=== PATIENT | male | born 1975 | race American Indian/Alaskan Native ===

== ENCOUNTER 2018-04-26 11:23 | Inpatient (IN) | payer SELFPAY ==
--- NOTE | 2018-04-26 11:53 | C.PDOC ---
History Of Present Illness Patient BIBA from home for evaluation of elevated blood sugar at home, states glucometer has been reading "high" for the last 3 days. Patient has PMhx of recent CVA 3 [place] [facility] [place] residual right sided weakness (R leg) and dysarthria. He was [place] [facility] [place], and discharged approx 1 week ago. He has also not been dialyzed for 2 weeks, has right chest dialysis port inserted. Patient is c/o right sided worsened weakness right leg, right sided pain, and right sided shaking/tremors since yest. Time Seen by Provider: 04/26/18 11:26 Chief Complaint (Nursing): High Blood Sugar Past Medical History Vital Signs: Last Vital Signs Temp 97.8 F 04/28/18 08:00 Pulse 108 H 04/28/18 10:30 Resp 0 L 04/28/18 10:30 BP 167/112 H 04/28/18 11:00 Pulse Ox 100 04/29/18 18:30 - Medical History PMH: Diabetes, HTN, End Stage Renal Disease Family History: States: Unknown Family Hx - Social History Hx Tobacco Use: No Hx Alcohol Use: Yes Hx Substance Use: No - Immunization History Hx Tetanus Toxoid Vaccination: Yes Hx Influenza Vaccination: No Hx Pneumococcal Vaccination: No Physical Exam - Physical Exam Appears: Non-toxic, Other (in mild discomfort) Skin: Normal Color, Warm, Dry Head: Atraumatic, Normacephalic Eye(s): right: PERRL, EOMI, left: Other (abnormal cornea/pupil (chronic)) Oral Mucosa: Moist Chest: Other (right upper chest Shiley catheter) Cardiovascular: Rhythm Regular Respiratory: Normal Breath Sounds, No Rales, No Rhonchi, No Wheezing Extremity: Bilateral: Atraumatic, Normal Color And Temperature, Normal ROM Neurological/Psych: Oriented x3, No Normal Speech (dysarthria (chronic)), Normal Cognition, No Normal Cranial Nerves (right tongue deviation), No Normal Motor (4/5 motor strength RLE), Normal Sensation, No Expressive Aphasia, No Receptive Aphasia, Dysarthria, No Romberg ED Course And Treatment - Laboratory Results Result Diagrams: 04/28/18 06:24 04/28/18 06:24 ECG: Interpreted By Me, Viewed By Me (NSR 99bpm, left axis deviation, T wave inversions V2, V6, peaked T waves, no acute ST changes ) ECG Interpretation: Abnormal O2 Sat by Pulse Oximetry: 100 (RA) Pulse Ox Interpretation: Normal - Radiology CXR: Interpreted by Me, Viewed By Me (B/L infiltrates vs pulm edema) Progress Note: Blood work, CT/CTA head, EKG, CXR, VBG ordered and reviewed. Patient given IV NS bolus, IV insulin, IV calcium gluconate, IV sodium bicarb. On return from CT scan, patient witnessed by nurses to have right sided tremors/ shaking, ? partial seizures - IV ativan and IV dilatin given. CXR shows B/L infiltrates vs pulm edema - broad spectrum antibiotics given. Hgb 6.5 with (+) guaiac stool. 1 Unit PRBCs ordered and IV protonix given. Discussed patient with Dr. Jones, recommends insulin drip (for possible DKA) + IV fluids. Pending call back from Dr. Carlisle/Corky for emergent hemodialysis. - Physician Consult Information Physician Contacted: Wendy Munoz Outcome Of Conversation: Discussed patient with hospitalist, agrees with admission to her service. Critical Care Time - Critical Care Note Total Time (in mins): 50 Documented critical care: time excludes all time spent performing seperately billable procedures. NIHSS Stroke Scale - Date/Time Evaluation Performed Date Performed: 04/26/18 Time Performed: 11:45 - How Severe is the Stoke Level of Consciousness: 0=Alert LOC to Questions: 1=One correct LOC to commands: 0=Obeys both correctly Best Gaze: 0=Normal Visual: 0=No visual loss Facial: 1=Minor asymmetry Motor Arm - Left: 0=No drift Motor Arm - Right: 0=No drift Motor Leg - Left: 0=No drift Motor Leg - Right: 2=Falls before 5 sec Limb Ataxia: 0=Absent Sensory: 0=Normal Best Language: 0=No aphasia Dysarthia: 1=Mild to moderate slurring Extinction & Inattention (Neglect): 0=Normal, no object Score: 5 Severity Of Stroke: 5-15= Moderate Stroke rTPA Inclusion/Exclusion - Refusal of Treatment Patient Refused Treatment: No - Inclusion Criteria for Altepase Patient is 18 years or Older: Yes The Clinical Diagnosis of Ischemic Stroke That is Causing a Potentially Disabling Neurological Deficit: No Time of Onset is Well Established to be Less Than 270 Minute Before Treatment Would Begin: No Risk/Benefit Discussed With Patient/Family Member Present: No - Exclusion Criteria for Altepase Uncontrolled Hypertension at Time of Treatment (Systolic BP above 185 or Diastolic BP above 110 mmHg): Yes - Warning to TPA With Conditions Condition: Glucose Above 400 mg/dl, Seizure at Onset of Stroke Disposition - Disposition Disposition: HOSPITALIZED Disposition Time: 13:04 Condition: SERIOUS - Clinical Impression Clinical Impression: Focal seizures, DKA (diabetic ketoacidoses), Hyperglycemia, Hyperkalemia, Severe anemia, Guaiac + stool, Dehydration, Acute on chronic renal failure, CVA (cerebral vascular accident) Decision To Admit - Pt Status Changed To: Hospital Disposition Of: Inpatient - Admit Certification Admit to Inpatient:: After my assessment, the patient will require hospitalization for at least two midnights. This is because of the severity of symptoms shown, intensity of services needed, and/or the medical risk in this patient being treated as an outpatient. - InPatient: Physician Admission Certification: I certify that this patient requires 2 or more midnights of care for the following reason:: see notes - . Bed Request Type: ICU Admitting Physician: Wendy Munoz Patient Diagnosis: Focal seizures, DKA (diabetic ketoacidoses), Hyperglycemia, Hyperkalemia, Severe anemia, Guaiac + stool, Dehydration, Acute on chronic renal failure, CVA (cerebral vascular accident)
[2018-04-26 11:55] LABS: BASO # 0.1 K/uL (0.0-0.2); BASO % 1.2 % (0.0-2.0); EOS # 0.1 K/uL (0.0-0.7); EOS % 1.8 % (0.0-4.0); LYMPH # 1.2 K/uL (1.0-4.3); LYMPH % 15.4 % (20.0-40.0); MEAN CORPUSCULAR HEMOGLOBIN 24.9 pg (27.0-31.0); MEAN CORPUSCULAR HGB CONC 32.1 g/dL (33.0-37.0); MEAN PLATELET VOLUME 8.6 fL (7.2-11.7); MONO # 0.4 K/uL (0.0-0.8); MONO % 5.6 % (0.0-10.0); NEUT # 5.8 K/uL (1.8-7.0); RBC 2.61 Mil/uL (4.40-5.90); RED CELL DISTRIBUTION WIDTH 17.5 % (11.5-14.5); WHITE BLOOD COUNT 7.6 K/uL (4.8-10.8)
[2018-04-26] MEDS ORDERED: Iodixanol 320 MG/ML 100 ML BOTTLE IV ONE (11:56)
[2018-04-26 12:04] LABS: HEMOGLOBIN 6.5 g/dL (12.0-18.0); MEAN CELL VOLUME 77.5 fL (80.0-94.0)
[2018-04-26 12:05] LABS: INR 1.1; PROTHROMBIN TIME 11.7 SECONDS (9.7-12.2)
[2018-04-26 12:06] LABS: VENOUS BLOOD GAS PCO2 32 mmHg (40-60); VENOUS BLOOD GAS PO2 28 mm/Hg (30-55); VENOUS BLOOD PH 7.25 (7.32-7.43)
--- NOTE | 2018-04-26 12:14 | CT ---
Date of service: 04/26/2018 PROCEDURE: CT HEAD WITHOUT CONTRAST. HISTORY: Code Stroke COMPARISON: None available. TECHNIQUE: Axial computed tomography images were obtained through the head/brain without intravenous contrast. Radiation dose: Total exam DLP = 1556.64 mGy-cm. This CT exam was performed using one or more of the following dose reduction techniques: Automated exposure control, adjustment of the mA and/or kV according to patient size, and/or use of iterative reconstruction technique. FINDINGS: HEMORRHAGE: No intracranial hemorrhage. BRAIN: No mass effect or edema. No atrophy or chronic microvascular ischemic changes. VENTRICLES: There is dilatation of 3rd and lateral ventricles. The 4th ventricle is normal in diameter. The findings are suggestive of a noncommunicating hydrocephalus. There is no periventricular edema to suggest acute obstruction, however. The findings may indicate chronic hydrocephalus but there is no prior examination available to corroborate this. CALVARIUM: Unremarkable. PARANASAL SINUSES: Unremarkable as visualized. No significant inflammatory changes. MASTOID AIR CELLS: Unremarkable as visualized. No inflammatory changes. OTHER FINDINGS: None. IMPRESSION: Dilatation of the 3rd and lateral ventricles without no dilatation of the 4th ventricle. The findings likely indicate a noncommunicating hydrocephalus although communicating hydrocephalus must also be considered. Patient's were reported by telephone to nurse practitioner Tara at 12:07 p.m. on 04/26/2018.
[2018-04-26] MEDS ORDERED: Sodium Chloride 0.9% 1,000 ML IV ONE ×2 (12:15→13:15)
[2018-04-26 12:18] LABS: ALBUMIN 3.9 g/dL (3.5-5.0); CALCIUM 8.4 mg/dl (8.6-10.4)
[2018-04-26] MEDS ORDERED: Calcium Gluconate 4.65 MEQ in Dextrose 5% In Water 100 ML IV STA (12:20)
[2018-04-26 12:22] LABS: CK-MB 3.89 ng/mL (0.0-3.38); TROPONIN I 0.05 ng/mL (0.00-0.120)
[2018-04-26] MEDS ORDERED: Sodium Bicarbonate (8.4%) 50 Meq Syringe IVP STA (12:22)
[2018-04-26] MEDS ORDERED: (Novolin R) Insulin Human Regular 100 units/ml vial IV STA (12:22)
[2018-04-26] MEDS ORDERED: Calcium Gluconate 4.65 mEq/10 ml Inj ONE (12:30)
[2018-04-26] MEDS ORDERED: (Novolin R) Insulin Human Regular 100 units/ml vial ONE (12:30)
[2018-04-26] MEDS ORDERED: Sodium Bicarbonate (8.4%) 50 Meq Syringe ONE (12:30)
[2018-04-26] MEDS ORDERED: Sodium Chloride 0.9% 500 ML IV ONE ×2 (12:31→12:45)
--- NOTE | 2018-04-26 12:34 | CT ---
PROCEDURE: CTA HEAD AND NECK WITH CONTRAST HISTORY: code stroke COMPARISON: None available. TECHNIQUE: Initial noncontrast head CT was performed. Subsequently, CT angiogram of the head and neck were performed after the intravenous administration of 80 mL of Omnipaque 350. Contiguous 1.5mm thick images were obtained in the axial plane of the neck. 2-D coronal and sagittal MPR images were obtained. Imaging postprocessing was performed with 3-D images also obtained. A delayed contrast head CT was also obtained. This CT exam was performed using one or more of the following dose reduction techniques: Automated exposure control, adjustment of the mA and/or kV according to patient size, and/or use of iterative reconstruction technique. Contrast dose: 100 mL Visipaque 320 Radiation dose: Total exam DLP = 547.95 mGy-cm. FINDINGS: HEAD: Right: The intracranial internal carotid artery, and anterior and middle cerebral arteries are widely patent. Left: The intracranial internal carotid artery, and anterior and middle cerebral arteries are widely patent. Posterior circulation: The visualized intracranial vertebral arteries, basilar artery and posterior cerebral arteries are widely patent. There is no endoluminal filling defect to suggest thrombus. There is no intracranial saccular aneurysm. There is no abnormal enhancement on the postcontrast CT. NECK: There is a 4 vessel aortic arch with the left vertebral artery origin 18 from the aortic arch between the left common carotid and left subclavian arteries. There is no stenosis at the origins of the great vessels at the level of the aortic arch. Right Carotid: On the right, the common carotid, internal carotid and external carotid arteries are widely patent. There is no hemodynamically significant stenosis in the internal carotid artery by NASCET criteria. Left Carotid: On the left, the common carotid, internal carotid and external carotid arteries are widely patent.There is no hemodynamically significant stenosis in the internal carotid arteries. There is no hemodynamically significant stenosis in the internal carotid artery by NASCET criteria. The vertebral arteries are widely patent. The left vertebral artery is hypoplastic, an anatomic variant. The visualized soft tissues of the neck are normal. There is confluent airspace disease in both upper lobes. IMPRESSION: 1. No evidence of endoluminal thrombus,occlusion or definite significant stenosis in the intracranial arteries. 2. No evidence of hemodynamically significant stenosis in the internal carotid arteries. 3. Patent bilateral vertebral arteries. The left vertebral artery is hypoplastic, an anatomic variant. 4. Confluent airspace disease in the visualized upper lobes of the lungs concerning for multifocal pneumonia. Please correlate with chest radiograph.
--- NOTE | 2018-04-26 13:07 | CP.PCM.CON ---
History of Present Illness - History of Present Illness History of Present Illness: Neurology Consult Note for Dr. Manzano. CC: My throat felt like it was going to close up. This patient is a 43 year old male with a past medical history of HTN, Uncontrolled Diabetes, ESRD (on Dialysis 3x per week), and recent CVA w/ Right sided residual weakness (3 weeks ago) who presents due feeling like his throat was closing up and elevated blood sugars. ROS limited due to dysarthia altered and mental status. Code Stroke called at 11:43 for this patient. Per ER staff , patient had one seizure episode after getting a Head CT. Patient does admit to right sided upper and lower ext. weakness, trouble speaking, difficulty swallowing, abdominal pain, nausea, headache, vision changes and sensory loss. Patient states he has not had dialysis in 2 weeks. PMHx: HTN, Uncontrolled Diabetes, ESRD (on Dialysis 3x per week), recent CVA w/ Right sided residual weakness (3 weeks ago) PSHx: Left Eye Surgery (2017) Allergies: NKDA SocialHx: Denies tobacco, EtoH, and illicit drug use [place] [facility] [place] FamHx: Unknown Meds: per NOV. Review of Systems - Review of Systems All systems: reviewed and no additional remarkable complaints except (As per HPI ) Review of Systems: As per HPI Past Patient History - Past Social History Smoking Status: Never Smoked - CARDIAC Hx Hypertension: Yes - NEUROLOGICAL HX Cerebrovascular Accident: Yes (2 weeks ago) - HEENT Hx Blind: Yes (l eye) - RENAL Hx Dialysis: Yes Type of Dialysis Access: (R) chest port - PSYCHIATRIC Hx Substance Use: No Meds Allergies/Adverse Reactions: Allergies Allergy/AdvReac Type Severity Reaction Status Date / Time No Known Allergies Allergy Unverified 03/22/13 11:31 - Medications Medications: Current Medications Calcium Gluconate 4.65 meq/ (Dextrose) 110 mls @ 1 mls/min IV ONCE STA Stop: 04/26/18 14:09 Last Admin: 04/26/18 12:43 Dose: 1 mls/min Sodium Chloride (Sodium Chloride 0.9%) 500 mls @ 1,000 mls/hr IV .Q30M ONE Stop: 04/26/18 13:14 Last Admin: 04/26/18 12:47 Dose: 1,000 mls/hr Pantoprazole Sodium (Protonix Inj) 40 mg IVP STAT STA Stop: 04/26/18 13:07 Physical Exam - Constitutional Appears: Toxic, In Acute Distress, Older Than Stated Age, Chronically Ill - Head Exam Head Exam: ATRAUMATIC, NORMAL INSPECTION, NORMOCEPHALIC - Eye Exam Eye Exam: absent: Conjunctival injection, Normal appearance Pupil Exam: PERRL (Right Side) Additional comments: Left Sided Pupil/Iris Abnormality (Complication from lazer surgery per patient) - ENT Exam ENT Exam: Mucous Membranes Moist - Respiratory Exam Respiratory Exam: absent: Accessory Muscle Use - Cardiovascular Exam Cardiovascular Exam: JVD, RRR, +S1, +S2 - GI/Abdominal Exam GI & Abdominal Exam: Normal Bowel Sounds, Soft, Tenderness (Epigastric/RUQ) - Extremities Exam Extremities exam: Positive for: normal inspection - Neurological Exam Neurological exam: Altered - Expanded Neurological Exam Expanded Neurological exam: Ataxia, Tremor Patient oriented to: person, place, time Speech: Garbled Speech Cranial nerves: EOM's Intact: Normal, Facial Palsey w/Forehead Movement: Normal , Facial Palsey w/o Forehead Movement: Normal, Facial Sensation: Abnormal Right Ataxia: Yes Cerebellar Function: Finger to Nose: Abnormal Left, Abnormal Right Sensory exam: Lower Extremity Light Touch: Normal, Upper Extremity Light Touch: Normal Neuro motor strength exam: Left Upper Extremity: 5, Right Upper Extremity: 4, Left Lower Extremity: 5, Right Lower Extremity: 4 DTR: Patellar Left: 2+, Patellar Right: 2+, Tricep Left: 2+, Tricep Right: 2+ Coma Scale Eye Opening: SPONTANEOUS Coma Scale Motor Response: OBEYS COMMANDS Results - Vital Signs Recent Vital Signs: Last Vital Signs Temp Pulse 102 H 04/26/18 12:17 Resp 20 04/26/18 12:17 BP 184/108 H 04/26/18 12:17 Pulse Ox 100 04/26/18 12:17 - Labs Result Diagrams: 04/26/18 11:50 04/26/18 11:50 Labs: Laboratory Results - last 24 hr 04/26/18 04/26/18 04/26/18 11:50 11:50 11:50 WBC 7.6 RBC 2.61 L Hgb 6.5 L* D Hct 20.2 L MCV 77.5 L D MCH 24.9 L MCHC 32.1 L RDW 17.5 H Plt Count 263 MPV 8.6 Neut % (Auto) 76.0 H Lymph % (Auto) 15.4 L Thomas % (Auto) 5.6 Eos % (Auto) 1.8 Baso % (Auto) 1.2 Neut # (Auto) 5.8 Lymph # (Auto) 1.2 Thomas # (Auto) 0.4 Eos # (Auto) 0.1 Baso # (Auto) 0.1 PT 11.7 INR 1.1 APTT 47 H pO2 VBG pH VBG pCO2 VBG HCO3 VBG Total CO2 VBG O2 Sat (Calc) VBG Base Excess VBG Potassium Glucose Lactate Crit Value Called To Crit Value Called By Crit Value Read Back Blood Gas Notified Time Sodium 130 L Potassium 5.9 H Chloride 97 L Carbon Dioxide 13 L Anion Gap 26 H BUN 90 H Creatinine 8.7 H* Est GFR ( Amer) 8 Est GFR (Non-Af Amer) 7 Random Glucose 806 H* D Hemoglobin A1c Serum Osmolality Calcium 8.4 L Total Bilirubin 0.5 AST 18 ALT 17 L D Alkaline Phosphatase 106 Total Creatine Kinase 559 H CK-MB (Mass) 3.89 H Troponin I 0.0500 Total Protein 7.7 Albumin 3.9 Globulin 3.7 Albumin/Globulin Ratio 1.0 Triglycerides 185 H D Cholesterol 245 H LDL Cholesterol Direct 148 H HDL Cholesterol 28 L Venous Blood Potassium Stool Occult Blood B-Hydroxybutyrate 1.93 H Blood Type Antibody Screen 04/26/18 04/26/18 04/26/18 11:50 11:50 12:01 WBC RBC Hgb Hct MCV MCH MCHC RDW Plt Count MPV Neut % (Auto) Lymph % (Auto) Thomas % (Auto) Eos % (Auto) Baso % (Auto) Neut # (Auto) Lymph # (Auto) Thomas # (Auto) Eos # (Auto) Baso # (Auto) PT INR APTT pO2 28 L VBG pH 7.25 L VBG pCO2 32 L VBG HCO3 14.0 VBG Total CO2 15.0 L VBG O2 Sat (Calc) 63.2 VBG Base Excess -12.0 L VBG Potassium 5.7 H Glucose 613 H* Lactate 1.2 Crit Value Called To Dr mell navarro Crit Value Called By Marta castro product development director Crit Value Read Back Y Blood Gas Notified Time 1210 Sodium 130.0 L Potassium Chloride 99.0 Carbon Dioxide Anion Gap BUN Creatinine Est GFR ( Amer) Est GFR (Non-Af Amer) Random Glucose Hemoglobin A1c 11.2 H D Serum Osmolality Calcium Total Bilirubin AST ALT Alkaline Phosphatase Total Creatine Kinase CK-MB (Mass) Troponin I Total Protein Albumin Globulin Albumin/Globulin Ratio Triglycerides Cholesterol LDL Cholesterol Direct HDL Cholesterol Venous Blood Potassium 5.7 H Stool Occult Blood B-Hydroxybutyrate Blood Type O POSITIVE Antibody Screen Negative 04/26/18 04/26/18 12:35 12:36 WBC RBC Hgb Hct MCV MCH MCHC RDW Plt Count MPV Neut % (Auto) Lymph % (Auto) Thomas % (Auto) Eos % (Auto) Baso % (Auto) Neut # (Auto) Lymph # (Auto) Thomas # (Auto) Eos # (Auto) Baso # (Auto) PT INR APTT pO2 VBG pH VBG pCO2 VBG HCO3 VBG Total CO2 VBG O2 Sat (Calc) VBG Base Excess VBG Potassium Glucose Lactate Crit Value Called To Crit Value Called By Crit Value Read Back Blood Gas Notified Time Sodium Potassium Chloride Carbon Dioxide Anion Gap BUN Creatinine Est GFR ( Amer) Est GFR (Non-Af Amer) Random Glucose Hemoglobin A1c Serum Osmolality 360 H Calcium Total Bilirubin AST ALT Alkaline Phosphatase Total Creatine Kinase CK-MB (Mass) Troponin I Total Protein Albumin Globulin Albumin/Globulin Ratio Triglycerides Cholesterol LDL Cholesterol Direct HDL Cholesterol Venous Blood Potassium Stool Occult Blood Positive H B-Hydroxybutyrate Blood Type Antibody Screen Assessment & Plan - Assessment and Plan (Free Text) Assessment: 43 year old male with a past medical history of HTN, Uncontrolled Diabetes, ESRD (on Dialysis 3x per week), and recent CVA w/ Right sided residual weakness (3 weeks ago) who presents due feeling like his throat was closing up and elevated blood sugars. Neurology consulted due to code stroke. Patient had witnessed seizure post head CT. Plan: 1. Code Stroke Ddx: Likely toxic metabolic encephalitis vs exacerbation of prior CVA symptoms due to hyperglyemia, acute stroke, seizure, noncommunicating hydrocephalus Head CT (Admission): Dilatation of the 3rd and lateral ventricles without no dilatation of the 4th ventricle. The findings likely indicate a noncommunicating hydrocephalus although communicating hydrocephalus must also be considered. Head/Neck CTA (Admission): 1. No evidence of endoluminal thrombus,occlusion or definite significant stenosis in the intracranial arteries. 2. No evidence of hemodynamically significant stenosis in the internal carotid arteries. 3. Patent bilateral vertebral arteries. The left vertebral artery is hypoplastic , an anatomic variant. 4. Confluent airspace disease in the visualized upper lobes of the lungs concerning for multifocal pneumonia. Please correlate with chest radiograph. -EEG -MRA of Head/Neck w/o contrast -MRI of Brain w/o contrast. -lacosamide 75 BID (Renally dosed). and 50mg 4hours post dialysis sessions. -HOB to 40 deg -Seizure precautions 2. Noncommunicating hydrocephalus -Neurosurgery Consult. All management per Dr. Natacha Simmons, PGY-2 NIHSS Stroke Scale - Date/Time Evaluation Performed Date Performed: 04/26/18 Time Performed: 11:45 - How Severe is the Stoke Level of Consciousness: 0=Alert LOC to Questions: 1=One correct LOC to commands: 0=Obeys both correctly Best Gaze: 0=Normal Visual: 0=No visual loss Facial: 1=Minor asymmetry Motor Arm - Left: 0=No drift Motor Arm - Right: 0=No drift Motor Leg - Left: 0=No drift Motor Leg - Right: 0=No drift Limb Ataxia: 1=Present Upper or Lower Sensory: 1=Mild to moderate loss Best Language: 0=No aphasia Dysarthia: 1=Mild to moderate slurring Extinction & Inattention (Neglect): 0=Normal, no object Score: 5 Severity Of Stroke: 5-15= Moderate Stroke
[2018-04-26] MEDS ORDERED: Insulin Human Regular 100 UNIT in Sodium Chloride 0.9% 99 ML IV STA ×2 (13:14→14:25)
[2018-04-26] MEDS ORDERED: Vancomycin 1 GM 1 GM/250 ML BAG IV STA (13:20)
[2018-04-26] MEDS ORDERED: Piperacill/Tazo 3.375gm in Dex 3.375 GM/50 ML BAG IVPB STA (13:21)
[2018-04-26] MEDS ORDERED: Sodium Chloride 0.9% 1,000 ML ONE (13:23)
[2018-04-26 13:30] LABS: IRON 42 ug/dL (49-181)
[2018-04-26] MEDS ORDERED: Piperacillin/Tazobact 3.375 gm 100 ML IVPB ONE (13:32)
[2018-04-26 13:39] LABS: % IRON SATURATION 15 (20-55); TOTAL IRON BINDING CAPACITY 287 ug/dL (250-450)
--- NOTE | 2018-04-26 14:11 | RAD ---
Date of service: 04/26/2018 PROCEDURE: CHEST RADIOGRAPH, 1 VIEW HISTORY: CODE STROKE COMPARISON: None available FINDINGS: LUNGS: Extensive right perihilar and right basilar opacity. Patchy opacity left upper lobe. Possible pneumonia. Rule out aspiration. PLEURA: No pneumothorax or pleural fluid seen. CARDIOVASCULAR: Normal heart size. Right tunneled central venous dialysis catheter. OSSEOUS STRUCTURES: No significant abnormalities. VISUALIZED UPPER ABDOMEN: Normal. OTHER FINDINGS: None. IMPRESSION: Bilateral opacities, right greater than left. Possible pneumonia or aspiration.
--- NOTE | 2018-04-26 14:14 | CP.PCM.CON ---
History of Present Illness - History of Present Illness History of Present Illness: This patient is a 43 year old male with a past medical history of HTN, Uncontrolled Diabetes, ESRD (on Dialysis 3x per week), and recent CVA w/ Right sided residual weakness (3 weeks ago) who presents due feeling like his throat was closing up and elevated blood sugars. ROS limited due to dysarthia altered and mental status. Code Stroke called at 11:43 for this patient. Per ER staff , patient had one seizure episode after getting a Head CT. Patient does admit to right sided upper and lower ext. weakness, trouble speaking, difficulty swallowing, abdominal pain, nausea, headache, vision changes and sensory loss. Patient states he has not had dialysis in 2 weeks. Cannot obtain further info on patient post code stroke. PMHx: HTN, Uncontrolled Diabetes, ESRD (on Dialysis 3x per week), recent CVA w/ Right sided residual weakness (3 weeks ago) PSHx: Left Eye Surgery (2017) Allergies: NKDA SocialHx: Denies tobacco, EtoH, and illicit drug use [place] [facility] [place] for [place]A FamHx: Unknown Meds: per MAR. Review of Systems - Review of Systems Systems not reviewed;Unavailable: Altered Mental Status Past Patient History - Past Medical History & Family History Past Medical History?: Yes - Past Social History Smoking Status: Never Smoked Chewing Tobacco Use: No Cigar Use: No Drugs: Denies - CARDIAC Hx Hypertension: Yes - NEUROLOGICAL HX Cerebrovascular Accident: Yes (2 weeks ago) - HEENT Hx Blind: Yes (l eye) - RENAL Hx Dialysis: Yes Type of Dialysis Access: (R) chest port - PSYCHIATRIC Hx Substance Use: No Meds Allergies/Adverse Reactions: Allergies Allergy/AdvReac Type Severity Reaction Status Date / Time No Known Allergies Allergy Unverified 03/22/13 11:31 - Medications Medications: Current Medications Insulin Human Regular 100 unit (/ Sodium Chloride) 100 mls @ 2 mls/hr IV .Q24H STA Stop: 04/27/18 13:13 Sodium Chloride (Sodium Chloride 0.9%) 1,000 mls @ 1,000 mls/hr IV .Q1H ONE Stop: 04/26/18 14:14 Last Admin: 04/26/18 13:28 Dose: 1,000 mls/hr Vancomycin HCl (Vancomycin 1gm In Normal Saline Addvantage) 1 gm in 250 mls @ 166.667 mls/hr IV STAT STA PRN Reason: Protocol Stop: 04/26/18 14:49 Lacosamide (Vimpat 200mg/20ml) 100 mg IVPB BID JOSE Pantoprazole Sodium (Protonix Inj) 40 mg IVP DAILY JOSE Physical Exam - Constitutional Appears: In Acute Distress, Confused - Neck Exam Neck exam: Positive for: Normal Inspection. Negative for: Tenderness - Respiratory Exam Respiratory Exam: Rhonchi, Respiratory Distress - Cardiovascular Exam Cardiovascular Exam: REGULAR RHYTHM, +S1 - GI/Abdominal Exam GI & Abdominal Exam: Soft. absent: Tenderness - Extremities Exam Extremities exam: Positive for: normal inspection. Negative for: tenderness - Neurological Exam Neurological exam: Altered - Skin Skin Exam: Dry, Warm Results - Vital Signs Recent Vital Signs: Last Vital Signs Temp Pulse 100 H 04/26/18 13:35 Resp 15 04/26/18 13:35 BP 184/100 H 04/26/18 13:35 Pulse Ox 100 04/26/18 13:54 - Labs Result Diagrams: 04/26/18 11:50 04/26/18 11:50 Labs: Laboratory Results - last 24 hr 04/26/18 04/26/18 04/26/18 11:26 11:50 11:50 WBC 7.6 RBC 2.61 L Hgb 6.5 L* D Hct 20.2 L MCV 77.5 L D MCH 24.9 L MCHC 32.1 L RDW 17.5 H Plt Count 263 MPV 8.6 Neut % (Auto) 76.0 H Lymph % (Auto) 15.4 L Falls % (Auto) 5.6 Eos % (Auto) 1.8 Baso % (Auto) 1.2 Neut # (Auto) 5.8 Lymph # (Auto) 1.2 Falls # (Auto) 0.4 Eos # (Auto) 0.1 Baso # (Auto) 0.1 Retic Count 1.5 PT 11.7 INR 1.1 APTT 47 H pO2 VBG pH VBG pCO2 VBG HCO3 VBG Total CO2 VBG O2 Sat (Calc) VBG Base Excess VBG Potassium Glucose Lactate Crit Value Called To Crit Value Called By Crit Value Read Back Blood Gas Notified Time Sodium Potassium Chloride Carbon Dioxide Anion Gap BUN Creatinine Est GFR ( Amer) Est GFR (Non-Af Amer) POC Glucose (mg/dL) > 500 H* Random Glucose Hemoglobin A1c Serum Osmolality Calcium Iron TIBC % Saturation Total Bilirubin AST ALT Alkaline Phosphatase Total Creatine Kinase CK-MB (Mass) Troponin I Total Protein Albumin Globulin Albumin/Globulin Ratio Triglycerides Cholesterol LDL Cholesterol Direct HDL Cholesterol Venous Blood Potassium Stool Occult Blood B-Hydroxybutyrate Blood Type Antibody Screen 04/26/18 04/26/18 04/26/18 11:50 11:50 11:50 WBC RBC Hgb Hct MCV MCH MCHC RDW Plt Count MPV Neut % (Auto) Lymph % (Auto) Falls % (Auto) Eos % (Auto) Baso % (Auto) Neut # (Auto) Lymph # (Auto) Falls # (Auto) Eos # (Auto) Baso # (Auto) Retic Count PT INR APTT pO2 VBG pH VBG pCO2 VBG HCO3 VBG Total CO2 VBG O2 Sat (Calc) VBG Base Excess VBG Potassium Glucose Lactate Crit Value Called To Crit Value Called By Crit Value Read Back Blood Gas Notified Time Sodium 130 L Potassium 5.9 H Chloride 97 L Carbon Dioxide 13 L Anion Gap 26 H BUN 90 H Creatinine 8.7 H* Est GFR ( Amer) 8 Est GFR (Non-Af Amer) 7 POC Glucose (mg/dL) Random Glucose 806 H* D Hemoglobin A1c 11.2 H D Serum Osmolality Calcium 8.4 L Iron TIBC % Saturation Total Bilirubin 0.5 AST 18 ALT 17 L D Alkaline Phosphatase 106 Total Creatine Kinase 559 H CK-MB (Mass) 3.89 H Troponin I 0.0500 Total Protein 7.7 Albumin 3.9 Globulin 3.7 Albumin/Globulin Ratio 1.0 Triglycerides 185 H D Cholesterol 245 H LDL Cholesterol Direct 148 H HDL Cholesterol 28 L Venous Blood Potassium Stool Occult Blood B-Hydroxybutyrate 1.93 H Blood Type O POSITIVE Antibody Screen Negative 04/26/18 04/26/18 04/26/18 12:01 12:35 12:36 WBC RBC Hgb Hct MCV MCH MCHC RDW Plt Count MPV Neut % (Auto) Lymph % (Auto) Falls % (Auto) Eos % (Auto) Baso % (Auto) Neut # (Auto) Lymph # (Auto) Falls # (Auto) Eos # (Auto) Baso # (Auto) Retic Count PT INR APTT pO2 28 L VBG pH 7.25 L VBG pCO2 32 L VBG HCO3 14.0 VBG Total CO2 15.0 L VBG O2 Sat (Calc) 63.2 VBG Base Excess -12.0 L VBG Potassium 5.7 H Glucose 613 H* Lactate 1.2 Crit Value Called To Dr mell navarro Crit Value Called By Marta castro emissions testing and repair technician Crit Value Read Back Y Blood Gas Notified Time 1210 Sodium 130.0 L Potassium Chloride 99.0 Carbon Dioxide Anion Gap BUN Creatinine Est GFR ( Amer) Est GFR (Non-Af Amer) POC Glucose (mg/dL) Random Glucose Hemoglobin A1c Serum Osmolality 360 H Calcium Iron TIBC % Saturation Total Bilirubin AST ALT Alkaline Phosphatase Total Creatine Kinase CK-MB (Mass) Troponin I Total Protein Albumin Globulin Albumin/Globulin Ratio Triglycerides Cholesterol LDL Cholesterol Direct HDL Cholesterol Venous Blood Potassium 5.7 H Stool Occult Blood Positive H B-Hydroxybutyrate Blood Type Antibody Screen 04/26/18 13:14 WBC RBC Hgb Hct MCV MCH MCHC RDW Plt Count MPV Neut % (Auto) Lymph % (Auto) [place] % (Auto) Eos % (Auto) Baso % (Auto) Neut # (Auto) Lymph # (Auto) [place] # (Auto) Eos # (Auto) Baso # (Auto) Retic Count PT INR APTT pO2 VBG pH VBG pCO2 VBG HCO3 VBG Total CO2 VBG O2 Sat (Calc) VBG Base Excess VBG Potassium Glucose Lactate Crit Value Called To Crit Value Called By Crit Value Read Back Blood Gas Notified Time Sodium Potassium Chloride Carbon Dioxide Anion Gap BUN Creatinine Est GFR ( Amer) Est GFR (Non-Af Amer) POC Glucose (mg/dL) Random Glucose Hemoglobin A1c Serum Osmolality Calcium Iron 42 L TIBC 287 % Saturation 15 L Total Bilirubin AST ALT Alkaline Phosphatase Total Creatine Kinase CK-MB (Mass) Troponin I Total Protein Albumin Globulin Albumin/Globulin Ratio Triglycerides Cholesterol LDL Cholesterol Direct HDL Cholesterol Venous Blood Potassium Stool Occult Blood B-Hydroxybutyrate Blood Type Antibody Screen Assessment & Plan (1) Type 2 diabetes mellitus with diabetic nephropathy Status: Acute (2) Seizure Status: Acute (3) Non-compliance with renal dialysis Status: Acute (4) Uncontrolled diabetes mellitus Status: Acute - Assessment and Plan (Free Text) Plan: dialysis NEHEMIAS control DM blood transfusion with HD neuro eval
[2018-04-26 14:40] LABS: FOLATE 12.4 ng/mL
--- NOTE | 2018-04-26 15:42 | CP.PCM.PN ---
Subjective - Date & Time of Evaluation Date of Evaluation: 04/26/18 Time of Evaluation: 15:40 - Subjective Subjective: Discussed with Dr. Fried, two physician consent obtained for dialysis. patient notes he was seeing Dr. Latif at [facility] [place] in recent hospitalization. I spoke with Dr. Larson, confirmed Dr. Latif's group did see him at [facility], wheren patient had eloped with permcath. We will need to obtain hospital records from [facility] of recent hospitalization to review prior workup. I have informed Dr. Fried confirming supervisor computer operations. Dr Latif's group will assume nephrology consult during hospitalization. Objective - Vital Signs/Intake and Output Vital Signs (last 24 hours): Temp Pulse Resp BP Pulse Ox 97.9 F 99 H 16 161/90 H 99 04/26/18 14:00 04/26/18 15:00 04/26/18 15:00 04/26/18 14:57 04/26/18 15:00 Intake and Output: 04/26/18 04/26/18 06:59 18:59 Intake Total 4 Output Total 0 Balance 4 - Medications Medications: Current Medications Insulin Human Regular 100 unit (/ Sodium Chloride) 100 mls @ 2 mls/hr IV .Q24H STA PRN Reason: Protocol Stop: 04/27/18 13:13 Last Admin: 04/26/18 14:30 Dose: 8 ml/hr, 8 mls/hr Lacosamide (Vimpat 200mg/20ml) 100 mg IVPB BID JOSE Pantoprazole Sodium (Protonix Inj) 40 mg IVP DAILY JOSE - Labs Labs: 04/26/18 11:50 04/26/18 11:50 PT 11.7 SECONDS (9.7-12.2) 04/26/18 11:50 INR 1.1 04/26/18 11:50 APTT 47 SECONDS (21-34) H 04/26/18 11:50
--- NOTE | 2018-04-26 16:03 | CP.PCM.CON ---
History of Present Illness - History of Present Illness History of Present Illness: PGY-1 Critical Care Consult note. Patient is a 43 year old male with PMHx of HTN, Uncontrolled Diabetes, ESRD ( first HD 3weeks ago), and recent CVA w/ Right sided residual weakness (3 weeks ago) who presents to ED c/o "not being able to move and feeling like I'm having a stroke." Critical care was consulted for management of encephalopathy, acute on chronic renal failure, DKA, anemia, possible GI bleed, and new focal seizures. History was obtained partially from patient and from previous medical records as patient not able to provide full history due to severity of clinical status. Patient reports that he was treated at [facility] [place] approximately 3 weeks ago for CVA. During that stay he was started on hemodialysis and had 3 sessions, however patient eloped and missed the past 2 weeks of dialysis. He also states that he ran out of insulin 2 days ago. Pt complains of headache, nausea, vomiting, double vision, and increased R sided weakness. Denies chest pain, shortness of breath, diarrhea, abdominal pain, melena, and hematuria. During present admission, a code Stroke called in the ED at 11:43 for this patient. Per ER staff, patient had one seizure episode after getting a Head CT. Unable to obtain further history due to severity of clinical condition. PMD: unable to obtain due to clinical status. PMHx: HTN, Uncontrolled Diabetes, ESRD (first HD 3weeks ago), and recent CVA w/ Right sided residual weakness (3 weeks ago) PSHx: L eye surgery Allergies: NKDA Meds: Levemir 10units HS, Novolog 6 units TID, patient unable to confirm his remaining medications due to his clinical status, will confirm with his pharmacy. Family Hx: Unable to obtain due to clinical status. Social: denies tobacco and alcohol use. Review of Systems - Review of Systems Systems not reviewed;Unavailable: Acuity of Condition Past Patient History - Past Medical History & Family History Past Medical History?: Yes - Past Social History Smoking Status: Never Smoked - CARDIAC Hx Hypertension: Yes - NEUROLOGICAL HX Cerebrovascular Accident: Yes (2 weeks ago) - HEENT Hx Blind: Yes (l eye) - RENAL Hx Dialysis: Yes Type of Dialysis Access: (R) chest port - ENDOCRINE/METABOLIC Hx Diabetes Mellitus Type 2: Yes - PSYCHIATRIC Hx Substance Use: No - ANESTHESIA Hx Anesthesia: Yes Hx Anesthesia Reactions: No Meds Allergies/Adverse Reactions: Allergies Allergy/AdvReac Type Severity Reaction Status Date / Time No Known Allergies Allergy Unverified 04/26/18 18:55 - Medications Medications: Current Medications Insulin Human Regular 100 unit (/ Sodium Chloride) 100 mls @ 2 mls/hr IV .Q24H STA PRN Reason: Protocol Stop: 04/27/18 13:13 Last Admin: 04/26/18 14:30 Dose: 8 ml/hr, 8 mls/hr Lacosamide 100 mg/ Sodium (Chloride) 110 mls @ 220 mls/hr IV Q12H JOSE Pantoprazole Sodium (Protonix Inj) 40 mg IVP DAILY JOSE Physical Exam - Constitutional Additional comments: Unable to perform complete exam due to acuity of patient condition. - Additional Findings Additional findings: Unable to complete full exam secondary to patient's clinical status. - Head Exam Head Exam: ATRAUMATIC, NORMOCEPHALIC - Eye Exam Eye Exam: EOMI (R eye ). absent: Normal appearance (L eye with corneal opacity) , PERRL (R pupil 5mm and sluggish to light. L pupil non reactive to light) - ENT Exam ENT Exam: Mucous Membranes Moist - Neck Exam Neck exam: Positive for: Full Rom, Normal Inspection - Respiratory Exam Respiratory Exam: Decreased Breath Sounds, Clear to Auscultation Bilateral. absent: Rales, Rhonchi, Wheezes - Cardiovascular Exam Cardiovascular Exam: Tachycardia, +S1, +S2 - GI/Abdominal Exam GI & Abdominal Exam: Normal Bowel Sounds, Soft. absent: Distended, Firm, Guarding, Tenderness - Extremities Exam Extremities exam: Negative for: joint swelling, pedal edema, tenderness - Neurological Exam Neurological exam: Altered Additional comments: Patient with dysarthria. Muscle strength 5/5 on L, 4/5 on R. CN 3-11 grossly intact. - Skin Skin Exam: Dry, Normal Color, Warm Results - Vital Signs Recent Vital Signs: Last Vital Signs Temp 97.2 F L 04/26/18 15:25 Pulse 100 H 04/26/18 15:25 Resp 13 04/26/18 15:25 BP 185/108 H 04/26/18 15:50 Pulse Ox 100 04/26/18 15:25 - Labs Result Diagrams: 04/26/18 20:46 04/26/18 20:46 Labs: Laboratory Results - last 24 hr 04/26/18 04/26/18 04/26/18 11:26 11:50 11:50 WBC 7.6 RBC 2.61 L Hgb 6.5 L* D Hct 20.2 L MCV 77.5 L D MCH 24.9 L MCHC 32.1 L RDW 17.5 H Plt Count 263 MPV 8.6 Neut % (Auto) 76.0 H Lymph % (Auto) 15.4 L [place] % (Auto) 5.6 Eos % (Auto) 1.8 Baso % (Auto) 1.2 Neut # (Auto) 5.8 Lymph # (Auto) 1.2 [place] # (Auto) 0.4 Eos # (Auto) 0.1 Baso # (Auto) 0.1 Retic Count 1.5 PT 11.7 INR 1.1 APTT 47 H pO2 VBG pH VBG pCO2 VBG HCO3 VBG Total CO2 VBG O2 Sat (Calc) VBG Base Excess VBG Potassium Glucose Lactate Crit Value Called To Crit Value Called By Crit Value Read Back Blood Gas Notified Time Sodium Potassium Chloride Carbon Dioxide Anion Gap BUN Creatinine Est GFR ( Amer) Est GFR (Non-Af Amer) POC Glucose (mg/dL) > 500 H* Random Glucose Hemoglobin A1c Serum Osmolality Calcium Iron TIBC % Saturation Ferritin Total Bilirubin AST ALT Alkaline Phosphatase Total Creatine Kinase CK-MB (Mass) Troponin I Total Protein Albumin Globulin Albumin/Globulin Ratio Triglycerides Cholesterol LDL Cholesterol Direct HDL Cholesterol Vitamin B12 Folate Venous Blood Potassium Stool Occult Blood B-Hydroxybutyrate Blood Type Antibody Screen 04/26/18 04/26/18 04/26/18 11:50 11:50 11:50 WBC RBC Hgb Hct MCV MCH MCHC RDW Plt Count MPV Neut % (Auto) Lymph % (Auto) [place] % (Auto) Eos % (Auto) Baso % (Auto) Neut # (Auto) Lymph # (Auto) [place] # (Auto) Eos # (Auto) Baso # (Auto) Retic Count PT INR APTT pO2 VBG pH VBG pCO2 VBG HCO3 VBG Total CO2 VBG O2 Sat (Calc) VBG Base Excess VBG Potassium Glucose Lactate Crit Value Called To Crit Value Called By Crit Value Read Back Blood Gas Notified Time Sodium 130 L Potassium 5.9 H Chloride 97 L Carbon Dioxide 13 L Anion Gap 26 H BUN 90 H Creatinine 8.7 H* Est GFR ( Amer) 8 Est GFR (Non-Af Amer) 7 POC Glucose (mg/dL) Random Glucose 806 H* D Hemoglobin A1c 11.2 H D Serum Osmolality Calcium 8.4 L Iron TIBC % Saturation Ferritin 189.0 Total Bilirubin 0.5 AST 18 ALT 17 L D Alkaline Phosphatase 106 Total Creatine Kinase 559 H CK-MB (Mass) 3.89 H Troponin I 0.0500 Total Protein 7.7 Albumin 3.9 Globulin 3.7 Albumin/Globulin Ratio 1.0 Triglycerides 185 H D Cholesterol 245 H LDL Cholesterol Direct 148 H HDL Cholesterol 28 L Vitamin B12 823 Folate 12.4 Venous Blood Potassium Stool Occult Blood B-Hydroxybutyrate 1.93 H Blood Type O POSITIVE Antibody Screen Negative 04/26/18 04/26/18 04/26/18 12:01 12:35 12:36 WBC RBC Hgb Hct MCV MCH MCHC RDW Plt Count MPV Neut % (Auto) Lymph % (Auto) [place] % (Auto) Eos % (Auto) Baso % (Auto) Neut # (Auto) Lymph # (Auto) [place] # (Auto) Eos # (Auto) Baso # (Auto) Retic Count PT INR APTT pO2 28 L VBG pH 7.25 L VBG pCO2 32 L VBG HCO3 14.0 VBG Total CO2 15.0 L VBG O2 Sat (Calc) 63.2 VBG Base Excess -12.0 L VBG Potassium 5.7 H Glucose 613 H* Lactate 1.2 Crit Value Called To Dr mell navarro Crit Value Called By Marta castro industrial court magistrate Crit Value Read Back Y Blood Gas Notified Time 1210 Sodium 130.0 L Potassium Chloride 99.0 Carbon Dioxide Anion Gap BUN Creatinine Est GFR ( Amer) Est GFR (Non-Af Amer) POC Glucose (mg/dL) Random Glucose Hemoglobin A1c Serum Osmolality 360 H Calcium Iron TIBC % Saturation Ferritin Total Bilirubin AST ALT Alkaline Phosphatase Total Creatine Kinase CK-MB (Mass) Troponin I Total Protein Albumin Globulin Albumin/Globulin Ratio Triglycerides Cholesterol LDL Cholesterol Direct HDL Cholesterol Vitamin B12 Folate Venous Blood Potassium 5.7 H Stool Occult Blood Positive H B-Hydroxybutyrate Blood Type Antibody Screen 04/26/18 04/26/18 04/26/18 13:14 14:20 15:05 WBC RBC Hgb Hct MCV MCH MCHC RDW Plt Count MPV Neut % (Auto) Lymph % (Auto) [place] % (Auto) Eos % (Auto) Baso % (Auto) Neut # (Auto) Lymph # (Auto) [place] # (Auto) Eos # (Auto) Baso # (Auto) Retic Count PT INR APTT pO2 VBG pH VBG pCO2 VBG HCO3 VBG Total CO2 VBG O2 Sat (Calc) VBG Base Excess VBG Potassium Glucose Lactate Crit Value Called To Crit Value Called By Crit Value Read Back Blood Gas Notified Time Sodium Potassium Chloride Carbon Dioxide Anion Gap BUN Creatinine Est GFR ( Amer) Est GFR (Non-Af Amer) POC Glucose (mg/dL) > 500 H* > 500 H* Random Glucose Hemoglobin A1c Serum Osmolality Calcium Iron 42 L TIBC 287 % Saturation 15 L Ferritin Total Bilirubin AST ALT Alkaline Phosphatase Total Creatine Kinase CK-MB (Mass) Troponin I Total Protein Albumin Globulin Albumin/Globulin Ratio Triglycerides Cholesterol LDL Cholesterol Direct HDL Cholesterol Vitamin B12 Folate Venous Blood Potassium Stool Occult Blood B-Hydroxybutyrate Blood Type Antibody Screen Assessment & Plan - Assessment and Plan (Free Text) Plan: 43 year old male with PMHx of HTN, Uncontrolled Diabetes, ESRD (first HD 3weeks ago), and recent CVA w/ Right sided residual weakness (3 weeks ago) who presents admitted to ICU for encephalopathy, acute on chronic renal failure, DKA , anemia, possible GI bleed, and new focal seizures. Neuro: History of CVA, new focal seizures, hydrocephalus Neurochecks Q2H CT Head: dilatation of the 3rd and lateral ventricles without no dilatation of the 4th ventricle. Likely indicate a noncommunicating hydrocephalus although communicating hydrocephalus must also be considered. (See full report.) CTA head/neck: no evidence of endoluminal thrombus, occlusion or definite significant stenosis in the intrcranial arteries. No evidence of hemodynamically significant stenosis in the ICAs. Patent bilateral vertebral arteries. The left vertebral artery is hypoplastic, an anatomic variant. Confluent airspace disease in the visualized upper lobes of the lungs concerning for multifocal pneumonia. (See full report.) Brain MRI f/u Head MRA f/u EEG f/u Neurology, Dr. Manzano, consulted. Help appreciated. Neurosurgery, Dr. Menard consulted. Help appreciated. Lancosamide 75mg Q12H Lancosamide 50mg IVP on dialysis days (4 hours after dialysis) In ED, given Ativan 2mg x1, Phenytoin 1000mg for R upper focal seizure which resolved Cardio: Maintain SBP<180, DBP<110 EKG: NSR at 99bpm, left axis deviation, T wave inversions V2, V6, peaked T waves , no acute calcium gluconate 1g IVP for cardiac membrane stablization Hydralazine 10 IV Q6H Pulm: Maintain SpO2 >95 CXR:bilateral opacities, right greater than left. Possible pnuemonia or aspiration. GI: FOBT+ GI, Dr. Serrano consulted. Help appreciated Protonix IVP daily, transfuse as needed, no plans for endoscopy at this time Renal: BUN/Cr on admission: 90/8.7 K+ 8.9 In ED, pt given Insulin IV, Sodiu bicarb IV, calcium gluconate IV BMP Q4H Nephrology, Dr. Larson consulted. Help appreciated. Emergent Dialysis Endo: Blood glucose elevated A1c: 11.2 Accuchecks Q1H Insulin drip Heme: H/H on admission: 6.5/20.2 Pt transfused 1 unit RBC with dialysis folate: 11.2 B12 852 Ferritin 167 Iron 42, low TIBC: 287 %iron saturation: 15, low reticulocyte 1.5, reticulocyte index 0.36 ->hypoproliferation obtain [facility] [place] records FOBT + GI, Dr. Serrano consulted. Help appreciated Protonix IVP daily, transfuse as needed, no plans for endoscopy at this time ID: [id number] normal procalcitonin WNL CXR:bilateral opacities, right greater than left. Possible pnuemonia or aspiration. repeat CXR Pt on Zosyn, Recieved vanco in ED PPX: SCDs. contraindication for chemical VTE. Dispo: Continue ICU management Case was reviewed and discussed with attending physician, Dr. Jones.
[2018-04-26] MEDS ORDERED: Lacosamide 200mg/20ml Inj IVP PRN (17:30)
[2018-04-26 17:34] LABS: HEPATITIS B SURFACE AG Negative (NEGATIVE)
[2018-04-26 17:51] LABS: HEPATITIS C ANTIBODY NEGATIVE (NEGATIVE)
[2018-04-26] MEDS ORDERED: Lacosamide 200mg/20ml Inj IVPB SCH (18:00)
[2018-04-26 18:05] LABS: ALB/GLOB RATIO 1.1 (1.0-2.1); ALBUMIN 3.9 g/dL (3.5-5.0); CALCIUM 8.8 mg/dl (8.6-10.4)
[2018-04-26 18:09] LABS: FOLATE 11.2 ng/mL
[2018-04-26] MEDS ORDERED: Vancomycin 1 gm/NS 200 ml 1 GM/200 ML BAG IVPB ONE (20:00)
[2018-04-26 20:52] LABS: HEMOGLOBIN 7.4 g/dL (12.0-18.0); MEAN CELL VOLUME 72.6 fL (80.0-94.0); MEAN CORPUSCULAR HEMOGLOBIN 24.4 pg (27.0-31.0); MEAN CORPUSCULAR HGB CONC 33.6 g/dL (33.0-37.0); MEAN PLATELET VOLUME 7.6 fL (7.2-11.7); PLATELET COUNT 270 K/uL (130-400); RBC 3.03 Mil/uL (4.40-5.90); RED CELL DISTRIBUTION WIDTH 17.4 % (11.5-14.5)
--- NOTE | 2018-04-26 21:15 | CP.PCM.HP ---
<Vilma Doyle P - Last Filed: 04/26/18 23:12> History of Present Illness - History of Present Illness History of Present Illness: H&P for Hospitalist service. HPI: Patient is a 43 year old male with PMHx of HTN, Uncontrolled Diabetes, ESRD (first HD 3weeks ago), and recent CVA w/ Right sided residual weakness (3 weeks ago) who presents to ED c/o "not being able to move and feeling like I'm having a stroke." Critical care was consulted for management of encephalopathy, acute on chronic renal failure, DKA, anemia, possible GI bleed, and new focal seizures. History was obtained partially from patient and from previous medical records as patient not able to provide full history due to severity of clinical status. Patient reports that he was treated at [facility] approximately 3 weeks ago for CVA. During that stay he was started on hemodialysis and had 3 sessions, however patient eloped and missed the past 2 weeks of dialysis. He also states that he ran out of insulin 2 days ago. Pt complains of headache, nausea, vomiting, double vision, and increased R sided weakness. Denies chest pain, shortness of breath, diarrhea, abdominal pain, melena, and hematuria. During present admission, a code Stroke called in the ED at 11:43 for this patient. Per ER staff, patient had one seizure episode after getting a Head CT. Unable to obtain further history due to severity of clinical condition. PMD: unable to obtain due to clinical status. PMHx: HTN, Uncontrolled Diabetes, ESRD (first HD 3weeks ago), and recent CVA w/ Right sided residual weakness (3 weeks ago) PSHx: L eye surgery Allergies: NKDA Meds: Levemir 10units HS, Novolog 6 units TID, patient unable to confirm his remaining medications due to his clinical status, will confirm with his pharmacy. Family Hx: Unable to obtain due to clinical status. Social: denies tobacco and alcohol use. Present on Admission - Present on Admission Any Indicators Present on Admission: Yes History of Uncontrolled Diabetes: Yes Review of Systems - Review of Systems Systems not reviewed;Unavailable: Acuity of Condition Past Patient History - Past Medical History & Family History Past Medical History?: Yes - Past Social History Smoking Status: Never Smoked - CARDIAC Hx Hypertension: Yes - NEUROLOGICAL HX Cerebrovascular Accident: Yes (2 weeks ago) - HEENT Hx Blind: Yes (l eye) - RENAL Hx Dialysis: Yes Type of Dialysis Access: (R) chest port - ENDOCRINE/METABOLIC Hx Diabetes Mellitus Type 2: Yes - MUSCULOSKELETAL/RHEUMATOLOGICAL Hx Falls: No - PSYCHIATRIC Hx Substance Use: No - ANESTHESIA Hx Anesthesia: Yes Hx Anesthesia Reactions: No Meds Allergies/Adverse Reactions: Allergies Allergy/AdvReac Type Severity Reaction Status Date / Time No Known Allergies Allergy Unverified 04/26/18 18:55 Physical Exam - Head Exam Head Exam: ATRAUMATIC, NORMOCEPHALIC - Eye Exam Eye Exam: EOMI (R eye ). absent: Normal appearance (L eye with corneal opacity) , PERRL (R pupil 5mm and sluggish to light. L pupil non reactive to light) - ENT Exam ENT Exam: Mucous Membranes Moist - Neck Exam Neck exam: Positive for: Full Rom, Normal Inspection - Respiratory Exam Respiratory Exam: Decreased Breath Sounds, Clear to Auscultation Bilateral. absent: Rales, Rhonchi, Wheezes - Cardiovascular Exam Cardiovascular Exam: Tachycardia, +S1, +S2 - GI/Abdominal Exam GI & Abdominal Exam: Normal Bowel Sounds, Soft. absent: Distended, Firm, Guarding, Tenderness - Extremities Exam Extremities exam: Negative for: joint swelling, pedal edema, tenderness - Neurological Exam Neurological exam: Altered Additional comments: Patient with dysarthria. Muscle strength 5/5 on L, 4/5 on R. CN 3-11 grossly intact. - Skin Skin Exam: Dry, Normal Color, Warm - Additional Findings Additional findings: Unable to complete full exam secondary to patient's clinical status. Results - Vital Signs Recent Vital Signs: Last Vital Signs Temp 98.1 F 04/26/18 17:41 Pulse 100 H 04/26/18 20:04 Resp 11 L 04/26/18 20:04 BP 165/100 H 04/26/18 20:04 Pulse Ox 96 04/26/18 20:04 - Labs Result Diagrams: 04/26/18 20:46 04/26/18 20:46 Labs: Laboratory Results - last 24 hr 04/26/18 04/26/18 04/26/18 11:26 11:50 11:50 WBC 7.6 RBC 2.61 L Hgb 6.5 L* D Hct 20.2 L MCV 77.5 L D MCH 24.9 L MCHC 32.1 L RDW 17.5 H Plt Count 263 MPV 8.6 Neut % (Auto) 76.0 H Lymph % (Auto) 15.4 L [place] % (Auto) 5.6 Eos % (Auto) 1.8 Baso % (Auto) 1.2 Neut # (Auto) 5.8 Lymph # (Auto) 1.2 [place] # (Auto) 0.4 Eos # (Auto) 0.1 Baso # (Auto) 0.1 Retic Count 1.5 PT 11.7 INR 1.1 APTT 47 H pO2 VBG pH VBG pCO2 VBG HCO3 VBG Total CO2 VBG O2 Sat (Calc) VBG Base Excess VBG Potassium Glucose Lactate Crit Value Called To Crit Value Called By Crit Value Read Back Blood Gas Notified Time Sodium Potassium Chloride Carbon Dioxide Anion Gap BUN Creatinine Est GFR ( Amer) Est GFR (Non-Af Amer) POC Glucose (mg/dL) > 500 H* Random Glucose Hemoglobin A1c Serum Osmolality Calcium Iron TIBC % Saturation Ferritin Total Bilirubin AST ALT Alkaline Phosphatase Total Creatine Kinase CK-MB (Mass) Troponin I Total Protein Albumin Globulin Albumin/Globulin Ratio Triglycerides Cholesterol LDL Cholesterol Direct HDL Cholesterol Vitamin B12 Folate Procalcitonin Venous Blood Potassium Stool Occult Blood B-Hydroxybutyrate Hep Bs Antigen Hep Bs Antibody Hepatitis C Antibody Blood Type Antibody Screen 04/26/18 04/26/18 04/26/18 11:50 11:50 11:50 WBC RBC Hgb Hct MCV MCH MCHC RDW Plt Count MPV Neut % (Auto) Lymph % (Auto) [place] % (Auto) Eos % (Auto) Baso % (Auto) Neut # (Auto) Lymph # (Auto) [place] # (Auto) Eos # (Auto) Baso # (Auto) Retic Count PT INR APTT pO2 VBG pH VBG pCO2 VBG HCO3 VBG Total CO2 VBG O2 Sat (Calc) VBG Base Excess VBG Potassium Glucose Lactate Crit Value Called To Crit Value Called By Crit Value Read Back Blood Gas Notified Time Sodium 130 L Potassium 5.9 H Chloride 97 L Carbon Dioxide 13 L Anion Gap 26 H BUN 90 H Creatinine 8.7 H* Est GFR ( Amer) 8 Est GFR (Non-Af Amer) 7 POC Glucose (mg/dL) Random Glucose 806 H* D Hemoglobin A1c 11.2 H D Serum Osmolality Calcium 8.4 L Iron TIBC % Saturation Ferritin 189.0 Total Bilirubin 0.5 AST 18 ALT 17 L D Alkaline Phosphatase 106 Total Creatine Kinase 559 H CK-MB (Mass) 3.89 H Troponin I 0.0500 Total Protein 7.7 Albumin 3.9 Globulin 3.7 Albumin/Globulin Ratio 1.0 Triglycerides 185 H D Cholesterol 245 H LDL Cholesterol Direct 148 H HDL Cholesterol 28 L Vitamin B12 823 Folate 12.4 Procalcitonin Venous Blood Potassium Stool Occult Blood B-Hydroxybutyrate 1.93 H Hep Bs Antigen Hep Bs Antibody Hepatitis C Antibody Blood Type O POSITIVE Antibody Screen Negative 04/26/18 04/26/18 04/26/18 12:01 12:24 12:35 WBC RBC Hgb Hct MCV MCH MCHC RDW Plt Count MPV Neut % (Auto) Lymph % (Auto) [place] % (Auto) Eos % (Auto) Baso % (Auto) Neut # (Auto) Lymph # (Auto) [place] # (Auto) Eos # (Auto) Baso # (Auto) Retic Count PT INR APTT pO2 28 L VBG pH 7.25 L VBG pCO2 32 L VBG HCO3 14.0 VBG Total CO2 15.0 L VBG O2 Sat (Calc) 63.2 VBG Base Excess -12.0 L VBG Potassium 5.7 H Glucose 613 H* Lactate 1.2 Crit Value Called To Dr mell navarro Crit Value Called By Marta castro web assistant Crit Value Read Back Y Blood Gas Notified Time 1210 Sodium 130.0 L Potassium Chloride 99.0 Carbon Dioxide Anion Gap BUN Creatinine Est GFR ( Amer) Est GFR (Non-Af Amer) POC Glucose (mg/dL) Random Glucose Hemoglobin A1c Serum Osmolality Calcium Iron TIBC % Saturation Ferritin 167.0 Total Bilirubin AST ALT Alkaline Phosphatase Total Creatine Kinase CK-MB (Mass) Troponin I Total Protein Albumin Globulin Albumin/Globulin Ratio Triglycerides Cholesterol LDL Cholesterol Direct HDL Cholesterol Vitamin B12 852 Folate 11.2 Procalcitonin Venous Blood Potassium 5.7 H Stool Occult Blood Positive H B-Hydroxybutyrate Hep Bs Antigen Hep Bs Antibody Hepatitis C Antibody Blood Type Antibody Screen 04/26/18 04/26/18 04/26/18 12:36 13:14 14:20 WBC RBC Hgb Hct MCV MCH MCHC RDW Plt Count MPV Neut % (Auto) Lymph % (Auto) [place] % (Auto) Eos % (Auto) Baso % (Auto) Neut # (Auto) Lymph # (Auto) [place] # (Auto) Eos # (Auto) Baso # (Auto) Retic Count PT INR APTT pO2 VBG pH VBG pCO2 VBG HCO3 VBG Total CO2 VBG O2 Sat (Calc) VBG Base Excess VBG Potassium Glucose Lactate Crit Value Called To Crit Value Called By Crit Value Read Back Blood Gas Notified Time Sodium Potassium Chloride Carbon Dioxide Anion Gap BUN Creatinine Est GFR ( Amer) Est GFR (Non-Af Amer) POC Glucose (mg/dL) > 500 H* Random Glucose Hemoglobin A1c Serum Osmolality 360 H Calcium Iron 42 L TIBC 287 % Saturation 15 L Ferritin Total Bilirubin AST ALT Alkaline Phosphatase Total Creatine Kinase CK-MB (Mass) Troponin I Total Protein Albumin Globulin Albumin/Globulin Ratio Triglycerides Cholesterol LDL Cholesterol Direct HDL Cholesterol Vitamin B12 Folate Procalcitonin Venous Blood Potassium Stool Occult Blood B-Hydroxybutyrate Hep Bs Antigen Hep Bs Antibody Hepatitis C Antibody Blood Type Antibody Screen 04/26/18 04/26/18 04/26/18 15:05 16:17 16:31 WBC RBC Hgb Hct MCV MCH MCHC RDW Plt Count MPV Neut % (Auto) Lymph % (Auto) [place] % (Auto) Eos % (Auto) Baso % (Auto) Neut # (Auto) Lymph # (Auto) [place] # (Auto) Eos # (Auto) Baso # (Auto) Retic Count PT INR APTT pO2 VBG pH VBG pCO2 VBG HCO3 VBG Total CO2 VBG O2 Sat (Calc) VBG Base Excess VBG Potassium Glucose Lactate Crit Value Called To Crit Value Called By Crit Value Read Back Blood Gas Notified Time Sodium Potassium Chloride Carbon Dioxide Anion Gap BUN Creatinine Est GFR ( Amer) Est GFR (Non-Af Amer) POC Glucose (mg/dL) > 500 H* 376 H Random Glucose Hemoglobin A1c Serum Osmolality Calcium Iron TIBC % Saturation Ferritin Total Bilirubin AST ALT Alkaline Phosphatase Total Creatine Kinase CK-MB (Mass) Troponin I Total Protein Albumin Globulin Albumin/Globulin Ratio Triglycerides Cholesterol LDL Cholesterol Direct HDL Cholesterol Vitamin B12 Folate Procalcitonin Venous Blood Potassium Stool Occult Blood B-Hydroxybutyrate Hep Bs Antigen Negative Hep Bs Antibody Hepatitis C Antibody Negative Blood Type Antibody Screen 04/26/18 04/26/18 04/26/18 16:31 17:01 17:25 WBC RBC Hgb Hct MCV MCH MCHC RDW Plt Count MPV Neut % (Auto) Lymph % (Auto) [place] % (Auto) Eos % (Auto) Baso % (Auto) Neut # (Auto) Lymph # (Auto) [place] # (Auto) Eos # (Auto) Baso # (Auto) Retic Count PT INR APTT pO2 VBG pH VBG pCO2 VBG HCO3 VBG Total CO2 VBG O2 Sat (Calc) VBG Base Excess VBG Potassium Glucose Lactate Crit Value Called To Crit Value Called By Crit Value Read Back Blood Gas Notified Time Sodium 143 Potassium 3.3 L Chloride 102 Carbon Dioxide 28 Anion Gap 17 BUN 42 H Creatinine 3.5 H Est GFR ( Amer) 23 Est GFR (Non-Af Amer) 19 POC Glucose (mg/dL) 212 H Random Glucose 162 H Hemoglobin A1c Serum Osmolality Calcium 8.8 Iron TIBC % Saturation Ferritin Total Bilirubin 0.4 AST 20 ALT 21 D Alkaline Phosphatase 88 Total Creatine Kinase CK-MB (Mass) Troponin I Total Protein 7.5 Albumin 3.9 Globulin 3.5 Albumin/Globulin Ratio 1.1 Triglycerides Cholesterol LDL Cholesterol Direct HDL Cholesterol Vitamin B12 Folate Procalcitonin Venous Blood Potassium Stool Occult Blood B-Hydroxybutyrate Hep Bs Antigen Hep Bs Antibody Negative Hepatitis C Antibody Blood Type Antibody Screen 04/26/18 Unknown WBC RBC Hgb Hct MCV MCH MCHC RDW Plt Count MPV Neut % (Auto) Lymph % (Auto) [place] % (Auto) Eos % (Auto) Baso % (Auto) Neut # (Auto) Lymph # (Auto) [place] # (Auto) Eos # (Auto) Baso # (Auto) Retic Count PT INR APTT pO2 VBG pH VBG pCO2 VBG HCO3 VBG Total CO2 VBG O2 Sat (Calc) VBG Base Excess VBG Potassium Glucose Lactate Crit Value Called To Crit Value Called By Crit Value Read Back Blood Gas Notified Time Sodium Potassium Chloride Carbon Dioxide Anion Gap BUN Creatinine Est GFR ( Amer) Est GFR (Non-Af Amer) POC Glucose (mg/dL) Random Glucose Hemoglobin A1c Serum Osmolality Calcium Iron TIBC % Saturation Ferritin Total Bilirubin AST ALT Alkaline Phosphatase Total Creatine Kinase CK-MB (Mass) Troponin I Total Protein Albumin Globulin Albumin/Globulin Ratio Triglycerides Cholesterol LDL Cholesterol Direct HDL Cholesterol Vitamin B12 Folate Procalcitonin 0.48 Venous Blood Potassium Stool Occult Blood B-Hydroxybutyrate Hep Bs Antigen Hep Bs Antibody Hepatitis C Antibody Blood Type Antibody Screen Assessment & Plan - Assessment and Plan (Free Text) Plan: 43 year old male with PMHx of HTN, Uncontrolled Diabetes, ESRD (first HD 3weeks ago), and recent CVA w/ Right sided residual weakness (3 weeks ago) who presents admitted to ICU for encephalopathy, acute on chronic renal failure, DKA , anemia, possible GI bleed, and new focal seizures. Metabolic encephalopathy Multiple possible eitiologies: history of CVA-> right sided droop, dysarthria CT Head: dilatation of the 3rd and lateral ventricles without no dilatation of the 4th ventricle. Likely indicate a noncommunicating hydrocephalus although communicating hydrocephalus must also be considered. (See full report.) CTA head/neck: no evidence of endoluminal thrombus, occlusion or definite significant stenosis in the intrcranial arteries. No evidence of hemodynamically significant stenosis in the ICAs. Patent bilateral vertebral arteries. The left vertebral artery is hypoplastic, an anatomic variant. Confluent airspace disease in the visualized upper lobes of the lungs concerning for multifocal pneumonia. (See full report.) Neurology, Dr. Manzano, consulted. Help appreciated. New focal seizures Neurology, Dr. Manzano, consulted. Help appreciated. CT Head: dilatation of the 3rd and lateral ventricles without no dilatation of the 4th ventricle. Likely indicate a noncommunicating hydrocephalus although communicating hydrocephalus must also be considered. (See full report.) CTA head/neck: no evidence of endoluminal thrombus, occlusion or definite significant stenosis in the intrcranial arteries. No evidence of hemodynamically significant stenosis in the ICAs. Patent bilateral vertebral arteries. The left vertebral artery is hypoplastic, an anatomic variant. Confluent airspace disease in the visualized upper lobes of the lungs concerning for multifocal pneumonia. (See full report.) Brain MRI f/u Head MRA f/u EEG f/u Lancosamide 75mg Q12H Lancosamide 50mg IVP on dialysis days (4 hours after dialysis) In ED, given Ativan 2mg x1, Phenytoin 1000mg for R upper focal seizure which resolved Neurochecks Q2H DKA Hx of DM Insulin drip BMP Q4H Accuchecks Q1H A1c: 11.2; not controlled Lipid panel: TG 185, CHL 245, LDL 148, HDL 28 may consider statin pending swallow eval Acute on chronic renal failure Nephrology, Dr. Larson consulted. Help appreciated. Group has seen at [facility], to resume as nephro. 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 Pneumonia CXR:bilateral opacities, right greater than left. Possible pnuemonia or aspiration. Repeat CXR f/u Echo f/u EF Legionella, mycoplasma, Strep pneumo Emergent dialysis today emperic antibiotic coverage: zosyn 2.275 Q8H Sepsis emperic antibiotic coverage: zosyn 2.275 Q8H Procalcitonin: 0.16 blood cx, urine cx may consider ID consult pending workup Anemia Acute vs. chronic, unclear folate: 11.2 B12 852 Ferritin 167 Iron 42, low TIBC: 287 %iron saturation: 15, low reticulocyte 1.5, reticulocyte index 0.36 ->hypoproliferation obtain [facility] records Guaiac + GI, Dr. Serrano consulted. Help appreciated Protonix IVP daily, transfuse as needed, no plans for endoscopy at this time Hydrocephalus Neurology, Dr. Manzano, consulted. Help appreciated. Neurosurgery, Dr. Menard consulted. Help appreciated. Possible Congestive Heart Failure Cardiac risk: DM, HTN, Lipid disorder echo f/u pending swallow eval, may consider fluid restriction emergent dialysis intake/output HTN Hydralazine 10 IV Q6H confirm home meds with patient's pharmacy Hx of recent CVA CT Head: dilatation of the 3rd and lateral ventricles without no dilatation of the 4th ventricle. Likely indicate a noncommunicating hydrocephalus although communicating hydrocephalus must also be considered. (See full report.) Brain MRI f/u Hold ASA due to possible GI bleed hold statin pending swallow eval neruology neuro checks Q2H A1c: 11.2 Lipid panel: TG 185, CHL 245, LDL 148, HDL 28 Obtain [facility] records Prophylaxis contraindication to VTE-> anemia/possible GI bleed SCDs bilaterally GI PPx: Protonix 40mg IV daily Swallow eval and treat may consider probiotic after pass swallow eval may consider fluid restriction pending swallow eval Case discussed with attending, Dr. Munoz. <Wendy Munoz V - Last Filed: 04/27/18 06:22> Results - Vital Signs Recent Vital Signs: Last Vital Signs Temp 98.2 F 04/27/18 04:00 Pulse 109 H 04/27/18 05:05 Resp 14 04/27/18 05:05 BP 165/83 H 04/27/18 05:05 Pulse Ox 98 04/26/18 23:05 - Labs Result Diagrams: 04/26/18 20:46 04/26/18 20:46 Labs: Laboratory Results - last 24 hr 04/26/18 04/26/18 04/26/18 11:26 11:50 11:50 WBC 7.6 RBC 2.61 L Hgb 6.5 L* D Hct 20.2 L MCV 77.5 L D MCH 24.9 L MCHC 32.1 L RDW 17.5 H Plt Count 263 MPV 8.6 Neut % (Auto) 76.0 H Lymph % (Auto) 15.4 L [place] % (Auto) 5.6 Eos % (Auto) 1.8 Baso % (Auto) 1.2 Neut # (Auto) 5.8 Lymph # (Auto) 1.2 [place] # (Auto) 0.4 Eos # (Auto) 0.1 Baso # (Auto) 0.1 Neutrophils % (Manual) Band Neutrophils % Lymphocytes % (Manual) Monocytes % (Manual) Eosinophils % (Manual) Platelet Estimate Hypochromasia (manual) Microcytosis (manual) Roseline Cells Retic Count 1.5 PT 11.7 INR 1.1 APTT 47 H pO2 VBG pH VBG pCO2 VBG HCO3 VBG Total CO2 VBG O2 Sat (Calc) VBG Base Excess VBG Potassium Glucose Lactate Crit Value Called To Crit Value Called By Crit Value Read Back Blood Gas Notified Time Sodium Potassium Chloride Carbon Dioxide Anion Gap BUN Creatinine Est GFR ( Amer) Est GFR (Non-Af Amer) POC Glucose (mg/dL) > 500 H* Random Glucose Hemoglobin A1c Serum Osmolality Calcium Iron TIBC % Saturation Ferritin Total Bilirubin AST ALT Alkaline Phosphatase Total Creatine Kinase CK-MB (Mass) Troponin I Total Protein Albumin Globulin Albumin/Globulin Ratio Triglycerides Cholesterol LDL Cholesterol Direct HDL Cholesterol Vitamin B12 Folate Procalcitonin Venous Blood Potassium Stool Occult Blood Urine Opiates Screen Urine Methadone Screen Ur Barbiturates Screen Ur Phencyclidine Scrn Ur Amphetamines Screen U Benzodiazepines Scrn U Oth Cocaine Metabols Alcohol, Quantitative B-Hydroxybutyrate Hep Bs Antigen Hep Bs Antibody Hepatitis C Antibody Mycoplasma pneumon IgM Blood Type Antibody Screen 04/26/18 04/26/18 04/26/18 11:50 11:50 11:50 WBC RBC Hgb Hct MCV MCH MCHC RDW Plt Count MPV Neut % (Auto) Lymph % (Auto) [place] % (Auto) Eos % (Auto) Baso % (Auto) Neut # (Auto) Lymph # (Auto) [place] # (Auto) Eos # (Auto) Baso # (Auto) Neutrophils % (Manual) Band Neutrophils % Lymphocytes % (Manual) Monocytes % (Manual) Eosinophils % (Manual) Platelet Estimate Hypochromasia (manual) Microcytosis (manual) Roseline Cells Retic Count PT INR APTT pO2 VBG pH VBG pCO2 VBG HCO3 VBG Total CO2 VBG O2 Sat (Calc) VBG Base Excess VBG Potassium Glucose Lactate Crit Value Called To Crit Value Called By Crit Value Read Back Blood Gas Notified Time Sodium 130 L Potassium 5.9 H Chloride 97 L Carbon Dioxide 13 L Anion Gap 26 H BUN 90 H Creatinine 8.7 H* Est GFR ( Amer) 8 Est GFR (Non-Af Amer) 7 POC Glucose (mg/dL) Random Glucose 806 H* D Hemoglobin A1c 11.2 H D Serum Osmolality Calcium 8.4 L Iron TIBC % Saturation Ferritin 189.0 Total Bilirubin 0.5 AST 18 ALT 17 L D Alkaline Phosphatase 106 Total Creatine Kinase 559 H CK-MB (Mass) 3.89 H Troponin I 0.0500 Total Protein 7.7 Albumin 3.9 Globulin 3.7 Albumin/Globulin Ratio 1.0 Triglycerides 185 H D Cholesterol 245 H LDL Cholesterol Direct 148 H HDL Cholesterol 28 L Vitamin B12 823 Folate 12.4 Procalcitonin Venous Blood Potassium Stool Occult Blood Urine Opiates Screen Urine Methadone Screen Ur Barbiturates Screen Ur Phencyclidine Scrn Ur Amphetamines Screen U Benzodiazepines Scrn U Oth Cocaine Metabols Alcohol, Quantitative B-Hydroxybutyrate 1.93 H Hep Bs Antigen Hep Bs Antibody Hepatitis C Antibody Mycoplasma pneumon IgM Blood Type O POSITIVE Antibody Screen Negative 04/26/18 04/26/18 04/26/18 12:01 12:24 12:35 WBC RBC Hgb Hct MCV MCH MCHC RDW Plt Count MPV Neut % (Auto) Lymph % (Auto) [place] % (Auto) Eos % (Auto) Baso % (Auto) Neut # (Auto) Lymph # (Auto) [place] # (Auto) Eos # (Auto) Baso # (Auto) Neutrophils % (Manual) Band Neutrophils % Lymphocytes % (Manual) Monocytes % (Manual) Eosinophils % (Manual) Platelet Estimate Hypochromasia (manual) Microcytosis (manual) Roseline Cells Retic Count PT INR APTT pO2 28 L VBG pH 7.25 L VBG pCO2 32 L VBG HCO3 14.0 VBG Total CO2 15.0 L VBG O2 Sat (Calc) 63.2 VBG Base Excess -12.0 L VBG Potassium 5.7 H Glucose 613 H* Lactate 1.2 Crit Value Called To Dr mell navarro Crit Value Called By Marta castro web assistant Crit Value Read Back Y Blood Gas Notified Time 1210 Sodium 130.0 L Potassium Chloride 99.0 Carbon Dioxide Anion Gap BUN Creatinine Est GFR ( Amer) Est GFR (Non-Af Amer) POC Glucose (mg/dL) Random Glucose Hemoglobin A1c Serum Osmolality Calcium Iron TIBC % Saturation Ferritin 167.0 Total Bilirubin AST ALT Alkaline Phosphatase Total Creatine Kinase CK-MB (Mass) Troponin I Total Protein Albumin Globulin Albumin/Globulin Ratio Triglycerides Cholesterol LDL Cholesterol Direct HDL Cholesterol Vitamin B12 852 Folate 11.2 Procalcitonin Venous Blood Potassium 5.7 H Stool Occult Blood Positive H Urine Opiates Screen Urine Methadone Screen Ur Barbiturates Screen Ur Phencyclidine Scrn Ur Amphetamines Screen U Benzodiazepines Scrn U Oth Cocaine Metabols Alcohol, Quantitative B-Hydroxybutyrate Hep Bs Antigen Hep Bs Antibody Hepatitis C Antibody Mycoplasma pneumon IgM Blood Type Antibody Screen 04/26/18 04/26/18 04/26/18 12:36 13:14 14:20 WBC RBC Hgb Hct MCV MCH MCHC RDW Plt Count MPV Neut % (Auto) Lymph % (Auto) [place] % (Auto) Eos % (Auto) Baso % (Auto) Neut # (Auto) Lymph # (Auto) [place] # (Auto) Eos # (Auto) Baso # (Auto) Neutrophils % (Manual) Band Neutrophils % Lymphocytes % (Manual) Monocytes % (Manual) Eosinophils % (Manual) Platelet Estimate Hypochromasia (manual) Microcytosis (manual) [place] Cells Retic Count PT INR APTT pO2 VBG pH VBG pCO2 VBG HCO3 VBG Total CO2 VBG O2 Sat (Calc) VBG Base Excess VBG Potassium Glucose Lactate Crit Value Called To Crit Value Called By Crit Value Read Back Blood Gas Notified Time Sodium Potassium Chloride Carbon Dioxide Anion Gap BUN Creatinine Est GFR ( Amer) Est GFR (Non-Af Amer) POC Glucose (mg/dL) > 500 H* Random Glucose Hemoglobin A1c Serum Osmolality 360 H Calcium Iron 42 L TIBC 287 % Saturation 15 L Ferritin Total Bilirubin AST ALT Alkaline Phosphatase Total Creatine Kinase CK-MB (Mass) Troponin I Total Protein Albumin Globulin Albumin/Globulin Ratio Triglycerides Cholesterol LDL Cholesterol Direct HDL Cholesterol Vitamin B12 Folate Procalcitonin Venous Blood Potassium Stool Occult Blood Urine Opiates Screen Urine Methadone Screen Ur Barbiturates Screen Ur Phencyclidine Scrn Ur Amphetamines Screen U Benzodiazepines Scrn U Oth Cocaine Metabols Alcohol, Quantitative B-Hydroxybutyrate Hep Bs Antigen Hep Bs Antibody Hepatitis C Antibody Mycoplasma pneumon IgM Blood Type Antibody Screen 04/26/18 04/26/18 04/26/18 15:05 16:17 16:31 WBC RBC Hgb Hct MCV MCH MCHC RDW Plt Count MPV Neut % (Auto) Lymph % (Auto) [place] % (Auto) Eos % (Auto) Baso % (Auto) Neut # (Auto) Lymph # (Auto) [place] # (Auto) Eos # (Auto) Baso # (Auto) Neutrophils % (Manual) Band Neutrophils % Lymphocytes % (Manual) Monocytes % (Manual) Eosinophils % (Manual) Platelet Estimate Hypochromasia (manual) Microcytosis (manual) Roseline Cells Retic Count PT INR APTT pO2 VBG pH VBG pCO2 VBG HCO3 VBG Total CO2 VBG O2 Sat (Calc) VBG Base Excess VBG Potassium Glucose Lactate Crit Value Called To Crit Value Called By Crit Value Read Back Blood Gas Notified Time Sodium Potassium Chloride Carbon Dioxide Anion Gap BUN Creatinine Est GFR ( Amer) Est GFR (Non-Af Amer) POC Glucose (mg/dL) > 500 H* 376 H Random Glucose Hemoglobin A1c Serum Osmolality Calcium Iron TIBC % Saturation Ferritin Total Bilirubin AST ALT Alkaline Phosphatase Total Creatine Kinase CK-MB (Mass) Troponin I Total Protein Albumin Globulin Albumin/Globulin Ratio Triglycerides Cholesterol LDL Cholesterol Direct HDL Cholesterol Vitamin B12 Folate Procalcitonin Venous Blood Potassium Stool Occult Blood Urine Opiates Screen Urine Methadone Screen Ur Barbiturates Screen Ur Phencyclidine Scrn Ur Amphetamines Screen U Benzodiazepines Scrn U Oth Cocaine Metabols Alcohol, Quantitative B-Hydroxybutyrate Hep Bs Antigen Negative Hep Bs Antibody Hepatitis C Antibody Negative Mycoplasma pneumon IgM Blood Type Antibody Screen 04/26/18 04/26/18 04/26/18 16:31 17:01 17:25 WBC RBC Hgb Hct MCV MCH MCHC RDW Plt Count MPV Neut % (Auto) Lymph % (Auto) [place] % (Auto) Eos % (Auto) Baso % (Auto) Neut # (Auto) Lymph # (Auto) [place] # (Auto) Eos # (Auto) Baso # (Auto) Neutrophils % (Manual) Band Neutrophils % Lymphocytes % (Manual) Monocytes % (Manual) Eosinophils % (Manual) Platelet Estimate Hypochromasia (manual) Microcytosis (manual) [place] Cells Retic Count PT INR APTT pO2 VBG pH VBG pCO2 VBG HCO3 VBG Total CO2 VBG O2 Sat (Calc) VBG Base Excess VBG Potassium Glucose Lactate Crit Value Called To Crit Value Called By Crit Value Read Back Blood Gas Notified Time Sodium 143 Potassium 3.3 L Chloride 102 Carbon Dioxide 28 Anion Gap 17 BUN 42 H Creatinine 3.5 H Est GFR ( Amer) 23 Est GFR (Non-Af Amer) 19 POC Glucose (mg/dL) 212 H Random Glucose 162 H Hemoglobin A1c Serum Osmolality Calcium 8.8 Iron TIBC % Saturation Ferritin Total Bilirubin 0.4 AST 20 ALT 21 D Alkaline Phosphatase 88 Total Creatine Kinase CK-MB (Mass) Troponin I Total Protein 7.5 Albumin 3.9 Globulin 3.5 Albumin/Globulin Ratio 1.1 Triglycerides Cholesterol LDL Cholesterol Direct HDL Cholesterol Vitamin B12 Folate Procalcitonin Venous Blood Potassium Stool Occult Blood Urine Opiates Screen Urine Methadone Screen Ur Barbiturates Screen Ur Phencyclidine Scrn Ur Amphetamines Screen U Benzodiazepines Scrn U Oth Cocaine Metabols Alcohol, Quantitative B-Hydroxybutyrate Hep Bs Antigen Hep Bs Antibody Negative Hepatitis C Antibody Mycoplasma pneumon IgM Blood Type Antibody Screen 04/26/18 04/26/18 04/26/18 17:56 18:56 19:54 WBC RBC Hgb Hct MCV MCH MCHC RDW Plt Count MPV Neut % (Auto) Lymph % (Auto) [place] % (Auto) Eos % (Auto) Baso % (Auto) Neut # (Auto) Lymph # (Auto) [place] # (Auto) Eos # (Auto) Baso # (Auto) Neutrophils % (Manual) Band Neutrophils % Lymphocytes % (Manual) Monocytes % (Manual) Eosinophils % (Manual) Platelet Estimate Hypochromasia (manual) Microcytosis (manual) [place] Cells Retic Count PT INR APTT pO2 VBG pH VBG pCO2 VBG HCO3 VBG Total CO2 VBG O2 Sat (Calc) VBG Base Excess VBG Potassium Glucose Lactate Crit Value Called To Crit Value Called By Crit Value Read Back Blood Gas Notified Time Sodium Potassium Chloride Carbon Dioxide Anion Gap BUN Creatinine Est GFR ( Amer) Est GFR (Non-Af Amer) POC Glucose (mg/dL) 126 H 87 89 Random Glucose Hemoglobin A1c Serum Osmolality Calcium Iron TIBC % Saturation Ferritin Total Bilirubin AST ALT Alkaline Phosphatase Total Creatine Kinase CK-MB (Mass) Troponin I Total Protein Albumin Globulin Albumin/Globulin Ratio Triglycerides Cholesterol LDL Cholesterol Direct HDL Cholesterol Vitamin B12 Folate Procalcitonin Venous Blood Potassium Stool Occult Blood Urine Opiates Screen Urine Methadone Screen Ur Barbiturates Screen Ur Phencyclidine Scrn Ur Amphetamines Screen U Benzodiazepines Scrn U Oth Cocaine Metabols Alcohol, Quantitative B-Hydroxybutyrate Hep Bs Antigen Hep Bs Antibody Hepatitis C Antibody Mycoplasma pneumon IgM Blood Type Antibody Screen 04/26/18 04/26/18 04/26/18 20:46 20:46 20:46 WBC RBC Hgb Hct MCV MCH MCHC RDW Plt Count MPV Neut % (Auto) Lymph % (Auto) [place] % (Auto) Eos % (Auto) Baso % (Auto) Neut # (Auto) Lymph # (Auto) [place] # (Auto) Eos # (Auto) Baso # (Auto) Neutrophils % (Manual) Band Neutrophils % Lymphocytes % (Manual) Monocytes % (Manual) Eosinophils % (Manual) Platelet Estimate Hypochromasia (manual) Microcytosis (manual) [place] Cells Retic Count PT INR APTT pO2 VBG pH VBG pCO2 VBG HCO3 VBG Total CO2 VBG O2 Sat (Calc) VBG Base Excess VBG Potassium Glucose Lactate Crit Value Called To Crit Value Called By Crit Value Read Back Blood Gas Notified Time Sodium 140 Potassium 3.4 L Chloride 100 Carbon Dioxide 26 Anion Gap 18 BUN 28 H Creatinine 3.3 H Est GFR ( Amer) 25 Est GFR (Non-Af Amer) 21 POC Glucose (mg/dL) Random Glucose 115 H Hemoglobin A1c Serum Osmolality Calcium 8.7 Iron TIBC % Saturation Ferritin Total Bilirubin 0.8 AST 26 ALT 20 L Alkaline Phosphatase 101 Total Creatine Kinase CK-MB (Mass) Troponin I Total Protein 7.3 Albumin 3.8 Globulin 3.5 Albumin/Globulin Ratio 1.1 Triglycerides Cholesterol LDL Cholesterol Direct HDL Cholesterol Vitamin B12 Folate Procalcitonin 0.16 L Venous Blood Potassium Stool Occult Blood Urine Opiates Screen Urine Methadone Screen Ur Barbiturates Screen Ur Phencyclidine Scrn Ur Amphetamines Screen U Benzodiazepines Scrn U Oth Cocaine Metabols Alcohol, Quantitative B-Hydroxybutyrate Hep Bs Antigen Hep Bs Antibody Hepatitis C Antibody Mycoplasma pneumon IgM Negative Blood Type Antibody Screen 04/26/18 04/26/18 04/26/18 20:46 20:46 21:05 WBC 10.0 RBC 3.03 L Hgb 7.4 L Hct 22.0 L MCV 72.6 L D MCH 24.4 L MCHC 33.6 RDW 17.4 H Plt Count 270 MPV 7.6 Neut % (Auto) Lymph % (Auto) [place] % (Auto) Eos % (Auto) Baso % (Auto) Neut # (Auto) Lymph # (Auto) [place] # (Auto) Eos # (Auto) Baso # (Auto) Neutrophils % (Manual) 80 H Band Neutrophils % 1 Lymphocytes % (Manual) 9 L Monocytes % (Manual) 9 Eosinophils % (Manual) 1 Platelet Estimate Normal Hypochromasia (manual) Moderate Microcytosis (manual) Slight [place] Cells Slight Retic Count PT INR APTT pO2 VBG pH VBG pCO2 VBG HCO3 VBG Total CO2 VBG O2 Sat (Calc) VBG Base Excess VBG Potassium Glucose Lactate Crit Value Called To Crit Value Called By Crit Value Read Back Blood Gas Notified Time Sodium Potassium Chloride Carbon Dioxide Anion Gap BUN Creatinine Est GFR ( Amer) Est GFR (Non-Af Amer) POC Glucose (mg/dL) 120 H Random Glucose Hemoglobin A1c Serum Osmolality Calcium Iron TIBC % Saturation Ferritin Total Bilirubin AST ALT Alkaline Phosphatase Total Creatine Kinase CK-MB (Mass) Troponin I Total Protein Albumin Globulin Albumin/Globulin Ratio Triglycerides Cholesterol LDL Cholesterol Direct HDL Cholesterol Vitamin B12 Folate Procalcitonin Venous Blood Potassium Stool Occult Blood Urine Opiates Screen Urine Methadone Screen Ur Barbiturates Screen Ur Phencyclidine Scrn Ur Amphetamines Screen U Benzodiazepines Scrn U Oth Cocaine Metabols Alcohol, Quantitative < 10 B-Hydroxybutyrate Hep Bs Antigen Hep Bs Antibody Hepatitis C Antibody Mycoplasma pneumon IgM Blood Type Antibody Screen 04/26/18 04/26/18 04/26/18 21:58 23:40 Unknown WBC RBC Hgb Hct MCV MCH MCHC RDW Plt Count MPV Neut % (Auto) Lymph % (Auto) [place] % (Auto) Eos % (Auto) Baso % (Auto) Neut # (Auto) Lymph # (Auto) [place] # (Auto) Eos # (Auto) Baso # (Auto) Neutrophils % (Manual) Band Neutrophils % Lymphocytes % (Manual) Monocytes % (Manual) Eosinophils % (Manual) Platelet Estimate Hypochromasia (manual) Microcytosis (manual) [place] Cells Retic Count PT INR APTT pO2 VBG pH VBG pCO2 VBG HCO3 VBG Total CO2 VBG O2 Sat (Calc) VBG Base Excess VBG Potassium Glucose Lactate Crit Value Called To Crit Value Called By Crit Value Read Back Blood Gas Notified Time Sodium Potassium Chloride Carbon Dioxide Anion Gap BUN Creatinine Est GFR ( Amer) Est GFR (Non-Af Amer) POC Glucose (mg/dL) 145 H 175 H Random Glucose Hemoglobin A1c Serum Osmolality Calcium Iron TIBC % Saturation Ferritin Total Bilirubin AST ALT Alkaline Phosphatase Total Creatine Kinase CK-MB (Mass) Troponin I Total Protein Albumin Globulin Albumin/Globulin Ratio Triglycerides Cholesterol LDL Cholesterol Direct HDL Cholesterol Vitamin B12 Folate Procalcitonin 0.48 Venous Blood Potassium Stool Occult Blood Urine Opiates Screen Urine Methadone Screen Ur Barbiturates Screen Ur Phencyclidine Scrn Ur Amphetamines Screen U Benzodiazepines Scrn U Oth Cocaine Metabols Alcohol, Quantitative B-Hydroxybutyrate Hep Bs Antigen Hep Bs Antibody Hepatitis C Antibody Mycoplasma pneumon IgM Blood Type Antibody Screen 04/27/18 04/27/18 04/27/18 00:58 03:26 05:08 WBC RBC Hgb Hct MCV MCH MCHC RDW Plt Count MPV Neut % (Auto) Lymph % (Auto) [place] % (Auto) Eos % (Auto) Baso % (Auto) Neut # (Auto) Lymph # (Auto) [place] # (Auto) Eos # (Auto) Baso # (Auto) Neutrophils % (Manual) Band Neutrophils % Lymphocytes % (Manual) Monocytes % (Manual) Eosinophils % (Manual) Platelet Estimate Hypochromasia (manual) Microcytosis (manual) [place] Cells Retic Count PT INR APTT pO2 VBG pH VBG pCO2 VBG HCO3 VBG Total CO2 VBG O2 Sat (Calc) VBG Base Excess VBG Potassium Glucose Lactate Crit Value Called To Crit Value Called By Crit Value Read Back Blood Gas Notified Time Sodium Potassium Chloride Carbon Dioxide Anion Gap BUN Creatinine Est GFR ( Amer) Est GFR (Non-Af Amer) POC Glucose (mg/dL) 223 H 270 H 315 H Random Glucose Hemoglobin A1c Serum Osmolality Calcium Iron TIBC % Saturation Ferritin Total Bilirubin AST ALT Alkaline Phosphatase Total Creatine Kinase CK-MB (Mass) Troponin I Total Protein Albumin Globulin Albumin/Globulin Ratio Triglycerides Cholesterol LDL Cholesterol Direct HDL Cholesterol Vitamin B12 Folate Procalcitonin Venous Blood Potassium Stool Occult Blood Urine Opiates Screen Urine Methadone Screen Ur Barbiturates Screen Ur Phencyclidine Scrn Ur Amphetamines Screen U Benzodiazepines Scrn U Oth Cocaine Metabols Alcohol, Quantitative B-Hydroxybutyrate Hep Bs Antigen Hep Bs Antibody Hepatitis C Antibody Mycoplasma pneumon IgM Blood Type Antibody Screen 04/27/18 05:50 WBC RBC Hgb Hct MCV MCH MCHC RDW Plt Count MPV Neut % (Auto) Lymph % (Auto) [place] % (Auto) Eos % (Auto) Baso % (Auto) Neut # (Auto) Lymph # (Auto) [place] # (Auto) Eos # (Auto) Baso # (Auto) Neutrophils % (Manual) Band Neutrophils % Lymphocytes % (Manual) Monocytes % (Manual) Eosinophils % (Manual) Platelet Estimate Hypochromasia (manual) Microcytosis (manual) [place] Cells Retic Count PT INR APTT pO2 VBG pH VBG pCO2 VBG HCO3 VBG Total CO2 VBG O2 Sat (Calc) VBG Base Excess VBG Potassium Glucose Lactate Crit Value Called To Crit Value Called By Crit Value Read Back Blood Gas Notified Time Sodium Potassium Chloride Carbon Dioxide Anion Gap BUN Creatinine Est GFR ( Amer) Est GFR (Non-Af Amer) POC Glucose (mg/dL) Random Glucose Hemoglobin A1c Serum Osmolality Calcium Iron TIBC % Saturation Ferritin Total Bilirubin AST ALT Alkaline Phosphatase Total Creatine Kinase CK-MB (Mass) Troponin I Total Protein Albumin Globulin Albumin/Globulin Ratio Triglycerides Cholesterol LDL Cholesterol Direct HDL Cholesterol Vitamin B12 Folate Procalcitonin Venous Blood Potassium Stool Occult Blood Urine Opiates Screen Negative Urine Methadone Screen Negative Ur Barbiturates Screen Negative Ur Phencyclidine Scrn Negative Ur Amphetamines Screen Negative U Benzodiazepines Scrn Negative U Oth Cocaine Metabols Negative Alcohol, Quantitative B-Hydroxybutyrate Hep Bs Antigen Hep Bs Antibody Hepatitis C Antibody Mycoplasma pneumon IgM Blood Type Antibody Screen Attending/Attestation - Attestation I have personally seen and examined this patient.: Yes I have fully participated in the care of the patient.: Yes I have reviewed all pertinent clinical information: Yes Notes (Text): This is late computer entry for 04/26/18. Patient seen and case discussed with medical/surgery registered nurse. Patient accompanied by minor son at bedside. We are awaiting for patient's sister, Jordyn to come to the hospital. Patient with apparent right facial droop and dysarthria, with new onset focial seizure (right upper extremity). ED provided Ativan 2mg IV and Dilantin loading dose to stop seizure. Patient given dose of Zosyn empiricially and will receive Vancomycin post dialysis today. Patient to receive 1 unit of PRBC during dialysis today. In addition to assessment/plan noted by resident additional information noted below. per ED triage noted elevated sugars >300 for 3 days, hypertension with multiple comorbidities noted in resident note. Patient was recent elopement from [facility] from 04/10/18. Patient at that hospitalization was admitted to the unit for subdural/epidural hemorrhage secondary hypertensive urgency requiring neurosurgical evaluation, as well as emergent dialysis which was initiated by the [facility]. However, patient eloped on 04/10/[address]. It is likely patient has been without dialysis since his elopement. Patient goes to [facility] [place]. Patient history limited given his clinic state. 2 physician consent obtained for dialysis with Dr. Fried; Dr. Latif's group to assume nephrology role during hospitalization. Case discussed with ICU/ICU resident/ED physician/nephrology.
[2018-04-26 21:21] LABS: ALB/GLOB RATIO 1.1 (1.0-2.1); ALBUMIN 3.8 g/dL (3.5-5.0); CALCIUM 8.7 mg/dl (8.6-10.4)
[2018-04-26 21:42] LABS: BANDS 1 % (0-2); EOSINOPHIL 1 % (0-4); HYPOCHROMIC MODERATE; LYMPHOCYTE 9 % (20-40); MICROCYTOSIS SLIGHT; MONOCYTE 9 % (0-10); NEUTROPHIL 80 % (50-75); PLATELET ESTIMATE NORMAL (NORMAL); TOTAL CELLS COUNTED 100
[2018-04-26 21:43] LABS: BURR CELLS SLIGHT
[2018-04-26] MEDS: SODIUM CHLORIDE 0.9% IV SCH (22:09)
[2018-04-26] MEDS: LACOSAMIDE IV SCH (22:09)
[2018-04-26] MEDS: Piperacill/Tazo 2.25gm in Dex 2.25 GM/50 ML BAG IVPB SCH (22:10)
[2018-04-27] MEDS: Piperacill/Tazo 2.25gm in Dex 2.25 GM/50 ML BAG IVPB SCH ×2 (05:33→12:55)
[2018-04-27 06:14] LABS: BARBITURATES, UR NEGATIVE (NEGATIVE); BENZODIAZEPINES, UR NEGATIVE (NEGATIVE); OPIATES, UR NEGATIVE (NEGATIVE); PHENCYCLIDINE, UR NEGATIVE (NEGATIVE)
[2018-04-27 06:16] LABS: SQUAMOUS EPITHIAL < 1 /hpf (0-5); URINE BACTERIA RARE (<OCC); URINE BILIRUBIN NEGATIVE (NEGATIVE); URINE BLOOD 2+ (NEGATIVE); URINE CLARITY Hazy (Clear); URINE COLOR Yellow (YELLOW); URINE GLUCOSE (UA) 3+ mg/dL (Normal); URINE LEUKOCYTE ESTERASE NEG Leu/uL (Negative); URINE PROTEIN 3+ mg/dL (NEGATIVE); URINE UROBILINOGEN NORMAL mg/dL (0.2-1.0)
[2018-04-27 06:29] LABS: ALB/GLOB RATIO 1.1 (1.0-2.1); ALBUMIN 3.7 g/dL (3.5-5.0); CALCIUM 8.4 mg/dl (8.6-10.4)
--- NOTE | 2018-04-27 06:56 | CP.PCM.CON ---
<David Whatley - Last Filed: 04/27/18 08:29> History of Present Illness - History of Present Illness History of Present Illness: pGY-4 GI Fellow Initial Consult Note Mr. Rascon is a 43 yo male with h/o ESRD, DM, CVA (with R sided deficits), HTN presenting with complaint of generalized weakness "like I was having a stroke." He was recently admitted to [facility] 3 weeks ago where he was started on HD and had suffered the aforementioned CVA. He ran out of insulin a few days ago. In the ED, code stroke was called an while in CT, he had new onset seizures. Lab w/u revealed DKA. Pt was subsequently admitted to ICU for further management. GI was ultimately consulted after Hgb was found to be 6.5 ( last values 12 in 2014) and stool occult positive. During my enounter, he states that he is feeling somewhat better since admission after undergoing HD, getting blood tranfusion and insulin gtt. As far as BMs he states that he does not look at his stool often. He reported some constipation after not moving his bowels in 2-3 days. Therefore, he took a laxative and then has 5 episodes of diarrhea that he though was brown. He denied any abd pain, weight loss, dysphagia, family history of cancer/GI issues nor hematemesis. 12 point ROS negative other than stated above MHx: See above SurgHx: Eye surgery Meds: Levemir, novolog FamHx: Denied GI/liver problems/CA SocHx: Denied Tob and Illicits All: NKDA Past Patient History - Past Medical History & Family History Past Medical History?: Yes - Past Social History Smoking Status: Never Smoked - CARDIAC Hx Hypertension: Yes - NEUROLOGICAL HX Cerebrovascular Accident: Yes (2 weeks ago) - HEENT Hx Blind: Yes (l eye) - RENAL Hx Dialysis: Yes Type of Dialysis Access: (R) chest port - ENDOCRINE/METABOLIC Hx Diabetes Mellitus Type 2: Yes - MUSCULOSKELETAL/RHEUMATOLOGICAL Hx Falls: No - PSYCHIATRIC Hx Substance Use: No - ANESTHESIA Hx Anesthesia: Yes Hx Anesthesia Reactions: No Meds Allergies/Adverse Reactions: Allergies Allergy/AdvReac Type Severity Reaction Status Date / Time No Known Allergies Allergy Unverified 04/26/18 18:55 - Medications Medications: Current Medications Hydralazine HCl (Apresoline) 10 mg IVP Q6H [facility] Last Admin: 04/27/18 03:27 Dose: 10 mg Insulin Human Regular 100 unit (/ Sodium Chloride) 100 mls @ 2 mls/hr IV .Q24H STA PRN Reason: Protocol Stop: 04/27/18 13:13 Last Titration: 04/27/18 06:21 Dose: 4 ml/hr, 4 mls/hr Lacosamide 75 mg/ Sodium (Chloride) 107.5 mls @ 220 mls/hr IV Q12H [facility] Last Admin: 04/26/18 22:09 Dose: 220 mls/hr Piperacillin Sod/Tazobactam Sod (Zosyn 2.25 Gm Iv Premix) 2.25 gm in 50 mls @ 100 mls/hr IVPB Q8H JOSE PRN Reason: Protocol Last Admin: 04/27/18 05:33 Dose: 100 mls/hr Lacosamide (Vimpat 200mg/20ml) 50 mg IVP PRN PRN PRN Reason: anti-seizure post dialysis. Pantoprazole Sodium (Protonix Inj) 40 mg IVP DAILY [facility] Pneumococcal Polyvalent Vaccine (Pneumovax 23 Vaccine) 0.5 ml IM .ONCE ONE Stop: 04/28/18 10:01 Physical Exam - Constitutional Appears: Well, Non-toxic, Older Than Stated Age - Head Exam Head Exam: ATRAUMATIC, NORMAL INSPECTION - Eye Exam Eye Exam: EOMI. absent: Conjunctival injection, Scleral icterus Additional comments: L eye cataract - ENT Exam ENT Exam: Mucous Membranes Dry, Normal External Ear Exam. absent: Mucous Membranes Moist - Respiratory Exam Respiratory Exam: Clear to Auscultation Bilateral, NORMAL BREATHING PATTERN. absent: Accessory Muscle Use, Prolonged Expiratory Phase, Wheezes - Cardiovascular Exam Cardiovascular Exam: REGULAR RHYTHM, RRR. absent: Bradycardia, Tachycardia - GI/Abdominal Exam GI & Abdominal Exam: Normal Bowel Sounds, Soft. absent: Bruit, Diminished Bowel Sounds, Distended, Firm, Guarding, Hernia, Organomegaly, Pulsatile Mass, Rebound, Rigid, Tenderness - Rectal Exam Rectal Exam: NORMAL INSPECTION Additional comments: Brown stool on LEONARD - Neurological Exam Neurological exam: Alert, CN II-XII Intact, Oriented x3 - Psychiatric Exam Psychiatric exam: Normal Affect, Normal Mood - Skin Skin Exam: Normal Color, Warm Additional comments: R CVC Results - Vital Signs Recent Vital Signs: Last Vital Signs Temp 98.2 F 04/27/18 04:00 Pulse 103 H 04/27/18 06:21 Resp 15 04/27/18 06:21 BP 179/105 H 04/27/18 06:21 Pulse Ox 98 04/26/18 23:05 - Labs Result Diagrams: 04/27/18 05:47 04/27/18 05:39 Labs: Laboratory Results - last 24 hr 04/26/18 04/26/18 04/26/18 11:26 11:50 11:50 WBC 7.6 RBC 2.61 L Hgb 6.5 L* D Hct 20.2 L MCV 77.5 L D MCH 24.9 L MCHC 32.1 L RDW 17.5 H Plt Count 263 MPV 8.6 Neut % (Auto) 76.0 H Lymph % (Auto) 15.4 L Pettis % (Auto) 5.6 Eos % (Auto) 1.8 Baso % (Auto) 1.2 Neut # (Auto) 5.8 Lymph # (Auto) 1.2 Pettis # (Auto) 0.4 Eos # (Auto) 0.1 Baso # (Auto) 0.1 Neutrophils % (Manual) Band Neutrophils % Lymphocytes % (Manual) Monocytes % (Manual) Eosinophils % (Manual) Platelet Estimate Hypochromasia (manual) Microcytosis (manual) Bevier Cells Retic Count 1.5 PT 11.7 INR 1.1 APTT 47 H pO2 VBG pH VBG pCO2 VBG HCO3 VBG Total CO2 VBG O2 Sat (Calc) VBG Base Excess VBG Potassium Glucose Lactate Crit Value Called To Crit Value Called By Crit Value Read Back Blood Gas Notified Time Sodium Potassium Chloride Carbon Dioxide Anion Gap BUN Creatinine Est GFR ( Amer) Est GFR (Non-Af Amer) POC Glucose (mg/dL) > 500 H* Random Glucose Hemoglobin A1c Serum Osmolality Calcium Phosphorus Magnesium Iron TIBC % Saturation Ferritin Total Bilirubin AST ALT Alkaline Phosphatase Total Creatine Kinase CK-MB (Mass) Troponin I Total Protein Albumin Globulin Albumin/Globulin Ratio Triglycerides Cholesterol LDL Cholesterol Direct HDL Cholesterol Vitamin B12 Folate Procalcitonin Venous Blood Potassium Urine Color Urine Clarity Urine pH Ur Specific [place] Urine Protein Urine Glucose (UA) Urine Ketones Urine Blood Urine Nitrate Urine Bilirubin Urine Urobilinogen Ur Leukocyte Esterase Urine WBC (Auto) Urine RBC (Auto) Ur Squamous Epith Cells Urine Bacteria Stool Occult Blood Urine Opiates Screen Urine Methadone Screen Ur Barbiturates Screen Ur Phencyclidine Scrn Ur Amphetamines Screen U Benzodiazepines Scrn U Oth Cocaine Metabols U Cannabinoids Screen Alcohol, Quantitative B-Hydroxybutyrate Hep Bs Antigen Hep Bs Antibody Hepatitis C Antibody Mycoplasma pneumon IgM Blood Type Antibody Screen 04/26/18 04/26/18 04/26/18 11:50 11:50 11:50 WBC RBC Hgb Hct MCV MCH MCHC RDW Plt Count MPV Neut % (Auto) Lymph % (Auto) Pettis % (Auto) Eos % (Auto) Baso % (Auto) Neut # (Auto) Lymph # (Auto) Pettis # (Auto) Eos # (Auto) Baso # (Auto) Neutrophils % (Manual) Band Neutrophils % Lymphocytes % (Manual) Monocytes % (Manual) Eosinophils % (Manual) Platelet Estimate Hypochromasia (manual) Microcytosis (manual) Roseline Cells Retic Count PT INR APTT pO2 VBG pH VBG pCO2 VBG HCO3 VBG Total CO2 VBG O2 Sat (Calc) VBG Base Excess VBG Potassium Glucose Lactate Crit Value Called To Crit Value Called By Crit Value Read Back Blood Gas Notified Time Sodium 130 L Potassium 5.9 H Chloride 97 L Carbon Dioxide 13 L Anion Gap 26 H BUN 90 H Creatinine 8.7 H* Est GFR ( Amer) 8 Est GFR (Non-Af Amer) 7 POC Glucose (mg/dL) Random Glucose 806 H* D Hemoglobin A1c 11.2 H D Serum Osmolality Calcium 8.4 L Phosphorus Magnesium Iron TIBC % Saturation Ferritin 189.0 Total Bilirubin 0.5 AST 18 ALT 17 L D Alkaline Phosphatase 106 Total Creatine Kinase 559 H CK-MB (Mass) 3.89 H Troponin I 0.0500 Total Protein 7.7 Albumin 3.9 Globulin 3.7 Albumin/Globulin Ratio 1.0 Triglycerides 185 H D Cholesterol 245 H LDL Cholesterol Direct 148 H HDL Cholesterol 28 L Vitamin B12 823 Folate 12.4 Procalcitonin Venous Blood Potassium Urine Color Urine Clarity Urine pH Ur Specific [place] Urine Protein Urine Glucose (UA) Urine Ketones Urine Blood Urine Nitrate Urine Bilirubin Urine Urobilinogen Ur Leukocyte Esterase Urine WBC (Auto) Urine RBC (Auto) Ur Squamous Epith Cells Urine Bacteria Stool Occult Blood Urine Opiates Screen Urine Methadone Screen Ur Barbiturates Screen Ur Phencyclidine Scrn Ur Amphetamines Screen U Benzodiazepines Scrn U Oth Cocaine Metabols U Cannabinoids Screen Alcohol, Quantitative B-Hydroxybutyrate 1.93 H Hep Bs Antigen Hep Bs Antibody Hepatitis C Antibody Mycoplasma pneumon IgM Blood Type O POSITIVE Antibody Screen Negative 04/26/18 04/26/18 04/26/18 12:01 12:24 12:35 WBC RBC Hgb Hct MCV MCH MCHC RDW Plt Count MPV Neut % (Auto) Lymph % (Auto) Pettis % (Auto) Eos % (Auto) Baso % (Auto) Neut # (Auto) Lymph # (Auto) Pettis # (Auto) Eos # (Auto) Baso # (Auto) Neutrophils % (Manual) Band Neutrophils % Lymphocytes % (Manual) Monocytes % (Manual) Eosinophils % (Manual) Platelet Estimate Hypochromasia (manual) Microcytosis (manual) Bevier Cells Retic Count PT INR APTT pO2 28 L VBG pH 7.25 L VBG pCO2 32 L VBG HCO3 14.0 VBG Total CO2 15.0 L VBG O2 Sat (Calc) 63.2 VBG Base Excess -12.0 L VBG Potassium 5.7 H Glucose 613 H* Lactate 1.2 Crit Value Called To Dr mell navarro Crit Value Called By Marta castro tenter feeder Crit Value Read Back Y Blood Gas Notified Time 1210 Sodium 130.0 L Potassium Chloride 99.0 Carbon Dioxide Anion Gap BUN Creatinine Est GFR ( Amer) Est GFR (Non-Af Amer) POC Glucose (mg/dL) Random Glucose Hemoglobin A1c Serum Osmolality Calcium Phosphorus Magnesium Iron TIBC % Saturation Ferritin 167.0 Total Bilirubin AST ALT Alkaline Phosphatase Total Creatine Kinase CK-MB (Mass) Troponin I Total Protein Albumin Globulin Albumin/Globulin Ratio Triglycerides Cholesterol LDL Cholesterol Direct HDL Cholesterol Vitamin B12 852 Folate 11.2 Procalcitonin Venous Blood Potassium 5.7 H Urine Color Urine Clarity Urine pH Ur Specific [place] Urine Protein Urine Glucose (UA) Urine Ketones Urine Blood Urine Nitrate Urine Bilirubin Urine Urobilinogen Ur Leukocyte Esterase Urine WBC (Auto) Urine RBC (Auto) Ur Squamous Epith Cells Urine Bacteria Stool Occult Blood Positive H Urine Opiates Screen Urine Methadone Screen Ur Barbiturates Screen Ur Phencyclidine Scrn Ur Amphetamines Screen U Benzodiazepines Scrn U Oth Cocaine Metabols U Cannabinoids Screen Alcohol, Quantitative B-Hydroxybutyrate Hep Bs Antigen Hep Bs Antibody Hepatitis C Antibody Mycoplasma pneumon IgM Blood Type Antibody Screen 04/26/18 04/26/18 04/26/18 12:36 13:14 14:20 WBC RBC Hgb Hct MCV MCH MCHC RDW Plt Count MPV Neut % (Auto) Lymph % (Auto) Pettis % (Auto) Eos % (Auto) Baso % (Auto) Neut # (Auto) Lymph # (Auto) Pettis # (Auto) Eos # (Auto) Baso # (Auto) Neutrophils % (Manual) Band Neutrophils % Lymphocytes % (Manual) Monocytes % (Manual) Eosinophils % (Manual) Platelet Estimate Hypochromasia (manual) Microcytosis (manual) Roseline Cells Retic Count PT INR APTT pO2 VBG pH VBG pCO2 VBG HCO3 VBG Total CO2 VBG O2 Sat (Calc) VBG Base Excess VBG Potassium Glucose Lactate Crit Value Called To Crit Value Called By Crit Value Read Back Blood Gas Notified Time Sodium Potassium Chloride Carbon Dioxide Anion Gap BUN Creatinine Est GFR ( Amer) Est GFR (Non-Af Amer) POC Glucose (mg/dL) > 500 H* Random Glucose Hemoglobin A1c Serum Osmolality 360 H Calcium Phosphorus Magnesium Iron 42 L TIBC 287 % Saturation 15 L Ferritin Total Bilirubin AST ALT Alkaline Phosphatase Total Creatine Kinase CK-MB (Mass) Troponin I Total Protein Albumin Globulin Albumin/Globulin Ratio Triglycerides Cholesterol LDL Cholesterol Direct HDL Cholesterol Vitamin B12 Folate Procalcitonin Venous Blood Potassium Urine Color Urine Clarity Urine pH Ur Specific [place] Urine Protein Urine Glucose (UA) Urine Ketones Urine Blood Urine Nitrate Urine Bilirubin Urine Urobilinogen Ur Leukocyte Esterase Urine WBC (Auto) Urine RBC (Auto) Ur Squamous Epith Cells Urine Bacteria Stool Occult Blood Urine Opiates Screen Urine Methadone Screen Ur Barbiturates Screen Ur Phencyclidine Scrn Ur Amphetamines Screen U Benzodiazepines Scrn U Oth Cocaine Metabols U Cannabinoids Screen Alcohol, Quantitative B-Hydroxybutyrate Hep Bs Antigen Hep Bs Antibody Hepatitis C Antibody Mycoplasma pneumon IgM Blood Type Antibody Screen 04/26/18 04/26/18 04/26/18 15:05 16:17 16:31 WBC RBC Hgb Hct MCV MCH MCHC RDW Plt Count MPV Neut % (Auto) Lymph % (Auto) Pettis % (Auto) Eos % (Auto) Baso % (Auto) Neut # (Auto) Lymph # (Auto) Pettis # (Auto) Eos # (Auto) Baso # (Auto) Neutrophils % (Manual) Band Neutrophils % Lymphocytes % (Manual) Monocytes % (Manual) Eosinophils % (Manual) Platelet Estimate Hypochromasia (manual) Microcytosis (manual) Roseline Cells Retic Count PT INR APTT pO2 VBG pH VBG pCO2 VBG HCO3 VBG Total CO2 VBG O2 Sat (Calc) VBG Base Excess VBG Potassium Glucose Lactate Crit Value Called To Crit Value Called By Crit Value Read Back Blood Gas Notified Time Sodium Potassium Chloride Carbon Dioxide Anion Gap BUN Creatinine Est GFR ( Amer) Est GFR (Non-Af Amer) POC Glucose (mg/dL) > 500 H* 376 H Random Glucose Hemoglobin A1c Serum Osmolality Calcium Phosphorus Magnesium Iron TIBC % Saturation Ferritin Total Bilirubin AST ALT Alkaline Phosphatase Total Creatine Kinase CK-MB (Mass) Troponin I Total Protein Albumin Globulin Albumin/Globulin Ratio Triglycerides Cholesterol LDL Cholesterol Direct HDL Cholesterol Vitamin B12 Folate Procalcitonin Venous Blood Potassium Urine Color Urine Clarity Urine pH Ur Specific [place] Urine Protein Urine Glucose (UA) Urine Ketones Urine Blood Urine Nitrate Urine Bilirubin Urine Urobilinogen Ur Leukocyte Esterase Urine WBC (Auto) Urine RBC (Auto) Ur Squamous Epith Cells Urine Bacteria Stool Occult Blood Urine Opiates Screen Urine Methadone Screen Ur Barbiturates Screen Ur Phencyclidine Scrn Ur Amphetamines Screen U Benzodiazepines Scrn U Oth Cocaine Metabols U Cannabinoids Screen Alcohol, Quantitative B-Hydroxybutyrate Hep Bs Antigen Negative Hep Bs Antibody Hepatitis C Antibody Negative Mycoplasma pneumon IgM Blood Type Antibody Screen 04/26/18 04/26/18 04/26/18 16:31 17:01 17:25 WBC RBC Hgb Hct MCV MCH MCHC RDW Plt Count MPV Neut % (Auto) Lymph % (Auto) Pettis % (Auto) Eos % (Auto) Baso % (Auto) Neut # (Auto) Lymph # (Auto) Pettis # (Auto) Eos # (Auto) Baso # (Auto) Neutrophils % (Manual) Band Neutrophils % Lymphocytes % (Manual) Monocytes % (Manual) Eosinophils % (Manual) Platelet Estimate Hypochromasia (manual) Microcytosis (manual) Roseline Cells Retic Count PT INR APTT pO2 VBG pH VBG pCO2 VBG HCO3 VBG Total CO2 VBG O2 Sat (Calc) VBG Base Excess VBG Potassium Glucose Lactate Crit Value Called To Crit Value Called By Crit Value Read Back Blood Gas Notified Time Sodium 143 Potassium 3.3 L Chloride 102 Carbon Dioxide 28 Anion Gap 17 BUN 42 H Creatinine 3.5 H Est GFR ( Amer) 23 Est GFR (Non-Af Amer) 19 POC Glucose (mg/dL) 212 H Random Glucose 162 H Hemoglobin A1c Serum Osmolality Calcium 8.8 Phosphorus Magnesium Iron TIBC % Saturation Ferritin Total Bilirubin 0.4 AST 20 ALT 21 D Alkaline Phosphatase 88 Total Creatine Kinase CK-MB (Mass) Troponin I Total Protein 7.5 Albumin 3.9 Globulin 3.5 Albumin/Globulin Ratio 1.1 Triglycerides Cholesterol LDL Cholesterol Direct HDL Cholesterol Vitamin B12 Folate Procalcitonin Venous Blood Potassium Urine Color Urine Clarity Urine pH Ur Specific [place] Urine Protein Urine Glucose (UA) Urine Ketones Urine Blood Urine Nitrate Urine Bilirubin Urine Urobilinogen Ur Leukocyte Esterase Urine WBC (Auto) Urine RBC (Auto) Ur Squamous Epith Cells Urine Bacteria Stool Occult Blood Urine Opiates Screen Urine Methadone Screen Ur Barbiturates Screen Ur Phencyclidine Scrn Ur Amphetamines Screen U Benzodiazepines Scrn U Oth Cocaine Metabols U Cannabinoids Screen Alcohol, Quantitative B-Hydroxybutyrate Hep Bs Antigen Hep Bs Antibody Negative Hepatitis C Antibody Mycoplasma pneumon IgM Blood Type Antibody Screen 04/26/18 04/26/18 04/26/18 17:56 18:56 19:54 WBC RBC Hgb Hct MCV MCH MCHC RDW Plt Count MPV Neut % (Auto) Lymph % (Auto) Pettis % (Auto) Eos % (Auto) Baso % (Auto) Neut # (Auto) Lymph # (Auto) Pettis # (Auto) Eos # (Auto) Baso # (Auto) Neutrophils % (Manual) Band Neutrophils % Lymphocytes % (Manual) Monocytes % (Manual) Eosinophils % (Manual) Platelet Estimate Hypochromasia (manual) Microcytosis (manual) Roseline Cells Retic Count PT INR APTT pO2 VBG pH VBG pCO2 VBG HCO3 VBG Total CO2 VBG O2 Sat (Calc) VBG Base Excess VBG Potassium Glucose Lactate Crit Value Called To Crit Value Called By Crit Value Read Back Blood Gas Notified Time Sodium Potassium Chloride Carbon Dioxide Anion Gap BUN Creatinine Est GFR ( Amer) Est GFR (Non-Af Amer) POC Glucose (mg/dL) 126 H 87 89 Random Glucose Hemoglobin A1c Serum Osmolality Calcium Phosphorus Magnesium Iron TIBC % Saturation Ferritin Total Bilirubin AST ALT Alkaline Phosphatase Total Creatine Kinase CK-MB (Mass) Troponin I Total Protein Albumin Globulin Albumin/Globulin Ratio Triglycerides Cholesterol LDL Cholesterol Direct HDL Cholesterol Vitamin B12 Folate Procalcitonin Venous Blood Potassium Urine Color Urine Clarity Urine pH Ur Specific [place] Urine Protein Urine Glucose (UA) Urine Ketones Urine Blood Urine Nitrate Urine Bilirubin Urine Urobilinogen Ur Leukocyte Esterase Urine WBC (Auto) Urine RBC (Auto) Ur Squamous Epith Cells Urine Bacteria Stool Occult Blood Urine Opiates Screen Urine Methadone Screen Ur Barbiturates Screen Ur Phencyclidine Scrn Ur Amphetamines Screen U Benzodiazepines Scrn U Oth Cocaine Metabols U Cannabinoids Screen Alcohol, Quantitative B-Hydroxybutyrate Hep Bs Antigen Hep Bs Antibody Hepatitis C Antibody Mycoplasma pneumon IgM Blood Type Antibody Screen 04/26/18 04/26/18 04/26/18 20:46 20:46 20:46 WBC RBC Hgb Hct MCV MCH MCHC RDW Plt Count MPV Neut % (Auto) Lymph % (Auto) Pettis % (Auto) Eos % (Auto) Baso % (Auto) Neut # (Auto) Lymph # (Auto) Pettis # (Auto) Eos # (Auto) Baso # (Auto) Neutrophils % (Manual) Band Neutrophils % Lymphocytes % (Manual) Monocytes % (Manual) Eosinophils % (Manual) Platelet Estimate Hypochromasia (manual) Microcytosis (manual) Roseline Cells Retic Count PT INR APTT pO2 VBG pH VBG pCO2 VBG HCO3 VBG Total CO2 VBG O2 Sat (Calc) VBG Base Excess VBG Potassium Glucose Lactate Crit Value Called To Crit Value Called By Crit Value Read Back Blood Gas Notified Time Sodium 140 Potassium 3.4 L Chloride 100 Carbon Dioxide 26 Anion Gap 18 BUN 28 H Creatinine 3.3 H Est GFR ( Amer) 25 Est GFR (Non-Af Amer) 21 POC Glucose (mg/dL) Random Glucose 115 H Hemoglobin A1c Serum Osmolality Calcium 8.7 Phosphorus Magnesium Iron TIBC % Saturation Ferritin Total Bilirubin 0.8 AST 26 ALT 20 L Alkaline Phosphatase 101 Total Creatine Kinase CK-MB (Mass) Troponin I Total Protein 7.3 Albumin 3.8 Globulin 3.5 Albumin/Globulin Ratio 1.1 Triglycerides Cholesterol LDL Cholesterol Direct HDL Cholesterol Vitamin B12 Folate Procalcitonin 0.16 L Venous Blood Potassium Urine Color Urine Clarity Urine pH Ur Specific [place] Urine Protein Urine Glucose (UA) Urine Ketones Urine Blood Urine Nitrate Urine Bilirubin Urine Urobilinogen Ur Leukocyte Esterase Urine WBC (Auto) Urine RBC (Auto) Ur Squamous Epith Cells Urine Bacteria Stool Occult Blood Urine Opiates Screen Urine Methadone Screen Ur Barbiturates Screen Ur Phencyclidine Scrn Ur Amphetamines Screen U Benzodiazepines Scrn U Oth Cocaine Metabols U Cannabinoids Screen Alcohol, Quantitative B-Hydroxybutyrate Hep Bs Antigen Hep Bs Antibody Hepatitis C Antibody Mycoplasma pneumon IgM Negative Blood Type Antibody Screen 04/26/18 04/26/18 04/26/18 20:46 20:46 21:05 WBC 10.0 RBC 3.03 L Hgb 7.4 L Hct 22.0 L MCV 72.6 L D MCH 24.4 L MCHC 33.6 RDW 17.4 H Plt Count 270 MPV 7.6 Neut % (Auto) Lymph % (Auto) Pettis % (Auto) Eos % (Auto) Baso % (Auto) Neut # (Auto) Lymph # (Auto) Pettis # (Auto) Eos # (Auto) Baso # (Auto) Neutrophils % (Manual) 80 H Band Neutrophils % 1 Lymphocytes % (Manual) 9 L Monocytes % (Manual) 9 Eosinophils % (Manual) 1 Platelet Estimate Normal Hypochromasia (manual) Moderate Microcytosis (manual) Slight Bevier Cells Slight Retic Count PT INR APTT pO2 VBG pH VBG pCO2 VBG HCO3 VBG Total CO2 VBG O2 Sat (Calc) VBG Base Excess VBG Potassium Glucose Lactate Crit Value Called To Crit Value Called By Crit Value Read Back Blood Gas Notified Time Sodium Potassium Chloride Carbon Dioxide Anion Gap BUN Creatinine Est GFR ( Amer) Est GFR (Non-Af Amer) POC Glucose (mg/dL) 120 H Random Glucose Hemoglobin A1c Serum Osmolality Calcium Phosphorus Magnesium Iron TIBC % Saturation Ferritin Total Bilirubin AST ALT Alkaline Phosphatase Total Creatine Kinase CK-MB (Mass) Troponin I Total Protein Albumin Globulin Albumin/Globulin Ratio Triglycerides Cholesterol LDL Cholesterol Direct HDL Cholesterol Vitamin B12 Folate Procalcitonin Venous Blood Potassium Urine Color Urine Clarity Urine pH Ur Specific [place] Urine Protein Urine Glucose (UA) Urine Ketones Urine Blood Urine Nitrate Urine Bilirubin Urine Urobilinogen Ur Leukocyte Esterase Urine WBC (Auto) Urine RBC (Auto) Ur Squamous Epith Cells Urine Bacteria Stool Occult Blood Urine Opiates Screen Urine Methadone Screen Ur Barbiturates Screen Ur Phencyclidine Scrn Ur Amphetamines Screen U Benzodiazepines Scrn U Oth Cocaine Metabols U Cannabinoids Screen Alcohol, Quantitative < 10 B-Hydroxybutyrate Hep Bs Antigen Hep Bs Antibody Hepatitis C Antibody Mycoplasma pneumon IgM Blood Type Antibody Screen 04/26/18 04/26/18 04/26/18 21:58 23:40 Unknown WBC RBC Hgb Hct MCV MCH MCHC RDW Plt Count MPV Neut % (Auto) Lymph % (Auto) Pettis % (Auto) Eos % (Auto) Baso % (Auto) Neut # (Auto) Lymph # (Auto) Pettis # (Auto) Eos # (Auto) Baso # (Auto) Neutrophils % (Manual) Band Neutrophils % Lymphocytes % (Manual) Monocytes % (Manual) Eosinophils % (Manual) Platelet Estimate Hypochromasia (manual) Microcytosis (manual) Roseline Cells Retic Count PT INR APTT pO2 VBG pH VBG pCO2 VBG HCO3 VBG Total CO2 VBG O2 Sat (Calc) VBG Base Excess VBG Potassium Glucose Lactate Crit Value Called To Crit Value Called By Crit Value Read Back Blood Gas Notified Time Sodium Potassium Chloride Carbon Dioxide Anion Gap BUN Creatinine Est GFR ( Amer) Est GFR (Non-Af Amer) POC Glucose (mg/dL) 145 H 175 H Random Glucose Hemoglobin A1c Serum Osmolality Calcium Phosphorus Magnesium Iron TIBC % Saturation Ferritin Total Bilirubin AST ALT Alkaline Phosphatase Total Creatine Kinase CK-MB (Mass) Troponin I Total Protein Albumin Globulin Albumin/Globulin Ratio Triglycerides Cholesterol LDL Cholesterol Direct HDL Cholesterol Vitamin B12 Folate Procalcitonin 0.48 Venous Blood Potassium Urine Color Urine Clarity Urine pH Ur Specific [place] Urine Protein Urine Glucose (UA) Urine Ketones Urine Blood Urine Nitrate Urine Bilirubin Urine Urobilinogen Ur Leukocyte Esterase Urine WBC (Auto) Urine RBC (Auto) Ur Squamous Epith Cells Urine Bacteria Stool Occult Blood Urine Opiates Screen Urine Methadone Screen Ur Barbiturates Screen Ur Phencyclidine Scrn Ur Amphetamines Screen U Benzodiazepines Scrn U Oth Cocaine Metabols U Cannabinoids Screen Alcohol, Quantitative B-Hydroxybutyrate Hep Bs Antigen Hep Bs Antibody Hepatitis C Antibody Mycoplasma pneumon IgM Blood Type Antibody Screen 04/27/18 04/27/18 04/27/18 00:58 03:26 05:08 WBC RBC Hgb Hct MCV MCH MCHC RDW Plt Count MPV Neut % (Auto) Lymph % (Auto) Pettis % (Auto) Eos % (Auto) Baso % (Auto) Neut # (Auto) Lymph # (Auto) Pettis # (Auto) Eos # (Auto) Baso # (Auto) Neutrophils % (Manual) Band Neutrophils % Lymphocytes % (Manual) Monocytes % (Manual) Eosinophils % (Manual) Platelet Estimate Hypochromasia (manual) Microcytosis (manual) Roseline Cells Retic Count PT INR APTT pO2 VBG pH VBG pCO2 VBG HCO3 VBG Total CO2 VBG O2 Sat (Calc) VBG Base Excess VBG Potassium Glucose Lactate Crit Value Called To Crit Value Called By Crit Value Read Back Blood Gas Notified Time Sodium Potassium Chloride Carbon Dioxide Anion Gap BUN Creatinine Est GFR ( Amer) Est GFR (Non-Af Amer) POC Glucose (mg/dL) 223 H 270 H 315 H Random Glucose Hemoglobin A1c Serum Osmolality Calcium Phosphorus Magnesium Iron TIBC % Saturation Ferritin Total Bilirubin AST ALT Alkaline Phosphatase Total Creatine Kinase CK-MB (Mass) Troponin I Total Protein Albumin Globulin Albumin/Globulin Ratio Triglycerides Cholesterol LDL Cholesterol Direct HDL Cholesterol Vitamin B12 Folate Procalcitonin Venous Blood Potassium Urine Color Urine Clarity Urine pH Ur Specific [place] Urine Protein Urine Glucose (UA) Urine Ketones Urine Blood Urine Nitrate Urine Bilirubin Urine Urobilinogen Ur Leukocyte Esterase Urine WBC (Auto) Urine RBC (Auto) Ur Squamous Epith Cells Urine Bacteria Stool Occult Blood Urine Opiates Screen Urine Methadone Screen Ur Barbiturates Screen Ur Phencyclidine Scrn Ur Amphetamines Screen U Benzodiazepines Scrn U Oth Cocaine Metabols U Cannabinoids Screen Alcohol, Quantitative B-Hydroxybutyrate Hep Bs Antigen Hep Bs Antibody Hepatitis C Antibody Mycoplasma pneumon IgM Blood Type Antibody Screen 04/27/18 04/27/18 04/27/18 05:39 05:39 05:50 WBC RBC Hgb Hct MCV MCH MCHC RDW Plt Count MPV Neut % (Auto) Lymph % (Auto) P[place] % (Auto) Eos % (Auto) Baso % (Auto) Neut # (Auto) Lymph # (Auto) [place] # (Auto) Eos # (Auto) Baso # (Auto) Neutrophils % (Manual) Band Neutrophils % Lymphocytes % (Manual) Monocytes % (Manual) Eosinophils % (Manual) Platelet Estimate Hypochromasia (manual) Microcytosis (manual) Roseline Cells Retic Count PT INR APTT pO2 VBG pH VBG pCO2 VBG HCO3 VBG Total CO2 VBG O2 Sat (Calc) VBG Base Excess VBG Potassium Glucose Lactate Crit Value Called To Crit Value Called By Crit Value Read Back Blood Gas Notified Time Sodium 139 Potassium 4.0 Chloride 99 Carbon Dioxide 23 Anion Gap 21 H BUN 32 H Creatinine 4.8 H Est GFR ( Amer) 16 Est GFR (Non-Af Amer) 13 POC Glucose (mg/dL) Random Glucose 297 H Hemoglobin A1c Serum Osmolality Calcium 8.4 L Phosphorus 5.2 H Magnesium 1.8 Iron TIBC % Saturation Ferritin Total Bilirubin 0.7 AST 25 ALT 17 L Alkaline Phosphatase 90 Total Creatine Kinase CK-MB (Mass) Troponin I Total Protein 7.3 Albumin 3.7 Globulin 3.6 Albumin/Globulin Ratio 1.1 Triglycerides Cholesterol LDL Cholesterol Direct HDL Cholesterol Vitamin B12 Folate Procalcitonin Venous Blood Potassium Urine Color Yellow Urine Clarity Hazy Urine pH 6.0 Ur Specific [place] 1.017 Urine Protein 3+ H Urine Glucose (UA) 3+ H Urine Ketones Trace Urine Blood 2+ H Urine Nitrate Negative Urine Bilirubin Negative Urine Urobilinogen Normal Ur Leukocyte Esterase Neg Urine WBC (Auto) 6 H Urine RBC (Auto) 62 H Ur Squamous Epith Cells < 1 Urine Bacteria Rare Stool Occult Blood Urine Opiates Screen Urine Methadone Screen Ur Barbiturates Screen Ur Phencyclidine Scrn Ur Amphetamines Screen U Benzodiazepines Scrn U Oth Cocaine Metabols U Cannabinoids Screen Alcohol, Quantitative B-Hydroxybutyrate Hep Bs Antigen Hep Bs Antibody Hepatitis C Antibody Mycoplasma pneumon IgM Blood Type Antibody Screen 04/27/18 04/27/18 05:50 06:17 WBC RBC Hgb Hct MCV MCH MCHC RDW Plt Count MPV Neut % (Auto) Lymph % (Auto) [place] % (Auto) Eos % (Auto) Baso % (Auto) Neut # (Auto) Lymph # (Auto) [place] # (Auto) Eos # (Auto) Baso # (Auto) Neutrophils % (Manual) Band Neutrophils % Lymphocytes % (Manual) Monocytes % (Manual) Eosinophils % (Manual) Platelet Estimate Hypochromasia (manual) Microcytosis (manual) Roseline Cells Retic Count PT INR APTT pO2 VBG pH VBG pCO2 VBG HCO3 VBG Total CO2 VBG O2 Sat (Calc) VBG Base Excess VBG Potassium Glucose Lactate Crit Value Called To Crit Value Called By Crit Value Read Back Blood Gas Notified Time Sodium Potassium Chloride Carbon Dioxide Anion Gap BUN Creatinine Est GFR ( Amer) Est GFR (Non-Af Amer) POC Glucose (mg/dL) 296 H Random Glucose Hemoglobin A1c Serum Osmolality Calcium Phosphorus Magnesium Iron TIBC % Saturation Ferritin Total Bilirubin AST ALT Alkaline Phosphatase Total Creatine Kinase CK-MB (Mass) Troponin I Total Protein Albumin Globulin Albumin/Globulin Ratio Triglycerides Cholesterol LDL Cholesterol Direct HDL Cholesterol Vitamin B12 Folate Procalcitonin Venous Blood Potassium Urine Color Urine Clarity Urine pH Ur Specific [place] Urine Protein Urine Glucose (UA) Urine Ketones Urine Blood Urine Nitrate Urine Bilirubin Urine Urobilinogen Ur Leukocyte Esterase Urine WBC (Auto) Urine RBC (Auto) Ur Squamous Epith Cells Urine Bacteria Stool Occult Blood Urine Opiates Screen Negative Urine Methadone Screen Negative Ur Barbiturates Screen Negative Ur Phencyclidine Scrn Negative Ur Amphetamines Screen Negative U Benzodiazepines Scrn Negative U Oth Cocaine Metabols Negative U Cannabinoids Screen Positive H Alcohol, Quantitative B-Hydroxybutyrate Hep Bs Antigen Hep Bs Antibody Hepatitis C Antibody Mycoplasma pneumon IgM Blood Type Antibody Screen Assessment & Plan - Assessment and Plan (Free Text) Assessment: 43 yo BM with ESRD, CVA, HTN, DM presenting with DKA, new seizure found to have Hgb 6.5 and stool occult blood positive. # Acute on Chronic Normocytic Anemia: Hgb 6.5 from 12 in 2014. Occult + but no signs of active bleed as with brown stool. No previous endoscopies before. Has risk factors for GI malignancy in previous EtOH abuse and current Tobacco abuse. S/p 1 units PRBC with appropriate response. Plan: - Will obtain Abd/Pelvis CT with PO contrast - Monitor Hgb, goal >7 - OK with PO PPI for now while in ICU, but no alf indication at this time - Outpatient endoscopy recommended to patient - Consider EPO, though defer to Renal Thank you for the consult, will cont to follow. Pt seen and examined with Dr. Blankenship <Cm Blankenship - Last Filed: 04/27/18 14:28> Meds - Medications Medications: Current Medications Amlodipine Besylate (Norvasc) 5 mg PO QPM [facility] Dextrose (Dextrose 50% Inj) 0 ml IV STAT PRN; Protocol PRN Reason: Hypoglycemia Protocol Dextrose (Glutose 15) 0 gm PO ONCE PRN; Protocol PRN Reason: Hypoglycemia Protocol Epoetin Cornelius (Procrit) 10,000 unit SC TTS [facility] Ferric Sodium Gluconate Complex (Ferrlecit) 125 mg IVPB MWF JOSE Stop: 05/15/18 09:01 Glucagon (Glucagen Diagnostic Kit) 0 mg IM STAT PRN; Protocol PRN Reason: Hypoglycemia Protocol Heparin Sodium (Porcine) (Heparin) 5,000 units SC Q12 JOSE Hydralazine HCl (Apresoline) 10 mg IVP Q6H [facility] Last Admin: 04/27/18 09:16 Dose: 10 mg Lacosamide 75 mg/ Sodium (Chloride) 107.5 mls @ 220 mls/hr IV Q12H [facility] Last Admin: 04/27/18 10:25 Dose: 220 mls/hr Piperacillin Sod/Tazobactam Sod (Zosyn 2.25 Gm Iv Premix) 2.25 gm in 50 mls @ 100 mls/hr IVPB Q8H [facility] PRN Reason: Protocol Last Admin: 04/27/18 12:55 Dose: 100 mls/hr Dextrose/Sodium Chloride (Dextrose 5%/0.45% Ns 1000 Ml) 1,000 mls @ 100 mls/hr IV .Q10H [facility] Last Admin: 04/27/18 11:48 Dose: 100 mls/hr Dextrose (Dextrose 5% In Water 1000 Ml) 1,000 mls @ 0 mls/hr IV .Q0M PRN; Protocol; Per Protocol PRN Reason: Hypoglycemia Protocol Insulin Human Regular (Novolin R) 0 unit SC ACHS [facility] PRN Reason: Protocol Lacosamide (Vimpat 200mg/20ml) 50 mg IVP PRN PRN PRN Reason: anti-seizure post dialysis. Losartan Potassium (Cozaar) 50 mg PO QPM [facility] Pneumococcal Polyvalent Vaccine (Pneumovax 23 Vaccine) 0.5 ml IM .ONCE ONE Stop: 04/28/18 10:01 Sevelamer Carbonate (Renvela) 800 mg PO TIDCC [facility] Last Admin: 04/27/18 12:26 Dose: Not Given Vitamin B Complex/Vit C/Folic Acid (Nephro-Jailene) 1 tab PO 0800 [facility] Results - Vital Signs Recent Vital Signs: Last Vital Signs Temp 98.5 F 04/27/18 12:00 Pulse 97 H 04/27/18 12:04 Resp 18 04/27/18 12:04 BP 160/94 H 04/27/18 12:04 Pulse Ox 97 04/27/18 12:04 - Labs Result Diagrams: 04/27/18 05:47 04/27/18 12:59 Labs: Laboratory Results - last 24 hr 04/26/18 04/26/18 04/26/18 11:50 11:50 12:24 WBC RBC Hgb Hct MCV MCH MCHC RDW Plt Count MPV Neut % (Auto) Lymph % (Auto) [place] % (Auto) Eos % (Auto) Baso % (Auto) Neut # (Auto) Lymph # (Auto) [place] # (Auto) Eos # (Auto) Baso # (Auto) Neutrophils % (Manual) Band Neutrophils % Lymphocytes % (Manual) Monocytes % (Manual) Eosinophils % (Manual) Platelet Estimate Hypochromasia (manual) Microcytosis (manual) Roseline Cells Sodium Potassium Chloride Carbon Dioxide Anion Gap BUN Creatinine Est GFR ( Amer) Est GFR (Non-Af Amer) POC Glucose (mg/dL) Random Glucose Calcium Phosphorus Magnesium Ferritin 189.0 167.0 Total Bilirubin AST ALT Alkaline Phosphatase Total Protein Albumin Globulin Albumin/Globulin Ratio Vitamin B12 823 852 Folate 12.4 11.2 Procalcitonin Urine Color Urine Clarity Urine pH Ur Specific [place] Urine Protein Urine Glucose (UA) Urine Ketones Urine Blood Urine Nitrate Urine Bilirubin Urine Urobilinogen Ur Leukocyte Esterase Urine WBC (Auto) Urine RBC (Auto) Ur Squamous Epith Cells Urine Bacteria Urine Opiates Screen Urine Methadone Screen Ur Barbiturates Screen Ur Phencyclidine Scrn Ur Amphetamines Screen U Benzodiazepines Scrn U Oth Cocaine Metabols U Cannabinoids Screen Alcohol, Quantitative Hep Bs Antigen Hep Bs Antibody Hepatitis C Antibody H.influenzae Type B Ag Ur L.pneumophila Ag Mycoplasma pneumon IgM N.meningitidis ACY/W135 N.meningi B/E.coli K1 Ag Group B Strep Antigen S. pneumoniae Antigen Blood Type O POSITIVE Antibody Screen Negative 04/26/18 04/26/18 04/26/18 14:20 15:05 16:17 WBC RBC Hgb Hct MCV MCH MCHC RDW Plt Count MPV Neut % (Auto) Lymph % (Auto) [place] % (Auto) Eos % (Auto) Baso % (Auto) Neut # (Auto) Lymph # (Auto) [place] # (Auto) Eos # (Auto) Baso # (Auto) Neutrophils % (Manual) Band Neutrophils % Lymphocytes % (Manual) Monocytes % (Manual) Eosinophils % (Manual) Platelet Estimate Hypochromasia (manual) Microcytosis (manual) Roseline Cells Sodium Potassium Chloride Carbon Dioxide Anion Gap BUN Creatinine Est GFR ( Amer) Est GFR (Non-Af Amer) POC Glucose (mg/dL) > 500 H* > 500 H* 376 H Random Glucose Calcium Phosphorus Magnesium Ferritin Total Bilirubin AST ALT Alkaline Phosphatase Total Protein Albumin Globulin Albumin/Globulin Ratio Vitamin B12 Folate Procalcitonin Urine Color Urine Clarity Urine pH Ur Specific [place] Urine Protein Urine Glucose (UA) Urine Ketones Urine Blood Urine Nitrate Urine Bilirubin Urine Urobilinogen Ur Leukocyte Esterase Urine WBC (Auto) Urine RBC (Auto) Ur Squamous Epith Cells Urine Bacteria Urine Opiates Screen Urine Methadone Screen Ur Barbiturates Screen Ur Phencyclidine Scrn Ur Amphetamines Screen U Benzodiazepines Scrn U Oth Cocaine Metabols U Cannabinoids Screen Alcohol, Quantitative Hep Bs Antigen Hep Bs Antibody Hepatitis C Antibody H.influenzae Type B Ag Ur L.pneumophila Ag Mycoplasma pneumon IgM N.meningitidis ACY/W135 N.meningi B/E.coli K1 Ag Group B Strep Antigen S. pneumoniae Antigen Blood Type Antibody Screen 04/26/18 04/26/18 04/26/18 16:31 16:31 17:01 WBC RBC Hgb Hct MCV MCH MCHC RDW Plt Count MPV Neut % (Auto) Lymph % (Auto) [place] % (Auto) Eos % (Auto) Baso % (Auto) Neut # (Auto) Lymph # (Auto) [place] # (Auto) Eos # (Auto) Baso # (Auto) Neutrophils % (Manual) Band Neutrophils % Lymphocytes % (Manual) Monocytes % (Manual) Eosinophils % (Manual) Platelet Estimate Hypochromasia (manual) Microcytosis (manual) Roseline Cells Sodium Potassium Chloride Carbon Dioxide Anion Gap BUN Creatinine Est GFR ( Amer) Est GFR (Non-Af Amer) POC Glucose (mg/dL) 212 H Random Glucose Calcium Phosphorus Magnesium Ferritin Total Bilirubin AST ALT Alkaline Phosphatase Total Protein Albumin Globulin Albumin/Globulin Ratio Vitamin B12 Folate Procalcitonin Urine Color Urine Clarity Urine pH Ur Specific [place] Urine Protein Urine Glucose (UA) Urine Ketones Urine Blood Urine Nitrate Urine Bilirubin Urine Urobilinogen Ur Leukocyte Esterase Urine WBC (Auto) Urine RBC (Auto) Ur Squamous Epith Cells Urine Bacteria Urine Opiates Screen Urine Methadone Screen Ur Barbiturates Screen Ur Phencyclidine Scrn Ur Amphetamines Screen U Benzodiazepines Scrn U Oth Cocaine Metabols U Cannabinoids Screen Alcohol, Quantitative Hep Bs Antigen Negative Hep Bs Antibody Negative Hepatitis C Antibody Negative H.influenzae Type B Ag Ur L.pneumophila Ag Mycoplasma pneumon IgM N.meningitidis ACY/W135 N.meningi B/E.coli K1 Ag Group B Strep Antigen S. pneumoniae Antigen Blood Type Antibody Screen 04/26/18 04/26/18 04/26/18 17:25 17:56 18:56 WBC RBC Hgb Hct MCV MCH MCHC RDW Plt Count MPV Neut % (Auto) Lymph % (Auto) [place] % (Auto) Eos % (Auto) Baso % (Auto) Neut # (Auto) Lymph # (Auto) [place] # (Auto) Eos # (Auto) Baso # (Auto) Neutrophils % (Manual) Band Neutrophils % Lymphocytes % (Manual) Monocytes % (Manual) Eosinophils % (Manual) Platelet Estimate Hypochromasia (manual) Microcytosis (manual) Bevier Cells Sodium 143 Potassium 3.3 L Chloride 102 Carbon Dioxide 28 Anion Gap 17 BUN 42 H Creatinine 3.5 H Est GFR ( Amer) 23 Est GFR (Non-Af Amer) 19 POC Glucose (mg/dL) 126 H 87 Random Glucose 162 H Calcium 8.8 Phosphorus Magnesium Ferritin Total Bilirubin 0.4 AST 20 ALT 21 D Alkaline Phosphatase 88 Total Protein 7.5 Albumin 3.9 Globulin 3.5 Albumin/Globulin Ratio 1.1 Vitamin B12 Folate Procalcitonin Urine Color Urine Clarity Urine pH Ur Specific [place] Urine Protein Urine Glucose (UA) Urine Ketones Urine Blood Urine Nitrate Urine Bilirubin Urine Urobilinogen Ur Leukocyte Esterase Urine WBC (Auto) Urine RBC (Auto) Ur Squamous Epith Cells Urine Bacteria Urine Opiates Screen Urine Methadone Screen Ur Barbiturates Screen Ur Phencyclidine Scrn Ur Amphetamines Screen U Benzodiazepines Scrn U Oth Cocaine Metabols U Cannabinoids Screen Alcohol, Quantitative Hep Bs Antigen Hep Bs Antibody Hepatitis C Antibody H.influenzae Type B Ag Ur L.pneumophila Ag Mycoplasma pneumon IgM N.meningitidis ACY/W135 N.meningi B/E.coli K1 Ag Group B Strep Antigen S. pneumoniae Antigen Blood Type Antibody Screen 04/26/18 04/26/18 04/26/18 19:54 20:46 20:46 WBC RBC Hgb Hct MCV MCH MCHC RDW Plt Count MPV Neut % (Auto) Lymph % (Auto) [place] % (Auto) Eos % (Auto) Baso % (Auto) Neut # (Auto) Lymph # (Auto) [place] # (Auto) Eos # (Auto) Baso # (Auto) Neutrophils % (Manual) Band Neutrophils % Lymphocytes % (Manual) Monocytes % (Manual) Eosinophils % (Manual) Platelet Estimate Hypochromasia (manual) Microcytosis (manual) Roseline Cells Sodium 140 Potassium 3.4 L Chloride 100 Carbon Dioxide 26 Anion Gap 18 BUN 28 H Creatinine 3.3 H Est GFR ( Amer) 25 Est GFR (Non-Af Amer) 21 POC Glucose (mg/dL) 89 Random Glucose 115 H Calcium 8.7 Phosphorus Magnesium Ferritin Total Bilirubin 0.8 AST 26 ALT 20 L Alkaline Phosphatase 101 Total Protein 7.3 Albumin 3.8 Globulin 3.5 Albumin/Globulin Ratio 1.1 Vitamin B12 Folate Procalcitonin 0.16 L Urine Color Urine Clarity Urine pH Ur Specific [place] Urine Protein Urine Glucose (UA) Urine Ketones Urine Blood Urine Nitrate Urine Bilirubin Urine Urobilinogen Ur Leukocyte Esterase Urine WBC (Auto) Urine RBC (Auto) Ur Squamous Epith Cells Urine Bacteria Urine Opiates Screen Urine Methadone Screen Ur Barbiturates Screen Ur Phencyclidine Scrn Ur Amphetamines Screen U Benzodiazepines Scrn U Oth Cocaine Metabols U Cannabinoids Screen Alcohol, Quantitative Hep Bs Antigen Hep Bs Antibody Hepatitis C Antibody H.influenzae Type B Ag Ur L.pneumophila Ag Mycoplasma pneumon IgM N.meningitidis ACY/W135 N.meningi B/E.coli K1 Ag Group B Strep Antigen S. pneumoniae Antigen Blood Type Antibody Screen 04/26/18 04/26/18 04/26/18 20:46 20:46 20:46 WBC 10.0 RBC 3.03 L Hgb 7.4 L Hct 22.0 L MCV 72.6 L D MCH 24.4 L MCHC 33.6 RDW 17.4 H Plt Count 270 MPV 7.6 Neut % (Auto) 81.0 H Lymph % (Auto) 9.0 L Pettis % (Auto) 9.0 Eos % (Auto) 1.0 Baso % (Auto) 0.0 Neut # (Auto) 8.1 H Lymph # (Auto) 0.9 L [place]is # (Auto) 0.9 H Eos # (Auto) 0.1 Baso # (Auto) 0.0 Neutrophils % (Manual) 80 H Band Neutrophils % 1 Lymphocytes % (Manual) 9 L Monocytes % (Manual) 9 Eosinophils % (Manual) 1 Platelet Estimate Normal Hypochromasia (manual) Moderate Microcytosis (manual) Slight Bevier Cells Slight Sodium Potassium Chloride Carbon Dioxide Anion Gap BUN Creatinine Est GFR ( Amer) Est GFR (Non-Af Amer) POC Glucose (mg/dL) Random Glucose Calcium Phosphorus Magnesium Ferritin Total Bilirubin AST ALT Alkaline Phosphatase Total Protein Albumin Globulin Albumin/Globulin Ratio Vitamin B12 Folate Procalcitonin Urine Color Urine Clarity Urine pH Ur Specific [place] Urine Protein Urine Glucose (UA) Urine Ketones Urine Blood Urine Nitrate Urine Bilirubin Urine Urobilinogen Ur Leukocyte Esterase Urine WBC (Auto) Urine RBC (Auto) Ur Squamous Epith Cells Urine Bacteria Urine Opiates Screen Urine Methadone Screen Ur Barbiturates Screen Ur Phencyclidine Scrn Ur Amphetamines Screen U Benzodiazepines Scrn U Oth Cocaine Metabols U Cannabinoids Screen Alcohol, Quantitative < 10 Hep Bs Antigen Hep Bs Antibody Hepatitis C Antibody H.influenzae Type B Ag Ur L.pneumophila Ag Mycoplasma pneumon IgM Negative N.meningitidis ACY/W135 N.meningi B/E.coli K1 Ag Group B Strep Antigen S. pneumoniae Antigen Blood Type Antibody Screen 04/26/18 04/26/18 04/26/18 21:05 21:58 23:40 WBC RBC Hgb Hct MCV MCH MCHC RDW Plt Count MPV Neut % (Auto) Lymph % (Auto) [place] % (Auto) Eos % (Auto) Baso % (Auto) Neut # (Auto) Lymph # (Auto) [place] # (Auto) Eos # (Auto) Baso # (Auto) Neutrophils % (Manual) Band Neutrophils % Lymphocytes % (Manual) Monocytes % (Manual) Eosinophils % (Manual) Platelet Estimate Hypochromasia (manual) Microcytosis (manual) Roseline Cells Sodium Potassium Chloride Carbon Dioxide Anion Gap BUN Creatinine Est GFR ( Amer) Est GFR (Non-Af Amer) POC Glucose (mg/dL) 120 H 145 H 175 H Random Glucose Calcium Phosphorus Magnesium Ferritin Total Bilirubin AST ALT Alkaline Phosphatase Total Protein Albumin Globulin Albumin/Globulin Ratio Vitamin B12 Folate Procalcitonin Urine Color Urine Clarity Urine pH Ur Specific [place] Urine Protein Urine Glucose (UA) Urine Ketones Urine Blood Urine Nitrate Urine Bilirubin Urine Urobilinogen Ur Leukocyte Esterase Urine WBC (Auto) Urine RBC (Auto) Ur Squamous Epith Cells Urine Bacteria Urine Opiates Screen Urine Methadone Screen Ur Barbiturates Screen Ur Phencyclidine Scrn Ur Amphetamines Screen U Benzodiazepines Scrn U Oth Cocaine Metabols U Cannabinoids Screen Alcohol, Quantitative Hep Bs Antigen Hep Bs Antibody Hepatitis C Antibody H.influenzae Type B Ag Ur L.pneumophila Ag Mycoplasma pneumon IgM N.meningitidis ACY/W135 N.meningi B/E.coli K1 Ag Group B Strep Antigen S. pneumoniae Antigen Blood Type Antibody Screen 04/26/18 04/27/18 04/27/18 Unknown 00:58 03:26 WBC RBC Hgb Hct MCV MCH MCHC RDW Plt Count MPV Neut % (Auto) Lymph % (Auto) [place] % (Auto) Eos % (Auto) Baso % (Auto) Neut # (Auto) Lymph # (Auto) [place] # (Auto) Eos # (Auto) Baso # (Auto) Neutrophils % (Manual) Band Neutrophils % Lymphocytes % (Manual) Monocytes % (Manual) Eosinophils % (Manual) Platelet Estimate Hypochromasia (manual) Microcytosis (manual) Roseline Cells Sodium Potassium Chloride Carbon Dioxide Anion Gap BUN Creatinine Est GFR ( Amer) Est GFR (Non-Af Amer) POC Glucose (mg/dL) 223 H 270 H Random Glucose Calcium Phosphorus Magnesium Ferritin Total Bilirubin AST ALT Alkaline Phosphatase Total Protein Albumin Globulin Albumin/Globulin Ratio Vitamin B12 Folate Procalcitonin 0.48 Urine Color Urine Clarity Urine pH Ur Specific [place] Urine Protein Urine Glucose (UA) Urine Ketones Urine Blood Urine Nitrate Urine Bilirubin Urine Urobilinogen Ur Leukocyte Esterase Urine WBC (Auto) Urine RBC (Auto) Ur Squamous Epith Cells Urine Bacteria Urine Opiates Screen Urine Methadone Screen Ur Barbiturates Screen Ur Phencyclidine Scrn Ur Amphetamines Screen U Benzodiazepines Scrn U Oth Cocaine Metabols U Cannabinoids Screen Alcohol, Quantitative Hep Bs Antigen Hep Bs Antibody Hepatitis C Antibody H.influenzae Type B Ag Ur L.pneumophila Ag Mycoplasma pneumon IgM N.meningitidis ACY/W135 N.meningi B/E.coli K1 Ag Group B Strep Antigen S. pneumoniae Antigen Blood Type Antibody Screen 04/27/18 04/27/18 04/27/18 05:08 05:39 05:39 WBC RBC Hgb Hct MCV MCH MCHC RDW Plt Count MPV Neut % (Auto) Lymph % (Auto) [place] % (Auto) Eos % (Auto) Baso % (Auto) Neut # (Auto) Lymph # (Auto) [place] # (Auto) Eos # (Auto) Baso # (Auto) Neutrophils % (Manual) Band Neutrophils % Lymphocytes % (Manual) Monocytes % (Manual) Eosinophils % (Manual) Platelet Estimate Hypochromasia (manual) Microcytosis (manual) Roseline Cells Sodium 139 Potassium 4.0 Chloride 99 Carbon Dioxide 23 Anion Gap 21 H BUN 32 H Creatinine 4.8 H Est GFR ( Amer) 16 Est GFR (Non-Af Amer) 13 POC Glucose (mg/dL) 315 H Random Glucose 297 H Calcium 8.4 L Phosphorus 5.2 H Magnesium 1.8 Ferritin Total Bilirubin 0.7 AST 25 ALT 17 L Alkaline Phosphatase 90 Total Protein 7.3 Albumin 3.7 Globulin 3.6 Albumin/Globulin Ratio 1.1 Vitamin B12 Folate Procalcitonin Urine Color Urine Clarity Urine pH Ur Specific [place] Urine Protein Urine Glucose (UA) Urine Ketones Urine Blood Urine Nitrate Urine Bilirubin Urine Urobilinogen Ur Leukocyte Esterase Urine WBC (Auto) Urine RBC (Auto) Ur Squamous Epith Cells Urine Bacteria Urine Opiates Screen Urine Methadone Screen Ur Barbiturates Screen Ur Phencyclidine Scrn Ur Amphetamines Screen U Benzodiazepines Scrn U Oth Cocaine Metabols U Cannabinoids Screen Alcohol, Quantitative Hep Bs Antigen Hep Bs Antibody Hepatitis C Antibody H.influenzae Type B Ag Ur L.pneumophila Ag Mycoplasma pneumon IgM N.meningitidis ACY/W135 N.meningi B/E.coli K1 Ag Group B Strep Antigen S. pneumoniae Antigen Blood Type Antibody Screen 04/27/18 04/27/18 04/27/18 05:47 05:50 05:50 WBC 9.1 RBC 3.14 L Hgb 7.7 L Hct 23.1 L MCV 73.3 L MCH 24.3 L MCHC 33.2 RDW 17.0 H Plt Count 254 MPV 8.5 Neut % (Auto) 73.0 Lymph % (Auto) 22.0 Pettis % (Auto) 2.0 Eos % (Auto) 3.0 Baso % (Auto) 0.0 Neut # (Auto) 6.7 Lymph # (Auto) 2.0 Pettis # (Auto) 0.2 Eos # (Auto) 0.3 Baso # (Auto) 0.0 Neutrophils % (Manual) Band Neutrophils % Lymphocytes % (Manual) Monocytes % (Manual) Eosinophils % (Manual) Platelet Estimate Hypochromasia (manual) Microcytosis (manual) Roseline Cells Sodium Potassium Chloride Carbon Dioxide Anion Gap BUN Creatinine Est GFR ( Amer) Est GFR (Non-Af Amer) POC Glucose (mg/dL) Random Glucose Calcium Phosphorus Magnesium Ferritin Total Bilirubin AST ALT Alkaline Phosphatase Total Protein Albumin Globulin Albumin/Globulin Ratio Vitamin B12 Folate Procalcitonin Urine Color Yellow Urine Clarity Hazy Urine pH 6.0 Ur Specific [place] 1.017 Urine Protein 3+ H Urine Glucose (UA) 3+ H Urine Ketones Trace Urine Blood 2+ H Urine Nitrate Negative Urine Bilirubin Negative Urine Urobilinogen Normal Ur Leukocyte Esterase Neg Urine WBC (Auto) 6 H Urine RBC (Auto) 62 H Ur Squamous Epith Cells < 1 Urine Bacteria Rare Urine Opiates Screen Urine Methadone Screen Ur Barbiturates Screen Ur Phencyclidine Scrn Ur Amphetamines Screen U Benzodiazepines Scrn U Oth Cocaine Metabols U Cannabinoids Screen Alcohol, Quantitative Hep Bs Antigen Hep Bs Antibody Hepatitis C Antibody H.influenzae Type B Ag Ur L.pneumophila Ag Negative Mycoplasma pneumon IgM N.meningitidis ACY/W135 N.meningi B/E.coli K1 Ag Group B Strep Antigen S. pneumoniae Antigen Blood Type Antibody Screen 04/27/18 04/27/18 04/27/18 05:50 06:17 07:19 WBC RBC Hgb Hct MCV MCH MCHC RDW Plt Count MPV Neut % (Auto) Lymph % (Auto) [place] % (Auto) Eos % (Auto) Baso % (Auto) Neut # (Auto) Lymph # (Auto) P[place]is # (Auto) Eos # (Auto) Baso # (Auto) Neutrophils % (Manual) Band Neutrophils % Lymphocytes % (Manual) Monocytes % (Manual) Eosinophils % (Manual) Platelet Estimate Hypochromasia (manual) Microcytosis (manual) Bevier Cells Sodium Potassium Chloride Carbon Dioxide Anion Gap BUN Creatinine Est GFR ( Amer) Est GFR (Non-Af Amer) POC Glucose (mg/dL) 296 H Random Glucose Calcium Phosphorus Magnesium Ferritin Total Bilirubin AST ALT Alkaline Phosphatase Total Protein Albumin Globulin Albumin/Globulin Ratio Vitamin B12 Folate Procalcitonin Urine Color Urine Clarity Urine pH Ur Specific [place] Urine Protein Urine Glucose (UA) Urine Ketones Urine Blood Urine Nitrate Urine Bilirubin Urine Urobilinogen Ur Leukocyte Esterase Urine WBC (Auto) Urine RBC (Auto) Ur Squamous Epith Cells Urine Bacteria Urine Opiates Screen Negative Urine Methadone Screen Negative Ur Barbiturates Screen Negative Ur Phencyclidine Scrn Negative Ur Amphetamines Screen Negative U Benzodiazepines Scrn Negative U Oth Cocaine Metabols Negative U Cannabinoids Screen Positive H Alcohol, Quantitative Hep Bs Antigen Hep Bs Antibody Hepatitis C Antibody H.influenzae Type B Ag Negative Ur L.pneumophila Ag Mycoplasma pneumon IgM N.meningitidis ACY/W135 Negative N.meningi B/E.coli K1 Ag Negative Group B Strep Antigen Negative S. pneumoniae Antigen Negative Blood Type Antibody Screen 04/27/18 04/27/18 04/27/18 07:21 08:01 09:06 WBC RBC Hgb Hct MCV MCH MCHC RDW Plt Count MPV Neut % (Auto) Lymph % (Auto) [place] % (Auto) Eos % (Auto) Baso % (Auto) Neut # (Auto) Lymph # (Auto) Pettis # (Auto) Eos # (Auto) Baso # (Auto) Neutrophils % (Manual) Band Neutrophils % Lymphocytes % (Manual) Monocytes % (Manual) Eosinophils % (Manual) Platelet Estimate Hypochromasia (manual) Microcytosis (manual) Bevier Cells Sodium Potassium Chloride Carbon Dioxide Anion Gap BUN Creatinine Est GFR ( Amer) Est GFR (Non-Af Amer) POC Glucose (mg/dL) 269 H 233 H 193 H Random Glucose Calcium Phosphorus Magnesium Ferritin Total Bilirubin AST ALT Alkaline Phosphatase Total Protein Albumin Globulin Albumin/Globulin Ratio Vitamin B12 Folate Procalcitonin Urine Color Urine Clarity Urine pH Ur Specific York Urine Protein Urine Glucose (UA) Urine Ketones Urine Blood Urine Nitrate Urine Bilirubin Urine Urobilinogen Ur Leukocyte Esterase Urine WBC (Auto) Urine RBC (Auto) Ur Squamous Epith Cells Urine Bacteria Urine Opiates Screen Urine Methadone Screen Ur Barbiturates Screen Ur Phencyclidine Scrn Ur Amphetamines Screen U Benzodiazepines Scrn U Oth Cocaine Metabols U Cannabinoids Screen Alcohol, Quantitative Hep Bs Antigen Hep Bs Antibody Hepatitis C Antibody H.influenzae Type B Ag Ur L.pneumophila Ag Mycoplasma pneumon IgM N.meningitidis ACY/W135 N.meningi B/E.coli K1 Ag Group B Strep Antigen S. pneumoniae Antigen Blood Type Antibody Screen 04/27/18 04/27/18 04/27/18 10:11 11:19 12:08 WBC RBC Hgb Hct MCV MCH MCHC RDW Plt Count MPV Neut % (Auto) Lymph % (Auto) Pettis % (Auto) Eos % (Auto) Baso % (Auto) Neut # (Auto) Lymph # (Auto) Pettis # (Auto) Eos # (Auto) Baso # (Auto) Neutrophils % (Manual) Band Neutrophils % Lymphocytes % (Manual) Monocytes % (Manual) Eosinophils % (Manual) Platelet Estimate Hypochromasia (manual) Microcytosis (manual) Bevier Cells Sodium Potassium Chloride Carbon Dioxide Anion Gap BUN Creatinine Est GFR ( Amer) Est GFR (Non-Af Amer) POC Glucose (mg/dL) 207 H 167 H 115 H Random Glucose Calcium Phosphorus Magnesium Ferritin Total Bilirubin AST ALT Alkaline Phosphatase Total Protein Albumin Globulin Albumin/Globulin Ratio Vitamin B12 Folate Procalcitonin Urine Color Urine Clarity Urine pH Ur Specific [place] Urine Protein Urine Glucose (UA) Urine Ketones Urine Blood Urine Nitrate Urine Bilirubin Urine Urobilinogen Ur Leukocyte Esterase Urine WBC (Auto) Urine RBC (Auto) Ur Squamous Epith Cells Urine Bacteria Urine Opiates Screen Urine Methadone Screen Ur Barbiturates Screen Ur Phencyclidine Scrn Ur Amphetamines Screen U Benzodiazepines Scrn U Oth Cocaine Metabols U Cannabinoids Screen Alcohol, Quantitative Hep Bs Antigen Hep Bs Antibody Hepatitis C Antibody H.influenzae Type B Ag Ur L.pneumophila Ag Mycoplasma pneumon IgM N.meningitidis ACY/W135 N.meningi B/E.coli K1 Ag Group B Strep Antigen S. pneumoniae Antigen Blood Type Antibody Screen 04/27/18 04/27/18 04/27/18 12:53 12:59 14:00 WBC RBC Hgb Hct MCV MCH MCHC RDW Plt Count MPV Neut % (Auto) Lymph % (Auto) Pettis % (Auto) Eos % (Auto) Baso % (Auto) Neut # (Auto) Lymph # (Auto) Pettis # (Auto) Eos # (Auto) Baso # (Auto) Neutrophils % (Manual) Band Neutrophils % Lymphocytes % (Manual) Monocytes % (Manual) Eosinophils % (Manual) Platelet Estimate Hypochromasia (manual) Microcytosis (manual) Roseline Cells Sodium 140 Potassium 4.0 Chloride 101 Carbon Dioxide 26 Anion Gap 16 BUN 37 H Creatinine 5.1 H Est GFR ( Amer) 15 Est GFR (Non-Af Amer) 13 POC Glucose (mg/dL) 118 H 166 H Random Glucose 119 H Calcium 8.1 L Phosphorus Magnesium Ferritin Total Bilirubin 0.6 AST 19 ALT 17 L Alkaline Phosphatase 88 Total Protein 7.0 Albumin 3.5 Globulin 3.5 Albumin/Globulin Ratio 1.0 Vitamin B12 Folate Procalcitonin Urine Color Urine Clarity Urine pH Ur Specific [place] Urine Protein Urine Glucose (UA) Urine Ketones Urine Blood Urine Nitrate Urine Bilirubin Urine Urobilinogen Ur Leukocyte Esterase Urine WBC (Auto) Urine RBC (Auto) Ur Squamous Epith Cells Urine Bacteria Urine Opiates Screen Urine Methadone Screen Ur Barbiturates Screen Ur Phencyclidine Scrn Ur Amphetamines Screen U Benzodiazepines Scrn U Oth Cocaine Metabols U Cannabinoids Screen Alcohol, Quantitative Hep Bs Antigen Hep Bs Antibody Hepatitis C Antibody H.influenzae Type B Ag Ur L.pneumophila Ag Mycoplasma pneumon IgM N.meningitidis ACY/W135 N.meningi B/E.coli K1 Ag Group B Strep Antigen S. pneumoniae Antigen Blood Type Antibody Screen Attending/Attestation - Attestation I have personally seen and examined this patient.: Yes I have fully participated in the care of the patient.: Yes I have reviewed all pertinent clinical information: Yes Notes (Text): 04/27/18 14:20 I have seen and examined patient with GI fellow. Agree with above documentation with the following additions. In brief, this is a 43 year old male with history of DM, HTN, CVA, ESRD on HD, who initially presented to hospital with facial weakness and droop. Found to have new onset seizure in emergency department in setting of elevated blood sugar and transferred to intensive care unit for further management where he is currently seen. GI called for evaluation of anemia with fecal occult blood positive. He reports intermittent constipation at times requiring laxative therapy but otherwise denies abdominal pain, nausea, vomiting, fever/chills, weight loss, or rectal bleeding. He denies NSAID use. No prior endoscopic evaluation. Of note, he does report multiple recent episodes of epistaxis for the past few days. DM / HTN CVA ESRD on HD Anemia, microcytic - fecal occult blood positive Seizure - Diet as tolerated - Continue with PPI therapy - H/H stable, s/p PRBC transfusion, continue to monitor. Rectal exam performed today shows light brown stool, no palpable lesions. - Given profound anemia in setting of chronic disease, would obtain CT imaging of abdomen/pelvis for further evaluation - Patient would eventually benefit from outpatient endoscopic evaluation following resolution of acute symptoms. Will continue to monitor clinical course.
[2018-04-27 07:21] LABS: HEMOGLOBIN 7.7 g/dL (12.0-18.0); MEAN CELL VOLUME 73.3 fL (80.0-94.0); MEAN CORPUSCULAR HEMOGLOBIN 24.3 pg (27.0-31.0); MEAN CORPUSCULAR HGB CONC 33.2 g/dL (33.0-37.0); MEAN PLATELET VOLUME 8.5 fL (7.2-11.7); RBC 3.14 Mil/uL (4.40-5.90); WHITE BLOOD COUNT 9.1 K/uL (4.8-10.8)
[2018-04-27 07:35] LABS: LYMPH # 0.9 K/uL (1.0-4.3); NEUT # 8.1 K/uL (1.8-7.0)
[2018-04-27 07:36] LABS: EOS # 0.1 K/uL (0.0-0.7); MONO # 0.9 K/uL (0.0-0.8)
--- NOTE | 2018-04-27 08:30 | RAD ---
Date of service: 04/27/2018 HISTORY: Follow-up COMPARISON: 05/15/2018. FINDINGS: LUNGS: The right dialysis catheter terminates at the cavoatrial junction. There is interval significant improved aeration in both lungs with residual mild pulmonary venous congestion. No focal consolidation. PLEURA: No significant pleural effusion identified, no pneumothorax apparent. CARDIOVASCULAR: Normal. OSSEOUS STRUCTURES: No significant abnormalities. VISUALIZED UPPER ABDOMEN: Normal. OTHER FINDINGS: None. IMPRESSION: Interval significant improvement in pulmonary edema. No acute findings.
[2018-04-27 09:47] LABS: EOS # 0.3 K/uL (0.0-0.7); MONO # 0.2 K/uL (0.0-0.8); NEUT # 6.7 K/uL (1.8-7.0)
[2018-04-27] MEDS ORDERED: Iohexol 240 (50 ml) PO ONE (10:00)
--- NOTE | 2018-04-27 10:08 | CP.PCM.PN ---
Subjective - Date & Time of Evaluation Date of Evaluation: 04/27/18 Time of Evaluation: 10:05 - Subjective Subjective: Neurology Consult Note for Dr. Manzano Patient seen and examined at bedside. No overnight events reported. Patient states he is doing better. He denies any fevers, chills, chest pain, SOB, or abdominal pain. He states is tremor and muscles weakness have improved. Objective - Vital Signs/Intake and Output Vital Signs (last 24 hours): Temp Pulse Resp BP Pulse Ox 99.3 F 98 H 11 L 155/85 H 99 04/27/18 08:00 04/27/18 09:04 04/27/18 09:04 04/27/18 09:05 04/27/18 08:05 Intake and Output: 04/27/18 04/27/18 06:59 18:59 Intake Total 419 19 Output Total 600 Balance -181 19 - Medications Medications: Current Medications Hydralazine HCl (Apresoline) 10 mg IVP Q6H [facility] Last Admin: 04/27/18 09:16 Dose: 10 mg Insulin Human Regular 100 unit (/ Sodium Chloride) 100 mls @ 2 mls/hr IV .Q24H STA PRN Reason: Protocol Stop: 04/27/18 13:13 Last Titration: 04/27/18 09:11 Dose: 2 ml/hr, 2 mls/hr Lacosamide 75 mg/ Sodium (Chloride) 107.5 mls @ 220 mls/hr IV Q12H JOSE Last Admin: 04/26/18 22:09 Dose: 220 mls/hr Piperacillin Sod/Tazobactam Sod (Zosyn 2.25 Gm Iv Premix) 2.25 gm in 50 mls @ 100 mls/hr IVPB Q8H JOSE PRN Reason: Protocol Last Admin: 04/27/18 05:33 Dose: 100 mls/hr Lacosamide (Vimpat 200mg/20ml) 50 mg IVP PRN PRN PRN Reason: anti-seizure post dialysis. Pantoprazole Sodium (Protonix Inj) 40 mg IVP DAILY [facility] Last Admin: 04/27/18 09:16 Dose: 40 mg Pneumococcal Polyvalent Vaccine (Pneumovax 23 Vaccine) 0.5 ml IM .ONCE ONE Stop: 04/28/18 10:01 - Labs Labs: 04/27/18 05:47 04/27/18 05:39 PT 11.7 SECONDS (9.7-12.2) 04/26/18 11:50 INR 1.1 04/26/18 11:50 APTT 47 SECONDS (21-34) H 04/26/18 11:50 - Constitutional Appears: Well, Non-toxic, No Acute Distress - Head Exam Head Exam: ATRAUMATIC, NORMAL INSPECTION, NORMOCEPHALIC - Eye Exam Eye Exam: EOMI (Right Eye). absent: Normal appearance (Left Eye Iris/Pupil abnormality) Pupil Exam: PERRL (Right Eye) - ENT Exam ENT Exam: Mucous Membranes Moist - Respiratory Exam Respiratory Exam: Clear to Ausculation Bilateral. absent: Accessory Muscle Use - Cardiovascular Exam Cardiovascular Exam: RRR, +S1, +S2 - Extremities Exam Extremities Exam: Normal Capillary Refill - Neurological Exam Neurological Exam: Alert, Awake, Oriented x3, Reflexes Normal Neuro motor strength exam: Left Upper Extremity: 5, Right Upper Extremity: 5, Left Lower Extremity: 5, Right Lower Extremity: 5 Additional comments: Asterixis Right Side Facial Droop (Improved) - Psychiatric Exam Psychiatric exam: Normal Affect, Normal Mood - Skin Skin Exam: Dry, Intact, Normal Color, Warm Assessment and Plan - Assessment and Plan (Free Text) Assessment: 43 year old male with a past medical history of HTN, Uncontrolled Diabetes, ESRD (on Dialysis 3x per week), and recent CVA w/ Right sided residual weakness (3 weeks ago) who presents due feeling like his throat was closing up and elevated blood sugars. Neurology consulted due to code stroke. Patient had witnessed seizure post head CT. Plan: 1. Toxic Metabolic Encephalopathy Ddx: Acute stroke, seizure, epidural hemorrhage Head CT (Admission): Dilatation of the 3rd and lateral ventricles without no dilatation of the 4th ventricle. The findings likely indicate a noncommunicating hydrocephalus although communicating hydrocephalus must also be considered. Head/Neck CTA (Admission): 1. No evidence of endoluminal thrombus,occlusion or definite significant stenosis in the intracranial arteries. 2. No evidence of hemodynamically significant stenosis in the internal carotid arteries. 3. Patent bilateral vertebral arteries. The left vertebral artery is hypoplastic , an anatomic variant. 4. Confluent airspace disease in the visualized upper lobes of the lungs concerning for multifocal pneumonia. Please correlate with chest radiograph. -EEG (Done this AM), PENDING READ -lacosamide 75 BID (Renally dosed). and 50mg 4hours post dialysis sessions. -HOB to 40 deg -Seizure precautions -Correct Metabolic abnormalities. -CT Head w/o contrast tomorrow AM to rule out bleed -F/U MRI on 05/01/18 -Hold Anticoag's. 2. Noncommunicating hydrocephalus -Neurosurgery Consult. F/U. -MRA of Head/Neck w/o contrast (04/27/18): NEGATIVE -MRI of Brain w/o contrast (04/27/18). Multifocal areas of hyperintense signal along the dural margin probably representing areas of epidural hemorrhage. The is a most pronounced along the left parietal lobe, left frontal lobe as well is the right frontoparietal lobe measuring up to 7 millimeters in thickness. There is also epidural hemorrhage along the right occipital lobe. Communicating hydrocephalus. Dilatation of the ventricles does raise the suspicion that this could represent subarachnoid hemorrhage. -HOld Anticoag's. All management per Dr. Natacha Simmons, PGY-2
[2018-04-27] MEDS: SODIUM CHLORIDE 0.9% IV SCH ×2 (10:25→22:10)
[2018-04-27] MEDS: LACOSAMIDE IV SCH ×2 (10:25→22:10)
[2018-04-27 10:38] LABS: N MENINGITIS ACY/W135 NEGATIVE (NEGATIVE); N MENINGITIS B/ECOLI K1 NEGATIVE (NEGATIVE); STREP PNEUMONIAE NEGATIVE (NEGATIVE); STREPTOCOCCUS B NEGATIVE (NEGATIVE)
[2018-04-27] MEDS ORDERED: Epoetin Alfa 10,000 unit/ml Dialysis SC SCH (11:00)
[2018-04-27] MEDS ORDERED: Dextrose 5%/0.45% NS 1,000 ML IV SCH (11:30)
[2018-04-27 13:19] LABS: ALBUMIN 3.5 g/dL (3.5-5.0); CALCIUM 8.1 mg/dl (8.6-10.4)
[2018-04-27] MEDS ORDERED: Insulin Detemir 100 units/ml Vial (Levemir) SC ONE ×2 (14:00→22:00)
--- NOTE | 2018-04-27 14:21 | CP.PCM.CON ---
History of Present Illness - History of Present Illness History of Present Illness: Nephrology Consultation Note: Assessment: critical HTN emergency, severe anemia, seizure, DKA likely ESRD now via permacath Anemia, Hypertension (I12.9), hx of CVA non-compliance CKD ? due to DM/HTN or GN Plan plan for dialysis today. nephrovite 1 tab per day Hypertension control with meds as ordered. Patient started on losartan 50 mg/ day and norvasc 5 mg/day Monitor I/O, daily weights, renal function. started with iron supplements and Epogen. PRBC as needed. GI following started with phos binders. will check Vit D and PTH level vascular surgery consult for AVF SW consult for outpt HD arrangements as pt will need assisted HD. GN and secondary HTN work up as ordered Dose meds/antibiotics for reduced GFR. Avoid fleets enema/magnesium based laxatives. Avoid nephrotoxins/NSAIDs/ iodinated contrast (unless needed emergently) Glycemic control, renal diet Further work up for as per primary team. Thanks for allowing me to participate in care of your patient. Will follow with you. Please call if any Qs. 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 he came back to [facility] with stroke like symptoms and found to have DKA, pulm edema, severe anemia with FOB +, stoke and HTN emergency. renal consult for CKD management is requested as he was seen by my group at [facility] recently. pt had HD on 04/26/[address] Fried management. pt hasn't followed in renal office since d/c. pt feels better now and Denies chest pain, palpitation, shortness of breath Denies OTC/herbal meds/NSAIDs ROS: denies CP/SOB. no nausea denies pain abdomen. rest other negative except as mentioned in HPI. Physical Examination: General Appearance: Comfortable, in no acute respiratory distress, co- operative. Vitals reviewed and noted as below Head; Atraumatic, normocephalic ENT: no ulcers no thrush. Tongue is midline. Oropharynx: no rash or ulcers. EYES: Pupils are equal, round and reactive to light accommodation. Eye muscles and extraocular movement intact. Sclera is anicteric. has left eye blindness Neck; supple no lymphadenopathy, no thyromegaly or bruit Lungs: Normal respiratory rate/effort. Breath sounds clear and bilateral decreased at bases with few crackles Heart: Normal rate. s1s2 normal. No rub or gallop. Extremities: no edema. No varicose veins Neurological: Patient is awake alert today has Rt side weaknes Skin: dry and warm. Normal turgor. No rash. Palpitation: Normal elasticity for age Abdomen: Abdomen is soft. Bowel sounds +. There is no abdominal tenderness, no guarding/rigidity or organomegaly Psych: limited insight. normal affect MSK: no specific joint tenderness or swelling. Digits and nails normal, no deformity : kidney or bladder not palpable. access: permacath, Labs/imaging/EKG reviewed. Past medical history, past surgical history, social history, allergy reviewed and noted as below Family hx; no hx of CKD. non contributory work up: UA 3+ protein with blood CXr; pulm edema TSAT 15% Ferritin 167 Hep B/C neg Past Patient History - Past Medical History & Family History Past Medical History?: Yes - Past Social History Smoking Status: Never Smoked - CARDIAC Hx Hypertension: Yes - NEUROLOGICAL HX Cerebrovascular Accident: Yes - HEENT Hx Blind: Yes (l eye) - RENAL Hx Dialysis: Yes Type of Dialysis Access: (R) chest port - ENDOCRINE/METABOLIC Hx Diabetes Mellitus Type 2: Yes - MUSCULOSKELETAL/RHEUMATOLOGICAL Hx Falls: No - PSYCHIATRIC Hx Substance Use: No - ANESTHESIA Hx Anesthesia: Yes Hx Anesthesia Reactions: No Meds Allergies/Adverse Reactions: Allergies Allergy/AdvReac Type Severity Reaction Status Date / Time No Known Allergies Allergy Unverified 04/26/18 18:55 - Medications Medications: Current Medications Epoetin Cornelius (Procrit) 10,000 unit SC TTS [facility] Ferric Sodium Gluconate Complex (Ferrlecit) 125 mg IVPB MWF JOSE Stop: 05/15/18 09:01 Heparin Sodium (Porcine) (Heparin) 5,000 units SC Q12 [facility] Hydralazine HCl (Apresoline) 10 mg IVP Q6H [facility] Last Admin: 04/27/18 09:16 Dose: 10 mg Lacosamide 75 mg/ Sodium (Chloride) 107.5 mls @ 220 mls/hr IV Q12H [facility] Last Admin: 04/27/18 10:25 Dose: 220 mls/hr Piperacillin Sod/Tazobactam Sod (Zosyn 2.25 Gm Iv Premix) 2.25 gm in 50 mls @ 100 mls/hr IVPB Q8H JOSE PRN Reason: Protocol Last Admin: 04/27/18 12:55 Dose: 100 mls/hr Dextrose/Sodium Chloride (Dextrose 5%/0.45% Ns 1000 Ml) 1,000 mls @ 100 mls/hr IV .Q10H [facility] Last Admin: 04/27/18 11:48 Dose: 100 mls/hr Lacosamide (Vimpat 200mg/20ml) 50 mg IVP PRN PRN PRN Reason: anti-seizure post dialysis. Pneumococcal Polyvalent Vaccine (Pneumovax 23 Vaccine) 0.5 ml IM .ONCE ONE Stop: 04/28/18 10:01 Sevelamer Carbonate (Renvela) 800 mg PO TIDCC [facility] Last Admin: 04/27/18 12:26 Dose: Not Given Vitamin B Complex/Vit C/Folic Acid (Nephro-Jailene) 1 tab PO 0800 [facility] Results - Vital Signs Recent Vital Signs: Last Vital Signs Temp 98.5 F 04/27/18 12:00 Pulse 97 H 04/27/18 12:04 Resp 18 04/27/18 12:04 BP 160/94 H 04/27/18 12:04 Pulse Ox 97 04/27/18 12:04 - Labs Result Diagrams: 04/27/18 05:47 04/27/18 12:59 Labs: Laboratory Results - last 24 hr 04/26/18 04/26/18 04/26/18 11:50 11:50 12:24 WBC RBC Hgb Hct MCV MCH MCHC RDW Plt Count MPV Neut % (Auto) Lymph % (Auto) [place] % (Auto) Eos % (Auto) Baso % (Auto) Neut # (Auto) Lymph # (Auto) [place] # (Auto) Eos # (Auto) Baso # (Auto) Neutrophils % (Manual) Band Neutrophils % Lymphocytes % (Manual) Monocytes % (Manual) Eosinophils % (Manual) Platelet Estimate Hypochromasia (manual) Microcytosis (manual) [place] Cells Sodium Potassium Chloride Carbon Dioxide Anion Gap BUN Creatinine Est GFR ( Amer) Est GFR (Non-Af Amer) POC Glucose (mg/dL) Random Glucose Calcium Phosphorus Magnesium Ferritin 189.0 167.0 Total Bilirubin AST ALT Alkaline Phosphatase Total Protein Albumin Globulin Albumin/Globulin Ratio Vitamin B12 823 852 Folate 12.4 11.2 Procalcitonin Urine Color Urine Clarity Urine pH Ur Specific [place] Urine Protein Urine Glucose (UA) Urine Ketones Urine Blood Urine Nitrate Urine Bilirubin Urine Urobilinogen Ur Leukocyte Esterase Urine WBC (Auto) Urine RBC (Auto) Ur Squamous Epith Cells Urine Bacteria Urine Opiates Screen Urine Methadone Screen Ur Barbiturates Screen Ur Phencyclidine Scrn Ur Amphetamines Screen U Benzodiazepines Scrn U Oth Cocaine Metabols U Cannabinoids Screen Alcohol, Quantitative Hep Bs Antigen Hep Bs Antibody Hepatitis C Antibody H.influenzae Type B Ag Ur L.pneumophila Ag Mycoplasma pneumon IgM N.meningitidis ACY/W135 N.meningi B/E.coli K1 Ag Group B Strep Antigen S. pneumoniae Antigen Blood Type O POSITIVE Antibody Screen Negative 04/26/18 04/26/18 04/26/18 14:20 15:05 16:17 WBC RBC Hgb Hct MCV MCH MCHC RDW Plt Count MPV Neut % (Auto) Lymph % (Auto) [place] % (Auto) Eos % (Auto) Baso % (Auto) Neut # (Auto) Lymph # (Auto) [place] # (Auto) Eos # (Auto) Baso # (Auto) Neutrophils % (Manual) Band Neutrophils % Lymphocytes % (Manual) Monocytes % (Manual) Eosinophils % (Manual) Platelet Estimate Hypochromasia (manual) Microcytosis (manual) [place] Cells Sodium Potassium Chloride Carbon Dioxide Anion Gap BUN Creatinine Est GFR ( Amer) Est GFR (Non-Af Amer) POC Glucose (mg/dL) > 500 H* > 500 H* 376 H Random Glucose Calcium Phosphorus Magnesium Ferritin Total Bilirubin AST ALT Alkaline Phosphatase Total Protein Albumin Globulin Albumin/Globulin Ratio Vitamin B12 Folate Procalcitonin Urine Color Urine Clarity Urine pH Ur Specific [place] Urine Protein Urine Glucose (UA) Urine Ketones Urine Blood Urine Nitrate Urine Bilirubin Urine Urobilinogen Ur Leukocyte Esterase Urine WBC (Auto) Urine RBC (Auto) Ur Squamous Epith Cells Urine Bacteria Urine Opiates Screen Urine Methadone Screen Ur Barbiturates Screen Ur Phencyclidine Scrn Ur Amphetamines Screen U Benzodiazepines Scrn U Oth Cocaine Metabols U Cannabinoids Screen Alcohol, Quantitative Hep Bs Antigen Hep Bs Antibody Hepatitis C Antibody H.influenzae Type B Ag Ur L.pneumophila Ag Mycoplasma pneumon IgM N.meningitidis ACY/W135 N.meningi B/E.coli K1 Ag Group B Strep Antigen S. pneumoniae Antigen Blood Type Antibody Screen 04/26/18 04/26/18 04/26/18 16:31 16:31 17:01 WBC RBC Hgb Hct MCV MCH MCHC RDW Plt Count MPV Neut % (Auto) Lymph % (Auto) [place] % (Auto) Eos % (Auto) Baso % (Auto) Neut # (Auto) Lymph # (Auto) [place] # (Auto) Eos # (Auto) Baso # (Auto) Neutrophils % (Manual) Band Neutrophils % Lymphocytes % (Manual) Monocytes % (Manual) Eosinophils % (Manual) Platelet Estimate Hypochromasia (manual) Microcytosis (manual) [place] Cells Sodium Potassium Chloride Carbon Dioxide Anion Gap BUN Creatinine Est GFR ( Amer) Est GFR (Non-Af Amer) POC Glucose (mg/dL) 212 H Random Glucose Calcium Phosphorus Magnesium Ferritin Total Bilirubin AST ALT Alkaline Phosphatase Total Protein Albumin Globulin Albumin/Globulin Ratio Vitamin B12 Folate Procalcitonin Urine Color Urine Clarity Urine pH Ur Specific [place] Urine Protein Urine Glucose (UA) Urine Ketones Urine Blood Urine Nitrate Urine Bilirubin Urine Urobilinogen Ur Leukocyte Esterase Urine WBC (Auto) Urine RBC (Auto) Ur Squamous Epith Cells Urine Bacteria Urine Opiates Screen Urine Methadone Screen Ur Barbiturates Screen Ur Phencyclidine Scrn Ur Amphetamines Screen U Benzodiazepines Scrn U Oth Cocaine Metabols U Cannabinoids Screen Alcohol, Quantitative Hep Bs Antigen Negative Hep Bs Antibody Negative Hepatitis C Antibody Negative H.influenzae Type B Ag Ur L.pneumophila Ag Mycoplasma pneumon IgM N.meningitidis ACY/W135 N.meningi B/E.coli K1 Ag Group B Strep Antigen S. pneumoniae Antigen Blood Type Antibody Screen 04/26/18 04/26/18 04/26/18 17:25 17:56 18:56 WBC RBC Hgb Hct MCV MCH MCHC RDW Plt Count MPV Neut % (Auto) Lymph % (Auto) [place] % (Auto) Eos % (Auto) Baso % (Auto) Neut # (Auto) Lymph # (Auto) [place] # (Auto) Eos # (Auto) Baso # (Auto) Neutrophils % (Manual) Band Neutrophils % Lymphocytes % (Manual) Monocytes % (Manual) Eosinophils % (Manual) Platelet Estimate Hypochromasia (manual) Microcytosis (manual) [place] Cells Sodium 143 Potassium 3.3 L Chloride 102 Carbon Dioxide 28 Anion Gap 17 BUN 42 H Creatinine 3.5 H Est GFR ( Amer) 23 Est GFR (Non-Af Amer) 19 POC Glucose (mg/dL) 126 H 87 Random Glucose 162 H Calcium 8.8 Phosphorus Magnesium Ferritin Total Bilirubin 0.4 AST 20 ALT 21 D Alkaline Phosphatase 88 Total Protein 7.5 Albumin 3.9 Globulin 3.5 Albumin/Globulin Ratio 1.1 Vitamin B12 Folate Procalcitonin Urine Color Urine Clarity Urine pH Ur Specific [place] Urine Protein Urine Glucose (UA) Urine Ketones Urine Blood Urine Nitrate Urine Bilirubin Urine Urobilinogen Ur Leukocyte Esterase Urine WBC (Auto) Urine RBC (Auto) Ur Squamous Epith Cells Urine Bacteria Urine Opiates Screen Urine Methadone Screen Ur Barbiturates Screen Ur Phencyclidine Scrn Ur Amphetamines Screen U Benzodiazepines Scrn U Oth Cocaine Metabols U Cannabinoids Screen Alcohol, Quantitative Hep Bs Antigen Hep Bs Antibody Hepatitis C Antibody H.influenzae Type B Ag Ur L.pneumophila Ag Mycoplasma pneumon IgM N.meningitidis ACY/W135 N.meningi B/E.coli K1 Ag Group B Strep Antigen S. pneumoniae Antigen Blood Type Antibody Screen 04/26/18 04/26/18 04/26/18 19:54 20:46 20:46 WBC RBC Hgb Hct MCV MCH MCHC RDW Plt Count MPV Neut % (Auto) Lymph % (Auto) [place] % (Auto) Eos % (Auto) Baso % (Auto) Neut # (Auto) Lymph # (Auto) [place] # (Auto) Eos # (Auto) Baso # (Auto) Neutrophils % (Manual) Band Neutrophils % Lymphocytes % (Manual) Monocytes % (Manual) Eosinophils % (Manual) Platelet Estimate Hypochromasia (manual) Microcytosis (manual) [place] Cells Sodium 140 Potassium 3.4 L Chloride 100 Carbon Dioxide 26 Anion Gap 18 BUN 28 H Creatinine 3.3 H Est GFR ( Amer) 25 Est GFR (Non-Af Amer) 21 POC Glucose (mg/dL) 89 Random Glucose 115 H Calcium 8.7 Phosphorus Magnesium Ferritin Total Bilirubin 0.8 AST 26 ALT 20 L Alkaline Phosphatase 101 Total Protein 7.3 Albumin 3.8 Globulin 3.5 Albumin/Globulin Ratio 1.1 Vitamin B12 Folate Procalcitonin 0.16 L Urine Color Urine Clarity Urine pH Ur Specific [place] Urine Protein Urine Glucose (UA) Urine Ketones Urine Blood Urine Nitrate Urine Bilirubin Urine Urobilinogen Ur Leukocyte Esterase Urine WBC (Auto) Urine RBC (Auto) Ur Squamous Epith Cells Urine Bacteria Urine Opiates Screen Urine Methadone Screen Ur Barbiturates Screen Ur Phencyclidine Scrn Ur Amphetamines Screen U Benzodiazepines Scrn U Oth Cocaine Metabols U Cannabinoids Screen Alcohol, Quantitative Hep Bs Antigen Hep Bs Antibody Hepatitis C Antibody H.influenzae Type B Ag Ur L.pneumophila Ag Mycoplasma pneumon IgM N.meningitidis ACY/W135 N.meningi B/E.coli K1 Ag Group B Strep Antigen S. pneumoniae Antigen Blood Type Antibody Screen 04/26/18 04/26/18 04/26/18 20:46 20:46 20:46 WBC 10.0 RBC 3.03 L Hgb 7.4 L Hct 22.0 L MCV 72.6 L D MCH 24.4 L MCHC 33.6 RDW 17.4 H Plt Count 270 MPV 7.6 Neut % (Auto) 81.0 H Lymph % (Auto) 9.0 L [place] % (Auto) 9.0 Eos % (Auto) 1.0 Baso % (Auto) 0.0 Neut # (Auto) 8.1 H Lymph # (Auto) 0.9 L [place] # (Auto) 0.9 H Eos # (Auto) 0.1 Baso # (Auto) 0.0 Neutrophils % (Manual) 80 H Band Neutrophils % 1 Lymphocytes % (Manual) 9 L Monocytes % (Manual) 9 Eosinophils % (Manual) 1 Platelet Estimate Normal Hypochromasia (manual) Moderate Microcytosis (manual) Slight [place] Cells Slight Sodium Potassium Chloride Carbon Dioxide Anion Gap BUN Creatinine Est GFR ( Amer) Est GFR (Non-Af Amer) POC Glucose (mg/dL) Random Glucose Calcium Phosphorus Magnesium Ferritin Total Bilirubin AST ALT Alkaline Phosphatase Total Protein Albumin Globulin Albumin/Globulin Ratio Vitamin B12 Folate Procalcitonin Urine Color Urine Clarity Urine pH Ur Specific [place] Urine Protein Urine Glucose (UA) Urine Ketones Urine Blood Urine Nitrate Urine Bilirubin Urine Urobilinogen Ur Leukocyte Esterase Urine WBC (Auto) Urine RBC (Auto) Ur Squamous Epith Cells Urine Bacteria Urine Opiates Screen Urine Methadone Screen Ur Barbiturates Screen Ur Phencyclidine Scrn Ur Amphetamines Screen U Benzodiazepines Scrn U Oth Cocaine Metabols U Cannabinoids Screen Alcohol, Quantitative < 10 Hep Bs Antigen Hep Bs Antibody Hepatitis C Antibody H.influenzae Type B Ag Ur L.pneumophila Ag Mycoplasma pneumon IgM Negative N.meningitidis ACY/W135 N.meningi B/E.coli K1 Ag Group B Strep Antigen S. pneumoniae Antigen Blood Type Antibody Screen 04/26/18 04/26/18 04/26/18 21:05 21:58 23:40 WBC RBC Hgb Hct MCV MCH MCHC RDW Plt Count MPV Neut % (Auto) Lymph % (Auto) [place] % (Auto) Eos % (Auto) Baso % (Auto) Neut # (Auto) Lymph # (Auto) [place] # (Auto) Eos # (Auto) Baso # (Auto) Neutrophils % (Manual) Band Neutrophils % Lymphocytes % (Manual) Monocytes % (Manual) Eosinophils % (Manual) Platelet Estimate Hypochromasia (manual) Microcytosis (manual) [place] Cells Sodium Potassium Chloride Carbon Dioxide Anion Gap BUN Creatinine Est GFR ( Amer) Est GFR (Non-Af Amer) POC Glucose (mg/dL) 120 H 145 H 175 H Random Glucose Calcium Phosphorus Magnesium Ferritin Total Bilirubin AST ALT Alkaline Phosphatase Total Protein Albumin Globulin Albumin/Globulin Ratio Vitamin B12 Folate Procalcitonin Urine Color Urine Clarity Urine pH Ur Specific [place] Urine Protein Urine Glucose (UA) Urine Ketones Urine Blood Urine Nitrate Urine Bilirubin Urine Urobilinogen Ur Leukocyte Esterase Urine WBC (Auto) Urine RBC (Auto) Ur Squamous Epith Cells Urine Bacteria Urine Opiates Screen Urine Methadone Screen Ur Barbiturates Screen Ur Phencyclidine Scrn Ur Amphetamines Screen U Benzodiazepines Scrn U Oth Cocaine Metabols U Cannabinoids Screen Alcohol, Quantitative Hep Bs Antigen Hep Bs Antibody Hepatitis C Antibody H.influenzae Type B Ag Ur L.pneumophila Ag Mycoplasma pneumon IgM N.meningitidis ACY/W135 N.meningi B/E.coli K1 Ag Group B Strep Antigen S. pneumoniae Antigen Blood Type Antibody Screen 04/26/18 04/27/18 04/27/18 Unknown 00:58 03:26 WBC RBC Hgb Hct MCV MCH MCHC RDW Plt Count MPV Neut % (Auto) Lymph % (Auto) [place] % (Auto) Eos % (Auto) Baso % (Auto) Neut # (Auto) Lymph # (Auto) [place] # (Auto) Eos # (Auto) Baso # (Auto) Neutrophils % (Manual) Band Neutrophils % Lymphocytes % (Manual) Monocytes % (Manual) Eosinophils % (Manual) Platelet Estimate Hypochromasia (manual) Microcytosis (manual) [place] Cells Sodium Potassium Chloride Carbon Dioxide Anion Gap BUN Creatinine Est GFR ( Amer) Est GFR (Non-Af Amer) POC Glucose (mg/dL) 223 H 270 H Random Glucose Calcium Phosphorus Magnesium Ferritin Total Bilirubin AST ALT Alkaline Phosphatase Total Protein Albumin Globulin Albumin/Globulin Ratio Vitamin B12 Folate Procalcitonin 0.48 Urine Color Urine Clarity Urine pH Ur Specific [place] Urine Protein Urine Glucose (UA) Urine Ketones Urine Blood Urine Nitrate Urine Bilirubin Urine Urobilinogen Ur Leukocyte Esterase Urine WBC (Auto) Urine RBC (Auto) Ur Squamous Epith Cells Urine Bacteria Urine Opiates Screen Urine Methadone Screen Ur Barbiturates Screen Ur Phencyclidine Scrn Ur Amphetamines Screen U Benzodiazepines Scrn U Oth Cocaine Metabols U Cannabinoids Screen Alcohol, Quantitative Hep Bs Antigen Hep Bs Antibody Hepatitis C Antibody H.influenzae Type B Ag Ur L.pneumophila Ag Mycoplasma pneumon IgM N.meningitidis ACY/W135 N.meningi B/E.coli K1 Ag Group B Strep Antigen S. pneumoniae Antigen Blood Type Antibody Screen 04/27/18 04/27/18 04/27/18 05:08 05:39 05:39 WBC RBC Hgb Hct MCV MCH MCHC RDW Plt Count MPV Neut % (Auto) Lymph % (Auto) [place] % (Auto) Eos % (Auto) Baso % (Auto) Neut # (Auto) Lymph # (Auto) [place] # (Auto) Eos # (Auto) Baso # (Auto) Neutrophils % (Manual) Band Neutrophils % Lymphocytes % (Manual) Monocytes % (Manual) Eosinophils % (Manual) Platelet Estimate Hypochromasia (manual) Microcytosis (manual) [place] Cells Sodium 139 Potassium 4.0 Chloride 99 Carbon Dioxide 23 Anion Gap 21 H BUN 32 H Creatinine 4.8 H Est GFR ( Amer) 16 Est GFR (Non-Af Amer) 13 POC Glucose (mg/dL) 315 H Random Glucose 297 H Calcium 8.4 L Phosphorus 5.2 H Magnesium 1.8 Ferritin Total Bilirubin 0.7 AST 25 ALT 17 L Alkaline Phosphatase 90 Total Protein 7.3 Albumin 3.7 Globulin 3.6 Albumin/Globulin Ratio 1.1 Vitamin B12 Folate Procalcitonin Urine Color Urine Clarity Urine pH Ur Specific [place] Urine Protein Urine Glucose (UA) Urine Ketones Urine Blood Urine Nitrate Urine Bilirubin Urine Urobilinogen Ur Leukocyte Esterase Urine WBC (Auto) Urine RBC (Auto) Ur Squamous Epith Cells Urine Bacteria Urine Opiates Screen Urine Methadone Screen Ur Barbiturates Screen Ur Phencyclidine Scrn Ur Amphetamines Screen U Benzodiazepines Scrn U Oth Cocaine Metabols U Cannabinoids Screen Alcohol, Quantitative Hep Bs Antigen Hep Bs Antibody Hepatitis C Antibody H.influenzae Type B Ag Ur L.pneumophila Ag Mycoplasma pneumon IgM N.meningitidis ACY/W135 N.meningi B/E.coli K1 Ag Group B Strep Antigen S. pneumoniae Antigen Blood Type Antibody Screen 04/27/18 04/27/18 04/27/18 05:47 05:50 05:50 WBC 9.1 RBC 3.14 L Hgb 7.7 L Hct 23.1 L MCV 73.3 L MCH 24.3 L MCHC 33.2 RDW 17.0 H Plt Count 254 MPV 8.5 Neut % (Auto) 73.0 Lymph % (Auto) 22.0 [place] % (Auto) 2.0 Eos % (Auto) 3.0 Baso % (Auto) 0.0 Neut # (Auto) 6.7 Lymph # (Auto) 2.0 [place] # (Auto) 0.2 Eos # (Auto) 0.3 Baso # (Auto) 0.0 Neutrophils % (Manual) Band Neutrophils % Lymphocytes % (Manual) Monocytes % (Manual) Eosinophils % (Manual) Platelet Estimate Hypochromasia (manual) Microcytosis (manual) [place] Cells Sodium Potassium Chloride Carbon Dioxide Anion Gap BUN Creatinine Est GFR ( Amer) Est GFR (Non-Af Amer) POC Glucose (mg/dL) Random Glucose Calcium Phosphorus Magnesium Ferritin Total Bilirubin AST ALT Alkaline Phosphatase Total Protein Albumin Globulin Albumin/Globulin Ratio Vitamin B12 Folate Procalcitonin Urine Color Yellow Urine Clarity Hazy Urine pH 6.0 Ur Specific [place] 1.017 Urine Protein 3+ H Urine Glucose (UA) 3+ H Urine Ketones Trace Urine Blood 2+ H Urine Nitrate Negative Urine Bilirubin Negative Urine Urobilinogen Normal Ur Leukocyte Esterase Neg Urine WBC (Auto) 6 H Urine RBC (Auto) 62 H Ur Squamous Epith Cells < 1 Urine Bacteria Rare Urine Opiates Screen Urine Methadone Screen Ur Barbiturates Screen Ur Phencyclidine Scrn Ur Amphetamines Screen U Benzodiazepines Scrn U Oth Cocaine Metabols U Cannabinoids Screen Alcohol, Quantitative Hep Bs Antigen Hep Bs Antibody Hepatitis C Antibody H.influenzae Type B Ag Ur L.pneumophila Ag Negative Mycoplasma pneumon IgM N.meningitidis ACY/W135 N.meningi B/E.coli K1 Ag Group B Strep Antigen S. pneumoniae Antigen Blood Type Antibody Screen 04/27/18 04/27/18 04/27/18 05:50 06:17 07:19 WBC RBC Hgb Hct MCV MCH MCHC RDW Plt Count MPV Neut % (Auto) Lymph % (Auto) [place] % (Auto) Eos % (Auto) Baso % (Auto) Neut # (Auto) Lymph # (Auto) [place] # (Auto) Eos # (Auto) Baso # (Auto) Neutrophils % (Manual) Band Neutrophils % Lymphocytes % (Manual) Monocytes % (Manual) Eosinophils % (Manual) Platelet Estimate Hypochromasia (manual) Microcytosis (manual) [place] Cells Sodium Potassium Chloride Carbon Dioxide Anion Gap BUN Creatinine Est GFR ( Amer) Est GFR (Non-Af Amer) POC Glucose (mg/dL) 296 H Random Glucose Calcium Phosphorus Magnesium Ferritin Total Bilirubin AST ALT Alkaline Phosphatase Total Protein Albumin Globulin Albumin/Globulin Ratio Vitamin B12 Folate Procalcitonin Urine Color Urine Clarity Urine pH Ur Specific [place] Urine Protein Urine Glucose (UA) Urine Ketones Urine Blood Urine Nitrate Urine Bilirubin Urine Urobilinogen Ur Leukocyte Esterase Urine WBC (Auto) Urine RBC (Auto) Ur Squamous Epith Cells Urine Bacteria Urine Opiates Screen Negative Urine Methadone Screen Negative Ur Barbiturates Screen Negative Ur Phencyclidine Scrn Negative Ur Amphetamines Screen Negative U Benzodiazepines Scrn Negative U Oth Cocaine Metabols Negative U Cannabinoids Screen Positive H Alcohol, Quantitative Hep Bs Antigen Hep Bs Antibody Hepatitis C Antibody H.influenzae Type B Ag Negative Ur L.pneumophila Ag Mycoplasma pneumon IgM N.meningitidis ACY/W135 Negative N.meningi B/E.coli K1 Ag Negative Group B Strep Antigen Negative S. pneumoniae Antigen Negative Blood Type Antibody Screen 04/27/18 04/27/18 04/27/18 07:21 08:01 09:06 WBC RBC Hgb Hct MCV MCH MCHC RDW Plt Count MPV Neut % (Auto) Lymph % (Auto) [place] % (Auto) Eos % (Auto) Baso % (Auto) Neut # (Auto) Lymph # (Auto) [place] # (Auto) Eos # (Auto) Baso # (Auto) Neutrophils % (Manual) Band Neutrophils % Lymphocytes % (Manual) Monocytes % (Manual) Eosinophils % (Manual) Platelet Estimate Hypochromasia (manual) Microcytosis (manual) [place] Cells Sodium Potassium Chloride Carbon Dioxide Anion Gap BUN Creatinine Est GFR ( Amer) Est GFR (Non-Af Amer) POC Glucose (mg/dL) 269 H 233 H 193 H Random Glucose Calcium Phosphorus Magnesium Ferritin Total Bilirubin AST ALT Alkaline Phosphatase Total Protein Albumin Globulin Albumin/Globulin Ratio Vitamin B12 Folate Procalcitonin Urine Color Urine Clarity Urine pH Ur Specific [place] Urine Protein Urine Glucose (UA) Urine Ketones Urine Blood Urine Nitrate Urine Bilirubin Urine Urobilinogen Ur Leukocyte Esterase Urine WBC (Auto) Urine RBC (Auto) Ur Squamous Epith Cells Urine Bacteria Urine Opiates Screen Urine Methadone Screen Ur Barbiturates Screen Ur Phencyclidine Scrn Ur Amphetamines Screen U Benzodiazepines Scrn U Oth Cocaine Metabols U Cannabinoids Screen Alcohol, Quantitative Hep Bs Antigen Hep Bs Antibody Hepatitis C Antibody H.influenzae Type B Ag Ur L.pneumophila Ag Mycoplasma pneumon IgM N.meningitidis ACY/W135 N.meningi B/E.coli K1 Ag Group B Strep Antigen S. pneumoniae Antigen Blood Type Antibody Screen 04/27/18 04/27/18 04/27/18 10:11 11:19 12:08 WBC RBC Hgb Hct MCV MCH MCHC RDW Plt Count MPV Neut % (Auto) Lymph % (Auto) [place] % (Auto) Eos % (Auto) Baso % (Auto) Neut # (Auto) Lymph # (Auto) [place] # (Auto) Eos # (Auto) Baso # (Auto) Neutrophils % (Manual) Band Neutrophils % Lymphocytes % (Manual) Monocytes % (Manual) Eosinophils % (Manual) Platelet Estimate Hypochromasia (manual) Microcytosis (manual) [place] Cells Sodium Potassium Chloride Carbon Dioxide Anion Gap BUN Creatinine Est GFR ( Amer) Est GFR (Non-Af Amer) POC Glucose (mg/dL) 207 H 167 H 115 H Random Glucose Calcium Phosphorus Magnesium Ferritin Total Bilirubin AST ALT Alkaline Phosphatase Total Protein Albumin Globulin Albumin/Globulin Ratio Vitamin B12 Folate Procalcitonin Urine Color Urine Clarity Urine pH Ur Specific [place] Urine Protein Urine Glucose (UA) Urine Ketones Urine Blood Urine Nitrate Urine Bilirubin Urine Urobilinogen Ur Leukocyte Esterase Urine WBC (Auto) Urine RBC (Auto) Ur Squamous Epith Cells Urine Bacteria Urine Opiates Screen Urine Methadone Screen Ur Barbiturates Screen Ur Phencyclidine Scrn Ur Amphetamines Screen U Benzodiazepines Scrn U Oth Cocaine Metabols U Cannabinoids Screen Alcohol, Quantitative Hep Bs Antigen Hep Bs Antibody Hepatitis C Antibody H.influenzae Type B Ag Ur L.pneumophila Ag Mycoplasma pneumon IgM N.meningitidis ACY/W135 N.meningi B/E.coli K1 Ag Group B Strep Antigen S. pneumoniae Antigen Blood Type Antibody Screen 04/27/18 04/27/18 12:53 12:59 WBC RBC Hgb Hct MCV MCH MCHC RDW Plt Count MPV Neut % (Auto) Lymph % (Auto) [place] % (Auto) Eos % (Auto) Baso % (Auto) Neut # (Auto) Lymph # (Auto) [place] # (Auto) Eos # (Auto) Baso # (Auto) Neutrophils % (Manual) Band Neutrophils % Lymphocytes % (Manual) Monocytes % (Manual) Eosinophils % (Manual) Platelet Estimate Hypochromasia (manual) Microcytosis (manual) [place] Cells Sodium 140 Potassium 4.0 Chloride 101 Carbon Dioxide 26 Anion Gap 16 BUN 37 H Creatinine 5.1 H Est GFR ( Amer) 15 Est GFR (Non-Af Amer) 13 POC Glucose (mg/dL) 118 H Random Glucose 119 H Calcium 8.1 L Phosphorus Magnesium Ferritin Total Bilirubin 0.6 AST 19 ALT 17 L Alkaline Phosphatase 88 Total Protein 7.0 Albumin 3.5 Globulin 3.5 Albumin/Globulin Ratio 1.0 Vitamin B12 Folate Procalcitonin Urine Color Urine Clarity Urine pH Ur Specific [place] Urine Protein Urine Glucose (UA) Urine Ketones Urine Blood Urine Nitrate Urine Bilirubin Urine Urobilinogen Ur Leukocyte Esterase Urine WBC (Auto) Urine RBC (Auto) Ur Squamous Epith Cells Urine Bacteria Urine Opiates Screen Urine Methadone Screen Ur Barbiturates Screen Ur Phencyclidine Scrn Ur Amphetamines Screen U Benzodiazepines Scrn U Oth Cocaine Metabols U Cannabinoids Screen Alcohol, Quantitative Hep Bs Antigen Hep Bs Antibody Hepatitis C Antibody H.influenzae Type B Ag Ur L.pneumophila Ag Mycoplasma pneumon IgM N.meningitidis ACY/W135 N.meningi B/E.coli K1 Ag Group B Strep Antigen S. pneumoniae Antigen Blood Type Antibody Screen
[2018-04-27] MEDS ORDERED: Glucagon Recombinant 1 mg Inj IM ONE (15:00)
[2018-04-27] MEDS ORDERED: Dextrose 50% SYRINGE Inj (50 ml) IV ONE (15:00)
--- NOTE | 2018-04-27 15:42 | MRI ---
Date of service: 04/27/2018 PROCEDURE: Magnetic Resonance Angiography Brain HISTORY: AMS COMPARISON: None available. TECHNIQUE: 3D time of flight MR angiography of the intracranial arteries was performed. Rotating maximum intensity projection images were generated. FINDINGS: INTERNAL CAROTID ARTERIES: Unremarkable. The skull base, petrous, cavernous and supraclinoid segments are bilaterally widely patient. ANTERIOR CEREBRAL ARTERIES: Unremarkable. A1 and A2 segments are widely patent. Smaller distal branches unremarkable, as visualized. MIDDLE CEREBRAL ARTERIES: Unremarkable. M1 and M2 segments are widely patent. Perisylvian branches grossly symmetric. POSTERIOR CIRCULATION: Basilar Artery: Unremarkable. Distal Vertebral Arteries: Unremarkable. Posterior Cerebral Arteries: Unremarkable. Posterior Inferior Cerebellar Arteries: Unremarkable. ANEURYSM/ VASCULAR MALFORMATIONS: None. OTHER FINDINGS: Bilateral areas of meningeal enhancement; correlate with dedicated MRI examination of the brain. . IMPRESSION: Unremarkable MR angiography of the brain.Bilateral areas of meningeal enhancement; correlate with dedicated MRI examination of the brain. .
--- NOTE | 2018-04-27 15:53 | MRI ---
Date of service: 04/27/2018 PROCEDURE: MRI BRAIN WITHOUT CONTRAST HISTORY: AMS COMPARISON: None. TECHNIQUE: Multiplanar, multisequence MR images of the brain were obtained without intravenous contrast enhancement. FINDINGS: HEMORRHAGE: Multifocal areas of hyperintense signal along the dural margin probably representing areas of epidural hemorrhage. The is a most pronounced along the left parietal lobe, left frontal lobe as well is the right frontoparietal lobe measuring up to 7 millimeters in thickness. There is also epidural hemorrhage along the right occipital lobe. DWI: No evidence of an acute or early subacute infarction. BRAIN PARENCHYMA: No mass effect or edema. No atrophy or chronic microvascular ischemic changes. 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 No intraparenchymal hemorrhage. CRANIUM: Unremarkable. ORBITS: Grossly unremarkable. PARANASAL SINUSES/MASTOIDS: Clear VASCULAR SYSTEM: Skull base flow voids intact. No evidence of venous thrombosis. OTHER FINDINGS: None. IMPRESSION: Multifocal areas of hyperintense signal along the dural margin probably representing areas of epidural hemorrhage. The is a most pronounced along the left parietal lobe, left frontal lobe as well is the right frontoparietal lobe measuring up to 7 millimeters in thickness. There is also epidural hemorrhage along the right occipital lobe. Communicating hydrocephalus. Dilatation of the ventricles does raise the suspicion that this could represent subarachnoid hemorrhage.
--- NOTE | 2018-04-27 16:02 | MRI ---
Date of service: 04/27/2018 PROCEDURE: MR Angiography of the neck without contrast HISTORY: AMS COMPARISON: None available. TECHNIQUE: 3D [id number] angiography of the neck was performed. Rotating maximum intensity projection images of the cervical carotid and vertebral arteries were generated. The origins of the common carotid arteries were not visualized, which is a limitation inherent to the non-contrast time of flight technique. FINDINGS: RIGHT CAROTID ARTERIES: Common Carotid Artery: Normal. Carotid Bifurcation: Normal. Internal Carotid Artery:Normal. External Carotid Artery (proximal branches): Normal. LEFT CAROTID ARTERIES: Common Carotid Artery: Normal. Carotid Bifurcation: Normal. Internal Carotid Artery:Normal. External Carotid Artery (proximal branches): Normal. VERTEBRAL ARTERIES: Right Vertebral Artery: Normal. Left Vertebral Artery: Normal. OTHER FINDINGS: None. IMPRESSION: Normal MR Angiography of the neck.
--- NOTE | 2018-04-27 16:07 | CP.CCUPN ---
<Vilma Doyle P - Last Filed: 04/27/18 18:57> CCU Subjective - Physician Review Subjective (Free Text): Critical Care progress note. Patient seen and examined at bedside. Patient states he feels much better after dialysis yesterday. Denies chest pain, palpitations, shortness of breath, abdominal pain, fever, chills, nausea and vomiting. CCU Objective - Vital Signs / Intake & Output Vital Signs (Last 4 hours): Vital Signs Pulse Resp BP Pulse Ox 04/27/18 15:43 95 H 19 168/108 H 100 04/27/18 15:37 101 H 18 04/27/18 14:04 97 H 13 166/100 H 98 04/27/18 14:00 98 H 11 L 99 04/27/18 13:04 98 H 13 159/104 H 99 04/27/18 13:00 98 H 11 L 99 Intake and Output (Last 8hrs): Intake & Output 04/27/18 04/27/18 04/27/18 06:59 14:59 22:59 Intake Total 69 165.0 Output Total 600 Balance -531 165.0 Weight 144 lb 2.917 oz Intake: IV 10 47.0 Intake, IV Amount 59 118 Left Antecubital 50 100 Right Antecubital 9 18 Oral 0 0 Output: Urine 600 Urine, Voided 600 Other: # Voids Urine, Voided 0 # Bowel Movements 0 - Physical Exam Other physical findings (Free Text): - Head Exam Head Exam: ATRAUMATIC, NORMOCEPHALIC - Eye Exam Eye Exam: EOMI. absent: Normal appearance (L eye with corneal opacity) - ENT Exam ENT Exam: Mucous Membranes Moist - Neck Exam Neck exam: Positive for: Full Rom, Normal Inspection - Respiratory Exam Respiratory Exam: Decreased Breath Sounds. absent: Rales, Rhonchi, Wheezes - Cardiovascular Exam Cardiovascular Exam: Regular rate, +S1, +S2 - GI/Abdominal Exam GI & Abdominal Exam: Normal Bowel Sounds, Soft. absent: Distended, Firm, Guarding, Tenderness - Extremities Exam Extremities exam: Negative for: joint swelling, pedal edema, tenderness - Neurological Exam Neurological exam: Pt awake and alert. Muscle strength 5/5 on L, 4/5 on R. facial droop on R. - Skin Skin Exam: Dry, Normal Color, Warm - Medications Active Medications: Active Medications Generic Name Dose Route Start Last Admin Trade Name Freq PRN Reason Stop Dose Admin Amlodipine Besylate 5 mg 04/27/18 18:00 Norvasc PO QPM JOSE Dextrose 0 gm 04/27/18 15:00 Glutose 15 PO ONCE PRN Hypoglycemia Protocol Protocol Epoetin Cornelius 10,000 unit 04/27/18 11:00 Procrit SC TTS [facility] Ferric Sodium Gluconate Complex 125 mg 04/28/18 09:00 Ferrlecit IVPB 05/15/18 09:01 MWF [facility] Heparin Sodium (Porcine) 5,000 units 04/27/18 22:00 Heparin SC Q12 JOSE Hydralazine HCl 10 mg 04/26/18 21:20 04/27/18 09:16 Apresoline IVP 10 mg Q6H JOSE Administration Lacosamide 75 mg/ Sodium 107.5 mls @ 220 mls/hr 04/26/18 22:00 04/27/18 10:25 Chloride IV 220 mls/hr Q12H JOSE Administration Piperacillin Sod/Tazobactam Sod 2.25 gm in 50 mls @ 100 mls/hr 04/26/18 21:30 04/27/18 12:55 Zosyn 2.25 Gm Iv Premix IVPB 100 mls/hr Q8H JOSE Administration Protocol Dextrose/Sodium Chloride 1,000 mls @ 100 mls/hr 04/27/18 11:30 04/27/18 11:48 Dextrose 5%/0.45% Ns 1000 Ml IV 100 mls/hr .Q10H JOSE Administration Dextrose 1,000 mls @ 0 mls/hr 04/27/18 15:00 Dextrose 5% In Water 1000 Ml IV .Q0M PRN Hypoglycemia Protocol Protocol Per Protocol Insulin Human Regular 0 unit 04/27/18 16:30 Novolin R SC ACHS [facility] Protocol Lacosamide 50 mg 04/26/18 17:30 Vimpat 200mg/20ml IVP PRN PRN anti-seizure post dialysis. Losartan Potassium 50 mg 04/27/18 18:00 Cozaar PO QPM [facility] Pneumococcal Polyvalent Vaccine 0.5 ml 04/28/18 10:00 Pneumovax 23 Vaccine IM 04/28/18 10:01 .ONCE ONE Sevelamer Carbonate 800 mg 04/27/18 12:00 08/02/18 12:26 Renvela PO Not Given TIDCC [facility] Vitamin B Complex/Vit C/Folic Acid 1 tab 04/28/18 08:00 Nephro-Jailene PO 0800 [facility] - Patient Studies Lab Studies: Lab Studies 04/27/18 04/27/18 04/27/18 Range/Units 15:44 14:00 12:59 WBC (4.8-10.8) K/uL RBC (4.40-5.90) Mil/uL Hgb (12.0-18.0) g/dL Hct (35.0-51.0) % MCV (80.0-94.0) fL MCH (27.0-31.0) pg MCHC (33.0-37.0) g/dL RDW (11.5-14.5) % Plt Count (130-400) K/uL MPV (7.2-11.7) fL Neut % (Auto) (50.0-75.0) % Lymph % (Auto) (20.0-40.0) % [place] % (Auto) (0.0-10.0) % Eos % (Auto) (0.0-4.0) % Baso % (Auto) (0.0-2.0) % Neut # (Auto) (1.8-7.0) K/uL Lymph # (Auto) (1.0-4.3) K/uL [place] # (Auto) (0.0-0.8) K/uL Eos # (Auto) (0.0-0.7) K/uL Baso # (Auto) (0.0-0.2) K/uL Neutrophils % (Manual) (50-75) % Band Neutrophils % (0-2) % Lymphocytes % (Manual) (20-40) % Monocytes % (Manual) (0-10) % Eosinophils % (Manual) (0-4) % Platelet Estimate (NORMAL) Hypochromasia (manual) Microcytosis (manual) [place] Cells Sodium 140 (132-148) mmol/L Potassium 4.0 (3.6-5.2) mmol/L Chloride 101 (98-107) mmol/L Carbon Dioxide 26 (22-30) mmol/L Anion Gap 16 (10-20) BUN 37 H (9-20) mg/dL Creatinine 5.1 H (0.8-1.5) mg/dL Est GFR ( Amer) 15 Est GFR (Non-Af Amer) 13 POC Glucose (mg/dL) 204 H 166 H (65-110) mg/dL Random Glucose 119 H (75-110) mg/dL Calcium 8.1 L (8.6-10.4) mg/dl Phosphorus (2.5-4.5) mg/dL Magnesium (1.6-2.3) mg/dL Ferritin ng/mL Total Bilirubin 0.6 (0.2-1.3) mg/dL AST 19 (17-59) U/L ALT 17 L (21-72) U/L Alkaline Phosphatase 88 (38-126) U/L Total Protein 7.0 (6.3-8.3) g/dL Albumin 3.5 (3.5-5.0) g/dL Globulin 3.5 (2.2-3.9) gm/dL Albumin/Globulin Ratio 1.0 (1.0-2.1) Vitamin B12 (239-931) pg/mL Folate ng/mL Procalcitonin (0.19-0.49) NG/ML Urine Color (YELLOW) Urine Clarity (Clear) Urine pH (5.0-8.0) Ur Specific [place] (1.003-1.030) Urine Protein (NEGATIVE) mg/dL Urine Glucose (UA) (Normal) mg/dL Urine Ketones (NEGATIVE) mg/dL Urine Blood (NEGATIVE) Urine Nitrate (NEGATIVE) Urine Bilirubin (NEGATIVE) Urine Urobilinogen (0.2-1.0) mg/dL Ur Leukocyte Esterase (Negative) Jourdan/uL Urine WBC (Auto) (0-5) /hpf Urine RBC (Auto) (0-3) /hpf Ur Squamous Epith Cells (0-5) /hpf Urine Bacteria (<OCC) Urine Opiates Screen (NEGATIVE) Urine Methadone Screen (NEGATIVE) Ur Barbiturates Screen (NEGATIVE) Ur Phencyclidine Scrn (NEGATIVE) Ur Amphetamines Screen (NEGATIVE) U Benzodiazepines Scrn (NEGATIVE) U Oth Cocaine Metabols (NEGATIVE) U Cannabinoids Screen (NEGATIVE) Alcohol, Quantitative (0-10) mg/dl Hep Bs Antigen (NEGATIVE) Hep Bs Antibody (NEGATIVE) Hepatitis C Antibody (NEGATIVE) H.influenzae Type B Ag (NEGATIVE) Ur L.pneumophila Ag (NEGATIVE) Mycoplasma pneumon IgM (NEGATIVE) N.meningitidis ACY/W135 (NEGATIVE) N.meningi B/E.coli K1 Ag (NEGATIVE) Group B Strep Antigen (NEGATIVE) S. pneumoniae Antigen (NEGATIVE) Blood Type Antibody Screen 04/27/18 04/27/18 04/27/18 Range/Units 12:53 12:08 11:19 WBC (4.8-10.8) K/uL RBC (4.40-5.90) Mil/uL Hgb (12.0-18.0) g/dL Hct (35.0-51.0) % MCV (80.0-94.0) fL MCH (27.0-31.0) pg MCHC (33.0-37.0) g/dL RDW (11.5-14.5) % Plt Count (130-400) K/uL MPV (7.2-11.7) fL Neut % (Auto) (50.0-75.0) % Lymph % (Auto) (20.0-40.0) % [place] % (Auto) (0.0-10.0) % Eos % (Auto) (0.0-4.0) % Baso % (Auto) (0.0-2.0) % Neut # (Auto) (1.8-7.0) K/uL Lymph # (Auto) (1.0-4.3) K/uL [place] # (Auto) (0.0-0.8) K/uL Eos # (Auto) (0.0-0.7) K/uL Baso # (Auto) (0.0-0.2) K/uL Neutrophils % (Manual) (50-75) % Band Neutrophils % (0-2) % Lymphocytes % (Manual) (20-40) % Monocytes % (Manual) (0-10) % Eosinophils % (Manual) (0-4) % Platelet Estimate (NORMAL) Hypochromasia (manual) Microcytosis (manual) [place] Cells Sodium (132-148) mmol/L Potassium (3.6-5.2) mmol/L Chloride (98-107) mmol/L Carbon Dioxide (22-30) mmol/L Anion Gap (10-20) BUN (9-20) mg/dL Creatinine (0.8-1.5) mg/dL Est GFR ( Amer) Est GFR (Non-Af Amer) POC Glucose (mg/dL) 118 H 115 H 167 H (65-110) mg/dL Random Glucose (75-110) mg/dL Calcium (8.6-10.4) mg/dl Phosphorus (2.5-4.5) mg/dL Magnesium (1.6-2.3) mg/dL Ferritin ng/mL Total Bilirubin (0.2-1.3) mg/dL AST (17-59) U/L ALT (21-72) U/L Alkaline Phosphatase (38-126) U/L Total Protein (6.3-8.3) g/dL Albumin (3.5-5.0) g/dL Globulin (2.2-3.9) gm/dL Albumin/Globulin Ratio (1.0-2.1) Vitamin B12 (239-931) pg/mL Folate ng/mL Procalcitonin (0.19-0.49) NG/ML Urine Color (YELLOW) Urine Clarity (Clear) Urine pH (5.0-8.0) Ur Specific [place] (1.003-1.030) Urine Protein (NEGATIVE) mg/dL Urine Glucose (UA) (Normal) mg/dL Urine Ketones (NEGATIVE) mg/dL Urine Blood (NEGATIVE) Urine Nitrate (NEGATIVE) Urine Bilirubin (NEGATIVE) Urine Urobilinogen (0.2-1.0) mg/dL Ur Leukocyte Esterase (Negative) Jourdan/uL Urine WBC (Auto) (0-5) /hpf Urine RBC (Auto) (0-3) /hpf Ur Squamous Epith Cells (0-5) /hpf Urine Bacteria (<OCC) Urine Opiates Screen (NEGATIVE) Urine Methadone Screen (NEGATIVE) Ur Barbiturates Screen (NEGATIVE) Ur Phencyclidine Scrn (NEGATIVE) Ur Amphetamines Screen (NEGATIVE) U Benzodiazepines Scrn (NEGATIVE) U Oth Cocaine Metabols (NEGATIVE) U Cannabinoids Screen (NEGATIVE) Alcohol, Quantitative (0-10) mg/dl Hep Bs Antigen (NEGATIVE) Hep Bs Antibody (NEGATIVE) Hepatitis C Antibody (NEGATIVE) H.influenzae Type B Ag (NEGATIVE) Ur L.pneumophila Ag (NEGATIVE) Mycoplasma pneumon IgM (NEGATIVE) N.meningitidis ACY/W135 (NEGATIVE) N.meningi B/E.coli K1 Ag (NEGATIVE) Group B Strep Antigen (NEGATIVE) S. pneumoniae Antigen (NEGATIVE) Blood Type Antibody Screen 04/27/18 04/27/18 04/27/18 Range/Units 10:11 09:06 08:01 WBC (4.8-10.8) K/uL RBC (4.40-5.90) Mil/uL Hgb (12.0-18.0) g/dL Hct (35.0-51.0) % MCV (80.0-94.0) fL MCH (27.0-31.0) pg MCHC (33.0-37.0) g/dL RDW (11.5-14.5) % Plt Count (130-400) K/uL MPV (7.2-11.7) fL Neut % (Auto) (50.0-75.0) % Lymph % (Auto) (20.0-40.0) % [place] % (Auto) (0.0-10.0) % Eos % (Auto) (0.0-4.0) % Baso % (Auto) (0.0-2.0) % Neut # (Auto) (1.8-7.0) K/uL Lymph # (Auto) (1.0-4.3) K/uL [place] # (Auto) (0.0-0.8) K/uL Eos # (Auto) (0.0-0.7) K/uL Baso # (Auto) (0.0-0.2) K/uL Neutrophils % (Manual) (50-75) % Band Neutrophils % (0-2) % Lymphocytes % (Manual) (20-40) % Monocytes % (Manual) (0-10) % Eosinophils % (Manual) (0-4) % Platelet Estimate (NORMAL) Hypochromasia (manual) Microcytosis (manual) [place] Cells Sodium (132-148) mmol/L Potassium (3.6-5.2) mmol/L Chloride (98-107) mmol/L Carbon Dioxide (22-30) mmol/L Anion Gap (10-20) BUN (9-20) mg/dL Creatinine (0.8-1.5) mg/dL Est GFR ( Amer) Est GFR (Non-Af Amer) POC Glucose (mg/dL) 207 H 193 H 233 H (65-110) mg/dL Random Glucose (75-110) mg/dL Calcium (8.6-10.4) mg/dl Phosphorus (2.5-4.5) mg/dL Magnesium (1.6-2.3) mg/dL Ferritin ng/mL Total Bilirubin (0.2-1.3) mg/dL AST (17-59) U/L ALT (21-72) U/L Alkaline Phosphatase (38-126) U/L Total Protein (6.3-8.3) g/dL Albumin (3.5-5.0) g/dL Globulin (2.2-3.9) gm/dL Albumin/Globulin Ratio (1.0-2.1) Vitamin B12 (239-931) pg/mL Folate ng/mL Procalcitonin (0.19-0.49) NG/ML Urine Color (YELLOW) Urine Clarity (Clear) Urine pH (5.0-8.0) Ur Specific [place] (1.003-1.030) Urine Protein (NEGATIVE) mg/dL Urine Glucose (UA) (Normal) mg/dL Urine Ketones (NEGATIVE) mg/dL Urine Blood (NEGATIVE) Urine Nitrate (NEGATIVE) Urine Bilirubin (NEGATIVE) Urine Urobilinogen (0.2-1.0) mg/dL Ur Leukocyte Esterase (Negative) Jourdan/uL Urine WBC (Auto) (0-5) /hpf Urine RBC (Auto) (0-3) /hpf Ur Squamous Epith Cells (0-5) /hpf Urine Bacteria (<OCC) Urine Opiates Screen (NEGATIVE) Urine Methadone Screen (NEGATIVE) Ur Barbiturates Screen (NEGATIVE) Ur Phencyclidine Scrn (NEGATIVE) Ur Amphetamines Screen (NEGATIVE) U Benzodiazepines Scrn (NEGATIVE) U Oth Cocaine Metabols (NEGATIVE) U Cannabinoids Screen (NEGATIVE) Alcohol, Quantitative (0-10) mg/dl Hep Bs Antigen (NEGATIVE) Hep Bs Antibody (NEGATIVE) Hepatitis C Antibody (NEGATIVE) H.influenzae Type B Ag (NEGATIVE) Ur L.pneumophila Ag (NEGATIVE) Mycoplasma pneumon IgM (NEGATIVE) N.meningitidis ACY/W135 (NEGATIVE) N.meningi B/E.coli K1 Ag (NEGATIVE) Group B Strep Antigen (NEGATIVE) S. pneumoniae Antigen (NEGATIVE) Blood Type Antibody Screen 08/11/1304/27/18 04/27/18 Range/Units 07:21 07:19 06:17 WBC (4.8-10.8) K/uL RBC (4.40-5.90) Mil/uL Hgb (12.0-18.0) g/dL Hct (35.0-51.0) % MCV (80.0-94.0) fL MCH (27.0-31.0) pg MCHC (33.0-37.0) g/dL RDW (11.5-14.5) % Plt Count (130-400) K/uL MPV (7.2-11.7) fL Neut % (Auto) (50.0-75.0) % Lymph % (Auto) (20.0-40.0) % [place] % (Auto) (0.0-10.0) % Eos % (Auto) (0.0-4.0) % Baso % (Auto) (0.0-2.0) % Neut # (Auto) (1.8-7.0) K/uL Lymph # (Auto) (1.0-4.3) K/uL [place] # (Auto) (0.0-0.8) K/uL Eos # (Auto) (0.0-0.7) K/uL Baso # (Auto) (0.0-0.2) K/uL Neutrophils % (Manual) (50-75) % Band Neutrophils % (0-2) % Lymphocytes % (Manual) (20-40) % Monocytes % (Manual) (0-10) % Eosinophils % (Manual) (0-4) % Platelet Estimate (NORMAL) Hypochromasia (manual) Microcytosis (manual) [place] Cells Sodium (132-148) mmol/L Potassium (3.6-5.2) mmol/L Chloride (98-107) mmol/L Carbon Dioxide (22-30) mmol/L Anion Gap (10-20) BUN (9-20) mg/dL Creatinine (0.8-1.5) mg/dL Est GFR ( Amer) Est GFR (Non-Af Amer) POC Glucose (mg/dL) 269 H 296 H (65-110) mg/dL Random Glucose (75-110) mg/dL Calcium (8.6-10.4) mg/dl Phosphorus (2.5-4.5) mg/dL Magnesium (1.6-2.3) mg/dL Ferritin ng/mL Total Bilirubin (0.2-1.3) mg/dL AST (17-59) U/L ALT (21-72) U/L Alkaline Phosphatase (38-126) U/L Total Protein (6.3-8.3) g/dL Albumin (3.5-5.0) g/dL Globulin (2.2-3.9) gm/dL Albumin/Globulin Ratio (1.0-2.1) Vitamin B12 (239-931) pg/mL Folate ng/mL Procalcitonin (0.19-0.49) NG/ML Urine Color (YELLOW) Urine Clarity (Clear) Urine pH (5.0-8.0) Ur Specific [place] (1.003-1.030) Urine Protein (NEGATIVE) mg/dL Urine Glucose (UA) (Normal) mg/dL Urine Ketones (NEGATIVE) mg/dL Urine Blood (NEGATIVE) Urine Nitrate (NEGATIVE) Urine Bilirubin (NEGATIVE) Urine Urobilinogen (0.2-1.0) mg/dL Ur Leukocyte Esterase (Negative) Jourdan/uL Urine WBC (Auto) (0-5) /hpf Urine RBC (Auto) (0-3) /hpf Ur Squamous Epith Cells (0-5) /hpf Urine Bacteria (<OCC) Urine Opiates Screen (NEGATIVE) Urine Methadone Screen (NEGATIVE) Ur Barbiturates Screen (NEGATIVE) Ur Phencyclidine Scrn (NEGATIVE) Ur Amphetamines Screen (NEGATIVE) U Benzodiazepines Scrn (NEGATIVE) U Oth Cocaine Metabols (NEGATIVE) U Cannabinoids Screen (NEGATIVE) Alcohol, Quantitative (0-10) mg/dl Hep Bs Antigen (NEGATIVE) Hep Bs Antibody (NEGATIVE) Hepatitis C Antibody (NEGATIVE) H.influenzae Type B Ag Negative (NEGATIVE) Ur L.pneumophila Ag (NEGATIVE) Mycoplasma pneumon IgM (NEGATIVE) N.meningitidis ACY/W135 Negative (NEGATIVE) N.meningi B/E.coli K1 Ag Negative (NEGATIVE) Group B Strep Antigen Negative (NEGATIVE) S. pneumoniae Antigen Negative (NEGATIVE) Blood Type Antibody Screen 04/27/18 04/27/18 04/27/18 Range/Units 05:50 05:50 05:50 WBC (4.8-10.8) K/uL RBC (4.40-5.90) Mil/uL Hgb (12.0-18.0) g/dL Hct (35.0-51.0) % MCV (80.0-94.0) fL MCH (27.0-31.0) pg MCHC (33.0-37.0) g/dL RDW (11.5-14.5) % Plt Count (130-400) K/uL MPV (7.2-11.7) fL Neut % (Auto) (50.0-75.0) % Lymph % (Auto) (20.0-40.0) % [place] % (Auto) (0.0-10.0) % Eos % (Auto) (0.0-4.0) % Baso % (Auto) (0.0-2.0) % Neut # (Auto) (1.8-7.0) K/uL Lymph # (Auto) (1.0-4.3) K/uL [place] # (Auto) (0.0-0.8) K/uL Eos # (Auto) (0.0-0.7) K/uL Baso # (Auto) (0.0-0.2) K/uL Neutrophils % (Manual) (50-75) % Band Neutrophils % (0-2) % Lymphocytes % (Manual) (20-40) % Monocytes % (Manual) (0-10) % Eosinophils % (Manual) (0-4) % Platelet Estimate (NORMAL) Hypochromasia (manual) Microcytosis (manual) [place] Cells Sodium (132-148) mmol/L Potassium (3.6-5.2) mmol/L Chloride (98-107) mmol/L Carbon Dioxide (22-30) mmol/L Anion Gap (10-20) BUN (9-20) mg/dL Creatinine (0.8-1.5) mg/dL Est GFR ( Amer) Est GFR (Non-Af Amer) POC Glucose (mg/dL) (65-110) mg/dL Random Glucose (75-110) mg/dL Calcium (8.6-10.4) mg/dl Phosphorus (2.5-4.5) mg/dL Magnesium (1.6-2.3) mg/dL Ferritin ng/mL Total Bilirubin (0.2-1.3) mg/dL AST (17-59) U/L ALT (21-72) U/L Alkaline Phosphatase (38-126) U/L Total Protein (6.3-8.3) g/dL Albumin (3.5-5.0) g/dL Globulin (2.2-3.9) gm/dL Albumin/Globulin Ratio (1.0-2.1) Vitamin B12 (239-931) pg/mL Folate ng/mL Procalcitonin (0.19-0.49) NG/ML Urine Color Yellow (YELLOW) Urine Clarity Hazy (Clear) Urine pH 6.0 (5.0-8.0) Ur Specific [place] 1.017 (1.003-1.030) Urine Protein 3+ H (NEGATIVE) mg/dL Urine Glucose (UA) 3+ H (Normal) mg/dL Urine Ketones Trace (NEGATIVE) mg/dL Urine Blood 2+ H (NEGATIVE) Urine Nitrate Negative (NEGATIVE) Urine Bilirubin Negative (NEGATIVE) Urine Urobilinogen Normal (0.2-1.0) mg/dL Ur Leukocyte Esterase Neg (Negative) Jourdan/uL Urine WBC (Auto) 6 H (0-5) /hpf Urine RBC (Auto) 62 H (0-3) /hpf Ur Squamous Epith Cells < 1 (0-5) /hpf Urine Bacteria Rare (<OCC) Urine Opiates Screen Negative (NEGATIVE) Urine Methadone Screen Negative (NEGATIVE) Ur Barbiturates Screen Negative (NEGATIVE) Ur Phencyclidine Scrn Negative (NEGATIVE) Ur Amphetamines Screen Negative (NEGATIVE) U Benzodiazepines Scrn Negative (NEGATIVE) U Oth Cocaine Metabols Negative (NEGATIVE) U Cannabinoids Screen Positive H (NEGATIVE) Alcohol, Quantitative (0-10) mg/dl Hep Bs Antigen (NEGATIVE) Hep Bs Antibody (NEGATIVE) Hepatitis C Antibody (NEGATIVE) H.influenzae Type B Ag (NEGATIVE) Ur L.pneumophila Ag Negative (NEGATIVE) Mycoplasma pneumon IgM (NEGATIVE) N.meningitidis ACY/W135 (NEGATIVE) N.meningi B/E.coli K1 Ag (NEGATIVE) Group B Strep Antigen (NEGATIVE) S. pneumoniae Antigen (NEGATIVE) Blood Type Antibody Screen 04/27/18 04/27/18 04/27/18 Range/Units 05:47 05:39 05:39 WBC 9.1 (4.8-10.8) K/uL RBC 3.14 L (4.40-5.90) Mil/uL Hgb 7.7 L (12.0-18.0) g/dL Hct 23.1 L (35.0-51.0) % MCV 73.3 L (80.0-94.0) fL MCH 24.3 L (27.0-31.0) pg MCHC 33.2 (33.0-37.0) g/dL RDW 17.0 H (11.5-14.5) % Plt Count 254 (130-400) K/uL MPV 8.5 (7.2-11.7) fL Neut % (Auto) 73.0 (50.0-75.0) % Lymph % (Auto) 22.0 (20.0-40.0) % [place] % (Auto) 2.0 (0.0-10.0) % Eos % (Auto) 3.0 (0.0-4.0) % Baso % (Auto) 0.0 (0.0-2.0) % Neut # (Auto) 6.7 (1.8-7.0) K/uL Lymph # (Auto) 2.0 (1.0-4.3) K/uL [place] # (Auto) 0.2 (0.0-0.8) K/uL Eos # (Auto) 0.3 (0.0-0.7) K/uL Baso # (Auto) 0.0 (0.0-0.2) K/uL Neutrophils % (Manual) (50-75) % Band Neutrophils % (0-2) % Lymphocytes % (Manual) (20-40) % Monocytes % (Manual) (0-10) % Eosinophils % (Manual) (0-4) % Platelet Estimate (NORMAL) Hypochromasia (manual) Microcytosis (manual) [place] Cells Sodium 139 (132-148) mmol/L Potassium 4.0 (3.6-5.2) mmol/L Chloride 99 (98-107) mmol/L Carbon Dioxide 23 (22-30) mmol/L Anion Gap 21 H (10-20) BUN 32 H (9-20) mg/dL Creatinine 4.8 H (0.8-1.5) mg/dL Est GFR ( Amer) 16 Est GFR (Non-Af Amer) 13 POC Glucose (mg/dL) (65-110) mg/dL Random Glucose 297 H (75-110) mg/dL Calcium 8.4 L (8.6-10.4) mg/dl Phosphorus 5.2 H (2.5-4.5) mg/dL Magnesium 1.8 (1.6-2.3) mg/dL Ferritin ng/mL Total Bilirubin 0.7 (0.2-1.3) mg/dL AST 25 (17-59) U/L ALT 17 L (21-72) U/L Alkaline Phosphatase 90 (38-126) U/L Total Protein 7.3 (6.3-8.3) g/dL Albumin 3.7 (3.5-5.0) g/dL Globulin 3.6 (2.2-3.9) gm/dL Albumin/Globulin Ratio 1.1 (1.0-2.1) Vitamin B12 (239-931) pg/mL Folate ng/mL Procalcitonin (0.19-0.49) NG/ML Urine Color (YELLOW) Urine Clarity (Clear) Urine pH (5.0-8.0) Ur Specific [place] (1.003-1.030) Urine Protein (NEGATIVE) mg/dL Urine Glucose (UA) (Normal) mg/dL Urine Ketones (NEGATIVE) mg/dL Urine Blood (NEGATIVE) Urine Nitrate (NEGATIVE) Urine Bilirubin (NEGATIVE) Urine Urobilinogen (0.2-1.0) mg/dL Ur Leukocyte Esterase (Negative) Jourdan/uL Urine WBC (Auto) (0-5) /hpf Urine RBC (Auto) (0-3) /hpf Ur Squamous Epith Cells (0-5) /hpf Urine Bacteria (<OCC) Urine Opiates Screen (NEGATIVE) Urine Methadone Screen (NEGATIVE) Ur Barbiturates Screen (NEGATIVE) Ur Phencyclidine Scrn (NEGATIVE) Ur Amphetamines Screen (NEGATIVE) U Benzodiazepines Scrn (NEGATIVE) U Oth Cocaine Metabols (NEGATIVE) U Cannabinoids Screen (NEGATIVE) Alcohol, Quantitative (0-10) mg/dl Hep Bs Antigen (NEGATIVE) Hep Bs Antibody (NEGATIVE) Hepatitis C Antibody (NEGATIVE) H.influenzae Type B Ag (NEGATIVE) Ur L.pneumophila Ag (NEGATIVE) Mycoplasma pneumon IgM (NEGATIVE) N.meningitidis ACY/W135 (NEGATIVE) N.meningi B/E.coli K1 Ag (NEGATIVE) Group B Strep Antigen (NEGATIVE) S. pneumoniae Antigen (NEGATIVE) Blood Type Antibody Screen 04/27/18 04/27/18 04/27/18 Range/Units 05:08 03:26 00:58 WBC (4.8-10.8) K/uL RBC (4.40-5.90) Mil/uL Hgb (12.0-18.0) g/dL Hct (35.0-51.0) % MCV (80.0-94.0) fL MCH (27.0-31.0) pg MCHC (33.0-37.0) g/dL RDW (11.5-14.5) % Plt Count (130-400) K/uL MPV (7.2-11.7) fL Neut % (Auto) (50.0-75.0) % Lymph % (Auto) (20.0-40.0) % [place] % (Auto) (0.0-10.0) % Eos % (Auto) (0.0-4.0) % Baso % (Auto) (0.0-2.0) % Neut # (Auto) (1.8-7.0) K/uL Lymph # (Auto) (1.0-4.3) K/uL [place] # (Auto) (0.0-0.8) K/uL Eos # (Auto) (0.0-0.7) K/uL Baso # (Auto) (0.0-0.2) K/uL Neutrophils % (Manual) (50-75) % Band Neutrophils % (0-2) % Lymphocytes % (Manual) (20-40) % Monocytes % (Manual) (0-10) % Eosinophils % (Manual) (0-4) % Platelet Estimate (NORMAL) Hypochromasia (manual) Microcytosis (manual) [place] [facility] Sodium (132-148) mmol/L Potassium (3.6-5.2) mmol/L Chloride (98-107) mmol/L Carbon Dioxide (22-30) mmol/L Anion Gap (10-20) BUN (9-20) mg/dL Creatinine (0.8-1.5) mg/dL Est GFR ( Amer) Est GFR (Non-Af Amer) POC Glucose (mg/dL) 315 H 270 H 223 H (65-110) mg/dL Random Glucose (75-110) mg/dL Calcium (8.6-10.4) mg/dl Phosphorus (2.5-4.5) mg/dL Magnesium (1.6-2.3) mg/dL Ferritin ng/mL Total Bilirubin (0.2-1.3) mg/dL AST (17-59) U/L ALT (21-72) U/L Alkaline Phosphatase (38-126) U/L Total Protein (6.3-8.3) g/dL Albumin (3.5-5.0) g/dL Globulin (2.2-3.9) gm/dL Albumin/Globulin Ratio (1.0-2.1) Vitamin B12 (239-931) pg/mL Folate ng/mL Procalcitonin (0.19-0.49) NG/ML Urine Color (YELLOW) Urine Clarity (Clear) Urine pH (5.0-8.0) Ur Specific [place] (1.003-1.030) Urine Protein (NEGATIVE) mg/dL Urine Glucose (UA) (Normal) mg/dL Urine Ketones (NEGATIVE) mg/dL Urine Blood (NEGATIVE) Urine Nitrate (NEGATIVE) Urine Bilirubin (NEGATIVE) Urine Urobilinogen (0.2-1.0) mg/dL Ur Leukocyte Esterase (Negative) [place]/uL Urine WBC (Auto) (0-5) /hpf Urine RBC (Auto) (0-3) /hpf Ur Squamous Epith Cells (0-5) /hpf Urine Bacteria (<OCC) Urine Opiates Screen (NEGATIVE) Urine Methadone Screen (NEGATIVE) Ur Barbiturates Screen (NEGATIVE) Ur Phencyclidine Scrn (NEGATIVE) Ur Amphetamines Screen (NEGATIVE) U Benzodiazepines Scrn (NEGATIVE) U Oth Cocaine Metabols (NEGATIVE) U Cannabinoids Screen (NEGATIVE) Alcohol, Quantitative (0-10) mg/dl Hep Bs Antigen (NEGATIVE) Hep Bs Antibody (NEGATIVE) Hepatitis C Antibody (NEGATIVE) H.influenzae Type B Ag (NEGATIVE) Ur L.pneumophila Ag (NEGATIVE) Mycoplasma pneumon IgM (NEGATIVE) N.meningitidis ACY/W135 (NEGATIVE) N.meningi B/E.coli K1 Ag (NEGATIVE) Group B Strep Antigen (NEGATIVE) S. pneumoniae Antigen (NEGATIVE) Blood Type Antibody Screen 04/26/18 04/26/18 04/26/18 Range/Units Unknown 23:40 21:58 WBC (4.8-10.8) K/uL RBC (4.40-5.90) Mil/uL Hgb (12.0-18.0) g/dL Hct (35.0-51.0) % MCV (80.0-94.0) fL MCH (27.0-31.0) pg MCHC (33.0-37.0) g/dL RDW (11.5-14.5) % Plt Count (130-400) K/uL MPV (7.2-11.7) fL Neut % (Auto) (50.0-75.0) % Lymph % (Auto) (20.0-40.0) % [place] % (Auto) (0.0-10.0) % Eos % (Auto) (0.0-4.0) % Baso % (Auto) (0.0-2.0) % Neut # (Auto) (1.8-7.0) K/uL Lymph # (Auto) (1.0-4.3) K/uL [place] # (Auto) (0.0-0.8) K/uL Eos # (Auto) (0.0-0.7) K/uL Baso # (Auto) (0.0-0.2) K/uL Neutrophils % (Manual) (50-75) % Band Neutrophils % (0-2) % Lymphocytes % (Manual) (20-40) % Monocytes % (Manual) (0-10) % Eosinophils % (Manual) (0-4) % Platelet Estimate (NORMAL) Hypochromasia (manual) Microcytosis (manual) [place] Sodium (132-148) mmol/L Potassium (3.6-5.2) mmol/L Chloride (98-107) mmol/L Carbon Dioxide (22-30) mmol/L Anion Gap (10-20) BUN (9-20) mg/dL Creatinine (0.8-1.5) mg/dL Est GFR ( Amer) Est GFR (Non-Af Amer) POC Glucose (mg/dL) 175 H 145 H (65-110) mg/dL Random Glucose (75-110) mg/dL Calcium (8.6-10.4) mg/dl Phosphorus (2.5-4.5) mg/dL Magnesium (1.6-2.3) mg/dL Ferritin ng/mL Total Bilirubin (0.2-1.3) mg/dL AST (17-59) U/L ALT (21-72) U/L Alkaline Phosphatase (38-126) U/L Total Protein (6.3-8.3) g/dL Albumin (3.5-5.0) g/dL Globulin (2.2-3.9) gm/dL Albumin/Globulin Ratio (1.0-2.1) Vitamin B12 (239-931) pg/mL Folate ng/mL Procalcitonin 0.48 (0.19-0.49) NG/ML Urine Color (YELLOW) Urine Clarity (Clear) Urine pH (5.0-8.0) Ur Specific [place] (1.003-1.030) Urine Protein (NEGATIVE) mg/dL Urine Glucose (UA) (Normal) mg/dL Urine Ketones (NEGATIVE) mg/dL Urine Blood (NEGATIVE) Urine Nitrate (NEGATIVE) Urine Bilirubin (NEGATIVE) Urine Urobilinogen (0.2-1.0) mg/dL Ur Leukocyte Esterase (Negative) Jourdan/uL Urine WBC (Auto) (0-5) /hpf Urine RBC (Auto) (0-3) /hpf Ur Squamous Epith Cells (0-5) /hpf Urine Bacteria (<OCC) Urine Opiates Screen (NEGATIVE) Urine Methadone Screen (NEGATIVE) Ur Barbiturates Screen (NEGATIVE) Ur Phencyclidine Scrn (NEGATIVE) Ur Amphetamines Screen (NEGATIVE) U Benzodiazepines Scrn (NEGATIVE) U Oth Cocaine Metabols (NEGATIVE) U Cannabinoids Screen (NEGATIVE) Alcohol, Quantitative (0-10) mg/dl Hep Bs Antigen (NEGATIVE) Hep Bs Antibody (NEGATIVE) Hepatitis C Antibody (NEGATIVE) H.influenzae Type B Ag (NEGATIVE) Ur L.pneumophila Ag (NEGATIVE) Mycoplasma pneumon IgM (NEGATIVE) N.meningitidis ACY/W135 (NEGATIVE) N.meningi B/E.coli K1 Ag (NEGATIVE) Group B Strep Antigen (NEGATIVE) S. pneumoniae Antigen (NEGATIVE) Blood Type Antibody Screen 04/26/18 04/26/18 04/26/18 Range/Units 21:05 20:46 20:46 WBC 10.0 (4.8-10.8) K/uL RBC 3.03 L (4.40-5.90) Mil/uL Hgb 7.4 L (12.0-18.0) g/dL Hct 22.0 L (35.0-51.0) % MCV 72.6 L D (80.0-94.0) fL MCH 24.4 L (27.0-31.0) pg MCHC 33.6 (33.0-37.0) g/dL RDW 17.4 H (11.5-14.5) % Plt Count 270 (130-400) K/uL MPV 7.6 (7.2-11.7) fL Neut % (Auto) 81.0 H (50.0-75.0) % Lymph % (Auto) 9.0 L (20.0-40.0) % [place] % (Auto) 9.0 (0.0-10.0) % Eos % (Auto) 1.0 (0.0-4.0) % Baso % (Auto) 0.0 (0.0-2.0) % Neut # (Auto) 8.1 H (1.8-7.0) K/uL Lymph # (Auto) 0.9 L (1.0-4.3) K/uL [place] # (Auto) 0.9 H (0.0-0.8) K/uL Eos # (Auto) 0.1 (0.0-0.7) K/uL Baso # (Auto) 0.0 (0.0-0.2) K/uL Neutrophils % (Manual) 80 H (50-75) % Band Neutrophils % 1 (0-2) % Lymphocytes % (Manual) 9 L (20-40) % Monocytes % (Manual) 9 (0-10) % Eosinophils % (Manual) 1 (0-4) % Platelet Estimate Normal (NORMAL) Hypochromasia (manual) Moderate Microcytosis (manual) Slight [place] Cells Slight Sodium (132-148) mmol/L Potassium (3.6-5.2) mmol/L Chloride (98-107) mmol/L Carbon Dioxide (22-30) mmol/L Anion Gap (10-20) BUN (9-20) mg/dL Creatinine (0.8-1.5) mg/dL Est GFR ( Amer) Est GFR (Non-Af Amer) POC Glucose (mg/dL) 120 H (65-110) mg/dL Random Glucose (75-110) mg/dL Calcium (8.6-10.4) mg/dl Phosphorus (2.5-4.5) mg/dL Magnesium (1.6-2.3) mg/dL Ferritin ng/mL Total Bilirubin (0.2-1.3) mg/dL AST (17-59) U/L ALT (21-72) U/L Alkaline Phosphatase (38-126) U/L Total Protein (6.3-8.3) g/dL Albumin (3.5-5.0) g/dL Globulin (2.2-3.9) gm/dL Albumin/Globulin Ratio (1.0-2.1) Vitamin B12 (239-931) pg/mL Folate ng/mL Procalcitonin (0.19-0.49) NG/ML Urine Color (YELLOW) Urine Clarity (Clear) Urine pH (5.0-8.0) Ur Specific [place] (1.003-1.030) Urine Protein (NEGATIVE) mg/dL Urine Glucose (UA) (Normal) mg/dL Urine Ketones (NEGATIVE) mg/dL Urine Blood (NEGATIVE) Urine Nitrate (NEGATIVE) Urine Bilirubin (NEGATIVE) Urine Urobilinogen (0.2-1.0) mg/dL Ur Leukocyte Esterase (Negative) Jourdan/uL Urine WBC (Auto) (0-5) /hpf Urine RBC (Auto) (0-3) /hpf Ur Squamous Epith Cells (0-5) /hpf Urine Bacteria (<OCC) Urine Opiates Screen (NEGATIVE) Urine Methadone Screen (NEGATIVE) Ur Barbiturates Screen (NEGATIVE) Ur Phencyclidine Scrn (NEGATIVE) Ur Amphetamines Screen (NEGATIVE) U Benzodiazepines Scrn (NEGATIVE) U Oth Cocaine Metabols (NEGATIVE) U Cannabinoids Screen (NEGATIVE) Alcohol, Quantitative < 10 (0-10) mg/dl Hep Bs Antigen (NEGATIVE) Hep Bs Antibody (NEGATIVE) Hepatitis C Antibody (NEGATIVE) H.influenzae Type B Ag (NEGATIVE) Ur L.pneumophila Ag (NEGATIVE) Mycoplasma pneumon IgM (NEGATIVE) N.meningitidis ACY/W135 (NEGATIVE) N.meningi B/E.coli K1 Ag (NEGATIVE) Group B Strep Antigen (NEGATIVE) S. pneumoniae Antigen (NEGATIVE) Blood Type Antibody Screen 04/26/18 04/26/18 04/26/18 Range/Units 20:46 20:46 20:46 WBC (4.8-10.8) K/uL RBC (4.40-5.90) Mil/uL Hgb (12.0-18.0) g/dL Hct (35.0-51.0) % MCV (80.0-94.0) fL MCH (27.0-31.0) pg MCHC (33.0-37.0) g/dL RDW (11.5-14.5) % Plt Count (130-400) K/uL MPV (7.2-11.7) fL Neut % (Auto) (50.0-75.0) % Lymph % (Auto) (20.0-40.0) % [place] % (Auto) (0.0-10.0) % Eos % (Auto) (0.0-4.0) % Baso % (Auto) (0.0-2.0) % Neut # (Auto) (1.8-7.0) K/uL Lymph # (Auto) (1.0-4.3) K/uL [place] # (Auto) (0.0-0.8) K/uL Eos # (Auto) (0.0-0.7) K/uL Baso # (Auto) (0.0-0.2) K/uL Neutrophils % (Manual) (50-75) % Band Neutrophils % (0-2) % Lymphocytes % (Manual) (20-40) % Monocytes % (Manual) (0-10) % Eosinophils % (Manual) (0-4) % Platelet Estimate (NORMAL) Hypochromasia (manual) Microcytosis (manual) [place] Cells Sodium 140 (132-148) mmol/L Potassium 3.4 L (3.6-5.2) mmol/L Chloride 100 (98-107) mmol/L Carbon Dioxide 26 (22-30) mmol/L Anion Gap 18 (10-20) BUN 28 H (9-20) mg/dL Creatinine 3.3 H (0.8-1.5) mg/dL Est GFR ( Amer) 25 Est GFR (Non-Af Amer) 21 POC Glucose (mg/dL) (65-110) mg/dL Random Glucose 115 H (75-110) mg/dL Calcium 8.7 (8.6-10.4) mg/dl Phosphorus (2.5-4.5) mg/dL Magnesium (1.6-2.3) mg/dL Ferritin ng/mL Total Bilirubin 0.8 (0.2-1.3) mg/dL AST 26 (17-59) U/L ALT 20 L (21-72) U/L Alkaline Phosphatase 101 (38-126) U/L Total Protein 7.3 (6.3-8.3) g/dL Albumin 3.8 (3.5-5.0) g/dL Globulin 3.5 (2.2-3.9) gm/dL Albumin/Globulin Ratio 1.1 (1.0-2.1) Vitamin B12 (239-931) pg/mL Folate ng/mL Procalcitonin 0.16 L (0.19-0.49) NG/ML Urine Color (YELLOW) Urine Clarity (Clear) Urine pH (5.0-8.0) Ur Specific [place] (1.003-1.030) Urine Protein (NEGATIVE) mg/dL Urine Glucose (UA) (Normal) mg/dL Urine Ketones (NEGATIVE) mg/dL Urine Blood (NEGATIVE) Urine Nitrate (NEGATIVE) Urine Bilirubin (NEGATIVE) Urine Urobilinogen (0.2-1.0) mg/dL Ur Leukocyte Esterase (Negative) Jourdan/uL Urine WBC (Auto) (0-5) /hpf Urine RBC (Auto) (0-3) /hpf Ur Squamous Epith Cells (0-5) /hpf Urine Bacteria (<OCC) Urine Opiates Screen (NEGATIVE) Urine Methadone Screen (NEGATIVE) Ur Barbiturates Screen (NEGATIVE) Ur Phencyclidine Scrn (NEGATIVE) Ur Amphetamines Screen (NEGATIVE) U Benzodiazepines Scrn (NEGATIVE) U Oth Cocaine Metabols (NEGATIVE) U Cannabinoids Screen (NEGATIVE) Alcohol, Quantitative (0-10) mg/dl Hep Bs Antigen (NEGATIVE) Hep Bs Antibody (NEGATIVE) Hepatitis C Antibody (NEGATIVE) H.influenzae Type B Ag (NEGATIVE) Ur L.pneumophila Ag (NEGATIVE) Mycoplasma pneumon IgM Negative (NEGATIVE) N.meningitidis ACY/W135 (NEGATIVE) N.meningi B/E.coli K1 Ag (NEGATIVE) Group B Strep Antigen (NEGATIVE) S. pneumoniae Antigen (NEGATIVE) Blood Type Antibody Screen 04/26/18 04/26/18 04/26/18 Range/Units 19:54 18:56 17:56 WBC (4.8-10.8) K/uL RBC (4.40-5.90) Mil/uL Hgb (12.0-18.0) g/dL Hct (35.0-51.0) % MCV (80.0-94.0) fL MCH (27.0-31.0) pg MCHC (33.0-37.0) g/dL RDW (11.5-14.5) % Plt Count (130-400) K/uL MPV (7.2-11.7) fL Neut % (Auto) (50.0-75.0) % Lymph % (Auto) (20.0-40.0) % [place] % (Auto) (0.0-10.0) % Eos % (Auto) (0.0-4.0) % Baso % (Auto) (0.0-2.0) % Neut # (Auto) (1.8-7.0) K/uL Lymph # (Auto) (1.0-4.3) K/uL [place] # (Auto) (0.0-0.8) K/uL Eos # (Auto) (0.0-0.7) K/uL Baso # (Auto) (0.0-0.2) K/uL Neutrophils % (Manual) (50-75) % Band Neutrophils % (0-2) % Lymphocytes % (Manual) (20-40) % Monocytes % (Manual) (0-10) % Eosinophils % (Manual) (0-4) % Platelet Estimate (NORMAL) Hypochromasia (manual) Microcytosis (manual) [place] Cells Sodium (132-148) mmol/L Potassium (3.6-5.2) mmol/L Chloride (98-107) mmol/L Carbon Dioxide (22-30) mmol/L Anion Gap (10-20) BUN (9-20) mg/dL Creatinine (0.8-1.5) mg/dL Est GFR ( Amer) Est GFR (Non-Af Amer) POC Glucose (mg/dL) 89 87 126 H (65-110) mg/dL Random Glucose (75-110) mg/dL Calcium (8.6-10.4) mg/dl Phosphorus (2.5-4.5) mg/dL Magnesium (1.6-2.3) mg/dL Ferritin ng/mL Total Bilirubin (0.2-1.3) mg/dL AST (17-59) U/L ALT (21-72) U/L Alkaline Phosphatase (38-126) U/L Total Protein (6.3-8.3) g/dL Albumin (3.5-5.0) g/dL Globulin (2.2-3.9) gm/dL Albumin/Globulin Ratio (1.0-2.1) Vitamin B12 (239-931) pg/mL Folate ng/mL Procalcitonin (0.19-0.49) NG/ML Urine Color (YELLOW) Urine Clarity (Clear) Urine pH (5.0-8.0) Ur Specific [place] (1.003-1.030) Urine Protein (NEGATIVE) mg/dL Urine Glucose (UA) (Normal) mg/dL Urine Ketones (NEGATIVE) mg/dL Urine Blood (NEGATIVE) Urine Nitrate (NEGATIVE) Urine Bilirubin (NEGATIVE) Urine Urobilinogen (0.2-1.0) mg/dL Ur Leukocyte Esterase (Negative) Jourdan/uL Urine WBC (Auto) (0-5) /hpf Urine RBC (Auto) (0-3) /hpf Ur Squamous Epith Cells (0-5) /hpf Urine Bacteria (<OCC) Urine Opiates Screen (NEGATIVE) Urine Methadone Screen (NEGATIVE) Ur Barbiturates Screen (NEGATIVE) Ur Phencyclidine Scrn (NEGATIVE) Ur Amphetamines Screen (NEGATIVE) U Benzodiazepines Scrn (NEGATIVE) U Oth Cocaine Metabols (NEGATIVE) U Cannabinoids Screen (NEGATIVE) Alcohol, Quantitative (0-10) mg/dl Hep Bs Antigen (NEGATIVE) Hep Bs Antibody (NEGATIVE) Hepatitis C Antibody (NEGATIVE) H.influenzae Type B Ag (NEGATIVE) Ur L.pneumophila Ag (NEGATIVE) Mycoplasma pneumon IgM (NEGATIVE) N.meningitidis ACY/W135 (NEGATIVE) N.meningi B/E.coli K1 Ag (NEGATIVE) Group B Strep Antigen (NEGATIVE) S. pneumoniae Antigen (NEGATIVE) Blood Type Antibody Screen 04/26/18 04/26/18 04/26/18 Range/Units 17:25 17:01 16:31 WBC (4.8-10.8) K/uL RBC (4.40-5.90) Mil/uL Hgb (12.0-18.0) g/dL Hct (35.0-51.0) % MCV (80.0-94.0) fL MCH (27.0-31.0) pg MCHC (33.0-37.0) g/dL RDW (11.5-14.5) % Plt Count (130-400) K/uL MPV (7.2-11.7) fL Neut % (Auto) (50.0-75.0) % Lymph % (Auto) (20.0-40.0) % [place] % (Auto) (0.0-10.0) % Eos % (Auto) (0.0-4.0) % Baso % (Auto) (0.0-2.0) % Neut # (Auto) (1.8-7.0) K/uL Lymph # (Auto) (1.0-4.3) K/uL [place] # (Auto) (0.0-0.8) K/uL Eos # (Auto) (0.0-0.7) K/uL Baso # (Auto) (0.0-0.2) K/uL Neutrophils % (Manual) (50-75) % Band Neutrophils % (0-2) % Lymphocytes % (Manual) (20-40) % Monocytes % (Manual) (0-10) % Eosinophils % (Manual) (0-4) % Platelet Estimate (NORMAL) Hypochromasia (manual) Microcytosis (manual) [place] Cells Sodium 143 (132-148) mmol/L Potassium 3.3 L (3.6-5.2) mmol/L Chloride 102 (98-107) mmol/L Carbon Dioxide 28 (22-30) mmol/L Anion Gap 17 (10-20) BUN 42 H (9-20) mg/dL Creatinine 3.5 H (0.8-1.5) mg/dL Est GFR ( Amer) 23 Est GFR (Non-Af Amer) 19 POC Glucose (mg/dL) 212 H (65-110) mg/dL Random Glucose 162 H (75-110) mg/dL Calcium 8.8 (8.6-10.4) mg/dl Phosphorus (2.5-4.5) mg/dL Magnesium (1.6-2.3) mg/dL Ferritin ng/mL Total Bilirubin 0.4 (0.2-1.3) mg/dL AST 20 (17-59) U/L ALT 21 D (21-72) U/L Alkaline Phosphatase 88 (38-126) U/L Total Protein 7.5 (6.3-8.3) g/dL Albumin 3.9 (3.5-5.0) g/dL Globulin 3.5 (2.2-3.9) gm/dL Albumin/Globulin Ratio 1.1 (1.0-2.1) Vitamin B12 (239-931) pg/mL Folate ng/mL Procalcitonin (0.19-0.49) NG/ML Urine Color (YELLOW) Urine Clarity (Clear) Urine pH (5.0-8.0) Ur Specific [place] (1.003-1.030) Urine Protein (NEGATIVE) mg/dL Urine Glucose (UA) (Normal) mg/dL Urine Ketones (NEGATIVE) mg/dL Urine Blood (NEGATIVE) Urine Nitrate (NEGATIVE) Urine Bilirubin (NEGATIVE) Urine Urobilinogen (0.2-1.0) mg/dL Ur Leukocyte Esterase (Negative) Jourdan/uL Urine WBC (Auto) (0-5) /hpf Urine RBC (Auto) (0-3) /hpf Ur Squamous Epith Cells (0-5) /hpf Urine Bacteria (<OCC) Urine Opiates Screen (NEGATIVE) Urine Methadone Screen (NEGATIVE) Ur Barbiturates Screen (NEGATIVE) Ur Phencyclidine Scrn (NEGATIVE) Ur Amphetamines Screen (NEGATIVE) U Benzodiazepines Scrn (NEGATIVE) U Oth Cocaine Metabols (NEGATIVE) U Cannabinoids Screen (NEGATIVE) Alcohol, Quantitative (0-10) mg/dl Hep Bs Antigen (NEGATIVE) Hep Bs Antibody Negative (NEGATIVE) Hepatitis C Antibody (NEGATIVE) H.influenzae Type B Ag (NEGATIVE) Ur L.pneumophila Ag (NEGATIVE) Mycoplasma pneumon IgM (NEGATIVE) N.meningitidis ACY/W135 (NEGATIVE) N.meningi B/E.coli K1 Ag (NEGATIVE) Group B Strep Antigen (NEGATIVE) S. pneumoniae Antigen (NEGATIVE) Blood Type Antibody Screen 04/26/18 04/26/18 04/26/18 Range/Units 16:31 16:17 12:24 WBC (4.8-10.8) K/uL RBC (4.40-5.90) Mil/uL Hgb (12.0-18.0) g/dL Hct (35.0-51.0) % MCV (80.0-94.0) fL MCH (27.0-31.0) pg MCHC (33.0-37.0) g/dL RDW (11.5-14.5) % Plt Count (130-400) K/uL MPV (7.2-11.7) fL Neut % (Auto) (50.0-75.0) % Lymph % (Auto) (20.0-40.0) % [place] % (Auto) (0.0-10.0) % Eos % (Auto) (0.0-4.0) % Baso % (Auto) (0.0-2.0) % Neut # (Auto) (1.8-7.0) K/uL Lymph # (Auto) (1.0-4.3) K/uL [place] # (Auto) (0.0-0.8) K/uL Eos # (Auto) (0.0-0.7) K/uL Baso # (Auto) (0.0-0.2) K/uL Neutrophils % (Manual) (50-75) % Band Neutrophils % (0-2) % Lymphocytes % (Manual) (20-40) % Monocytes % (Manual) (0-10) % Eosinophils % (Manual) (0-4) % Platelet Estimate (NORMAL) Hypochromasia (manual) Microcytosis (manual) [place] Cells Sodium (132-148) mmol/L Potassium (3.6-5.2) mmol/L Chloride (98-107) mmol/L Carbon Dioxide (22-30) mmol/L Anion Gap (10-20) BUN (9-20) mg/dL Creatinine (0.8-1.5) mg/dL Est GFR ( Amer) Est GFR (Non-Af Amer) POC Glucose (mg/dL) 376 H (65-110) mg/dL Random Glucose (75-110) mg/dL Calcium (8.6-10.4) mg/dl Phosphorus (2.5-4.5) mg/dL Magnesium (1.6-2.3) mg/dL Ferritin 167.0 ng/mL Total Bilirubin (0.2-1.3) mg/dL AST (17-59) U/L ALT (21-72) U/L Alkaline Phosphatase (38-126) U/L Total Protein (6.3-8.3) g/dL Albumin (3.5-5.0) g/dL Globulin (2.2-3.9) gm/dL Albumin/Globulin Ratio (1.0-2.1) Vitamin B12 852 (239-931) pg/mL Folate 11.2 ng/mL Procalcitonin (0.19-0.49) NG/ML Urine Color (YELLOW) Urine Clarity (Clear) Urine pH (5.0-8.0) Ur Specific [place] (1.003-1.030) Urine Protein (NEGATIVE) mg/dL Urine Glucose (UA) (Normal) mg/dL Urine Ketones (NEGATIVE) mg/dL Urine Blood (NEGATIVE) Urine Nitrate (NEGATIVE) Urine Bilirubin (NEGATIVE) Urine Urobilinogen (0.2-1.0) mg/dL Ur Leukocyte Esterase (Negative) Jourdan/uL Urine WBC (Auto) (0-5) /hpf Urine RBC (Auto) (0-3) /hpf Ur Squamous Epith Cells (0-5) /hpf Urine Bacteria (<OCC) Urine Opiates Screen (NEGATIVE) Urine Methadone Screen (NEGATIVE) Ur Barbiturates Screen (NEGATIVE) Ur Phencyclidine Scrn (NEGATIVE) Ur Amphetamines Screen (NEGATIVE) U Benzodiazepines Scrn (NEGATIVE) U Oth Cocaine Metabols (NEGATIVE) U Cannabinoids Screen (NEGATIVE) Alcohol, Quantitative (0-10) mg/dl Hep Bs Antigen Negative (NEGATIVE) Hep Bs Antibody (NEGATIVE) Hepatitis C Antibody Negative (NEGATIVE) H.influenzae Type B Ag (NEGATIVE) Ur L.pneumophila Ag (NEGATIVE) Mycoplasma pneumon IgM (NEGATIVE) N.meningitidis ACY/W135 (NEGATIVE) N.meningi B/E.coli K1 Ag (NEGATIVE) Group B Strep Antigen (NEGATIVE) S. pneumoniae Antigen (NEGATIVE) Blood Type Antibody Screen 04/26/18 Range/Units 11:50 WBC (4.8-10.8) K/uL RBC (4.40-5.90) Mil/uL Hgb (12.0-18.0) g/dL Hct (35.0-51.0) % MCV (80.0-94.0) fL MCH (27.0-31.0) pg MCHC (33.0-37.0) g/dL RDW (11.5-14.5) % Plt Count (130-400) K/uL MPV (7.2-11.7) fL Neut % (Auto) (50.0-75.0) % Lymph % (Auto) (20.0-40.0) % [place] % (Auto) (0.0-10.0) % Eos % (Auto) (0.0-4.0) % Baso % (Auto) (0.0-2.0) % Neut # (Auto) (1.8-7.0) K/uL Lymph # (Auto) (1.0-4.3) K/uL [place] # (Auto) (0.0-0.8) K/uL Eos # (Auto) (0.0-0.7) K/uL Baso # (Auto) (0.0-0.2) K/uL Neutrophils % (Manual) (50-75) % Band Neutrophils % (0-2) % Lymphocytes % (Manual) (20-40) % Monocytes % (Manual) (0-10) % Eosinophils % (Manual) (0-4) % Platelet Estimate (NORMAL) Hypochromasia (manual) Microcytosis (manual) [place] Cells Sodium (132-148) mmol/L Potassium (3.6-5.2) mmol/L Chloride (98-107) mmol/L Carbon Dioxide (22-30) mmol/L Anion Gap (10-20) BUN (9-20) mg/dL Creatinine (0.8-1.5) mg/dL Est GFR ( Amer) Est GFR (Non-Af Amer) POC Glucose (mg/dL) (65-110) mg/dL Random Glucose (75-110) mg/dL Calcium (8.6-10.4) mg/dl Phosphorus (2.5-4.5) mg/dL Magnesium (1.6-2.3) mg/dL Ferritin ng/mL Total Bilirubin (0.2-1.3) mg/dL AST (17-59) U/L ALT (21-72) U/L Alkaline Phosphatase (38-126) U/L Total Protein (6.3-8.3) g/dL Albumin (3.5-5.0) g/dL Globulin (2.2-3.9) gm/dL Albumin/Globulin Ratio (1.0-2.1) Vitamin B12 (239-931) pg/mL Folate ng/mL Procalcitonin (0.19-0.49) NG/ML Urine Color (YELLOW) Urine Clarity (Clear) Urine pH (5.0-8.0) Ur Specific [place] (1.003-1.030) Urine Protein (NEGATIVE) mg/dL Urine Glucose (UA) (Normal) mg/dL Urine Ketones (NEGATIVE) mg/dL Urine Blood (NEGATIVE) Urine Nitrate (NEGATIVE) Urine Bilirubin (NEGATIVE) Urine Urobilinogen (0.2-1.0) mg/dL Ur Leukocyte Esterase (Negative) Jourdan/uL Urine WBC (Auto) (0-5) /hpf Urine RBC (Auto) (0-3) /hpf Ur Squamous Epith Cells (0-5) /hpf Urine Bacteria (<OCC) Urine Opiates Screen (NEGATIVE) Urine Methadone Screen (NEGATIVE) Ur Barbiturates Screen (NEGATIVE) Ur Phencyclidine Scrn (NEGATIVE) Ur Amphetamines Screen (NEGATIVE) U Benzodiazepines Scrn (NEGATIVE) U Oth Cocaine Metabols (NEGATIVE) U Cannabinoids Screen (NEGATIVE) Alcohol, Quantitative (0-10) mg/dl Hep Bs Antigen (NEGATIVE) Hep Bs Antibody (NEGATIVE) Hepatitis C Antibody (NEGATIVE) H.influenzae Type B Ag (NEGATIVE) Ur L.pneumophila Ag (NEGATIVE) Mycoplasma pneumon IgM (NEGATIVE) N.meningitidis ACY/W135 (NEGATIVE) N.meningi B/E.coli K1 Ag (NEGATIVE) Group B Strep Antigen (NEGATIVE) S. pneumoniae Antigen (NEGATIVE) Blood Type O POSITIVE Antibody Screen Negative Laboratory Results - last 24 hr 04/26/18 04/26/18 04/26/18 11:50 12:24 16:17 WBC RBC Hgb Hct MCV MCH MCHC RDW Plt Count MPV Neut % (Auto) Lymph % (Auto) [place] % (Auto) Eos % (Auto) Baso % (Auto) Neut # (Auto) Lymph # (Auto) [place] # (Auto) Eos # (Auto) Baso # (Auto) Neutrophils % (Manual) Band Neutrophils % Lymphocytes % (Manual) Monocytes % (Manual) Eosinophils % (Manual) Platelet Estimate Hypochromasia (manual) Microcytosis (manual) [place] Cells Sodium Potassium Chloride Carbon Dioxide Anion Gap BUN Creatinine Est GFR ( Amer) Est GFR (Non-Af Amer) POC Glucose (mg/dL) 376 H Random Glucose Calcium Phosphorus Magnesium Ferritin 167.0 Total Bilirubin AST ALT Alkaline Phosphatase Total Protein Albumin Globulin Albumin/Globulin Ratio Vitamin B12 852 Folate 11.2 Procalcitonin Urine Color Urine Clarity Urine pH Ur Specific [place] Urine Protein Urine Glucose (UA) Urine Ketones Urine Blood Urine Nitrate Urine Bilirubin Urine Urobilinogen Ur Leukocyte Esterase Urine WBC (Auto) Urine RBC (Auto) Ur Squamous Epith Cells Urine Bacteria Urine Opiates Screen Urine Methadone Screen Ur Barbiturates Screen Ur Phencyclidine Scrn Ur Amphetamines Screen U Benzodiazepines Scrn U Oth Cocaine Metabols U Cannabinoids Screen Alcohol, Quantitative Hep Bs Antigen Hep Bs Antibody Hepatitis C Antibody H.influenzae Type B Ag Ur L.pneumophila Ag Mycoplasma pneumon IgM N.meningitidis ACY/W135 N.meningi B/E.coli K1 Ag Group B Strep Antigen S. pneumoniae Antigen Blood Type O POSITIVE Antibody Screen Negative 04/26/18 04/26/18 04/26/18 16:31 16:31 17:01 WBC RBC Hgb Hct MCV MCH MCHC RDW Plt Count MPV Neut % (Auto) Lymph % (Auto) [place] % (Auto) Eos % (Auto) Baso % (Auto) Neut # (Auto) Lymph # (Auto) [place] # (Auto) Eos # (Auto) Baso # (Auto) Neutrophils % (Manual) Band Neutrophils % Lymphocytes % (Manual) Monocytes % (Manual) Eosinophils % (Manual) Platelet Estimate Hypochromasia (manual) Microcytosis (manual) [place] Cells Sodium Potassium Chloride Carbon Dioxide Anion Gap BUN Creatinine Est GFR ( Amer) Est GFR (Non-Af Amer) POC Glucose (mg/dL) 212 H Random Glucose Calcium Phosphorus Magnesium Ferritin Total Bilirubin AST ALT Alkaline Phosphatase Total Protein Albumin Globulin Albumin/Globulin Ratio Vitamin B12 Folate Procalcitonin Urine Color Urine Clarity Urine pH Ur Specific [place] Urine Protein Urine Glucose (UA) Urine Ketones Urine Blood Urine Nitrate Urine Bilirubin Urine Urobilinogen Ur Leukocyte Esterase Urine WBC (Auto) Urine RBC (Auto) Ur Squamous Epith Cells Urine Bacteria Urine Opiates Screen Urine Methadone Screen Ur Barbiturates Screen Ur Phencyclidine Scrn Ur Amphetamines Screen U Benzodiazepines Scrn U Oth Cocaine Metabols U Cannabinoids Screen Alcohol, Quantitative Hep Bs Antigen Negative Hep Bs Antibody Negative Hepatitis C Antibody Negative H.influenzae Type B Ag Ur L.pneumophila Ag Mycoplasma pneumon IgM N.meningitidis ACY/W135 N.meningi B/E.coli K1 Ag Group B Strep Antigen S. pneumoniae Antigen Blood Type Antibody Screen 04/26/18 04/26/18 04/26/18 17:25 17:56 18:56 WBC RBC Hgb Hct MCV MCH MCHC RDW Plt Count MPV Neut % (Auto) Lymph % (Auto) [place] % (Auto) Eos % (Auto) Baso % (Auto) Neut # (Auto) Lymph # (Auto) [place] # (Auto) Eos # (Auto) Baso # (Auto) Neutrophils % (Manual) Band Neutrophils % Lymphocytes % (Manual) Monocytes % (Manual) Eosinophils % (Manual) Platelet Estimate Hypochromasia (manual) Microcytosis (manual) [place] Cells Sodium 143 Potassium 3.3 L Chloride 102 Carbon Dioxide 28 Anion Gap 17 BUN 42 H Creatinine 3.5 H Est GFR ( Amer) 23 Est GFR (Non-Af Amer) 19 POC Glucose (mg/dL) 126 H 87 Random Glucose 162 H Calcium 8.8 Phosphorus Magnesium Ferritin Total Bilirubin 0.4 AST 20 ALT 21 D Alkaline Phosphatase 88 Total Protein 7.5 Albumin 3.9 Globulin 3.5 Albumin/Globulin Ratio 1.1 Vitamin B12 Folate Procalcitonin Urine Color Urine Clarity Urine pH Ur Specific [place] Urine Protein Urine Glucose (UA) Urine Ketones Urine Blood Urine Nitrate Urine Bilirubin Urine Urobilinogen Ur Leukocyte Esterase Urine WBC (Auto) Urine RBC (Auto) Ur Squamous Epith Cells Urine Bacteria Urine Opiates Screen Urine Methadone Screen Ur Barbiturates Screen Ur Phencyclidine Scrn Ur Amphetamines Screen U Benzodiazepines Scrn U Oth Cocaine Metabols U Cannabinoids Screen Alcohol, Quantitative Hep Bs Antigen Hep Bs Antibody Hepatitis C Antibody H.influenzae Type B Ag Ur L.pneumophila Ag Mycoplasma pneumon IgM N.meningitidis ACY/W135 N.meningi B/E.coli K1 Ag Group B Strep Antigen S. pneumoniae Antigen Blood Type Antibody Screen 04/26/18 04/26/18 04/26/18 19:54 20:46 20:46 WBC RBC Hgb Hct MCV MCH MCHC RDW Plt Count MPV Neut % (Auto) Lymph % (Auto) [place] % (Auto) Eos % (Auto) Baso % (Auto) Neut # (Auto) Lymph # (Auto) [place] # (Auto) Eos # (Auto) Baso # (Auto) Neutrophils % (Manual) Band Neutrophils % Lymphocytes % (Manual) Monocytes % (Manual) Eosinophils % (Manual) Platelet Estimate Hypochromasia (manual) Microcytosis (manual) [place] Cells Sodium 140 Potassium 3.4 L Chloride 100 Carbon Dioxide 26 Anion Gap 18 BUN 28 H Creatinine 3.3 H Est GFR ( Amer) 25 Est GFR (Non-Af Amer) 21 POC Glucose (mg/dL) 89 Random Glucose 115 H Calcium 8.7 Phosphorus Magnesium Ferritin Total Bilirubin 0.8 AST 26 ALT 20 L Alkaline Phosphatase 101 Total Protein 7.3 Albumin 3.8 Globulin 3.5 Albumin/Globulin Ratio 1.1 Vitamin B12 Folate Procalcitonin 0.16 L Urine Color Urine Clarity Urine pH Ur Specific [place] Urine Protein Urine Glucose (UA) Urine Ketones Urine Blood Urine Nitrate Urine Bilirubin Urine Urobilinogen Ur Leukocyte Esterase Urine WBC (Auto) Urine RBC (Auto) Ur Squamous Epith Cells Urine Bacteria Urine Opiates Screen Urine Methadone Screen Ur Barbiturates Screen Ur Phencyclidine Scrn Ur Amphetamines Screen U Benzodiazepines Scrn U Oth Cocaine Metabols U Cannabinoids Screen Alcohol, Quantitative Hep Bs Antigen Hep Bs Antibody Hepatitis C Antibody H.influenzae Type B Ag Ur L.pneumophila Ag Mycoplasma pneumon IgM N.meningitidis [id number]/[id number] N.meningi B/E.coli K1 Ag Group B Strep Antigen S. pneumoniae Antigen Blood Type Antibody Screen 04/26/18 04/26/18 04/26/18 20:46 20:46 20:46 WBC 10.0 RBC 3.03 L Hgb 7.4 L Hct 22.0 L MCV 72.6 L D MCH 24.4 L MCHC 33.6 RDW 17.4 H Plt Count 270 MPV 7.6 Neut % (Auto) 81.0 H Lymph % (Auto) 9.0 L [place] % (Auto) 9.0 Eos % (Auto) 1.0 Baso % (Auto) 0.0 Neut # (Auto) 8.1 H Lymph # (Auto) 0.9 L [place] # (Auto) 0.9 H Eos # (Auto) 0.1 Baso # (Auto) 0.0 Neutrophils % (Manual) 80 H Band Neutrophils % 1 Lymphocytes % (Manual) 9 L Monocytes % (Manual) 9 Eosinophils % (Manual) 1 Platelet Estimate Normal Hypochromasia (manual) Moderate Microcytosis (manual) Slight [place] Cells Slight Sodium Potassium Chloride Carbon Dioxide Anion Gap BUN Creatinine Est GFR ( Amer) Est GFR (Non-Af Amer) POC Glucose (mg/dL) Random Glucose Calcium Phosphorus Magnesium Ferritin Total Bilirubin AST ALT Alkaline Phosphatase Total Protein Albumin Globulin Albumin/Globulin Ratio Vitamin B12 Folate Procalcitonin Urine Color Urine Clarity Urine pH Ur Specific [place] Urine Protein Urine Glucose (UA) Urine Ketones Urine Blood Urine Nitrate Urine Bilirubin Urine Urobilinogen Ur Leukocyte Esterase Urine WBC (Auto) Urine RBC (Auto) Ur Squamous Epith Cells Urine Bacteria Urine Opiates Screen Urine Methadone Screen Ur Barbiturates Screen Ur Phencyclidine Scrn Ur Amphetamines Screen U Benzodiazepines Scrn U Oth Cocaine Metabols U Cannabinoids Screen Alcohol, Quantitative < 10 Hep Bs Antigen Hep Bs Antibody Hepatitis C Antibody H.influenzae Type B Ag Ur L.pneumophila Ag Mycoplasma pneumon IgM Negative N.meningitidis ACY/W135 N.meningi B/E.coli K1 Ag Group B Strep Antigen S. pneumoniae Antigen Blood Type Antibody Screen 04/26/18 04/26/18 04/26/18 21:05 21:58 23:40 WBC RBC Hgb Hct MCV MCH MCHC RDW Plt Count MPV Neut % (Auto) Lymph % (Auto) [place] % (Auto) Eos % (Auto) Baso % (Auto) Neut # (Auto) Lymph # (Auto) [place] # (Auto) Eos # (Auto) Baso # (Auto) Neutrophils % (Manual) Band Neutrophils % Lymphocytes % (Manual) Monocytes % (Manual) Eosinophils % (Manual) Platelet Estimate Hypochromasia (manual) Microcytosis (manual) [place] Cells Sodium Potassium Chloride Carbon Dioxide Anion Gap BUN Creatinine Est GFR ( Amer) Est GFR (Non-Af Amer) POC Glucose (mg/dL) 120 H 145 H 175 H Random Glucose Calcium Phosphorus Magnesium Ferritin Total Bilirubin AST ALT Alkaline Phosphatase Total Protein Albumin Globulin Albumin/Globulin Ratio Vitamin B12 Folate Procalcitonin Urine Color Urine Clarity Urine pH Ur Specific [place] Urine Protein Urine Glucose (UA) Urine Ketones Urine Blood Urine Nitrate Urine Bilirubin Urine Urobilinogen Ur Leukocyte Esterase Urine WBC (Auto) Urine RBC (Auto) Ur Squamous Epith Cells Urine Bacteria Urine Opiates Screen Urine Methadone Screen Ur Barbiturates Screen Ur Phencyclidine Scrn Ur Amphetamines Screen U Benzodiazepines Scrn U Oth Cocaine Metabols U Cannabinoids Screen Alcohol, Quantitative Hep Bs Antigen Hep Bs Antibody Hepatitis C Antibody H.influenzae Type B Ag Ur L.pneumophila Ag Mycoplasma pneumon IgM N.meningitidis ACY/W135 N.meningi B/E.coli K1 Ag Group B Strep Antigen S. pneumoniae Antigen Blood Type Antibody Screen 04/26/18 04/27/18 04/27/18 Unknown 00:58 03:26 WBC RBC Hgb Hct MCV MCH MCHC RDW Plt Count MPV Neut % (Auto) Lymph % (Auto) [place] % (Auto) Eos % (Auto) Baso % (Auto) Neut # (Auto) Lymph # (Auto) [place] # (Auto) Eos # (Auto) Baso # (Auto) Neutrophils % (Manual) Band Neutrophils % Lymphocytes % (Manual) Monocytes % (Manual) Eosinophils % (Manual) Platelet Estimate Hypochromasia (manual) Microcytosis (manual) [place] Cells Sodium Potassium Chloride Carbon Dioxide Anion Gap BUN Creatinine Est GFR ( Amer) Est GFR (Non-Af Amer) POC Glucose (mg/dL) 223 H 270 H Random Glucose Calcium Phosphorus Magnesium Ferritin Total Bilirubin AST ALT Alkaline Phosphatase Total Protein Albumin Globulin Albumin/Globulin Ratio Vitamin B12 Folate Procalcitonin 0.48 Urine Color Urine Clarity Urine pH Ur Specific [place] Urine Protein Urine Glucose (UA) Urine Ketones Urine Blood Urine Nitrate Urine Bilirubin Urine Urobilinogen Ur Leukocyte Esterase Urine WBC (Auto) Urine RBC (Auto) Ur Squamous Epith Cells Urine Bacteria Urine Opiates Screen Urine Methadone Screen Ur Barbiturates Screen Ur Phencyclidine Scrn Ur Amphetamines Screen U Benzodiazepines Scrn U Oth Cocaine Metabols U Cannabinoids Screen Alcohol, Quantitative Hep Bs Antigen Hep Bs Antibody Hepatitis C Antibody H.influenzae Type B Ag Ur L.pneumophila Ag Mycoplasma pneumon IgM N.meningitidis ACY/W135 N.meningi B/E.coli K1 Ag Group B Strep Antigen S. pneumoniae Antigen Blood Type Antibody Screen 04/27/18 04/27/18 04/27/18 05:08 05:39 05:39 WBC RBC Hgb Hct MCV MCH MCHC RDW Plt Count MPV Neut % (Auto) Lymph % (Auto) [place] % (Auto) Eos % (Auto) Baso % (Auto) Neut # (Auto) Lymph # (Auto) [place] # (Auto) Eos # (Auto) Baso # (Auto) Neutrophils % (Manual) Band Neutrophils % Lymphocytes % (Manual) Monocytes % (Manual) Eosinophils % (Manual) Platelet Estimate Hypochromasia (manual) Microcytosis (manual) [place] Cells Sodium 139 Potassium 4.0 Chloride 99 Carbon Dioxide 23 Anion Gap 21 H BUN 32 H Creatinine 4.8 H Est GFR ( Amer) 16 Est GFR (Non-Af Amer) 13 POC Glucose (mg/dL) 315 H Random Glucose 297 H Calcium 8.4 L Phosphorus 5.2 H Magnesium 1.8 Ferritin Total Bilirubin 0.7 AST 25 ALT 17 L Alkaline Phosphatase 90 Total Protein 7.3 Albumin 3.7 Globulin 3.6 Albumin/Globulin Ratio 1.1 Vitamin B12 Folate Procalcitonin Urine Color Urine Clarity Urine pH Ur Specific [place] Urine Protein Urine Glucose (UA) Urine Ketones Urine Blood Urine Nitrate Urine Bilirubin Urine Urobilinogen Ur Leukocyte Esterase Urine WBC (Auto) Urine RBC (Auto) Ur Squamous Epith Cells Urine Bacteria Urine Opiates Screen Urine Methadone Screen Ur Barbiturates Screen Ur Phencyclidine Scrn Ur Amphetamines Screen U Benzodiazepines Scrn U Oth Cocaine Metabols U Cannabinoids Screen Alcohol, Quantitative Hep Bs Antigen Hep Bs Antibody Hepatitis C Antibody H.influenzae Type B Ag Ur L.pneumophila Ag Mycoplasma pneumon IgM N.meningitidis ACY/W135 N.meningi B/E.coli K1 Ag Group B Strep Antigen S. pneumoniae Antigen Blood Type Antibody Screen 04/27/18 04/27/18 04/27/18 05:47 05:50 05:50 WBC 9.1 RBC 3.14 L Hgb 7.7 L Hct 23.1 L MCV 73.3 L MCH 24.3 L MCHC 33.2 RDW 17.0 H Plt Count 254 MPV 8.5 Neut % (Auto) 73.0 Lymph % (Auto) 22.0 [place] % (Auto) 2.0 Eos % (Auto) 3.0 Baso % (Auto) 0.0 Neut # (Auto) 6.7 Lymph # (Auto) 2.0 [place] # (Auto) 0.2 Eos # (Auto) 0.3 Baso # (Auto) 0.0 Neutrophils % (Manual) Band Neutrophils % Lymphocytes % (Manual) Monocytes % (Manual) Eosinophils % (Manual) Platelet Estimate Hypochromasia (manual) Microcytosis (manual) [place] Cells Sodium Potassium Chloride Carbon Dioxide Anion Gap BUN Creatinine Est GFR ( Amer) Est GFR (Non-Af Amer) POC Glucose (mg/dL) Random Glucose Calcium Phosphorus Magnesium Ferritin Total Bilirubin AST ALT Alkaline Phosphatase Total Protein Albumin Globulin Albumin/Globulin Ratio Vitamin B12 Folate Procalcitonin Urine Color Yellow Urine Clarity Hazy Urine pH 6.0 Ur Specific [place] 1.017 Urine Protein 3+ H Urine Glucose (UA) 3+ H Urine Ketones Trace Urine Blood 2+ H Urine Nitrate Negative Urine Bilirubin Negative Urine Urobilinogen Normal Ur Leukocyte Esterase Neg Urine WBC (Auto) 6 H Urine RBC (Auto) 62 H Ur Squamous Epith Cells < 1 Urine Bacteria Rare Urine Opiates Screen Urine Methadone Screen Ur Barbiturates Screen Ur Phencyclidine Scrn Ur Amphetamines Screen U Benzodiazepines Scrn U Oth Cocaine Metabols U Cannabinoids Screen Alcohol, Quantitative Hep Bs Antigen Hep Bs Antibody Hepatitis C Antibody H.influenzae Type B Ag Ur L.pneumophila Ag Negative Mycoplasma pneumon IgM N.meningitidis ACY/W135 N.meningi B/E.coli K1 Ag Group B Strep Antigen S. pneumoniae Antigen Blood Type Antibody Screen 04/27/18 04/27/18 04/27/18 05:50 06:17 07:19 WBC RBC Hgb Hct MCV MCH MCHC RDW Plt Count MPV Neut % (Auto) Lymph % (Auto) [place] % (Auto) Eos % (Auto) Baso % (Auto) Neut # (Auto) Lymph # (Auto) [place] # (Auto) Eos # (Auto) Baso # (Auto) Neutrophils % (Manual) Band Neutrophils % Lymphocytes % (Manual) Monocytes % (Manual) Eosinophils % (Manual) Platelet Estimate Hypochromasia (manual) Microcytosis (manual) [place] Cells Sodium Potassium Chloride Carbon Dioxide Anion Gap BUN Creatinine Est GFR ( Amer) Est GFR (Non-Af Amer) POC Glucose (mg/dL) 296 H Random Glucose Calcium Phosphorus Magnesium Ferritin Total Bilirubin AST ALT Alkaline Phosphatase Total Protein Albumin Globulin Albumin/Globulin Ratio Vitamin B12 Folate Procalcitonin Urine Color Urine Clarity Urine pH Ur Specific [place] Urine Protein Urine Glucose (UA) Urine Ketones Urine Blood Urine Nitrate Urine Bilirubin Urine Urobilinogen Ur Leukocyte Esterase Urine WBC (Auto) Urine RBC (Auto) Ur Squamous Epith Cells Urine Bacteria Urine Opiates Screen Negative Urine Methadone Screen Negative Ur Barbiturates Screen Negative Ur Phencyclidine Scrn Negative Ur Amphetamines Screen Negative U Benzodiazepines Scrn Negative U Oth Cocaine Metabols Negative U Cannabinoids Screen Positive H Alcohol, Quantitative Hep Bs Antigen Hep Bs Antibody Hepatitis C Antibody H.influenzae Type B Ag Negative Ur L.pneumophila Ag Mycoplasma pneumon IgM N.meningitidis ACY/W135 Negative N.meningi B/E.coli K1 Ag Negative Group B Strep Antigen Negative S. pneumoniae Antigen Negative Blood Type Antibody Screen 04/27/18 04/27/18 04/27/18 07:21 08:01 09:06 WBC RBC Hgb Hct MCV MCH MCHC RDW Plt Count MPV Neut % (Auto) Lymph % (Auto) [place] % (Auto) Eos % (Auto) Baso % (Auto) Neut # (Auto) Lymph # (Auto) [place] # (Auto) Eos # (Auto) Baso # (Auto) Neutrophils % (Manual) Band Neutrophils % Lymphocytes % (Manual) Monocytes % (Manual) Eosinophils % (Manual) Platelet Estimate Hypochromasia (manual) Microcytosis (manual) [place] Cells Sodium Potassium Chloride Carbon Dioxide Anion Gap BUN Creatinine Est GFR ( Amer) Est GFR (Non-Af Amer) POC Glucose (mg/dL) 269 H 233 H 193 H Random Glucose Calcium Phosphorus Magnesium Ferritin Total Bilirubin AST ALT Alkaline Phosphatase Total Protein Albumin Globulin Albumin/Globulin Ratio Vitamin B12 Folate Procalcitonin Urine Color Urine Clarity Urine pH Ur Specific [place] Urine Protein Urine Glucose (UA) Urine Ketones Urine Blood Urine Nitrate Urine Bilirubin Urine Urobilinogen Ur Leukocyte Esterase Urine WBC (Auto) Urine RBC (Auto) Ur Squamous Epith Cells Urine Bacteria Urine Opiates Screen Urine Methadone Screen Ur Barbiturates Screen Ur Phencyclidine Scrn Ur Amphetamines Screen U Benzodiazepines Scrn U Oth Cocaine Metabols U Cannabinoids Screen Alcohol, Quantitative Hep Bs Antigen Hep Bs Antibody Hepatitis C Antibody H.influenzae Type B Ag Ur L.pneumophila Ag Mycoplasma pneumon IgM N.meningitidis ACY/W135 N.meningi B/E.coli K1 Ag Group B Strep Antigen S. pneumoniae Antigen Blood Type Antibody Screen 04/27/18 04/27/18 04/27/18 10:11 11:19 12:08 WBC RBC Hgb Hct MCV MCH MCHC RDW Plt Count MPV Neut % (Auto) Lymph % (Auto) [place] % (Auto) Eos % (Auto) Baso % (Auto) Neut # (Auto) Lymph # (Auto) [place] # (Auto) Eos # (Auto) Baso # (Auto) Neutrophils % (Manual) Band Neutrophils % Lymphocytes % (Manual) Monocytes % (Manual) Eosinophils % (Manual) Platelet Estimate Hypochromasia (manual) Microcytosis (manual) [place] Cells Sodium Potassium Chloride Carbon Dioxide Anion Gap BUN Creatinine Est GFR ( Amer) Est GFR (Non-Af Amer) POC Glucose (mg/dL) 207 H 167 H 115 H Random Glucose Calcium Phosphorus Magnesium Ferritin Total Bilirubin AST ALT Alkaline Phosphatase Total Protein Albumin Globulin Albumin/Globulin Ratio Vitamin B12 Folate Procalcitonin Urine Color Urine Clarity Urine pH Ur Specific [place] Urine Protein Urine Glucose (UA) Urine Ketones Urine Blood Urine Nitrate Urine Bilirubin Urine Urobilinogen Ur Leukocyte Esterase Urine WBC (Auto) Urine RBC (Auto) Ur Squamous Epith Cells Urine Bacteria Urine Opiates Screen Urine Methadone Screen Ur Barbiturates Screen Ur Phencyclidine Scrn Ur Amphetamines Screen U Benzodiazepines Scrn U Oth Cocaine Metabols U Cannabinoids Screen Alcohol, Quantitative Hep Bs Antigen Hep Bs Antibody Hepatitis C Antibody H.influenzae Type B Ag Ur L.pneumophila Ag Mycoplasma pneumon IgM N.meningitidis ACY/W135 N.meningi B/E.coli K1 Ag Group B Strep Antigen S. pneumoniae Antigen Blood Type Antibody Screen 04/27/18 04/27/18 04/27/18 12:53 12:59 14:00 WBC RBC Hgb Hct MCV MCH MCHC RDW Plt Count MPV Neut % (Auto) Lymph % (Auto) [place] % (Auto) Eos % (Auto) Baso % (Auto) Neut # (Auto) Lymph # (Auto) [place] # (Auto) Eos # (Auto) Baso # (Auto) Neutrophils % (Manual) Band Neutrophils % Lymphocytes % (Manual) Monocytes % (Manual) Eosinophils % (Manual) Platelet Estimate Hypochromasia (manual) Microcytosis (manual) [place] Cells Sodium 140 Potassium 4.0 Chloride 101 Carbon Dioxide 26 Anion Gap 16 BUN 37 H Creatinine 5.1 H Est GFR ( Amer) 15 Est GFR (Non-Af Amer) 13 POC Glucose (mg/dL) 118 H 166 H Random Glucose 119 H Calcium 8.1 L Phosphorus Magnesium Ferritin Total Bilirubin 0.6 AST 19 ALT 17 L Alkaline Phosphatase 88 Total Protein 7.0 Albumin 3.5 Globulin 3.5 Albumin/Globulin Ratio 1.0 Vitamin B12 Folate Procalcitonin Urine Color Urine Clarity Urine pH Ur Specific [place] Urine Protein Urine Glucose (UA) Urine Ketones Urine Blood Urine Nitrate Urine Bilirubin Urine Urobilinogen Ur Leukocyte Esterase Urine WBC (Auto) Urine RBC (Auto) Ur Squamous Epith Cells Urine Bacteria Urine Opiates Screen Urine Methadone Screen Ur Barbiturates Screen Ur Phencyclidine Scrn Ur Amphetamines Screen U Benzodiazepines Scrn U Oth Cocaine Metabols U Cannabinoids Screen Alcohol, Quantitative Hep Bs Antigen Hep Bs Antibody Hepatitis C Antibody H.influenzae Type B Ag Ur L.pneumophila Ag Mycoplasma pneumon IgM N.meningitidis ACY/W135 N.meningi B/E.coli K1 Ag Group B Strep Antigen S. pneumoniae Antigen Blood Type Antibody Screen 04/27/18 15:44 WBC RBC Hgb Hct MCV MCH MCHC RDW Plt Count MPV Neut % (Auto) Lymph % (Auto) [place] % (Auto) Eos % (Auto) Baso % (Auto) Neut # (Auto) Lymph # (Auto) [place] # (Auto) Eos # (Auto) Baso # (Auto) Neutrophils % (Manual) Band Neutrophils % Lymphocytes % (Manual) Monocytes % (Manual) Eosinophils % (Manual) Platelet Estimate Hypochromasia (manual) Microcytosis (manual) [place] Cells Sodium Potassium Chloride Carbon Dioxide Anion Gap BUN Creatinine Est GFR ( Amer) Est GFR (Non-Af Amer) POC Glucose (mg/dL) 204 H Random Glucose Calcium Phosphorus Magnesium Ferritin Total Bilirubin AST ALT Alkaline Phosphatase Total Protein Albumin Globulin Albumin/Globulin Ratio Vitamin B12 Folate Procalcitonin Urine Color Urine Clarity Urine pH Ur Specific [place] Urine Protein Urine Glucose (UA) Urine Ketones Urine Blood Urine Nitrate Urine Bilirubin Urine Urobilinogen Ur Leukocyte Esterase Urine WBC (Auto) Urine RBC (Auto) Ur Squamous Epith Cells Urine Bacteria Urine Opiates Screen Urine Methadone Screen Ur Barbiturates Screen Ur Phencyclidine Scrn Ur Amphetamines Screen U Benzodiazepines Scrn U Oth Cocaine Metabols U Cannabinoids Screen Alcohol, Quantitative Hep Bs Antigen Hep Bs Antibody Hepatitis C Antibody H.influenzae Type B Ag Ur L.pneumophila Ag Mycoplasma pneumon IgM N.meningitidis ACY/W135 N.meningi B/E.coli K1 Ag Group B Strep Antigen S. pneumoniae Antigen Blood Type Antibody Screen EKG/Cardiology Studies: Cardiology / EKG Studies 04/26/18 22:40 EKG [ELECTROCARDIOGRAM] Routine Comment: Mode Of Transportation: Reason For Exam: monitor hyperkalemia EKG changes Fingerstick Blood Sugar Results: 115 Review of Systems - Review of Systems All systems: reviewed and no additional remarkable complaints except (As per HPI ) Critical Care Progress Note - Prophylaxis DVT Prophylaxis DVT: Heparin SQ, SCDs - Nutrition Nutrition: Nutrition Category Date Time Status NPO Diet [DIET] Diets 04/26/18 Lunch Active Assessment/Plan - Assessment and Plan (Free Text) Plan: 43 year old male with PMHx of HTN, Uncontrolled Diabetes, ESRD (first HD 3weeks ago), and recent subdural/epidural hemorrhage w/ Right sided residual weakness ( 3 weeks ago) who presents admitted to ICU for encephalopathy, acute on chronic renal failure, DKA, anemia (hgb: 6.5), possible GI bleed, and new focal seizures. Patient recieved emergent dialysis on 04/26/18 and transfused 1unit of RBC. Hgb improved to 7.7. CXR on 04/27/18 shows interval improvement in pulmonary edema. pt was started on insulin drip on 04/26/18 and was dc'ed on 04/27/18. Neuro: History of CVA, new focal seizures, hydrocephalus Neurochecks Q2H CT Head 04/26/18: dilatation of the 3rd and lateral ventricles without no dilatation of the 4th ventricle. Likely indicate a noncommunicating hydrocephalus although communicating hydrocephalus must also be considered. ( See full report.) CTA head/neck 04/26/18: no evidence of endoluminal thrombus, occlusion or definite significant stenosis in the intrcranial arteries. No evidence of hemodynamically significant stenosis in the ICAs. Patent bilateral vertebral arteries. The left vertebral artery is hypoplastic, an anatomic variant. Confluent airspace disease in the visualized upper lobes of the lungs concerning for multifocal pneumonia. (See full report.) MRI 04/27/18: Multifocal areas of hyperintense signal along the dural margin probably representing areas of epidural hemorrhage. The is a most pronounced along the left parietal lobe, left frontal lobe as well is the right frontoparietal lobe measuring up to 7 millimeters in thickness. There is also epidural hemorrhage along the right occipital lobe. Communicating hydrocephalus. Dilatation of the ventricles does raise the suspicion that this could represent subarachnoid hemorrhage. Head MRA f/u EEG f/u Neurology, Dr. Manzano, consulted. Help appreciated. Neurosurgery, Dr. Menard consulted. Help appreciated. Lancosamide 75mg Q12H Lancosamide 50mg IVP on dialysis days (4 hours after dialysis) In ED, given Ativan 2mg x1, Phenytoin 1000mg for R upper focal seizure which resolved Cardio: Maintain SBP<180, DBP<110 EKG: NSR at 99bpm, left axis deviation, T wave inversions V2, V6, peaked T waves Recieved calcium gluconate 1g IVP for cardiac membrane stablization in ED. Hydralazine 10 IV Q6H Pulm: Maintain SpO2 >95 CXR 04/26:bilateral opacities, right greater than left. Possible pnuemonia or aspiration. CXR 04/27: interval improvement in pulmonary edema. Residual mild pulmonary venous congestion. No focal consolidation. GI: FOBT+ GI, Dr. Serrano consulted. Help appreciated transfuse as needed, out patient endoscopy, diet as tolerated. CT abdomen pelvis recommended. Passed swallow eval. Recommend regular diet with thin liquids. Pt on regular diet Renal: BUN/Cr downtrending K+ on admission 8.9-> 4.0 (04/27/18) In ED, pt given Insulin IV, Sodiu bicarb IV, calcium gluconate IV Nephrology, Dr. Larson consulted. Help appreciated. Emergent Dialysis, started on losartan 50 mg/day and norvasc 5 mg/day, ivon supplements and Epogen. started with phos binders. will check Vit D and PTH level. vascular surgery consulted for AVF. Endo: blood glucose downtrending A1c: 11.2 Accuchecks Q4H Insulin drip dc'ed 04/27/18-> given Levamir 10 units once-> will give 5 units HS. Heme: H/H improving following transfusion of 1 unit RBC with dialysis 04/27/18 folate: 11.2 B12 852 Ferritin 167 Iron 42, low TIBC: 287 %iron saturation: 15, low reticulocyte 1.5, reticulocyte index 0.36 ->hypoproliferation obtain [facility] [place] FOB[facility] + GI, Dr. Serrano consulted. Help appreciated ID: [id number] normal procalcitonin WNL CXR repeat: interval improvement in pulmonary edema. Residual mild pulmonary venous congestion. Laila buchanan'ed 04/27/18 PPX: SCDs. Heparin 5000 SC Q12H. Dispo: Continue ICU management <Balwinder Altman - Last Filed: 04/28/18 14:49> CCU Objective - Vital Signs / Intake & Output Vital Signs (Last 4 hours): Vital Signs BP 04/28/18 11:00 167/112 H Intake and Output (Last 8hrs): Intake & Output 04/27/18 04/28/18 04/28/18 22:59 06:59 14:59 Intake Total 810 240 240 Output Total 1500 0 400 Balance -690 240 -160 Weight 143 lb 3 oz Intake: Intake, IV Amount 400 Right Antecubital 400 Oral 410 240 240 Output: Drainage 1500 HD fluid removal 1500 Urine 0 0 400 Urine, Voided 0 0 400 Other: # Voids Urine, Voided 0 # Bowel Movements 0 - Patient Studies Lab Studies: Microbiology Studies 04/27/18 05:49 Urine Culture - Final Urine,Catheterized No Growth (<1,000 CFU/ML) 04/26/18 14:57 MRSA Culture (Admit) - Final Nose MRSA NOT DETECTED 04/26/18 18:15 Blood Culture - Preliminary Blood-During Dialysis NO GROWTH AFTER 24 HOURS 04/26/18 18:15 Blood Culture - Preliminary Blood-During Dialysis NO GROWTH AFTER 24 HOURS Lab Studies 04/28/18 04/28/18 04/28/18 Range/Units 07:34 06:24 06:24 WBC (4.8-10.8) K/uL RBC (4.40-5.90) Mil/uL Hgb (12.0-18.0) g/dL Hct (35.0-51.0) % MCV (80.0-94.0) fL MCH (27.0-31.0) pg MCHC (33.0-37.0) g/dL RDW (11.5-14.5) % Plt Count (130-400) K/uL MPV (7.2-11.7) fL Neut % (Auto) (50.0-75.0) % Lymph % (Auto) (20.0-40.0) % [place] % (Auto) (0.0-10.0) % Eos % (Auto) (0.0-4.0) % Baso % (Auto) (0.0-2.0) % Neut # (Auto) (1.8-7.0) K/uL Lymph # (Auto) (1.0-4.3) K/uL [place] # (Auto) (0.0-0.8) K/uL Eos # (Auto) (0.0-0.7) K/uL Baso # (Auto) (0.0-0.2) K/uL Sodium 139 (132-148) mmol/L Potassium 3.7 (3.6-5.2) mmol/L Chloride 98 (98-107) mmol/L Carbon Dioxide 28 (22-30) mmol/L Anion Gap 17 (10-20) BUN 24 H (9-20) mg/dL Creatinine 4.6 H (0.8-1.5) mg/dL Est GFR ( Amer) 17 Est GFR (Non-Af Amer) 14 POC Glucose (mg/dL) 247 H (65-110) mg/dL Random Glucose 181 H (75-110) mg/dL Calcium 8.5 L (8.6-10.4) mg/dl Phosphorus 4.8 H (2.5-4.5) mg/dL Magnesium 1.8 (1.6-2.3) mg/dL Total Bilirubin 0.6 (0.2-1.3) mg/dL AST 49 (17-59) U/L ALT 18 L (21-72) U/L Alkaline Phosphatase 84 (38-126) U/L Total Protein 7.2 (6.3-8.3) g/dL Albumin 3.5 (3.5-5.0) g/dL Globulin 3.7 (2.2-3.9) gm/dL Albumin/Globulin Ratio 1.0 (1.0-2.1) 25-OH Vitamin D Total < 12.8 L (30.0-100.0) NG/ML Complement C3 (88.0-165.0) mg/dL Complement C4 (14.0-44.0) mg/dL HIV 1&2 Antibody Screen (NEGATIVE) 04/28/18 04/28/18 04/27/18 Range/Units 06:24 03:29 23:38 WBC 7.4 (4.8-10.8) K/uL RBC 3.21 L (4.40-5.90) Mil/uL Hgb 7.9 L (12.0-18.0) g/dL Hct 23.6 L (35.0-51.0) % MCV 73.6 L (80.0-94.0) fL MCH 24.5 L (27.0-31.0) pg MCHC 33.3 (33.0-37.0) g/dL RDW 17.3 H (11.5-14.5) % Plt Count 270 (130-400) K/uL MPV 8.3 (7.2-11.7) fL Neut % (Auto) 65.0 (50.0-75.0) % Lymph % (Auto) 20.0 (20.0-40.0) % [place] % (Auto) 10.0 (0.0-10.0) % Eos % (Auto) 5.0 H (0.0-4.0) % Baso % (Auto) 0.0 (0.0-2.0) % Neut # (Auto) 4.8 (1.8-7.0) K/uL Lymph # (Auto) 1.5 (1.0-4.3) K/uL [place] # (Auto) 0.7 (0.0-0.8) K/uL Eos # (Auto) 0.4 (0.0-0.7) K/uL Baso # (Auto) 0.0 (0.0-0.2) K/uL Sodium (132-148) mmol/L Potassium (3.6-5.2) mmol/L Chloride (98-107) mmol/L Carbon Dioxide (22-30) mmol/L Anion Gap (10-20) BUN (9-20) mg/dL Creatinine (0.8-1.5) mg/dL Est GFR ( Amer) Est GFR (Non-Af Amer) POC Glucose (mg/dL) 147 H 191 H (65-110) mg/dL Random Glucose (75-110) mg/dL Calcium (8.6-10.4) mg/dl Phosphorus (2.5-4.5) mg/dL Magnesium (1.6-2.3) mg/dL Total Bilirubin (0.2-1.3) mg/dL AST (17-59) U/L ALT (21-72) U/L Alkaline Phosphatase (38-126) U/L Total Protein (6.3-8.3) g/dL Albumin (3.5-5.0) g/dL Globulin (2.2-3.9) gm/dL Albumin/Globulin Ratio (1.0-2.1) 25-OH Vitamin D Total (30.0-100.0) NG/ML Complement C3 (88.0-165.0) mg/dL Complement C4 (14.0-44.0) mg/dL HIV 1&2 Antibody Screen (NEGATIVE) 04/27/18 04/27/18 04/27/18 Range/Units 20:31 20:06 20:03 WBC (4.8-10.8) K/uL RBC (4.40-5.90) Mil/uL Hgb (12.0-18.0) g/dL Hct (35.0-51.0) % MCV (80.0-94.0) fL MCH (27.0-31.0) pg MCHC (33.0-37.0) g/dL RDW (11.5-14.5) % Plt Count (130-400) K/uL MPV (7.2-11.7) fL Neut % (Auto) (50.0-75.0) % Lymph % (Auto) (20.0-40.0) % [place] % (Auto) (0.0-10.0) % Eos % (Auto) (0.0-4.0) % Baso % (Auto) (0.0-2.0) % Neut # (Auto) (1.8-7.0) K/uL Lymph # (Auto) (1.0-4.3) K/uL [place] # (Auto) (0.0-0.8) K/uL Eos # (Auto) (0.0-0.7) K/uL Baso # (Auto) (0.0-0.2) K/uL Sodium (132-148) mmol/L Potassium (3.6-5.2) mmol/L Chloride (98-107) mmol/L Carbon Dioxide (22-30) mmol/L Anion Gap (10-20) BUN (9-20) mg/dL Creatinine (0.8-1.5) mg/dL Est GFR ( Amer) Est GFR (Non-Af Amer) POC Glucose (mg/dL) 72 64 L 57 L (65-110) mg/dL Random Glucose (75-110) mg/dL Calcium (8.6-10.4) mg/dl Phosphorus (2.5-4.5) mg/dL Magnesium (1.6-2.3) mg/dL Total Bilirubin (0.2-1.3) mg/dL AST (17-59) U/L ALT (21-72) U/L Alkaline Phosphatase (38-126) U/L Total Protein (6.3-8.3) g/dL Albumin (3.5-5.0) g/dL Globulin (2.2-3.9) gm/dL Albumin/Globulin Ratio (1.0-2.1) 25-OH Vitamin D Total (30.0-100.0) NG/ML Complement C3 (88.0-165.0) mg/dL Complement C4 (14.0-44.0) mg/dL HIV 1&2 Antibody Screen (NEGATIVE) 04/27/18 04/27/18 04/27/18 Range/Units 16:46 16:46 15:44 WBC (4.8-10.8) K/uL RBC (4.40-5.90) Mil/uL Hgb (12.0-18.0) g/dL Hct (35.0-51.0) % MCV (80.0-94.0) fL MCH (27.0-31.0) pg MCHC (33.0-37.0) g/dL RDW (11.5-14.5) % Plt Count (130-400) K/uL MPV (7.2-11.7) fL Neut % (Auto) (50.0-75.0) % Lymph % (Auto) (20.0-40.0) % [place] % (Auto) (0.0-10.0) % Eos % (Auto) (0.0-4.0) % Baso % (Auto) (0.0-2.0) % Neut # (Auto) (1.8-7.0) K/uL Lymph # (Auto) (1.0-4.3) K/uL [place] # (Auto) (0.0-0.8) K/uL Eos # (Auto) (0.0-0.7) K/uL Baso # (Auto) (0.0-0.2) K/uL Sodium (132-148) mmol/L Potassium (3.6-5.2) mmol/L Chloride (98-107) mmol/L Carbon Dioxide (22-30) mmol/L Anion Gap (10-20) BUN (9-20) mg/dL Creatinine (0.8-1.5) mg/dL Est GFR ( Amer) Est GFR (Non-Af Amer) POC Glucose (mg/dL) 204 H (65-110) mg/dL Random Glucose (75-110) mg/dL Calcium (8.6-10.4) mg/dl Phosphorus (2.5-4.5) mg/dL Magnesium (1.6-2.3) mg/dL Total Bilirubin (0.2-1.3) mg/dL AST (17-59) U/L ALT (21-72) U/L Alkaline Phosphatase (38-126) U/L Total Protein (6.3-8.3) g/dL Albumin (3.5-5.0) g/dL Globulin (2.2-3.9) gm/dL Albumin/Globulin Ratio (1.0-2.1) 25-OH Vitamin D Total (30.0-100.0) NG/ML Complement C3 83.0 L (88.0-165.0) mg/dL Complement C4 37.4 (14.0-44.0) mg/dL HIV 1&2 Antibody Screen Negative (NEGATIVE) Laboratory Results - last 24 hr 04/27/18 04/27/18 04/27/18 15:44 16:46 16:46 WBC RBC Hgb Hct MCV MCH MCHC RDW Plt Count MPV Neut % (Auto) Lymph % (Auto) [place] % (Auto) Eos % (Auto) Baso % (Auto) Neut # (Auto) Lymph # (Auto) [place] # (Auto) Eos # (Auto) Baso # (Auto) Sodium Potassium Chloride Carbon Dioxide Anion Gap BUN Creatinine Est GFR ( Amer) Est GFR (Non-Af Amer) POC Glucose (mg/dL) 204 H Random Glucose Calcium Phosphorus Magnesium Total Bilirubin AST ALT Alkaline Phosphatase Total Protein Albumin Globulin Albumin/Globulin Ratio 25-OH Vitamin D Total Complement C3 83.0 L Complement C4 37.4 HIV 1&2 Antibody Screen Negative 04/27/18 04/27/18 04/27/18 20:03 20:06 20:31 WBC RBC Hgb Hct MCV MCH MCHC RDW Plt Count MPV Neut % (Auto) Lymph % (Auto) [place] % (Auto) Eos % (Auto) Baso % (Auto) Neut # (Auto) Lymph # (Auto) [place] # (Auto) Eos # (Auto) Baso # (Auto) Sodium Potassium Chloride Carbon Dioxide Anion Gap BUN Creatinine Est GFR ( Amer) Est GFR (Non-Af Amer) POC Glucose (mg/dL) 57 L 64 L 72 Random Glucose Calcium Phosphorus Magnesium Total Bilirubin AST ALT Alkaline Phosphatase Total Protein Albumin Globulin Albumin/Globulin Ratio 25-OH Vitamin D Total Complement C3 Complement C4 HIV 1&2 Antibody Screen 04/27/18 04/28/18 04/28/18 23:38 03:29 06:24 WBC 7.4 RBC 3.21 L Hgb 7.9 L Hct 23.6 L MCV 73.6 L MCH 24.5 L MCHC 33.3 RDW 17.3 H Plt Count 270 MPV 8.3 Neut % (Auto) 65.0 Lymph % (Auto) 20.0 [place] % (Auto) 10.0 Eos % (Auto) 5.0 H Baso % (Auto) 0.0 Neut # (Auto) 4.8 Lymph # (Auto) 1.5 [place] # (Auto) 0.7 Eos # (Auto) 0.4 Baso # (Auto) 0.0 Sodium Potassium Chloride Carbon Dioxide Anion Gap BUN Creatinine Est GFR ( Amer) Est GFR (Non-Af Amer) POC Glucose (mg/dL) 191 H 147 H Random Glucose Calcium Phosphorus Magnesium Total Bilirubin AST ALT Alkaline Phosphatase Total Protein Albumin Globulin Albumin/Globulin Ratio 25-OH Vitamin D Total Complement C3 Complement C4 HIV 1&2 Antibody Screen 04/28/18 04/28/18 04/28/18 06:24 06:24 07:34 WBC RBC Hgb Hct MCV MCH MCHC RDW Plt Count MPV Neut % (Auto) Lymph % (Auto) [place] % (Auto) Eos % (Auto) Baso % (Auto) Neut # (Auto) Lymph # (Auto) [place] # (Auto) Eos # (Auto) Baso # (Auto) Sodium 139 Potassium 3.7 Chloride 98 Carbon Dioxide 28 Anion Gap 17 BUN 24 H Creatinine 4.6 H Est GFR ( Amer) 17 Est GFR (Non-Af Amer) 14 POC Glucose (mg/dL) 247 H Random Glucose 181 H Calcium 8.5 L Phosphorus 4.8 H Magnesium 1.8 Total Bilirubin 0.6 AST 49 ALT 18 L Alkaline Phosphatase 84 Total Protein 7.2 Albumin 3.5 Globulin 3.7 Albumin/Globulin Ratio 1.0 25-OH Vitamin D Total < 12.8 L Complement C3 Complement C4 HIV 1&2 Antibody Screen Critical Care Progress Note - Nutrition Nutrition: Nutrition Category Date Time Status Renal Diet [DIET] Diets 04/27/18 Dinner Active Attending/Attestation - Attestation I have personally seen and examined this patient.: Yes I have fully participated in the care of the patient.: Yes I have reviewed all pertinent clinical information: Yes Notes (Text): 04/27/18 14:47 I have seen and examined the patient. Medical records, lab studies, and imaging were reviewed by me and a management plan was formulated on multidisciplinary rounds with resident Dr. Doyle. I agree with their documented assessment and plan. Patient on insulin drip for DKA. Communicating hydrocephalus, needs PL SQL [employer] shunt, but refusing currently. Critical Care Time 35 minutes. Multi-disciplinary rounds were performed with house staff, nursing, speech therapy, respiratory therapy, pharmacy and nutrition with integrated input from the primary team/attending and other consulting services. The documented time is cumulative and includes review of patient data/exams/labs/chart review and examination of the patient on rounds and throughout the day; time is exclusive of any procedures or teaching time.
[2018-04-27] MEDS ORDERED: (Novolin R) Insulin Human Regular 100 units/ml vial SC SCH ×2 (16:25→16:30)
[2018-04-27] MEDS: (Novolin R) Insulin Human Regular 100 units/ml vial SC SCH ×2 (16:36→20:15)
[2018-04-27 18:01] LABS: COMPLEMENT C4 37.4 mg/dL (14.0-44.0)
--- NOTE | 2018-04-27 18:31 | CP.PCM.PN ---
Subjective - Date & Time of Evaluation Date of Evaluation: 04/27/18 Time of Evaluation: 18:29 - Subjective Subjective: feels better today still sleepy no cp no sob still extreme fatigue Objective - Vital Signs/Intake and Output Vital Signs (last 24 hours): Temp Pulse Resp BP Pulse Ox 97.8 F 105 H 0 L 177/111 H 100 04/27/18 16:45 04/27/18 18:00 04/27/18 18:00 04/27/18 18:00 04/27/18 18:00 Intake and Output: 04/27/18 04/27/18 06:59 18:59 Intake Total 419 565.0 Output Total 600 400 Balance -181 165.0 - Medications Medications: Current Medications Amlodipine Besylate (Norvasc) 5 mg PO QPM [facility] Last Admin: 04/27/18 18:27 Dose: 5 mg Dextrose (Glutose 15) 0 gm PO ONCE PRN; Protocol PRN Reason: Hypoglycemia Protocol Epoetin Cornelius (Procrit) 10,000 unit SC TTS [facility] Ferric Sodium Gluconate Complex (Ferrlecit) 125 mg IVPB MWF [facility] Stop: 05/15/18 09:01 Heparin Sodium (Porcine) (Heparin) 5,000 units SC Q12 [facility] Hydralazine HCl (Apresoline) 10 mg IVP Q6H [facility] Last Admin: 04/27/18 15:55 Dose: 10 mg Lacosamide 75 mg/ Sodium (Chloride) 107.5 mls @ 220 mls/hr IV Q12H [facility] Last Admin: 04/27/18 10:25 Dose: 220 mls/hr Piperacillin Sod/Tazobactam Sod (Zosyn 2.25 Gm Iv Premix) 2.25 gm in 50 mls @ 100 mls/hr IVPB Q8H [facility] PRN Reason: Protocol Last Admin: 04/27/18 12:55 Dose: 100 mls/hr Dextrose (Dextrose 5% In Water 1000 Ml) 1,000 mls @ 0 mls/hr IV .Q0M PRN; Protocol; Per Protocol PRN Reason: Hypoglycemia Protocol Insulin Detemir (Levemir) 5 unit SC HS ONE Stop: 04/27/18 22:01 Insulin Human Regular (Novolin R) 0 unit SC Q4H [facility] PRN Reason: Protocol Last Admin: 04/27/18 16:36 Dose: 3 u Lacosamide (Vimpat 200mg/20ml) 50 mg IVP PRN PRN PRN Reason: anti-seizure post dialysis. Losartan Potassium (Cozaar) 50 mg PO QPM [facility] Last Admin: 04/27/18 18:27 Dose: 50 mg Pneumococcal Polyvalent Vaccine (Pneumovax 23 Vaccine) 0.5 ml IM .ONCE ONE Stop: 04/28/18 10:01 Sevelamer Carbonate (Renvela) 800 mg PO TIDCC [facility] Last Admin: 04/27/18 16:36 Dose: Not Given Vitamin B Complex/Vit C/Folic Acid (Nephro-Jailene) 1 tab PO 0800 [facility] - Labs Labs: 04/27/18 05:47 04/27/18 12:59 PT 11.7 SECONDS (9.7-12.2) 04/26/18 11:50 INR 1.1 04/26/18 11:50 APTT 47 SECONDS (21-34) H 04/26/18 11:50 - Constitutional Appears: Non-toxic, No Acute Distress - Eye Exam Eye Exam: Normal appearance Pupil Exam: NORMAL ACCOMODATION - ENT Exam ENT Exam: Mucous Membranes Dry - Respiratory Exam Respiratory Exam: Clear to Ausculation Bilateral. absent: Rales, Rhonchi, Wheezes - Cardiovascular Exam Cardiovascular Exam: REGULAR RHYTHM, +S1, +S2 - GI/Abdominal Exam GI & Abdominal Exam: Soft, Normal Bowel Sounds. absent: Tenderness, Organomegaly - Neurological Exam Neurological Exam: Oriented x3. absent: Alert, Awake (somnolent) Assessment and Plan - Assessment and Plan (Free Text) Assessment: CONTINUE ICU Care getting HD currently 43 year old male with PMHx of HTN, Uncontrolled Diabetes, ESRD (first HD 3weeks ago), and recent CVA w/ Right sided residual weakness (3 weeks ago) who presents admitted to ICU for encephalopathy, acute on chronic renal failure, DKA , anemia, possible GI bleed, and new focal seizures. Metabolic encephalopathy Multiple possible eitiologies: New focal seizures DKA - resolved today Hx of DM uncontrolled Acute on chronic renal failure now on HD Hyperkalemia improved with HD Fluid overload improved with HD Sepsis / source suspected pneumonia Anemia Acute vs. chronic, unclear Hydrocephalus Possible Congestive Heart Failure HTN uncontrolled Hx of recent CVA
[2018-04-28] MEDS: (Novolin R) Insulin Human Regular 100 units/ml vial SC SCH ×3 (04:00→09:00)
--- NOTE | 2018-04-28 05:43 | CP.PCM.CON ---
History of Present Illness - History of Present Illness History of Present Illness: Surgery: Dr. Brar CC: ESRD needing AVF HPI: 43M w. pmh of uncontrolled HTN, DM, ESRD, recent stroke 3 weeks ago which was being treated at [facility] until he eloped, presented to [facility] on 8 w. metabolic encephalopathy and new onset seizures likely 2/2 DKA and acute on chronic kidney injury. 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 PMHx: HTN, DM, ESRD, CVA, L eye blindness PSH: L eye Allergies: NKDA Meds: MAR reviewed Social: No ETOH/Tobacco/Drugs Fhx: non-contributory Review of Systems - Review of Systems All systems: reviewed and no additional remarkable complaints except (hpi) Past Patient History - Past Medical History & Family History Past Medical History?: Yes - Past Social History Smoking Status: Never Smoked - CARDIAC Hx Hypertension: Yes - NEUROLOGICAL HX Cerebrovascular Accident: Yes - HEENT Hx Blind: Yes (l eye) - RENAL Hx Dialysis: Yes Type of Dialysis Access: (R) chest port - ENDOCRINE/METABOLIC Hx Diabetes Mellitus Type 2: Yes - MUSCULOSKELETAL/RHEUMATOLOGICAL Hx Falls: No - PSYCHIATRIC Hx Substance Use: No - ANESTHESIA Hx Anesthesia: Yes Hx Anesthesia Reactions: No Meds Allergies/Adverse Reactions: Allergies Allergy/AdvReac Type Severity Reaction Status Date / Time No Known Allergies Allergy Unverified 04/26/18 18:55 - Medications Medications: Current Medications Acetaminophen (Tylenol 325mg Tab) 650 mg PO Q4H PRN PRN Reason: Headache Last Admin: 04/28/18 00:00 Dose: 650 mg Amlodipine Besylate (Norvasc) 5 mg PO QPM [facility] Last Admin: 04/27/18 18:27 Dose: 5 mg Dextrose (Glutose 15) 0 gm PO ONCE PRN; Protocol PRN Reason: Hypoglycemia Protocol Epoetin Cornelius (Procrit) 10,000 unit SC TTS [facility] Last Admin: 04/27/18 18:50 Dose: 10,000 unit Ferric Sodium Gluconate Complex (Ferrlecit) 125 mg IVPB MWF [facility] Stop: 05/15/18 09:01 Heparin Sodium (Porcine) (Heparin) 5,000 units SC Q12 [facility] Hydralazine HCl (Apresoline) 10 mg IVP Q6H [facility] Last Admin: 04/28/18 03:25 Dose: 10 mg Lacosamide 75 mg/ Sodium (Chloride) 107.5 mls @ 220 mls/hr IV Q12H [facility] Last Admin: 04/27/18 22:10 Dose: 220 mls/hr Dextrose (Dextrose 5% In Water 1000 Ml) 1,000 mls @ 0 mls/hr IV .Q0M PRN; Protocol; Per Protocol PRN Reason: Hypoglycemia Protocol Insulin Human Regular (Novolin R) 0 unit SC Q4H [facility] PRN Reason: Protocol Last Admin: 04/28/18 04:00 Dose: Not Given Lacosamide (Vimpat 200mg/20ml) 50 mg IVP PRN PRN PRN Reason: anti-seizure post dialysis. Losartan Potassium (Cozaar) 50 mg PO QPM [facility] Last Admin: 04/27/18 18:27 Dose: 50 mg Pneumococcal Polyvalent Vaccine (Pneumovax 23 Vaccine) 0.5 ml IM .ONCE ONE Stop: 04/28/18 10:01 Sevelamer Carbonate (Renvela) 800 mg PO TIDCC [facility] Last Admin: 04/27/18 16:36 Dose: Not Given Vitamin B Complex/Vit C/Folic Acid (Nephro-Jailene) 1 tab PO 0800 [facility] Physical Exam - Constitutional Appears: Non-toxic, No Acute Distress - Head Exam Head Exam: ATRAUMATIC, NORMOCEPHALIC - Eye Exam Eye Exam: EOMI - ENT Exam ENT Exam: Mucous Membranes Moist - Respiratory Exam Respiratory Exam: NORMAL BREATHING PATTERN. absent: Accessory Muscle Use, Respiratory Distress - GI/Abdominal Exam GI & Abdominal Exam: Soft. absent: Distended, Firm, Guarding, Rigid - Neurological Exam Neurological exam: Alert, Oriented x3 - Skin Skin Exam: Dry, Normal Color, Warm Results - Vital Signs Recent Vital Signs: Last Vital Signs Temp 98.4 F 04/28/18 04:00 Pulse 96 H 04/28/18 05:00 Resp 18 04/28/18 04:00 BP 155/91 H 04/28/18 05:00 Pulse Ox 100 04/28/18 04:00 - Labs Result Diagrams: 04/28/18 06:24 04/28/18 06:24 Labs: Laboratory Results - last 24 hr 04/26/18 04/27/18 04/27/18 20:46 05:39 05:39 WBC RBC Hgb Hct MCV MCH MCHC RDW Plt Count MPV Neut % (Auto) 81.0 H Lymph % (Auto) 9.0 L [place] % (Auto) 9.0 Eos % (Auto) 1.0 Baso % (Auto) 0.0 Neut # (Auto) 8.1 H Lymph # (Auto) 0.9 L [place] # (Auto) 0.9 H Eos # (Auto) 0.1 Baso # (Auto) 0.0 Sodium 139 Potassium 4.0 Chloride 99 Carbon Dioxide 23 Anion Gap 21 H BUN 32 H Creatinine 4.8 H Est GFR ( Amer) 16 Est GFR (Non-Af Amer) 13 POC Glucose (mg/dL) Random Glucose 297 H Calcium 8.4 L Phosphorus 5.2 H Magnesium 1.8 Total Bilirubin 0.7 AST 25 ALT 17 L Alkaline Phosphatase 90 Total Protein 7.3 Albumin 3.7 Globulin 3.6 Albumin/Globulin Ratio 1.1 Urine Color Urine Clarity Urine pH Ur Specific [place] Urine Protein Urine Glucose (UA) Urine Ketones Urine Blood Urine Nitrate Urine Bilirubin Urine Urobilinogen Ur Leukocyte Esterase Urine WBC (Auto) Urine RBC (Auto) Ur Squamous Epith Cells Urine Bacteria Urine Opiates Screen Urine Methadone Screen Ur Barbiturates Screen Ur Phencyclidine Scrn Ur Amphetamines Screen U Benzodiazepines Scrn U Oth Cocaine Metabols U Cannabinoids Screen Complement C3 Complement C4 HIV 1&2 Antibody Screen H.influenzae Type B Ag Ur L.pneumophila Ag N.meningitidis ACY/W135 N.meningi B/E.coli K1 Ag Group B Strep Antigen S. pneumoniae Antigen 04/27/18 04/27/18 04/27/18 05:47 05:50 05:50 WBC 9.1 RBC 3.14 L Hgb 7.7 L Hct 23.1 L MCV 73.3 L MCH 24.3 L MCHC 33.2 RDW 17.0 H Plt Count 254 MPV 8.5 Neut % (Auto) 73.0 Lymph % (Auto) 22.0 [place] % (Auto) 2.0 Eos % (Auto) 3.0 Baso % (Auto) 0.0 Neut # (Auto) 6.7 Lymph # (Auto) 2.0 [place] # (Auto) 0.2 Eos # (Auto) 0.3 Baso # (Auto) 0.0 Sodium Potassium Chloride Carbon Dioxide Anion Gap BUN Creatinine Est GFR ( Amer) Est GFR (Non-Af Amer) POC Glucose (mg/dL) Random Glucose Calcium Phosphorus Magnesium Total Bilirubin AST ALT Alkaline Phosphatase Total Protein Albumin Globulin Albumin/Globulin Ratio Urine Color Yellow Urine Clarity Hazy Urine pH 6.0 Ur Specific [place] 1.017 Urine Protein 3+ H Urine Glucose (UA) 3+ H Urine Ketones Trace Urine Blood 2+ H Urine Nitrate Negative Urine Bilirubin Negative Urine Urobilinogen Normal Ur Leukocyte Esterase Neg Urine WBC (Auto) 6 H Urine RBC (Auto) 62 H Ur Squamous Epith Cells < 1 Urine Bacteria Rare Urine Opiates Screen Urine Methadone Screen Ur Barbiturates Screen Ur Phencyclidine Scrn Ur Amphetamines Screen U Benzodiazepines Scrn U Oth Cocaine Metabols U Cannabinoids Screen Complement C3 Complement C4 HIV 1&2 Antibody Screen H.influenzae Type B Ag Ur L.pneumophila Ag Negative N.meningitidis ACY/W135 N.meningi B/E.coli K1 Ag Group B Strep Antigen S. pneumoniae Antigen 04/27/18 04/27/18 04/27/18 05:50 06:17 07:19 WBC RBC Hgb Hct MCV MCH MCHC RDW Plt Count MPV Neut % (Auto) Lymph % (Auto) [place] % (Auto) Eos % (Auto) Baso % (Auto) Neut # (Auto) Lymph # (Auto) [place] # (Auto) Eos # (Auto) Baso # (Auto) Sodium Potassium Chloride Carbon Dioxide Anion Gap BUN Creatinine Est GFR ( Amer) Est GFR (Non-Af Amer) POC Glucose (mg/dL) 296 H Random Glucose Calcium Phosphorus Magnesium Total Bilirubin AST ALT Alkaline Phosphatase Total Protein Albumin Globulin Albumin/Globulin Ratio Urine Color Urine Clarity Urine pH Ur Specific [place] Urine Protein Urine Glucose (UA) Urine Ketones Urine Blood Urine Nitrate Urine Bilirubin Urine Urobilinogen Ur Leukocyte Esterase Urine WBC (Auto) Urine RBC (Auto) Ur Squamous Epith Cells Urine Bacteria Urine Opiates Screen Negative Urine Methadone Screen Negative Ur Barbiturates Screen Negative Ur Phencyclidine Scrn Negative Ur Amphetamines Screen Negative U Benzodiazepines Scrn Negative U Oth Cocaine Metabols Negative U Cannabinoids Screen Positive H Complement C3 Complement C4 HIV 1&2 Antibody Screen H.influenzae Type B Ag Negative Ur L.pneumophila Ag N.meningitidis ACY/W135 Negative N.meningi B/E.coli K1 Ag Negative Group B Strep Antigen Negative S. pneumoniae Antigen Negative 04/27/18 04/27/18 04/27/18 07:21 08:01 09:06 WBC RBC Hgb Hct MCV MCH MCHC RDW Plt Count MPV Neut % (Auto) Lymph % (Auto) [place] % (Auto) Eos % (Auto) Baso % (Auto) Neut # (Auto) Lymph # (Auto) [place] # (Auto) Eos # (Auto) Baso # (Auto) Sodium Potassium Chloride Carbon Dioxide Anion Gap BUN Creatinine Est GFR ( Amer) Est GFR (Non-Af Amer) POC Glucose (mg/dL) 269 H 233 H 193 H Random Glucose Calcium Phosphorus Magnesium Total Bilirubin AST ALT Alkaline Phosphatase Total Protein Albumin Globulin Albumin/Globulin Ratio Urine Color Urine Clarity Urine pH Ur Specific [place] Urine Protein Urine Glucose (UA) Urine Ketones Urine Blood Urine Nitrate Urine Bilirubin Urine Urobilinogen Ur Leukocyte Esterase Urine WBC (Auto) Urine RBC (Auto) Ur Squamous Epith Cells Urine Bacteria Urine Opiates Screen Urine Methadone Screen Ur Barbiturates Screen Ur Phencyclidine Scrn Ur Amphetamines Screen U Benzodiazepines Scrn U Oth Cocaine Metabols U Cannabinoids Screen Complement C3 Complement C4 HIV 1&2 Antibody Screen H.influenzae Type B Ag Ur L.pneumophila Ag N.meningitidis ACY/W135 N.meningi B/E.coli K1 Ag Group B Strep Antigen S. pneumoniae Antigen 04/27/18 04/27/18 04/27/18 10:11 11:19 12:08 WBC RBC Hgb Hct MCV MCH MCHC RDW Plt Count MPV Neut % (Auto) Lymph % (Auto) [place] % (Auto) Eos % (Auto) Baso % (Auto) Neut # (Auto) Lymph # (Auto) [place] # (Auto) Eos # (Auto) Baso # (Auto) Sodium Potassium Chloride Carbon Dioxide Anion Gap BUN Creatinine Est GFR ( Amer) Est GFR (Non-Af Amer) POC Glucose (mg/dL) 207 H 167 H 115 H Random Glucose Calcium Phosphorus Magnesium Total Bilirubin AST ALT Alkaline Phosphatase Total Protein Albumin Globulin Albumin/Globulin Ratio Urine Color Urine Clarity Urine pH Ur Specific [place] Urine Protein Urine Glucose (UA) Urine Ketones Urine Blood Urine Nitrate Urine Bilirubin Urine Urobilinogen Ur Leukocyte Esterase Urine WBC (Auto) Urine RBC (Auto) Ur Squamous Epith Cells Urine Bacteria Urine Opiates Screen Urine Methadone Screen Ur Barbiturates Screen Ur Phencyclidine Scrn Ur Amphetamines Screen U Benzodiazepines Scrn U Oth Cocaine Metabols U Cannabinoids Screen Complement C3 Complement C4 HIV 1&2 Antibody Screen H.influenzae Type B Ag Ur L.pneumophila Ag N.meningitidis ACY/W135 N.meningi B/E.coli K1 Ag Group B Strep Antigen S. pneumoniae Antigen 04/27/18 04/27/18 04/27/18 12:53 12:59 14:00 WBC RBC Hgb Hct MCV MCH MCHC RDW Plt Count MPV Neut % (Auto) Lymph % (Auto) [place] % (Auto) Eos % (Auto) Baso % (Auto) Neut # (Auto) Lymph # (Auto) [place] # (Auto) Eos # (Auto) Baso # (Auto) Sodium 140 Potassium 4.0 Chloride 101 Carbon Dioxide 26 Anion Gap 16 BUN 37 H Creatinine 5.1 H Est GFR ( Amer) 15 Est GFR (Non-Af Amer) 13 POC Glucose (mg/dL) 118 H 166 H Random Glucose 119 H Calcium 8.1 L Phosphorus Magnesium Total Bilirubin 0.6 AST 19 ALT 17 L Alkaline Phosphatase 88 Total Protein 7.0 Albumin 3.5 Globulin 3.5 Albumin/Globulin Ratio 1.0 Urine Color Urine Clarity Urine pH Ur Specific [place] Urine Protein Urine Glucose (UA) Urine Ketones Urine Blood Urine Nitrate Urine Bilirubin Urine Urobilinogen Ur Leukocyte Esterase Urine WBC (Auto) Urine RBC (Auto) Ur Squamous Epith Cells Urine Bacteria Urine Opiates Screen Urine Methadone Screen Ur Barbiturates Screen Ur Phencyclidine Scrn Ur Amphetamines Screen U Benzodiazepines Scrn U Oth Cocaine Metabols U Cannabinoids Screen Complement C3 Complement C4 HIV 1&2 Antibody Screen H.influenzae Type B Ag Ur L.pneumophila Ag N.meningitidis ACY/W135 N.meningi B/E.coli K1 Ag Group B Strep Antigen S. pneumoniae Antigen 04/27/18 04/27/18 04/27/18 15:44 16:46 16:46 WBC RBC Hgb Hct MCV MCH MCHC RDW Plt Count MPV Neut % (Auto) Lymph % (Auto) [place] % (Auto) Eos % (Auto) Baso % (Auto) Neut # (Auto) Lymph # (Auto) [place] # (Auto) Eos # (Auto) Baso # (Auto) Sodium Potassium Chloride Carbon Dioxide Anion Gap BUN Creatinine Est GFR ( Amer) Est GFR (Non-Af Amer) POC Glucose (mg/dL) 204 H Random Glucose Calcium Phosphorus Magnesium Total Bilirubin AST ALT Alkaline Phosphatase Total Protein Albumin Globulin Albumin/Globulin Ratio Urine Color Urine Clarity Urine pH Ur Specific [place] Urine Protein Urine Glucose (UA) Urine Ketones Urine Blood Urine Nitrate Urine Bilirubin Urine Urobilinogen Ur Leukocyte Esterase Urine WBC (Auto) Urine RBC (Auto) Ur Squamous Epith Cells Urine Bacteria Urine Opiates Screen Urine Methadone Screen Ur Barbiturates Screen Ur Phencyclidine Scrn Ur Amphetamines Screen U Benzodiazepines Scrn U Oth Cocaine Metabols U Cannabinoids Screen Complement C3 83.0 L Complement C4 37.4 HIV 1&2 Antibody Screen Negative H.influenzae Type B Ag Ur L.pneumophila Ag N.meningitidis ACY/W135 N.meningi B/E.coli K1 Ag Group B Strep Antigen S. pneumoniae Antigen 04/27/18 04/27/18 04/27/18 20:03 20:06 20:31 WBC RBC Hgb Hct MCV MCH MCHC RDW Plt Count MPV Neut % (Auto) Lymph % (Auto) [place] % (Auto) Eos % (Auto) Baso % (Auto) Neut # (Auto) Lymph # (Auto) [place] # (Auto) Eos # (Auto) Baso # (Auto) Sodium Potassium Chloride Carbon Dioxide Anion Gap BUN Creatinine Est GFR ( Amer) Est GFR (Non-Af Amer) POC Glucose (mg/dL) 57 L 64 L 72 Random Glucose Calcium Phosphorus Magnesium Total Bilirubin AST ALT Alkaline Phosphatase Total Protein Albumin Globulin Albumin/Globulin Ratio Urine Color Urine Clarity Urine pH Ur Specific [place] Urine Protein Urine Glucose (UA) Urine Ketones Urine Blood Urine Nitrate Urine Bilirubin Urine Urobilinogen Ur Leukocyte Esterase Urine WBC (Auto) Urine RBC (Auto) Ur Squamous Epith Cells Urine Bacteria Urine Opiates Screen Urine Methadone Screen Ur Barbiturates Screen Ur Phencyclidine Scrn Ur Amphetamines Screen U Benzodiazepines Scrn U Oth Cocaine Metabols U Cannabinoids Screen Complement C3 Complement C4 HIV 1&2 Antibody Screen H.influenzae Type B Ag Ur L.pneumophila Ag N.meningitidis ACY/W135 N.meningi B/E.coli K1 Ag Group B Strep Antigen S. pneumoniae Antigen 04/27/18 04/28/18 23:38 03:29 WBC RBC Hgb Hct MCV MCH MCHC RDW Plt Count MPV Neut % (Auto) Lymph % (Auto) [place] % (Auto) Eos % (Auto) Baso % (Auto) Neut # (Auto) Lymph # (Auto) [place] # (Auto) Eos # (Auto) Baso # (Auto) Sodium Potassium Chloride Carbon Dioxide Anion Gap BUN Creatinine Est GFR ( Amer) Est GFR (Non-Af Amer) POC Glucose (mg/dL) 191 H 147 H Random Glucose Calcium Phosphorus Magnesium Total Bilirubin AST ALT Alkaline Phosphatase Total Protein Albumin Globulin Albumin/Globulin Ratio Urine Color Urine Clarity Urine pH Ur Specific [place] Urine Protein Urine Glucose (UA) Urine Ketones Urine Blood Urine Nitrate Urine Bilirubin Urine Urobilinogen Ur Leukocyte Esterase Urine WBC (Auto) Urine RBC (Auto) Ur Squamous Epith Cells Urine Bacteria Urine Opiates Screen Urine Methadone Screen Ur Barbiturates Screen Ur Phencyclidine Scrn Ur Amphetamines Screen U Benzodiazepines Scrn U Oth Cocaine Metabols U Cannabinoids Screen Complement C3 Complement C4 HIV 1&2 Antibody Screen H.influenzae Type B Ag Ur L.pneumophila Ag N.meningitidis ACY/W135 N.meningi B/E.coli K1 Ag Group B Strep Antigen S. pneumoniae Antigen Assessment & Plan - Assessment and Plan (Free Text) Assessment: 43M w. ESRD needing AVF -pt states that he is hesitant of surgery at this time and would like to think about it -will order vein mapping in interim -d/w attending Milagro [id number]
--- NOTE | 2018-04-28 06:30 | CP.PCM.PN ---
Subjective - Date & Time of Evaluation Date of Evaluation: 04/28/18 Time of Evaluation: 07:00 - Subjective Subjective: PGY-4 GI Fellow Prog Note Pt was lying in bed when seen this AM. Minimally conversive. Simply stating, "I'm OK, doc" to all questions. 5 point ROS negative other than stated above Objective - Vital Signs/Intake and Output Vital Signs (last 24 hours): Temp Pulse Resp BP Pulse Ox 98.4 F 99 H 18 153/96 H 100 04/28/18 04:00 04/28/18 06:00 04/28/18 04:00 04/28/18 06:00 04/28/18 04:00 Intake and Output: 04/27/18 04/28/18 18:59 06:59 Intake Total 565.0 750 Output Total 400 1500 Balance 165.0 -750 - Medications Medications: Current Medications Acetaminophen (Tylenol 325mg Tab) 650 mg PO Q4H PRN PRN Reason: Headache Last Admin: 04/28/18 00:00 Dose: 650 mg Amlodipine Besylate (Norvasc) 5 mg PO QPM [facility] Last Admin: 04/27/18 18:27 Dose: 5 mg Dextrose (Glutose 15) 0 gm PO ONCE PRN; Protocol PRN Reason: Hypoglycemia Protocol Epoetin Cornelius (Procrit) 10,000 unit SC TTS [facility] Last Admin: 04/27/18 18:50 Dose: 10,000 unit Ferric Sodium Gluconate Complex (Ferrlecit) 125 mg IVPB MWF [facility] Stop: 05/15/18 09:01 Heparin Sodium (Porcine) (Heparin) 5,000 units SC Q12 [facility] Hydralazine HCl (Apresoline) 10 mg IVP Q6H [facility] Last Admin: 04/28/18 03:25 Dose: 10 mg Lacosamide 75 mg/ Sodium (Chloride) 107.5 mls @ 220 mls/hr IV Q12H [facility] Last Admin: 04/27/18 22:10 Dose: 220 mls/hr Dextrose (Dextrose 5% In Water 1000 Ml) 1,000 mls @ 0 mls/hr IV .Q0M PRN; Protocol; Per Protocol PRN Reason: Hypoglycemia Protocol Insulin Human Regular (Novolin R) 0 unit SC Q4H JOSE PRN Reason: Protocol Last Admin: 04/28/18 04:00 Dose: Not Given Lacosamide (Vimpat 200mg/20ml) 50 mg IVP PRN PRN PRN Reason: anti-seizure post dialysis. Losartan Potassium (Cozaar) 50 mg PO QPM [facility] Last Admin: 04/27/18 18:27 Dose: 50 mg Pneumococcal Polyvalent Vaccine (Pneumovax 23 Vaccine) 0.5 ml IM .ONCE ONE Stop: 04/28/18 10:01 Sevelamer Carbonate (Renvela) 800 mg PO TIDCC [facility] Last Admin: 04/27/18 16:36 Dose: Not Given Vitamin B Complex/Vit C/Folic Acid (Nephro-Jailene) 1 tab PO 0800 [facility] - Labs Labs: 04/27/18 05:47 04/27/18 12:59 PT 11.7 SECONDS (9.7-12.2) 04/26/18 11:50 INR 1.1 04/26/18 11:50 APTT 47 SECONDS (21-34) H 04/26/18 11:50 - Constitutional Appears: Non-toxic, No Acute Distress - Head Exam Head Exam: ATRAUMATIC, NORMAL INSPECTION - Respiratory Exam Respiratory Exam: NORMAL BREATHING PATTERN. absent: Accessory Muscle Use, Respiratory Distress - GI/Abdominal Exam GI & Abdominal Exam: Soft, Normal Bowel Sounds. absent: Distended, Firm, Guarding, Rigid, Tenderness - Neurological Exam Neurological Exam: Alert, Awake - Psychiatric Exam Psychiatric exam: Flat Affect. absent: Normal Mood (Seems frustrated) Assessment and Plan - Assessment and Plan (Free Text) Assessment: 43 yo BM with ESRD, CVA, HTN, DM presenting with DKA, new seizure found to have Hgb 6.5 and stool occult blood positive. # Acute on Chronic Normocytic Anemia: Hgb 6.5 from 12 in 2015. Occult + but no signs of active bleed as with brown stool. No previous endoscopies before. Has risk factors for GI malignancy in previous EtOH abuse and current Tobacco abuse. S/p 1 units PRBC with appropriate response. Plan: - Abd/Pelvis CT with PO contrast - Monitor Hgb, goal >7 - OK with PO PPI for now while in ICU, but no correction indication at this time - Outpatient endoscopy recommended to patient - Consider EPO, though defer to Renal Thank you for the consult, will cont to follow. Pt seen and examined with
[2018-04-28 06:34] LABS: HEMOGLOBIN 7.9 g/dL (12.0-18.0); MEAN CELL VOLUME 73.6 fL (80.0-94.0); MEAN CORPUSCULAR HEMOGLOBIN 24.5 pg (27.0-31.0); MEAN CORPUSCULAR HGB CONC 33.3 g/dL (33.0-37.0); MEAN PLATELET VOLUME 8.3 fL (7.2-11.7); RBC 3.21 Mil/uL (4.40-5.90); RED CELL DISTRIBUTION WIDTH 17.3 % (11.5-14.5); WHITE BLOOD COUNT 7.4 K/uL (4.8-10.8)
[2018-04-28 06:47] LABS: ALBUMIN 3.5 g/dL (3.5-5.0); CALCIUM 8.5 mg/dl (8.6-10.4)
--- NOTE | 2018-04-28 07:32 | CON ---
Copied To: Hipolito Menard MD Attending MD: Hipolito Menard MD DATE: 04/27/2018 HISTORY OF PRESENT ILLNESS: This is a 43-year-old male who has of medical history, obviously extremely noncompliant, has severe diabetes, multiple other medical problems, end-stage renal disease, noncompliant with his insulin, with his dialysis, etc. Apparently, he was admitted to [facility] three weeks ago for what was said to be a stroke which may have been a . In any case, he signed out AMA. He presented to the [facility] ER with right-sided weakness, lethargy, headache, nausea, vomiting, was found to be extremely metabolically toxic with extremely high hyperglycemia, renal insufficiency, etc. Along the way, he had a CT of the brain which showed hydrocephalus. The rest of the patient's history, medications, allergies are all reviewed in the chart. PHYSICAL EXAMINATION: GENERAL: He is actually bright, awake and alert. He is fully oriented x3. He follows all commands. His speech is within normal limits. 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 Right side has the EOMs are full with good acuity. Face is symmetric. NEUROLOGIC: Actually, he has fairly good strength throughout including on the right side. Sensory exam is grossly intact. LABORATORY DATA: CT does show mild hydrocephalus involving the lateral third ventricle, not so much before. There was no flow. IMPRESSION AND PLAN: Unclear why this patient has hydrocephalous. It is also not entirely clear what symptoms he had that could be referable; certainly headache and nausea could be, but he has several other reasons to have that. I did advocate that he consider ventriculoperitoneal shunt as clearly this is abnormal in any case. The patient had extreme disinclination to go ahead with the shunt, indicated that he should think it over; decide if he wants to live with these symptoms or managing expectantly, that was obviously left entire to him. Should the patient describe, he was interested in proceeding, he would obviously need to be markedly medically tuned up and cleared for the procedure, including in particular the elevated PTT of 47. Hipolito Menard MD
[2018-04-28] MEDS ORDERED: Multivitamin Vitamin B Complex (Nephro-Vite) Tab PO SCH (08:00)
[2018-04-28] MEDS: LACOSAMIDE IV SCH (09:00)
[2018-04-28] MEDS ORDERED: Ferric Sodium Gluconat Complex 62.5 mg/5 ml Vial IVPB SCH (09:00)
[2018-04-28] MEDS: SODIUM CHLORIDE 0.9% IV SCH (09:00)
--- NOTE | 2018-04-28 09:01 | RAD ---
Date of service: 04/28/2018 HISTORY: Bilateral opacities COMPARISON: 04/27/2018. FINDINGS: The right-sided dialysis catheter terminates at the cavoatrial junction. LUNGS: The lungs are well inflated and clear. PLEURA: No significant pleural effusion identified, no pneumothorax apparent. CARDIOVASCULAR: Normal. OSSEOUS STRUCTURES: No significant abnormalities. VISUALIZED UPPER ABDOMEN: Normal. OTHER FINDINGS: None. IMPRESSION: No active pulmonary disease.
[2018-04-28] MEDS ORDERED: Pneumococcal 23-Valent Vaccine IM ONE (10:00)
--- NOTE | 2018-04-28 10:26 | CP.PCM.PN ---
Subjective - Date & Time of Evaluation Date of Evaluation: 04/28/18 Time of Evaluation: 10:30 - Subjective Subjective: Neurology Consult Note for Dr. Manzano Patient refused examination this morning and stated that he wanted to leave. Patient explained the risk of leaving including severe decompensation, permanent disability and . Patient still insisted on leaving and stated that he needed to go to court. Objective - Vital Signs/Intake and Output Vital Signs (last 24 hours): Temp Pulse Resp BP Pulse Ox 98.4 F 100 H 18 157/89 H 97 04/28/18 04:00 04/28/18 07:00 04/28/18 04:00 04/28/18 07:00 04/28/18 07:00 Intake and Output: 04/28/18 04/28/18 06:59 18:59 Intake Total 750 Output Total 1500 0 Balance -750 0 - Medications Medications: Current Medications Acetaminophen (Tylenol 325mg Tab) 650 mg PO Q4H PRN PRN Reason: Headache Last Admin: 04/28/18 00:00 Dose: 650 mg Amlodipine Besylate (Norvasc) 5 mg PO QPM [facility] Last Admin: 04/27/18 18:27 Dose: 5 mg Dextrose (Glutose 15) 0 gm PO ONCE PRN; Protocol PRN Reason: Hypoglycemia Protocol Epoetin Cornelius (Procrit) 10,000 unit SC TTS [facility] Last Admin: 04/27/18 18:50 Dose: 10,000 unit Ferric Sodium Gluconate Complex (Ferrlecit) 125 mg IVPB MWF [facility] Stop: 05/15/18 09:01 Last Admin: 04/28/18 09:40 Dose: Not Given Heparin Sodium (Porcine) (Heparin) 5,000 units SC Q12 [facility] Hydralazine HCl (Apresoline) 10 mg IVP Q6H [facility] Last Admin: 04/28/18 09:39 Dose: Not Given Lacosamide 75 mg/ Sodium (Chloride) 107.5 mls @ 220 mls/hr IV Q12H [facility] Last Admin: 04/27/18 22:10 Dose: 220 mls/hr Dextrose (Dextrose 5% In Water 1000 Ml) 1,000 mls @ 0 mls/hr IV .Q0M PRN; Protocol; Per Protocol PRN Reason: Hypoglycemia Protocol Insulin Human Regular (Novolin R) 0 unit SC Q4H JOSE PRN Reason: Protocol Last Admin: 04/28/18 09:00 Dose: Not Given Lacosamide (Vimpat 200mg/20ml) 50 mg IVP PRN PRN PRN Reason: anti-seizure post dialysis. Losartan Potassium (Cozaar) 50 mg PO QPM [facility] Last Admin: 04/27/18 18:27 Dose: 50 mg Sevelamer Carbonate (Renvela) 800 mg PO TIDCC [facility] Last Admin: 04/28/18 09:41 Dose: Not Given Vitamin B Complex/Vit C/Folic Acid (Nephro-Jailene) 1 tab PO 0800 [facility] Last Admin: 04/28/18 09:00 Dose: Not Given - Labs Labs: 04/28/18 06:24 04/28/18 06:24 PT 11.7 SECONDS (9.7-12.2) 04/26/18 11:50 INR 1.1 04/26/18 11:50 APTT 47 SECONDS (21-34) H 04/26/18 11:50 - Constitutional Appears: Non-toxic, No Acute Distress - Head Exam Head Exam: ATRAUMATIC, NORMOCEPHALIC - ENT Exam ENT Exam: Mucous Membranes Moist - Respiratory Exam Respiratory Exam: absent: Accessory Muscle Use - Extremities Exam Extremities Exam: absent: Pedal Edema - Neurological Exam Neurological Exam: Alert, Awake, Oriented x3 - Psychiatric Exam Psychiatric exam: Anxious - Skin Skin Exam: Normal Color, Warm - Additional Findings Additional findings: - Constitutional Appears: Well, Non-toxic, No Acute Distress - Head Exam Head Exam: ATRAUMATIC, NORMAL INSPECTION, NORMOCEPHALIC - Eye Exam Eye Exam: EOMI (Right Eye). absent: Normal appearance (Left Eye Iris/Pupil abnormality) Pupil Exam: PERRL (Right Eye) - ENT Exam ENT Exam: Mucous Membranes Moist - Respiratory Exam Respiratory Exam: Clear to Ausculation Bilateral. absent: Accessory Muscle Use - Cardiovascular Exam Cardiovascular Exam: RRR, +S1, +S2 - Extremities Exam Extremities Exam: Normal Capillary Refill - Neurological Exam Neurological Exam: Alert, Awake, Oriented x3, Reflexes Normal Neuro motor strength exam: Left Upper Extremity: 5, Right Upper Extremity: 5, Left Lower Extremity: 5, Right Lower Extremity: 5 Additional comments: Asterixis Right Side Facial Droop (Improved) - Psychiatric Exam Psychiatric exam: Normal Affect, Normal Mood - Skin Skin Exam: Dry, Intact, Normal Color, Warm Assessment and Plan - Assessment and Plan (Free Text) Assessment: 43 year old male with a past medical history of HTN, Uncontrolled Diabetes, ESRD (on Dialysis 3x per week), and recent CVA w/ Right sided residual weakness (3 weeks ago) who presents due feeling like his throat was closing up and elevated blood sugars. Neurology consulted due to code stroke. Patient had witnessed seizure post head CT. Plan: 1. Toxic Metabolic Encephalopathy Ddx: Acute stroke, seizure, epidural hemorrhage Head CT (Admission): Dilatation of the 3rd and lateral ventricles without no dilatation of the 4th ventricle. The findings likely indicate a noncommunicating hydrocephalus although communicating hydrocephalus must also be considered. Head/Neck CTA (Admission): 1. No evidence of endoluminal thrombus,occlusion or definite significant stenosis in the intracranial arteries. 2. No evidence of hemodynamically significant stenosis in the internal carotid arteries. 3. Patent bilateral vertebral arteries. The left vertebral artery is hypoplastic , an anatomic variant. 4. Confluent airspace disease in the visualized upper lobes of the lungs concerning for multifocal pneumonia. Please correlate with chest radiograph. -EEG (Completed 04/27/18) -lacosamide 75 BID (Renally dosed). and 50mg 4hours post dialysis sessions. -HOB to 40 deg -Seizure precautions -Correct Metabolic abnormalities. -CT Head w/o contrast today to rule out Bleed -F/U MRI on 05/01/18 -Hold Aravind. 2. Noncommunicating hydrocephalus -MRA of Head/Neck w/o contrast (04/27/18): NEGATIVE -MRI of Brain w/o contrast (04/27/18). Multifocal areas of hyperintense signal along the dural margin probably representing areas of epidural hemorrhage. The is a most pronounced along the left parietal lobe, left frontal lobe as well is the right frontoparietal lobe measuring up to 7 millimeters in thickness. There is also epidural hemorrhage along the right occipital lobe. Communicating hydrocephalus. Dilatation of the ventricles does raise the suspicion that this could represent subarachnoid hemorrhage. -HOld Anticoag's. -Neurosurgery Consult (Dr. Menard). Recs Appreciated. Plan for Ventriculoperitoneal Shunt. Patient has to decide if he wants to undergo procedure. Dispo: Patient refused examination this morning and stated that he wanted to leave. Patient explained the risk of leaving including severe decompensation, permanent disability and . Patient still insisted on leaving and stated that he needed to go to court. Patient told to follow up with Neurosurgery for possible Ventriculoperitoneal Shunt. All management per Dr. Natacha Simmons, PGY-2
[2018-04-28 10:48] LABS: EOS # 0.4 K/uL (0.0-0.7); LYMPH # 1.5 K/uL (1.0-4.3); MONO # 0.7 K/uL (0.0-0.8); NEUT # 4.8 K/uL (1.8-7.0)
[2018-04-28] MEDS ORDERED: Ergocalciferol 50,000 Intl Units Cap PO SCH (11:00)
[2018-04-28 11:23] VITALS: BP 167/112; PULSE 108; RESP 0
[2018-04-28 11:40] VITALS: TEMP 97.8
--- NOTE | 2018-04-28 14:54 | CP.CCUPN ---
CCU Objective - Vital Signs / Intake & Output Vital Signs (Last 4 hours): Vital Signs BP 04/28/18 11:00 167/112 H Intake and Output (Last 8hrs): Intake & Output 04/27/18 04/28/18 04/28/18 22:59 06:59 14:59 Intake Total 810 240 240 Output Total 1500 0 400 Balance -690 240 -160 Weight 143 lb 3 oz Intake: Intake, IV Amount 400 Right Antecubital 400 Oral 410 240 240 Output: Drainage 1500 HD fluid removal 1500 Urine 0 0 400 Urine, Voided 0 0 400 Other: # Voids Urine, Voided 0 # Bowel Movements 0 - Physical Exam Head: Positive for: Atraumatic, Normocephalic Pupils: Positive for: Other (blind in left eye) Extroacular Muscles: Positive for: EOMI Mouth: Positive for: Moist Mucous Membranes Neck: Positive for: Normal Range of Motion Respiratory/Chest: Positive for: Clear to Auscultation, Good Air Exchange Cardiovascular: Positive for: Regular Rate and Rhythm Abdomen: Positive for: Tenderness Neurological: Positive for: GCS=15 Skin: Positive for: Warm Psychiatric: Positive for: Alert, Oriented x 3 - Patient Studies Lab Studies: Microbiology Studies 04/27/18 05:49 Urine Culture - Final Urine,Catheterized No Growth (<1,000 CFU/ML) 04/26/18 14:57 MRSA Culture (Admit) - Final Nose MRSA NOT DETECTED 04/26/18 18:15 Blood Culture - Preliminary Blood-During Dialysis NO GROWTH AFTER 24 HOURS 04/26/18 18:15 Blood Culture - Preliminary Blood-During Dialysis NO GROWTH AFTER 24 HOURS Lab Studies 04/28/18 04/28/18 04/28/18 Range/Units 07:34 06:24 06:24 WBC (4.8-10.8) K/uL RBC (4.40-5.90) Mil/uL Hgb (12.0-18.0) g/dL Hct (35.0-51.0) % MCV (80.0-94.0) fL MCH (27.0-31.0) pg MCHC (33.0-37.0) g/dL RDW (11.5-14.5) % Plt Count (130-400) K/uL MPV (7.2-11.7) fL Neut % (Auto) (50.0-75.0) % Lymph % (Auto) (20.0-40.0) % Owsley % (Auto) (0.0-10.0) % Eos % (Auto) (0.0-4.0) % Baso % (Auto) (0.0-2.0) % Neut # (Auto) (1.8-7.0) K/uL Lymph # (Auto) (1.0-4.3) K/uL Owsley # (Auto) (0.0-0.8) K/uL Eos # (Auto) (0.0-0.7) K/uL Baso # (Auto) (0.0-0.2) K/uL Sodium 139 (132-148) mmol/L Potassium 3.7 (3.6-5.2) mmol/L Chloride 98 (98-107) mmol/L Carbon Dioxide 28 (22-30) mmol/L Anion Gap 17 (10-20) BUN 24 H (9-20) mg/dL Creatinine 4.6 H (0.8-1.5) mg/dL Est GFR ( Amer) 17 Est GFR (Non-Af Amer) 14 POC Glucose (mg/dL) 247 H (65-110) mg/dL Random Glucose 181 H (75-110) mg/dL Calcium 8.5 L (8.6-10.4) mg/dl Phosphorus 4.8 H (2.5-4.5) mg/dL Magnesium 1.8 (1.6-2.3) mg/dL Total Bilirubin 0.6 (0.2-1.3) mg/dL AST 49 (17-59) U/L ALT 18 L (21-72) U/L Alkaline Phosphatase 84 (38-126) U/L Total Protein 7.2 (6.3-8.3) g/dL Albumin 3.5 (3.5-5.0) g/dL Globulin 3.7 (2.2-3.9) gm/dL Albumin/Globulin Ratio 1.0 (1.0-2.1) 25-OH Vitamin D Total < 12.8 L (30.0-100.0) NG/ML Complement C3 (88.0-165.0) mg/dL Complement C4 (14.0-44.0) mg/dL HIV 1&2 Antibody Screen (NEGATIVE) 04/28/18 04/28/18 04/27/18 Range/Units 06:24 03:29 23:38 WBC 7.4 (4.8-10.8) K/uL RBC 3.21 L (4.40-5.90) Mil/uL Hgb 7.9 L (12.0-18.0) g/dL Hct 23.6 L (35.0-51.0) % MCV 73.6 L (80.0-94.0) fL MCH 24.5 L (27.0-31.0) pg MCHC 33.3 (33.0-37.0) g/dL RDW 17.3 H (11.5-14.5) % Plt Count 270 (130-400) K/uL MPV 8.3 (7.2-11.7) fL Neut % (Auto) 65.0 (50.0-75.0) % Lymph % (Auto) 20.0 (20.0-40.0) % Owsley % (Auto) 10.0 (0.0-10.0) % Eos % (Auto) 5.0 H (0.0-4.0) % Baso % (Auto) 0.0 (0.0-2.0) % Neut # (Auto) 4.8 (1.8-7.0) K/uL Lymph # (Auto) 1.5 (1.0-4.3) K/uL Owsley # (Auto) 0.7 (0.0-0.8) K/uL Eos # (Auto) 0.4 (0.0-0.7) K/uL Baso # (Auto) 0.0 (0.0-0.2) K/uL Sodium (132-148) mmol/L Potassium (3.6-5.2) mmol/L Chloride (98-107) mmol/L Carbon Dioxide (22-30) mmol/L Anion Gap (10-20) BUN (9-20) mg/dL Creatinine (0.8-1.5) mg/dL Est GFR ( Amer) Est GFR (Non-Af Amer) POC Glucose (mg/dL) 147 H 191 H (65-110) mg/dL Random Glucose (75-110) mg/dL Calcium (8.6-10.4) mg/dl Phosphorus (2.5-4.5) mg/dL Magnesium (1.6-2.3) mg/dL Total Bilirubin (0.2-1.3) mg/dL AST (17-59) U/L ALT (21-72) U/L Alkaline Phosphatase (38-126) U/L Total Protein (6.3-8.3) g/dL Albumin (3.5-5.0) g/dL Globulin (2.2-3.9) gm/dL Albumin/Globulin Ratio (1.0-2.1) 25-OH Vitamin D Total (30.0-100.0) NG/ML Complement C3 (88.0-165.0) mg/dL Complement C4 (14.0-44.0) mg/dL HIV 1&2 Antibody Screen (NEGATIVE) 04/27/18 04/27/18 04/27/18 Range/Units 20:31 20:06 20:03 WBC (4.8-10.8) K/uL RBC (4.40-5.90) Mil/uL Hgb (12.0-18.0) g/dL Hct (35.0-51.0) % MCV (80.0-94.0) fL MCH (27.0-31.0) pg MCHC (33.0-37.0) g/dL RDW (11.5-14.5) % Plt Count (130-400) K/uL MPV (7.2-11.7) fL Neut % (Auto) (50.0-75.0) % Lymph % (Auto) (20.0-40.0) % Owsley % (Auto) (0.0-10.0) % Eos % (Auto) (0.0-4.0) % Baso % (Auto) (0.0-2.0) % Neut # (Auto) (1.8-7.0) K/uL Lymph # (Auto) (1.0-4.3) K/uL Owsley # (Auto) (0.0-0.8) K/uL Eos # (Auto) (0.0-0.7) K/uL Baso # (Auto) (0.0-0.2) K/uL Sodium (132-148) mmol/L Potassium (3.6-5.2) mmol/L Chloride (98-107) mmol/L Carbon Dioxide (22-30) mmol/L Anion Gap (10-20) BUN (9-20) mg/dL Creatinine (0.8-1.5) mg/dL Est GFR ( Amer) Est GFR (Non-Af Amer) POC Glucose (mg/dL) 72 64 L 57 L (65-110) mg/dL Random Glucose (75-110) mg/dL Calcium (8.6-10.4) mg/dl Phosphorus (2.5-4.5) mg/dL Magnesium (1.6-2.3) mg/dL Total Bilirubin (0.2-1.3) mg/dL AST (17-59) U/L ALT (21-72) U/L Alkaline Phosphatase (38-126) U/L Total Protein (6.3-8.3) g/dL Albumin (3.5-5.0) g/dL Globulin (2.2-3.9) gm/dL Albumin/Globulin Ratio (1.0-2.1) 25-OH Vitamin D Total (30.0-100.0) NG/ML Complement C3 (88.0-165.0) mg/dL Complement C4 (14.0-44.0) mg/dL HIV 1&2 Antibody Screen (NEGATIVE) 04/27/18 04/27/18 04/27/18 Range/Units 16:46 16:46 15:44 WBC (4.8-10.8) K/uL RBC (4.40-5.90) Mil/uL Hgb (12.0-18.0) g/dL Hct (35.0-51.0) % MCV (80.0-94.0) fL MCH (27.0-31.0) pg MCHC (33.0-37.0) g/dL RDW (11.5-14.5) % Plt Count (130-400) K/uL MPV (7.2-11.7) fL Neut % (Auto) (50.0-75.0) % Lymph % (Auto) (20.0-40.0) % Owsley % (Auto) (0.0-10.0) % Eos % (Auto) (0.0-4.0) % Baso % (Auto) (0.0-2.0) % Neut # (Auto) (1.8-7.0) K/uL Lymph # (Auto) (1.0-4.3) K/uL Owsley # (Auto) (0.0-0.8) K/uL Eos # (Auto) (0.0-0.7) K/uL Baso # (Auto) (0.0-0.2) K/uL Sodium (132-148) mmol/L Potassium (3.6-5.2) mmol/L Chloride (98-107) mmol/L Carbon Dioxide (22-30) mmol/L Anion Gap (10-20) BUN (9-20) mg/dL Creatinine (0.8-1.5) mg/dL Est GFR ( Amer) Est GFR (Non-Af Amer) POC Glucose (mg/dL) 204 H (65-110) mg/dL Random Glucose (75-110) mg/dL Calcium (8.6-10.4) mg/dl Phosphorus (2.5-4.5) mg/dL Magnesium (1.6-2.3) mg/dL Total Bilirubin (0.2-1.3) mg/dL AST (17-59) U/L ALT (21-72) U/L Alkaline Phosphatase (38-126) U/L Total Protein (6.3-8.3) g/dL Albumin (3.5-5.0) g/dL Globulin (2.2-3.9) gm/dL Albumin/Globulin Ratio (1.0-2.1) 25-OH Vitamin D Total (30.0-100.0) NG/ML Complement C3 83.0 L (88.0-165.0) mg/dL Complement C4 37.4 (14.0-44.0) mg/dL HIV 1&2 Antibody Screen Negative (NEGATIVE) Laboratory Results - last 24 hr 04/27/18 04/27/18 04/27/18 15:44 16:46 16:46 WBC RBC Hgb Hct MCV MCH MCHC RDW Plt Count MPV Neut % (Auto) Lymph % (Auto) Owsley % (Auto) Eos % (Auto) Baso % (Auto) Neut # (Auto) Lymph # (Auto) Owsley # (Auto) Eos # (Auto) Baso # (Auto) Sodium Potassium Chloride Carbon Dioxide Anion Gap BUN Creatinine Est GFR ( Amer) Est GFR (Non-Af Amer) POC Glucose (mg/dL) 204 H Random Glucose Calcium Phosphorus Magnesium Total Bilirubin AST ALT Alkaline Phosphatase Total Protein Albumin Globulin Albumin/Globulin Ratio 25-OH Vitamin D Total Complement C3 83.0 L Complement C4 37.4 HIV 1&2 Antibody Screen Negative 04/27/18 04/27/18 04/27/18 20:03 20:06 20:31 WBC RBC Hgb Hct MCV MCH MCHC RDW Plt Count MPV Neut % (Auto) Lymph % (Auto) Owsley % (Auto) Eos % (Auto) Baso % (Auto) Neut # (Auto) Lymph # (Auto) Owsley # (Auto) Eos # (Auto) Baso # (Auto) Sodium Potassium Chloride Carbon Dioxide Anion Gap BUN Creatinine Est GFR ( Amer) Est GFR (Non-Af Amer) POC Glucose (mg/dL) 57 L 64 L 72 Random Glucose Calcium Phosphorus Magnesium Total Bilirubin AST ALT Alkaline Phosphatase Total Protein Albumin Globulin Albumin/Globulin Ratio 25-OH Vitamin D Total Complement C3 Complement C4 HIV 1&2 Antibody Screen 04/27/18 04/28/18 04/28/18 23:38 03:29 06:24 WBC 7.4 RBC 3.21 L Hgb 7.9 L Hct 23.6 L MCV 73.6 L MCH 24.5 L MCHC 33.3 RDW 17.3 H Plt Count 270 MPV 8.3 Neut % (Auto) 65.0 Lymph % (Auto) 20.0 Owsley % (Auto) 10.0 Eos % (Auto) 5.0 H Baso % (Auto) 0.0 Neut # (Auto) 4.8 Lymph # (Auto) 1.5 Owsley # (Auto) 0.7 Eos # (Auto) 0.4 Baso # (Auto) 0.0 Sodium Potassium Chloride Carbon Dioxide Anion Gap BUN Creatinine Est GFR ( Amer) Est GFR (Non-Af Amer) POC Glucose (mg/dL) 191 H 147 H Random Glucose Calcium Phosphorus Magnesium Total Bilirubin AST ALT Alkaline Phosphatase Total Protein Albumin Globulin Albumin/Globulin Ratio 25-OH Vitamin D Total Complement C3 Complement C4 HIV 1&2 Antibody Screen 04/28/18 04/28/18 04/28/18 06:24 06:24 07:34 WBC RBC Hgb Hct MCV MCH MCHC RDW Plt Count MPV Neut % (Auto) Lymph % (Auto) Owsley % (Auto) Eos % (Auto) Baso % (Auto) Neut # (Auto) Lymph # (Auto) Owsley # (Auto) Eos # (Auto) Baso # (Auto) Sodium 139 Potassium 3.7 Chloride 98 Carbon Dioxide 28 Anion Gap 17 BUN 24 H Creatinine 4.6 H Est GFR ( Amer) 17 Est GFR (Non-Af Amer) 14 POC Glucose (mg/dL) 247 H Random Glucose 181 H Calcium 8.5 L Phosphorus 4.8 H Magnesium 1.8 Total Bilirubin 0.6 AST 49 ALT 18 L Alkaline Phosphatase 84 Total Protein 7.2 Albumin 3.5 Globulin 3.7 Albumin/Globulin Ratio 1.0 25-OH Vitamin D Total < 12.8 L Complement C3 Complement C4 HIV 1&2 Antibody Screen Fingerstick Blood Sugar Results: 147 Review of Systems - Review of Systems All systems: reviewed and no additional remarkable complaints except (no complaints) Critical Care Progress Note - Nutrition Nutrition: Nutrition Category Date Time Status Renal Diet [DIET] Diets 04/27/18 Dinner Active Assessment/Plan - Assessment and Plan (Free Text) Assessment: patient is refusing to stay in the hospital. I explained to him that he needs to be setup for further dialysis, and that not doing so will endanger his life. I also explained that he needs a [employer] shunt placed for his communicating hydrocephalus. I advised him that it would be in his best interest to stay in the hospital and undergo these interventions for the safety of his health. He is alert and oriented x 3. The patient refused repeatedly and insistently. His is leaving A.
--- NOTE | 2018-04-28 15:36 | CP.PCM.DIS ---
Provider - Provider Date of Admission: 04/26/18 13:04 Attending physician: Paramjit Akins MD Time Spent in preparation of Discharge (in minutes): 45 Diagnosis - Discharge Diagnosis (1) Left against medical advice Status: Acute (2) DKA (diabetic ketoacidoses) Status: Acute (3) Acute on chronic renal failure Status: Acute (4) Anemia Status: Acute (5) Seizure Status: Acute Hospital Course - Lab Results Lab Results: Micro Results 04/27/18 05:49 Urine,Catheterized Urine Culture - Final No Growth (<1,000 CFU/ML) 04/26/18 14:57 Nose MRSA Culture (Admit) - Final MRSA NOT DETECTED 04/26/18 18:15 Blood-During Dialysis Blood Culture - Preliminary NO GROWTH AFTER 24 HOURS 04/26/18 18:15 Blood-During Dialysis Blood Culture - Preliminary NO GROWTH AFTER 24 HOURS Most Recent Lab Values WBC 7.4 K/uL (4.8-10.8) 04/28/18 06:24 RBC 3.21 Mil/uL (4.40-5.90) L 04/28/18 06:24 Hgb 7.9 g/dL (12.0-18.0) L 04/28/18 06:24 Hct 23.6 % (35.0-51.0) L 04/28/18 06:24 MCV 73.6 fL (80.0-94.0) L 04/28/18 06:24 MCH 24.5 pg (27.0-31.0) L 04/28/18 06:24 MCHC 33.3 g/dL (33.0-37.0) 04/28/18 06:24 RDW 17.3 % (11.5-14.5) H 04/28/18 06:24 Plt Count 270 K/uL (130-400) 04/28/18 06:24 MPV 8.3 fL (7.2-11.7) 04/28/18 06:24 Neut % (Auto) 65.0 % (50.0-75.0) 04/28/18 06:24 Lymph % (Auto) 20.0 % (20.0-40.0) 04/28/18 06:24 [place]ion % (Auto) 10.0 % (0.0-10.0) 04/28/18 06:24 Eos % (Auto) 5.0 % (0.0-4.0) H 04/28/18 06:24 Baso % (Auto) 0.0 % (0.0-2.0) 04/28/18 06:24 Neut # (Auto) 4.8 K/uL (1.8-7.0) 04/28/18 06:24 Lymph # (Auto) 1.5 K/uL (1.0-4.3) 04/28/18 06:24 Clarion # (Auto) 0.7 K/uL (0.0-0.8) 04/28/18 06:24 Eos # (Auto) 0.4 K/uL (0.0-0.7) 04/28/18 06:24 Baso # (Auto) 0.0 K/uL (0.0-0.2) 04/28/18 06:24 Neutrophils % (Manual) 80 % (50-75) H 04/26/18 20:46 Band Neutrophils % 1 % (0-2) 04/26/18 20:46 Lymphocytes % (Manual) 9 % (20-40) L 04/26/18 20:46 Monocytes % (Manual) 9 % (0-10) 04/26/18 20:46 Eosinophils % (Manual) 1 % (0-4) 04/26/18 20:46 Platelet Estimate Normal (NORMAL) 04/26/18 20:46 Hypochromasia (manual) Moderate 04/26/18 20:46 Microcytosis (manual) Slight 04/26/18 20:46 Roseline Cells Slight 04/26/18 20:46 Retic Count 1.5 % (0.5-1.5) 04/26/18 11:50 PT 11.7 SECONDS (9.7-12.2) 04/26/18 11:50 INR 1.1 04/26/18 11:50 APTT 47 SECONDS (21-34) H 04/26/18 11:50 pO2 28 mm/Hg (30-55) L 04/26/18 12:01 VBG pH 7.25 (7.32-7.43) L 04/26/18 12:01 VBG pCO2 32 mmHg (40-60) L 04/26/18 12:01 VBG HCO3 14.0 mmol/L 04/26/18 12:01 VBG Total CO2 15.0 mmol/L (22-28) L 04/26/18 12:01 VBG O2 Sat (Calc) 63.2 % (40-65) 04/26/18 12:01 VBG Base Excess -12.0 mmol/L (0.0-2.0) L 04/26/18 12:01 VBG Potassium 5.7 mmol/L (3.6-5.2) H 04/26/18 12:01 Sodium 130.0 mmol/l (132-148) L 04/26/18 12:01 Chloride 99.0 mmol/L (98-107) 04/26/18 12:01 Glucose 613 mg/dl (75-110) H* 04/26/18 12:01 Lactate 1.2 mmol/L (0.7-2.1) 04/26/18 12:01 Crit Value Called To Dr mell navarro 04/26/18 12:01 Crit Value Called By Marta castro weblogic developer 04/26/18 12:01 Crit Value Read Back Y 04/26/18 12:01 Blood Gas Notified Time 1210 04/26/18 12:01 Sodium 139 mmol/L (132-148) 04/28/18 06:24 Potassium 3.7 mmol/L (3.6-5.2) 04/28/18 06:24 Chloride 98 mmol/L (98-107) 04/28/18 06:24 Carbon Dioxide 28 mmol/L (22-30) 04/28/18 06:24 Anion Gap 17 (10-20) 04/28/18 06:24 BUN 24 mg/dL (9-20) H 04/28/18 06:24 Creatinine 4.6 mg/dL (0.8-1.5) H 04/28/18 06:24 Est GFR ( Amer) 17 04/28/18 06:24 Est GFR (Non-Af Amer) 14 04/28/18 06:24 POC Glucose (mg/dL) 247 mg/dL (65-110) H 04/28/18 07:34 Random Glucose 181 mg/dL (75-110) H 04/28/18 06:24 Hemoglobin A1c 11.2 % (4.2-6.5) H D 04/26/18 11:50 Serum Osmolality 360 mosm/kg (272-300) H 04/26/18 12:36 Calcium 8.5 mg/dl (8.6-10.4) L 04/28/18 06:24 Phosphorus 4.8 mg/dL (2.5-4.5) H 04/28/18 06:24 Magnesium 1.8 mg/dL (1.6-2.3) 04/28/18 06:24 Iron 42 ug/dL (49-181) L 04/26/18 13:14 TIBC 287 ug/dL (250-450) 04/26/18 13:14 % Saturation 15 (20-55) L 04/26/18 13:14 Ferritin 167.0 ng/mL 04/26/18 12:24 Total Bilirubin 0.6 mg/dL (0.2-1.3) 04/28/18 06:24 AST 49 U/L (17-59) 04/28/18 06:24 ALT 18 U/L (21-72) L 04/28/18 06:24 Alkaline Phosphatase 84 U/L (38-126) 04/28/18 06:24 Total Creatine Kinase 559 U/L (55-170) H 04/26/18 11:50 CK-MB (Mass) 3.89 ng/mL (0.0-3.38) H 04/26/18 11:50 Troponin I 0.0500 ng/mL (0.00-0.120) 04/26/18 11:50 Total Protein 7.2 g/dL (6.3-8.3) 04/28/18 06:24 Albumin 3.5 g/dL (3.5-5.0) 04/28/18 06:24 Globulin 3.7 gm/dL (2.2-3.9) 04/28/18 06:24 Albumin/Globulin Ratio 1.0 (1.0-2.1) 04/28/18 06:24 Triglycerides 185 mg/dL (0-149) H D 04/26/18 11:50 Cholesterol 245 mg/dL (0-199) H 04/26/18 11:50 LDL Cholesterol Direct 148 mg/dL (0-129) H 04/26/18 11:50 HDL Cholesterol 28 mg/dL (30-70) L 04/26/18 11:50 Vitamin B12 852 pg/mL (239-931) 04/26/18 12:24 25-OH Vitamin D Total < 12.8 NG/ML (30.0-100.0) L 04/28/18 06:24 Folate 11.2 ng/mL 04/26/18 12:24 Procalcitonin 0.48 NG/ML (0.19-0.49) 04/26/18 Unknown Venous Blood Potassium 5.7 mmol/L (3.6-5.2) H 04/26/18 12:01 Urine Color Yellow (YELLOW) 04/27/18 05:50 Urine Clarity Hazy (Clear) 04/27/18 05:50 Urine pH 6.0 (5.0-8.0) 04/27/18 05:50 Ur Specific Rufus 1.017 (1.003-1.030) 04/27/18 05:50 Urine Protein 3+ mg/dL (NEGATIVE) H 04/27/18 05:50 Urine Glucose (UA) 3+ mg/dL (Normal) H 04/27/18 05:50 Urine Ketones Trace mg/dL (NEGATIVE) 04/27/18 05:50 Urine Blood 2+ (NEGATIVE) H 04/27/18 05:50 Urine Nitrate Negative (NEGATIVE) 04/27/18 05:50 Urine Bilirubin Negative (NEGATIVE) 04/27/18 05:50 Urine Urobilinogen Normal mg/dL (0.2-1.0) 04/27/18 05:50 Ur Leukocyte Esterase Neg Jourdan/uL (Negative) 04/27/18 05:50 Urine WBC (Auto) 6 /hpf (0-5) H 04/27/18 05:50 Urine RBC (Auto) 62 /hpf (0-3) H 04/27/18 05:50 Ur Squamous Epith Cells < 1 /hpf (0-5) 04/27/18 05:50 Urine Bacteria Rare (<OCC) 04/27/18 05:50 Stool Occult Blood Positive (NEGATIVE) H 04/26/18 12:35 Urine Opiates Screen Negative (NEGATIVE) 04/27/18 05:50 Urine Methadone Screen Negative (NEGATIVE) 04/27/18 05:50 Ur Barbiturates Screen Negative (NEGATIVE) 04/27/18 05:50 Ur Phencyclidine Scrn Negative (NEGATIVE) 04/27/18 05:50 Ur Amphetamines Screen Negative (NEGATIVE) 04/27/18 05:50 U Benzodiazepines Scrn Negative (NEGATIVE) 04/27/18 05:50 U Oth Cocaine Metabols Negative (NEGATIVE) 04/27/18 05:50 U Cannabinoids Screen Positive (NEGATIVE) H 04/27/18 05:50 Alcohol, Quantitative < 10 mg/dl (0-10) 04/26/18 20:46 B-Hydroxybutyrate 1.93 mM (0.02-0.27) H 04/26/18 11:50 Complement C3 83.0 mg/dL (88.0-165.0) L 04/27/18 16:46 Complement C4 37.4 mg/dL (14.0-44.0) 04/27/18 16:46 Hep Bs Antigen Negative (NEGATIVE) 04/26/18 16:31 Hep Bs Antibody Negative (NEGATIVE) 04/26/18 16:31 Hepatitis C Antibody Negative (NEGATIVE) 04/26/18 16:31 HIV 1&2 Antibody Screen Negative (NEGATIVE) 04/27/18 16:46 H.influenzae Type B Ag Negative (NEGATIVE) 04/27/18 07:19 Ur L.pneumophila Ag Negative (NEGATIVE) 04/27/18 05:50 Mycoplasma pneumon IgM Negative (NEGATIVE) 04/26/18 20:46 N.meningitidis ACY/W135 Negative (NEGATIVE) 04/27/18 07:19 N.meningi B/E.coli K1 Ag Negative (NEGATIVE) 04/27/18 07:19 Group B Strep Antigen Negative (NEGATIVE) 04/27/18 07:19 S. pneumoniae Antigen Negative (NEGATIVE) 04/27/18 07:19 Blood Type O POSITIVE 04/26/18 11:50 Antibody Screen Negative 04/26/18 11:50 - Hospital Course Hospital Course: On Admission: Patient is a 43 year old male with PMHx of HTN, Uncontrolled Diabetes, ESRD ( first HD 3weeks ago), and recent CVA w/ Right sided residual weakness (3 weeks ago) who presents to ED c/o "not being able to move and feeling like I'm having a stroke." Critical care was consulted for management of encephalopathy, acute on chronic renal failure, DKA, anemia, possible GI bleed, and new focal seizures. History was obtained partially from patient and from previous medical records as patient not able to provide full history due to severity of clinical status. Patient reports that [place] [facility] [place]. During that stay he was started on hemodialysis and had 3 sessions, however patient eloped and missed the past 2 weeks of dialysis. He also states that he ran out of insulin 2 days ago. Pt complains of headache, nausea, vomiting, double vision, and increased R sided weakness. Denies chest pain, shortness of breath, diarrhea, abdominal pain, melena, and hematuria. During present admission, a code Stroke called in the ED at 11:43 for this patient. Per ER staff, patient had new onset seizure episode while in ED. Unable to obtain further history due to severity of clinical condition. Hospital Course: 43 year old male with PMHx of HTN, Uncontrolled Diabetes, ESRD (first HD 3weeks ago), and recent subdural/epidural hemorrhage w/ Right sided residual weakness ( 3 weeks ago) who presents admitted to ICU for encephalopathy, acute on chronic renal failure, DKA, anemia (hgb: 6.5), possible GI bleed, and new focal seizures. Patient recieved emergent dialysis on 04/26/18 and transfused 1unit of RBC. Hgb improved to 7.7. Neurology, Dr. Manzano, was consulted and evaluated patient. EEG, MRI brain, MRA neck, and MRA head were ordered. (results below). Patient was placed on anti- epileptic medication. Neurosurgery was consulted, Dr. Santos who recommended shunt placement. GI, Dr. Serrano was consulted who evaluated patient and recommended CT of abdomen and pelvis PO contrast, which patient refused. Out patient endoscopy was recommended. Dr. Castellon, nephrology, was consulted and followed patient during his stay. CT Head 04/26/18: dilatation of the 3rd and lateral ventricles without no dilatation of the 4th ventricle. Likely indicate a noncommunicating hydrocephalus although communicating hydrocephalus must also be considered. ( See full report.) CTA head/neck 04/26/18: no evidence of endoluminal thrombus, occlusion or definite significant stenosis in the intrcranial arteries. No evidence of hemodynamically significant stenosis in the ICAs. Patent bilateral vertebral arteries. The left vertebral artery is hypoplastic, an anatomic variant. Confluent airspace disease in the visualized upper lobes of the lungs concerning for multifocal pneumonia. (See full report.) MRI 04/27/18: Multifocal areas of hyperintense signal along the dural margin probably representing areas of epidural hemorrhage. The is a most pronounced along the left parietal lobe, left frontal lobe as well is the right frontoparietal lobe measuring up to 7 millimeters in thickness. There is also epidural hemorrhage along the right occipital lobe. Communicating hydrocephalus. Dilatation of the ventricles does raise the suspicion that this could represent subarachnoid hemorrhage. (See full report.) MRA neck 04/27/18: unremarkable (see full report) MRA head 04/27/18: unremarkable (see full report) EEG: f/u results CXR 04/26:bilateral opacities, right greater than left. Possible pnuemonia or aspiration. CXR 04/27: interval improvement in pulmonary edema. Residual mild pulmonary venous congestion. No focal consolidation. Patient is refusing to stay in the hospital. Dr. Altman explained that he needs to be setup for further dialysis, and that not doing so will endanger his life. It was also explained that he needs a SMALL ENGINE TECHNICIAN shunt placed for his communicating hydrocephalus, and that it would be in his best interest to stay in the hospital and undergo these interventions for the safety of his health. He is alert and oriented x 3. The patient refused repeatedly and insistently. He is leaving AMA. Patient refused to sign AMA form. Discharge Exam - Head Exam Head Exam: ATRAUMATIC, NORMOCEPHALIC - Additional Findings Additional findings: - Head Exam Head Exam: ATRAUMATIC, NORMOCEPHALIC - Eye Exam Eye Exam: EOMI. absent: Normal appearance (L eye with corneal opacity) - ENT Exam ENT Exam: Mucous Membranes Moist - Neck Exam Neck exam: Positive for: Full Rom, Normal Inspection - Respiratory Exam Respiratory Exam: Decreased Breath Sounds. absent: Rales, Rhonchi, Wheezes - Cardiovascular Exam Cardiovascular Exam: Regular rate, +S1, +S2 - GI/Abdominal Exam GI & Abdominal Exam: Normal Bowel Sounds, Soft. absent: Distended, Firm, Guarding, Tenderness - Extremities Exam Extremities exam: Negative for: joint swelling, pedal edema, tenderness - Neurological Exam Neurological exam: Pt awake, alert, oriented x3. Muscle strength 5/5 on L, 4+/5 on R. facial droop on R. - Skin Skin Exam: Dry, Normal Color, Warm. Permacath R chest without signs of infection. Discharge Plan - Follow Up Plan Condition: SERIOUS Disposition: AGAINST MEDICAL ADVICE
--- NOTE | 2018-04-28 18:30 | CARD ---
APPROVED REPORT Date of service: 04/27/2018 EXAM: Two-dimensional and M-mode echocardiogram with Doppler and color Doppler. Other Information Quality : GoodRhythm : INDICATION Pericardial Effusion Acute Renal Failure RISK FACTORS Diabetes 2D DIMENSIONS Left Atrium (2D)3.9 (1.6-4.0cm)IVSd1.3 (0.7-1.1cm) Aortic Root (2D)3.4 (2.0-3.7cm)LVDd5.6 (3.9-5.9cm) PWd1.3 (0.7-1.1cm)LA [id number] (18-58mL) LVDs4.4 (2.5-4.0cm)LVEF (%)43.0 (>50%) M-Mode DIMENSIONS IVSd1.20 (0.7-1.1cm)LVDd6.10 (4.0-5.6cm) PWd1.20 (0.7-1.1cm)LVDs4.70 (2.0-3.8cm) LVEF (%)46 (>50%) Mitral Valve E/A ratio0.0 TDI E/Lateral E'0.0E/Medial E'0.0 Tricuspid Valve RAP [id number] Peak [id number] LEFT VENTRICLE The left ventricle is normal size. There is normal left ventricular wall thickness. The left ventricular function is normal. The left ventricular ejection fraction is within the normal range. There is normal LV segmental wall motion. The left ventricular diastolic function is normal. RIGHT VENTRICLE The right ventricle is normal size. ATRIA The left atrium size is normal. The right atrium size is normal. AORTIC VALVE The aortic valve is normal in structure. MITRAL VALVE Mitral regurgitation is trace. TRICUSPID VALVE There is mild to moderate tricuspid regurgitation. <Conclusion> Normal LV systolic function. Normal chamber size. Trace MR. Mild to moderate TR. No significnat pericardial effusion seen.
--- NOTE | 2018-04-28 21:00 | CARD ---
APPROVED REPORT Date of service: 04/27/2018 EKG Measurement Heart [id number] <Conclusion> Normal sinus rhythm Left axis deviation Nonspecific T wave abnormality Prolonged QT Abnormal ECG
[2018-04-29 18:25] VITALS: O2SAT 100
[2018-05-01 17:05] LABS: ANCA SCREEN NEGATIVE (NEGATIVE)
--- NOTE | 2018-05-01 21:08 | CARD ---
APPROVED REPORT EKG Measurement Heart [id number] <Conclusion> Sinus tachycardia T wave abnormality, consider lateral ischemia Abnormal ECG
--- NOTE | 2018-05-01 21:13 | CARD ---
APPROVED REPORT EKG Measurement Heart [id number] ID [id number] <Conclusion> Normal sinus rhythm Possible Left atrial enlargement T wave abnormality, consider lateral ischemia Prolonged QT Abnormal ECG
== END 2018-04-28 11:30 | disposition left against medical advice (07) | DRG 637 ==
LOC: C.ER 11:23 → C.9E 13:04 → C.9I 13:33
PROVIDERS: ADMIT Internal Medicine; ATTEND Internal Medicine
PROC: 30233N1 Transfusion of Nonautologous Red Blood Cells into Peripheral Vein, Percutaneous Approach (ICD-10-PCS; principal; 2018-04-26)
PROC: 5A1D70Z Performance of Urinary Filtration, Intermittent, Less than 6 Hours Per Day (ICD-10-PCS; 2018-04-26)
DX: E11.10 Type 2 diabetes mellitus with ketoacidosis without coma (principal); G93.41 Metabolic encephalopathy; N18.6 End stage renal disease; G91.0 Communicating hydrocephalus; I12.0 Hypertensive chronic kidney disease with stage 5 chronic kidney disease or end stage renal disease; I16.1 Hypertensive emergency; I69.351 Hemiplegia and hemiparesis following cerebral infarction affecting right dominant side; N17.9 Acute kidney failure, unspecified; E11.22 Type 2 diabetes mellitus with diabetic chronic kidney disease; E86.0 Dehydration; E87.5 Hyperkalemia; Z91.14 Patient's other noncompliance with medication regimen; Z91.15 Patient's noncompliance with renal dialysis; Z79.4 Long term (current) use of insulin; Z99.2 Dependence on renal dialysis; R56.9 Unspecified convulsions; R29.810 Facial weakness; E11.21 Type 2 diabetes mellitus with diabetic nephropathy; D64.9 Anemia, unspecified; R19.5 Other fecal abnormalities